=== PATIENT | male | born 1955 | race Caucasian/White ===

== ENCOUNTER 2017-12-18 21:19 | Emergency (ER) | payer SELFPAY ==
--- NOTE | 2017-12-18 21:52 | EDM.PDOC ---
ED HPI GENERAL MEDICAL PROBLEM - General Chief Complaint: Laceration Stated Complaint: LEFT POINTER FINGER Time Seen by Provider: 12/18/17 21:52 Source of Information: Reports: Patient History Limitations: Reports: No Limitations - History of Present Illness INITIAL COMMENTS - FREE TEXT/NARRATIVE: HISTORY AND PHYSICAL: History of present illness: 82-year-old male presenting emergency department with chief complaint of laceration to left index finger. States that he was cleaning his knives after sharpening them when he inadvertently cut his left index finger. States the knives were very clean and he has had his tetanus in the last 5 years. He also requests not to have a tetanus shot today. Patient requested if at all we could close the wound without using sutures with possible glue or Steri-Strips is what he would prefer. Patient currently denies any allergies. There is a 1.5 cm vertical laceration to the left index finger. Wound is clean and straight. Review of systems: As per history of present illness and below otherwise all systems reviewed and negative. Past medical history: As per history of present illness and as reviewed below otherwise noncontributory. Surgical history: As per history of present illness and as reviewed below otherwise noncontributory. Social history: No reported history of drug or alcohol abuse. Family history: As per history of present illness and as reviewed below otherwise noncontributory. Physical exam: HEENT: Atraumatic, normocephalic, pupils reactive, negative for conjunctival pallor or scleral icterus, mucous membranes moist, throat clear, neck supple, nontender, trachea midline. Lungs: Clear to auscultation, breath sounds equal bilaterally, chest nontender. Heart: S1S2, regular, negative for clicks, rubs, or JVD. Abdomen: Soft, nondistended, nontender. Negative for masses or hepatosplenomegaly. Negative for costovertebral tenderness. Pelvis: Stable nontender. Genitourinary: Deferred. Rectal: Deferred. Extremities: Atraumatic, negative for cords or calf pain. Neurovascular unremarkable. Neuro: Awake, alert, oriented. Cranial nerves II through XII unremarkable. Cerebellum unremarkable. Motor and sensory unremarkable throughout. Exam nonfocal. Diagnostics: [] Therapeutics: Dermabond Impression: Laceration left index finger Plan: Area was cleaned thoroughly and secondary patient's recent tetabys patient did not receive Dtao. Also the area looks clean and patient actually requests that we do not give him antibiotics and I agree as patient most likely does not require them. I did instruct him to return emergency department immediately if he had any signs of infection including but not limited to increased swelling, pain, redness, or periodic drainage. We used Dermabond to successfully close wound. There were no complications and area was wrapped for discharge. - Related Data Allergies Allergy/AdvReac Type Severity Reaction Status Date / Time No Known Allergies Allergy Verified 12/18/17 21:55 Home Meds: Home Meds . [No Known Home Meds] 12/18/17 [History] ED ROS GENERAL - Review of Systems Review Of Systems: ROS reveals no pertinent complaints other than HPI. ED EXAM, SKIN/RASH Exam: See Below Course - Vital Signs Last Recorded V/S: Last Vital Signs Temp 97.8 F 12/18/17 21:52 Pulse 86 12/18/17 21:52 Resp 20 12/18/17 21:52 BP 168/86 H 12/18/17 21:52 Pulse Ox 94 L 12/18/17 21:52 - Orders/Labs/Meds Orders: Active Orders 24 hr Category Date Time Status Octyl 2-Cyanoacrylate [Dermabond Advance] Med 12/18/17 22:44 Once 1 applic TOP ONETIME ONE Departure - Departure Time of Disposition: 22:50 Disposition: Home, Self-Care 01 Condition: Good Clinical Impression: Laceration of index finger of left hand without complication Qualifiers: Encounter type: initial encounter Qualified Code(s): S61.211A - Laceration without foreign body of left index finger without damage to nail, initial encounter - Discharge Information Referrals: PCP,None [Primary Care Provider] - Forms: ED Department Discharge Additional Instructions: My general discharge The following information is given to patients seen in the emergency department who are being discharged to home. This information is to outline your options for follow-up care. We provide all patients seen in our emergency department with a follow-up referral. The need for follow-up, as well as the timing and circumstances, are variable depending upon the specifics of your emergency department visit. If you don't have a primary care physician on staff, we will provide you with a referral. We always advise you to contact your personal physician following an emergency department visit to inform them of the circumstance of the visit and for follow-up with them and/or the need for any referrals to a consulting specialist. The emergency department will also refer you to a specialist when appropriate. This referral assures that you have the opportunity for follow-up care with a specialist. All of these measure are taken in an effort to provide you with optimal care, which includes your follow-up. Under all circumstances we always encourage you to contact your private physician who remains a resource for coordinating your care. When calling for follow-up care, please make the office aware that this follow-up is from your recent emergency room visit. If for any reason you are refused follow-up, please contact the [facility] Emergency Department at and asked to speak to the emergency department charge nurse. [facility] Primary Care [address] [place] [id number] 1. Keep area clean and dry. 2. Watch for signs of infection including but not limited to increased swelling , redness, pain, or discharge. 3. May use Tylenol and ice for pain relief. 4. Return emergency department if any new or worsening symptoms. - My Orders Last 24 Hours: My Active Orders 12/18/17 22:44 Octyl 2-Cyanoacrylate [Dermabond Advance] 1 applic TOP ONETIME ONE - Assessment/Plan Last 24 Hours: My Active Orders 12/18/17 22:44 Octyl 2-Cyanoacrylate [Dermabond Advance] 1 applic TOP ONETIME ONE
[2017-12-18] MEDS ORDERED: Octyl 2-Cyanoacrylate 1 Tube TOP ONE (22:44)
== END 2017-12-18 23:15 | disposition home or self-care (01) ==
LOC: MW.ED 21:19
DX: S61.211A Laceration without foreign body of left index finger without damage to nail, initial encounter (principal); W26.0XXA Contact with knife, initial encounter
CPT/HCPCS: 12001; 99282; A9270

== ENCOUNTER 2021-05-27 14:48 | Emergency (ER) | payer MEDICARE, MEDICAID ==
[2021-05-27] MEDS ORDERED: Sodium Chloride 0.9% 10 ML Syringe FLUSH PRN (15:22)
[2021-05-27] MEDS ORDERED: Sodium Chloride 0.9% 2.5 ML Syringe FLUSH PRN (15:22)
--- NOTE | 2021-05-27 15:27 | EDM.PDOC ---
ED HPI GENERAL MEDICAL PROBLEM - General Chief Complaint: Respiratory Problem Stated Complaint: COUGH Time Seen by Provider: 05/27/21 14:54 Source of Information: Reports: Patient History Limitations: Reports: No Limitations - History of Present Illness INITIAL COMMENTS - FREE TEXT/NARRATIVE: HISTORY AND PHYSICAL: History of present illness: The patient is an 66-year-old male who presents to the emergency department with a cough since May 19. The patient states that his friend returned from [facility] with a limited cannabis drop. The patient currently smokes cannabis because of a previous basal cell carcinoma. The patient states that after he took this cannabis drop that he started coughing and having diarrhea. Patient states that he has been unable to smoke cannabis since May 19. The patient has been taking Ivermectin for prevention of Covid. Patient also has been taking a shot of gin along with tonic water for prevention of viruses. The patient also has been taking vitamin C for prevention of Covid. Patient has not been vaccinated for COVID-19. The patient states that he has never had COVID- 19. Patient denies any fever, chills, headache, change in vision, syncope or near syncope. Denies any back pain. Denies any abdominal pain, nausea, vomiting, constipation or dysuria. Has not noted any blood in urine or stool. Patient has been eating and drinking appropriately. Review of systems: As per history of present illness and below otherwise all systems reviewed and negative. Past medical history: As per history of present illness and as reviewed below otherwise noncontributory. Surgical history: As per history of present illness and as reviewed below otherwise noncontributory. Social history: See social history for further information Family history: As per history of present illness and as reviewed below otherwise noncontributory. Physical exam: General: Well developed and well nourished. Alert and orientated x 3. Nontoxic in appearance and in no acute distress. Vital signs are stable and have been reviewed by me. Nursing notes were reviewed. HEENT: Atraumatic, normocephalic, pupils equal and reactive bilaterally, negative for conjunctival pallor or scleral icterus, mucous membranes moist, TMs normal bilaterally, throat clear, neck supple, nontender, trachea midline. No drooling or trismus noted. No meningeal signs. No hot potato voice noted. Lungs: Clear to auscultation bilaterally. No wheezes, rales, or rhonchi. Chest nontender. Normal work of breathing, no accessory muscles used. Heart: S1S2, regular rate and rhythm without overt murmur, gallops, or rubs. No JVD. No peripheral edema Abdomen: Soft, nondistended, nontender. Normoactive bowel sounds. Negative for masses or costovertebral tenderness. Skin: Intact, warm, dry. No lesions or rashes noted. Hematologic: No petechiae or purpra. Mucosa appropriate color and normal nail bed color and refill. Extremities: Atraumatic, moves all extremities per self without difficulty or deficits, negative for cords or calf pain. Neurovascular unremarkable. Neuro: Awake, alert, oriented. Cranial nerves II through XII unremarkable. Cerebellum unremarkable. Motor and sensory unremarkable throughout. Exam nonfocal. Psychiatric: Mood and affect are appropriate. Normal thought process. Answering questions appropriately. Notes: *This patient was seen and evaluated during the 2019 SARS-CoV-2 novel coronavirus pandemic period. Community viral transmission is ongoing at time of this encounter and the emergency department is operating under pandemic response procedures. As stated above the patient is a 66-year-old male who presents to the emergency department with complaints of cough and diarrhea since May 19. The patient is associating this with taking a cannabis women drop from his friend who had visited from [place]. The patient has been taking Ivermectin to prevent Covid along with vitamin C. He has been drinking gin and tonic water to prevent viruses. The patient is tachycardic at around 107 along with his cough and slight tachypneic I will order a PE study. I will also order blood work, Covid/flu swab and an EKG. The patient is agreeable with this plan. The patient's EKG reveals atrial fib with a rate of 100. In reviewing the patient's chart he wore a Zio patch from October [id number] through November 142019 and was found to be in atrial fibrillation. The patient states that he had been put on blood thinners and a rate controlled medication, however, he decided that he did not like take those medications. He states that he flips in and out of atrial fibrillation and did not feel like he needs the medication. The patient's CBC is unremarkable. The patient is CMP is remarkable for a BUN of 26, glucose of 130, AST 67 and a C-reactive protein of 3. The patient's influenza swab is negative. The patient's Covid 19 swab is positive. The patient's chest CT Impression: 1. No pulmonary emboli. 2. Diffuse patchy ground- glass opacities likely reflecting COVID. The patient O2 saturation is averaging 96 to 97% on room air. The patient's heart rate continues to fluctuate between 90 and 106. The patient does not qualify for monoclonal antibodies as this is day 14. The patient understands this and I have educated him on when he needs to return to the emergency department for further treatment. 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 The patient verbalized again that he did not want any treatment for his atrial fibrillation. I have talked with the patient about today's findings, in addition to providing specific details for plan of care. Reassessment at the time of disposition demonstrates that the patient is in no acute distress. The patient is stable for discharge, counseling was provided and we discussed in great detail signs and symptoms that would prompt them to return to the Emergency Department. M edication, follow up and supportive care measures were reviewed and discussed. Voices understanding and is agreeable to plan of care. Denies any further questions or concerns at this time. Diagnostics: CBC, CMP, magnesium, CRP, EKG, Covid/flu swab, PE study Therapeutics: IV fluids Impression: COVID-19, atrial fibrillation 1. Your COVID-19 screening is positive. That means you do have the coronavirus and you are considered contagious. Your vital signs and oxygen saturation are well enough that you were able to monitor your symptoms at home. Continue to monitor for trouble breathing, new confusion or inability to arouse, bluish lips or face or any of the other symptoms we discussed -if this occurs please return to the emergency room. 1b. Blood work was normal. Your flu swab was negative. But your COVID-19 screening was positive. As we discussed obtain a finger oxygenation saturation monitor and if it drops below 90% please return to the emergency department. You do not qualify for monoclonal antibodies as you are over 10 days with your symptoms. Your EKG showed atrial fib. We discussed this and you had previously been on a blood thinner but you did not want to be put back on a blood thinner. At this time you stated that you did not want treatment of your atrial fib that you had it under control. We did discuss that you could have a stroke due to atrial fibrillation. You verbalized her understanding of that. I do advise you to follow-up with your primary care or a petrol tanker driver for treatment of your atrial fibrillation. If you have any chest pain or shortness of breath please come back to the emergency department. 2. Please self quarantine until cleared by [facility]. Inform any persons that you have been in contact with since you started becoming symptomatic that you have tested positive; they should be made aware and take the appropriate steps as needed. 3. You can take NyQuil during the evening to help get a restful night sleep. May alternate Tylenol and ibuprofen as needed for pain and fever management. 4. [facility] will be calling you and following up with you. The [employer] Hotline phone number , They are open Friday - Friday 7am - 7pm. Follow up with your primary care provider for re-evaluation and re-testing after the 10 day quarantine and discuss when you should be seen. Definitive disposition and diagnosis as appropriate pending reevaluation and review of above. - Related Data Allergies Allergy/AdvReac Type Severity Reaction Status Date / Time No Known Allergies Allergy Verified 05/27/21 15:00 Home Meds: Home Meds Albuterol Sulfate [Proair Respiclick] 2 puff .ROUTE DAILY 05/27/21 [History] Ivermectin 45 gm TP WEEKLY 05/27/21 [History] Past Medical History HEENT History: Reports: None Cardiovascular History: Reports: None Respiratory History: Reports: None Gastrointestinal History: Reports: None Genitourinary History: Reports: None Musculoskeletal History: Reports: None Neurological History: Reports: None Psychiatric History: Reports: None Endocrine/Metabolic History: Reports: None Hematologic History: Reports: None Immunologic History: Reports: None Oncologic (Cancer) History: Reports: None Dermatologic History: Reports: Eczema Other Dermatologic History: skin cancer behing left ear - Infectious Disease History Infectious Disease History: Reports: None - Past Surgical History Head Surgeries/Procedures: Reports: None Male Surgical History: Reports: None Social & Family History - Family History Family Medical History: No Pertinent Family History - Tobacco Use Tobacco Use Status *Q: Never Tobacco User - Caffeine Use Caffeine Use: Reports: Coffee - Recreational Drug Use Recreational Drug Use: Yes Recreational Drug Type: Reports: Marijuana/Hashish Recreational Drug Use Frequency: Daily ED ROS GENERAL - Review of Systems Review Of Systems: Comprehensive ROS is negative, except as noted in HPI. ED EXAM, GENERAL - Physical Exam Exam: See Below (See dictation) Course - Vital Signs Last Recorded V/S: Last Vital Signs Temp 97.8 F 05/27/21 15:03 Pulse 93 05/27/21 17:35 Resp 17 05/27/21 17:35 BP 119/79 05/27/21 17:35 Pulse Ox 94 L 05/27/21 17:35 - Orders/Labs/Meds Orders: Active Orders 24 hr Category Date Time Status PE Chest [Ang Chest] [CT] Stat Exams 05/27/21 15:22 Taken Saline Lock Insert [OM.PC] Stat Oth 05/27/21 15:21 Ordered Labs: Laboratory Tests 05/27/21 05/27/21 05/27/21 Range/Units 15:42 15:42 15:42 WBC 5.76 (4.0-11.0) K/uL RBC 4.80 (4.50-5.90) M/uL Hgb 15.7 (13.0-17.0) g/dL Hct 44.8 (38.0-50.0) % MCV 93.3 (80.0-98.0) fL MCH 32.7 H (27.0-32.0) pg MCHC 35.0 (31.0-37.0) g/dL RDW Std Deviation 48.2 (28.0-62.0) fl RDW Coeff of Arnulfo 14 (11.0-15.0) % Plt Count 93 L (150-400) K/uL MPV 10.70 (7.40-12.00) fL Neut % (Auto) 78.8 (48.0-80.0) % Lymph % (Auto) 8.5 L (16.0-40.0) % [place] % (Auto) 12.5 (0.0-15.0) % Eos % (Auto) 0.0 (0.0-7.0) % Baso % (Auto) 0.2 (0.0-1.5) % Neut # (Auto) 4.5 (1.4-5.7) K/uL Lymph # (Auto) 0.5 L (0.6-2.4) K/uL [place] # (Auto) 0.7 (0.0-0.8) K/uL Eos # (Auto) 0.0 (0.0-0.7) K/uL Baso # (Auto) 0.0 (0.0-0.1) K/uL Nucleated RBC % 0.0 /100WBC Nucleated RBCs # 0 K/uL Sodium 139 (136-148) mmol/L Potassium 5.0 (3.5-5.1) mmol/L Chloride 102 (98-107) mmol/L Carbon Dioxide 26.2 (21.0-32.0) mmol/L BUN 26 H (7.0-18.0) mg/dL Creatinine 1.2 (0.8-1.3) mg/dL Est Cr Clr Drug Dosing 60.83 mL/min Estimated GFR (MDRD) > 60.0 ml/min Glucose 130 H (74-106) mg/dL Calcium 8.6 (8.5-10.1) mg/dL Magnesium 2.4 (1.8-2.4) mg/dL Total Bilirubin 0.6 (0.2-1.0) mg/dL AST 67 H (15-37) IU/L ALT 33 (14-63) IU/L Alkaline Phosphatase 53 (46-116) U/L C-Reactive Protein 3.00 H (0.00-0.90) mg/dL Total Protein 8.2 (6.4-8.2) g/dL Albumin 3.7 (3.4-5.0) g/dL Globulin 4.5 H (2.6-4.0) g/dL Albumin/Globulin Ratio 0.8 L (0.9-1.6) Influenza Type A RNA NEGATIVE (NEGATIVE) Influenza Type B RNA NEGATIVE (NEGATIVE) SARS-CoV-2 RNA (BELINDA) POSITIVE H (NEGATIVE) Meds: Medications Discontinued Medications Generic Name Dose Route Start Last Admin Trade Name Freq PRN Reason Stop Dose Admin Sodium Chloride 500 mls @ 500 mls/hr 05/27/21 16:02 05/27/21 16:15 Normal Saline IV 05/27/21 17:01 500 mls/hr .BOLUS STA Administration Iopamidol 100 ml 05/27/21 17:28 11/28/21 17:29 Iopamidol 755 Mg/Ml 500 Ml Multipack Bottle IVPUSH 05/27/21 17:29 100 ml ONETIME ONE Administration Sodium Chloride 10 ml 05/27/21 15:22 05/27/21 15:47 Sodium Chloride 0.9% 10 Ml Syringe FLUSH 10 ml ASDIRECTED PRN Administration Keep Vein Open Sodium Chloride 2.5 ml 05/27/21 15:22 05/27/21 15:47 Sodium Chloride 0.9% 2.5 Ml Syringe FLUSH 2.5 ml ASDIRECTED PRN Administration Keep Vein Open Departure - Departure Time of Disposition: 17:32 Disposition: Home, Self-Care 01 Condition: Good Clinical Impression: COVID-19 Atrial fibrillation Qualifiers: Atrial fibrillation type: unspecified Qualified Code(s): I48.91 - Unspecified atrial fibrillation - Discharge Information *PRESCRIPTION DRUG MONITORING PROGRAM REVIEWED*: Not Applicable *COPY OF PRESCRIPTION DRUG MONITORING REPORT IN PATIENT MUR[place]ZA: Not Applicable Instructions: COVID-19 Frequently Asked Questions, COVID-19: What to Do If You Are Sick- [facility] (09/13/2020) Referrals: PCP,None [Primary Care Provider] - Forms: ED Department Discharge Additional Instructions: The following information is given to patients seen in the emergency department who are being discharged to home. This information is to outline your options for follow-up care. We provide all patients seen in our emergency department with a follow-up referral. The need for follow-up, as well as the timing and circumstances, are variable depending upon the specifics of your emergency department visit. If you don't have a primary care physician on staff, we will provide you with a referral. We always advise you to contact your personal physician following an emergency department visit to inform them of the circumstance of the visit and for follow-up with them and/or the need for any referrals to a consulting specialist. The emergency department will also refer you to a specialist when appropriate. This referral assures that you have the opportunity for follow-up care with a specialist. All of these measure are taken in an effort to provide you with optimal care, which includes your follow-up. Under all circumstances we always encourage you to contact your private physician who remains a resource for coordinating your care. When calling for follow-up care, please make the office aware that this follow-up is from your recent emergency room visit. If for any reason you are refused follow-up, please contact the [facility] Emergency Department at and asked to speak to the emergency department charge nurse. [facility] - Primary Care [address] [place] [address] [facility] [address] [place] [address] 1. Your COVID-19 screening is positive. That means you do have the coronavirus and you are considered contagious. Your vital signs and oxygen saturation are well enough that you were able to monitor your symptoms at home. Continue to monitor for trouble breathing, new confusion or inability to arouse, bluish lips or face or any of the other symptoms we discussed -if this occurs please return to the emergency room. 1b. Blood work was normal. Your flu swab was negative. But your COVID-19 screening was positive. As we discussed obtain a finger oxygenation saturation monitor and if it drops below 90% please return to the emergency department. You do not qualify for monoclonal antibodies as you are over 10 days with your symptoms. Your EKG showed atrial fib. We discussed this and you had previously been on a blood thinner but you did not want to be put back on a blood thinner. At this time you stated that you did not want treatment of your atrial fib that you had it under control. We did discuss that you could have a stroke due to atrial fibrillation. You verbalized her understanding of that. I do advise you to follow-up with your primary care or a petrol tanker driver for treatment of your atrial fibrillation. If you have any chest pain or shortness of breath please come back to the emergency department. 2. Please self quarantine until cleared by [facility] Department. Inform any persons that you have been in contact with since you started becoming symptomatic that you have tested positive; they should be made aware and take the appropriate steps as needed. 3. You can take NyQuil during the evening to help get a restful night sleep. May alternate Tylenol and ibuprofen as needed for pain and fever management. 4. The [facility] department will be calling you and following up with you. The [place] COVID 19 Hotline phone number , They are open Friday - Friday 7am - 7pm. Follow up with your primary care provider for re-evaluation and re-testing after the 10 day quarantine and discuss when you should be seen. Sepsis Event Note (ED) - Evaluation Sepsis Screening Result: Possible Sepsis Risk - Focused Exam Vital Signs: Vital Signs Temp Pulse Resp BP Pulse Ox 05/27/21 17:35 93 17 119/79 94 L 05/27/21 17:03 91 17 126/82 91 L 05/27/21 16:17 89 17 139/85 92 L 05/27/21 15:03 97.8 F 107 H 22 H 109/76 92 L - My Orders Last 24 Hours: My Active Orders 05/27/21 15:21 Saline Lock Insert [OM.PC] Stat 05/27/21 15:22 PE Chest [Ang Chest] [CT] Stat - Assessment/Plan Last 24 Hours: My Active Orders 05/27/21 15:21 Saline Lock Insert [OM.PC] Stat 05/27/21 15:22 PE Chest [Ang Chest] [CT] Stat
[2021-05-27] MEDS ORDERED: Sodium Chloride 0.9% 500 ML IV STA (16:02)
[2021-05-27 16:12] LABS: BLOOD UREA NITROGEN,BUN 26 mg/dL (7.0-18.0); CARBON DIOXIDE,CO2 26.2 mmol/L (21.0-32.0); CHLORIDE,CL 102 mmol/L (98-107); GLUCOSE RANDOM 130 mg/dL (74-106); SODIUM,NA 139 mmol/L (136-148)
[2021-05-27 16:30] LABS: CORONAVIRUS COVID-19 NAA POSITIVE (NEGATIVE); INFLUENZA A NAA NEGATIVE (NEGATIVE); INFLUENZA B NAA NEGATIVE (NEGATIVE)
--- NOTE | 2021-05-27 17:02 | CR ---
INDICATION: Shortness of breath. TECHNIQUE: One view of the chest. COMPARISON: Chest radiograph 09/21/2019. FINDINGS: Mild enlargement of the cardiac silhouette. Normal mediastinal silhouette. Hazy bilateral opacities in the mid lungs. No consolidation, pleural effusion or pneumothorax. Degenerative changes at the right AC joint. IMPRESSION: Hazy bilateral pulmonary opacities are suspicious for infection. Dictated by Casi Nicole MD @ 05/27/2021 5:00:18 PM (Electronically Signed)
[2021-05-27] MEDS ORDERED: Iopamidol 755 MG/ML 500 ML Multipack Bottle IVPUSH ONE (17:28)
--- NOTE | 2021-05-27 18:05 | PCM.EKG ---
#1 Interpretation EKG Date: 05/27/21 Time: 15:32 Rhythm: NSR Rate (Beats/Min): 100 ST-T: Normal
--- NOTE | 2021-05-27 18:09 | CT ---
Indication: Shortness breath tachycardia Technique: Contrast CT angio with 100 mL Isovue 370 Comparison: No comparison Findings: Normal caliber thoracic aorta. No pulmonary emboli. Size is normal there is no pericardial effusion. Diffuse patchy ground-glass opacities most likely reflecting COVID. No effusion. Small hiatal hernia. No suspicious bony lesions. Impression: 1. No pulmonary emboli. 2. Diffuse patchy ground-glass opacities likely reflecting COVID. Please note that all CT scans at this facility use dose modulation, iterative reconstruction, and/or weight-based dosing when appropriate to reduce radiation dose to as low as reasonably achievable. Dictated by Kay Dozier MD @ 05/27/2021 5:56:52 PM (Electronically Signed)
== END 2021-05-27 17:44 | disposition home or self-care (01) ==
LOC: MW.ED 14:48
DX: U07.1 COVID-19 (principal); I48.91 Unspecified atrial fibrillation
CPT/HCPCS: 0240U; 36415; 71045; 71275; 80053; 83735; 85025; 86140; 93005; 99285; J7040; Q9967

== ENCOUNTER 2021-06-02 02:12 | Inpatient (IN) | payer MEDICARE, MEDICAID ==
[2021-06-02 03:12] LABS: BLOOD UREA NITROGEN,BUN 25 mg/dL (7.0-18.0); CARBON DIOXIDE,CO2 22.9 mmol/L (21.0-32.0); CHLORIDE,CL 98 mmol/L (98-107); GLUCOSE RANDOM 149 mg/dL (74-106); POTASSIUM,K 4.4 mmol/L (3.5-5.1); SODIUM,NA 133 mmol/L (136-148)
[2021-06-02] MEDS ORDERED: Iopamidol 755 MG/ML 500 ML Multipack Bottle IVPUSH ONE (03:16)
[2021-06-02 03:30] LABS: CORONAVIRUS COVID-19 NAA POSITIVE (NEGATIVE); INFLUENZA A NAA NEGATIVE (NEGATIVE); INFLUENZA B NAA NEGATIVE (NEGATIVE); RESPIRATORY SYNCYTIAL VIR NAA NEGATIVE (NEGATIVE)
--- NOTE | 2021-06-02 03:33 | PCM.EKG ---
#1 Interpretation EKG Date: 06/02/21 Time: 02:14 Rhythm: A-Fib Rate (Beats/Min): 97 Broughton: LAD-Left Broughton Deviation P-Wave: Absent QRS: Normal ST-T: Normal QT: Normal Comparison: No Change (05/27/21) EKG Interpretation Comments: Atrial Fibrillation
[2021-06-02] MEDS ORDERED: Lactated Ringers 1,000 ML IV SCH (04:45)
--- NOTE | 2021-06-02 05:22 | EDM.PDOC ---
ED HPI GENERAL MEDICAL PROBLEM - General Chief Complaint: Respiratory Problem Stated Complaint: DIFFICULTY BREATHING Time Seen by Provider: 06/02/21 02:16 - History of Present Illness INITIAL COMMENTS - FREE TEXT/NARRATIVE: CHIEF COMPLAINT(S): Shortness of breath HISTORY OF PRESENT ILLNESS: This is a 66-year-old man with a reported past medical history of atrial fibrillation who presents to the emergency department as a medical resuscitation via EMS with chief complaint of shortness of breath. Per EMS: Upon arrival the patient was saturating approximately 77% on room air. They state that they placed him on nonrebreather and his oxygen saturation did improve to 94%. Patient states that he was diagnosed with COVID-19 on 2021-05-27. He states that since that time he has had increased shortness of breath since that time. He states he does have a cough which is nonproductive. And he reported some chest pain earlier to EMS however that has since resolved. The patient denies any history of CAD, CHF, recent travel, recent surgery, prior history of DVT or PE. He states that the chest pain was located throughout his entire chest without any radiation however it is since resolved. Resolving factors are uncertain but he currently reports 0 out of 10 pain. There were no exacerbating factors. He has not yet tried anything for the pain. He states that for Covid he has been taking ivermectin which he got from [employer]. He states that he also was using marijuana for pain given his history of basal cell carcinoma. He denies any other symptoms. REVIEW OF SYSTEMS: Constitutional: Denies fever, chills. Eyes: Denies eye pain Ears, Nose, Mouth, & Throat: Denies earache Cardiovascular: Positive for chest pain. Denies lower extremity swelling Respiratory: Positive for shortness of breath and nonproductive cough Gastrointestinal: Denies Nausea, vomiting, diarrhea, hematochezia. Genitourinary: Denies hematuria Skin:Denies a rash Neurological: Denies blurred vision Psychiatric: Denies depression PAST MEDICAL HISTORY: As per history of present illness and as reviewed below otherwise noncontributory. SURGICAL HISTORY: As per history of present illness and as reviewed below otherwise noncontributory. SOCIAL HISTORY: As per history of present illness and as reviewed below otherwise noncontributory. FAMILY HISTORY: As per history of present illness and as reviewed below otherwise noncontributory. EXAMINATION OF ORGAN SYSTEMS/BODY AREAS: VITALS: Blood pressure is 138/92, heart rate 89, respiratory rate 19 with an oxygen saturation of 96% on 15 L nonrebreather. Temperature 36.7 GENERAL: Obese gentleman who appears to be in a moderate amount of respiratory distress HEAD: Normocephalic, atraumatic. EYES: EOMs intact. PERRL. ENT. External ears WNL. Nares patent. Oropharynx is clear with no erythema or exudate. No uvular or tongue swelling. NECK: Supple, no masses. Trachea is midline. LUNGS: Patient is tachypneic with clear auscultation bilaterally. No wheezing, rales, rhonchi. Patient is speaking in full sentences.. CARDIOVASCULAR: Regular rate and rhythm with S1-S2. No murmur, rubs or gallops. No edema. No JVD. ABDOMEN: Soft, non-distended, non-tender. Bowel sounds present in all 4 quadrants. No rebound tenderness, guarding, or peritoneal signs. MUSCULOSKELETAL: No deformity. Patient is moving all 4 limbs spontaneously. NEUROLOGICAL: Alert and oriented x 3. No focal neurological deficits noted. SKIN: No rashes, or pallor. No signs of injury. MEDICAL DECISION MAKING AND COURSE IN THE ED WITH INTERPRETATION/REVIEW OF DIAGNOSTIC STUDIES: This is a 66-year-old man with a past medical history of atrial fibrillation and recent diagnosis of COVID-19 who presents to the emergency department as a medical resuscitation via EMS with a chief complaint of shortness of breath who is profoundly hypoxic on EMS arrival who is saturating 96% on nonrebreather. Cardiac monitoring at this time did reveal sinus rhythm and pulse oximetry was 96% with good waveform. At this time we did obtain a screening EKG which was unremarkable. At this time we will undergo a cardiac work-up including CT angiogram of the chest to evaluate for pulmonary embolism. Patient is able to speak thus displaying a patent airway, breath sounds are equal bilaterally and the patient had pulses in all 4 extremities. DDX: Pneumonia, COVID-19 pneumonia, pulmonary embolism Laboratory: CBC is unremarkable. CMP reveals hyponatremia 133, mild elevation of BUN at 25, hyperglycemia at 149, mild elevation in AST at 97 and hypoalbuminemia at 2.8. Covid is positive. TSH is normal. Lactic acid is 4.4 likely secondary to the degree of hypoxia prior to arrival. The radiological images were viewed by myself along with reading the report from the radiologist. CT angiogram of the chest reveals scattered small pulmonary emboli bilaterally mostly involving the segmental and subsegmental branches. No evidence of saddle embolus with borderline elevated RV to LV ratio. There is extensive bilateral groundglass airspace disease presumably relating to COVID-19 pneumonia. After imaging I did reevaluate the patient. The patient is currently saturating 88% on 15 L nonrebreather. He is tachypneic at this time but is still speaking in full sentences. I did discuss the results with the patient. At this time we will provide the patient with remdesivir, dexamethasone and start the patient on a heparin drip given the bilateral pulmonary emboli. He was amenable to this plan. We also contacted respiratory therapy and they will come in place the patient on high flow nasal cannula. At this time I did discuss admission with the patient. He was amenable to this plan. I contacted hospitalist Dr. Hayes who accepted the patient for admission DISPOSITION: Admission CONDITION: Serious PROCEDURES: Cardiac monitoring interpretation, pulse oximetry interpretation FINAL IMPRESSION(S)/DIAGNOSES: 1. Acute hypoxic respiratory failure secondary to COVID-19 pneumonia and pu lmonary emboli 2. Acute bilateral pulmonary emboli 3. Acute lactic acidosis likely secondary to #1 and #2 Critical Care Procedure Note Authorized and performed by: Luis Cobb M.D. Critical Care Time: 125 minutes Due to a high probability of clinically significant, life threatening deterioration, the patient required my highest level of preparedness to intervene emergently and I personally spent this critical care time directly and personally managing the patient. This critical care time included obtaining a history, examining the patient, pulse oximetry; ordering and review of studies; arranging urgent treatment with development of a management plan; evaluation of a patients reponse to treatment; frequent assessment; and discussions with other providers. This critical care time was performed to assess and manage the high probability of imminent, life threatening deterioration that could result in multiorgan failure. It was exclusive of separate billable procedures and treati ng other patients. Please see MDM section and rest of the note for further information on patient assessment and treatment. Please see MDM section and rest of the note for further information on patient assessment and treatment. - Related Data Allergies Allergy/AdvReac Type Severity Reaction Status Date / Time No Known Allergies Allergy Verified 06/02/21 02:39 Home Meds: Home Meds Albuterol Sulfate [Proair Respiclick] 2 puff .ROUTE DAILY 05/27/21 [History] Ivermectin 45 gm TP WEEKLY 05/27/21 [History] Past Medical History HEENT History: Reports: None Cardiovascular History: Reports: None Respiratory History: Reports: None Gastrointestinal History: Reports: None Genitourinary History: Reports: None Musculoskeletal History: Reports: None Neurological History: Reports: None Psychiatric History: Reports: None Endocrine/Metabolic History: Reports: None Hematologic History: Reports: None Immunologic History: Reports: None Oncologic (Cancer) History: Reports: None Dermatologic History: Reports: Eczema Other Dermatologic History: skin cancer behing left ear - Infectious Disease History Infectious Disease History: Reports: None - Past Surgical History Head Surgeries/Procedures: Reports: None Male Surgical History: Reports: None Social & Family History - Family History Family Medical History: No Pertinent Family History - Tobacco Use Tobacco Use Status *Q: Former Tobacco User Used Tobacco, but Quit: Yes Month/Year Tobacco Last Used: 1985 - Caffeine Use Caffeine Use: Reports: Coffee - Recreational Drug Use Recreational Drug Type: Reports: Marijuana/Hashish ED ROS GENERAL - Review of Systems Review Of Systems: See Below ED EXAM, GENERAL - Physical Exam Exam: See Below Course - Vital Signs Last Recorded V/S: Last Vital Signs Temp 36.7 C 06/02/21 02:40 Pulse 93 06/02/21 05:00 Resp 16 06/02/21 05:00 BP 117/68 06/02/21 05:00 Pulse Ox 92 L 06/02/21 05:00 - Orders/Labs/Meds Orders: Active Orders 24 hr Category Date Time Status Cardiac Monitoring [RC] . DIRECTED Care 06/02/21 02:18 Active Pulse Oximetry [RC] ASDIRECTED Care 06/02/21 02:18 Active PTT,PARTIAL THROMBOPLSTIN TIME [COAG] Q6H Lab 06/02/21 05:45 Ordered PTT,PARTIAL THROMBOPLSTIN TIME [COAG] Q6H Lab 06/02/21 11:45 Ordered PTT,PARTIAL THROMBOPLSTIN TIME [COAG] Q6H Lab 06/02/21 17:45 Ordered PTT,PARTIAL THROMBOPLSTIN TIME [COAG] Q6H Lab 06/02/21 23:45 Ordered PTT,PARTIAL THROMBOPLSTIN TIME [COAG] Q6H Lab 06/03/21 05:45 Ordered PTT,PARTIAL THROMBOPLSTIN TIME [COAG] Q6H Lab 06/03/21 11:45 Ordered PTT,PARTIAL THROMBOPLSTIN TIME [COAG] Q6H Lab 06/03/21 17:45 Ordered PTT,PARTIAL THROMBOPLSTIN TIME [COAG] Stat Lab 06/02/21 02:32 Received REFLEX LACTIC ACID YES OR NO [CHEM] Routine Lab 06/02/21 03:13 Received Heparin Sodium/0.45% NaCl [Heparin 25,000 Units in 1/2 Med 06/02/21 05:45 Active NS 500 ML] 500 ml IV TITRATE Lactated Ringers [Ringers, Lactated] 1,000 ml Med 06/02/21 04:45 Active IV ASDIRECTED Medication Orders Lactated Ringer's (Ringers, Lactated) 1,000 mls @ 999 mls/hr IV ASDIRECTED TODD Last Admin: 06/02/21 04:43 Dose: 999 mls/hr Documented by: STRUALA Heparin Sodium/Sodium Chloride (Heparin 25,000 Units In 1/2 Ns 500 Ml) 500 mls @ 40.823 mls/hr IV TITRATE TODD; Protocol Labs: Laboratory Tests 06/02/21 06/02/21 06/02/21 Range/Units 02:32 02:32 02:32 WBC 9.05 (4.0-11.0) K/uL RBC 4.64 (4.50-5.90) M/uL Hgb 15.0 (13.0-17.0) g/dL Hct 42.2 (38.0-50.0) % MCV 90.9 (80.0-98.0) fL MCH 32.3 H (27.0-32.0) pg MCHC 35.5 (31.0-37.0) g/dL RDW Std Deviation 45.8 (28.0-62.0) fl RDW Coeff of Arnulfo 14 (11.0-15.0) % Plt Count 172 (150-400) K/uL MPV 9.70 (7.40-12.00) fL Add Manual Diff YES Neutrophils % (Manual) 90 H (48.0-80.0) % Lymphocytes % (Manual) 7 L (16.0-40.0) % Monocytes % (Manual) 3 (0.0-15.0) % Nucleated RBC % 0.0 /100WBC Absolute Seg Neuts 8.1 H (1.4-5.7) Lymphocytes # (Manual) 0.6 (0.6-2.4) Monocytes # (Manual) 0.3 (0.0-0.8) Nucleated RBCs # 0 K/uL INR 1.17 Sodium 133 L (136-148) mmol/L Potassium 4.4 (3.5-5.1) mmol/L Chloride 98 (98-107) mmol/L Carbon Dioxide 22.9 (21.0-32.0) mmol/L BUN 25 H (7.0-18.0) mg/dL Creatinine 1.1 (0.8-1.3) mg/dL Est Cr Clr Drug Dosing 68.45 mL/min Estimated GFR (MDRD) > 60.0 ml/min Glucose 149 H (74-106) mg/dL Lactic Acid (0.4-2.0) mmol/L Calcium 8.4 L (8.5-10.1) mg/dL Total Bilirubin 0.8 (0.2-1.0) mg/dL AST 97 H (15-37) IU/L ALT 56 (14-63) IU/L Alkaline Phosphatase 86 (46-116) U/L Troponin I < 0.050 (0.000-0.056) ng/mL Total Protein 7.3 (6.4-8.2) g/dL Albumin 2.8 L (3.4-5.0) g/dL Globulin 4.5 H (2.6-4.0) g/dL Albumin/Globulin Ratio 0.6 L (0.9-1.6) TSH, Ultra Sensitive 1.00 (0.36-3.74) uIU/mL Influenza Type A RNA (NEGATIVE) RSV RNA (INAAT) (NEGATIVE) Influenza Type B RNA (NEGATIVE) SARS-CoV-2 RNA (BELINDA) (NEGATIVE) 06/02/21 06/02/21 Range/Units 02:32 02:34 WBC (4.0-11.0) K/uL RBC (4.50-5.90) M/uL Hgb (13.0-17.0) g/dL Hct (38.0-50.0) % MCV (80.0-98.0) fL MCH (27.0-32.0) pg MCHC (31.0-37.0) g/dL RDW Std Deviation (28.0-62.0) fl RDW Coeff of Arnulfo (11.0-15.0) % Plt Count (150-400) K/uL MPV (7.40-12.00) fL Add Manual Diff Neutrophils % (Manual) (48.0-80.0) % Lymphocytes % (Manual) (16.0-40.0) % Monocytes % (Manual) (0.0-15.0) % Nucleated RBC % /100WBC Absolute Seg Neuts (1.4-5.7) Lymphocytes # (Manual) (0.6-2.4) Monocytes # (Manual) (0.0-0.8) Nucleated RBCs # K/uL INR Sodium (136-148) mmol/L Potassium (3.5-5.1) mmol/L Chloride (98-107) mmol/L Carbon Dioxide (21.0-32.0) mmol/L BUN (7.0-18.0) mg/dL Creatinine (0.8-1.3) mg/dL Est Cr Clr Drug Dosing mL/min Estimated GFR (MDRD) ml/min Glucose (74-106) mg/dL Lactic Acid 4.4 H* (0.4-2.0) mmol/L Calcium (8.5-10.1) mg/dL Total Bilirubin (0.2-1.0) mg/dL AST (15-37) IU/L ALT (14-63) IU/L Alkaline Phosphatase (46-116) U/L Troponin I (0.000-0.056) ng/mL Total Protein (6.4-8.2) g/dL Albumin (3.4-5.0) g/dL Globulin (2.6-4.0) g/dL Albumin/Globulin Ratio (0.9-1.6) TSH, Ultra Sensitive (0.36-3.74) uIU/mL Influenza Type A RNA NEGATIVE (NEGATIVE) RSV RNA (INAAT) NEGATIVE (NEGATIVE) Influenza Type B RNA NEGATIVE (NEGATIVE) SARS-CoV-2 RNA (BELINDA) POSITIVE H (NEGATIVE) Meds: Medications Generic Name Dose Route Start Last Admin Trade Name Jef PRN Reason Stop Dose Admin Lactated Ringer's 1,000 mls @ 999 mls/hr 06/02/21 04:45 06/02/21 04:43 Ringers, Lactated IV 999 mls/hr ASDIRECTED TODD Administration Heparin Sodium/Sodium Chloride 500 mls @ 40.823 mls/hr 06/02/21 05:45 Heparin 25,000 Units In 1/2 Ns 500 Ml IV TITRATE TODD Protocol 18 UNITS/KG/HR Discontinued Medications Generic Name Dose Route Start Last Admin Trade Name Jef PRN Reason Stop Dose Admin Dexamethasone 6 mg 06/02/21 05:26 06/02/21 05:33 Dexamethasone 4 Mg Tab PO 06/02/21 05:27 6 mg ONETIME ONE Administration Heparin Sodium (Porcine) 5,000 units 06/02/21 05:35 06/02/21 05:46 Heparin Sodium 5,000 Units/Ml Vial IVPUSH 06/02/21 05:36 5,000 units .BOLUS ONE Administration Protocol Remdesivir 200 mg/ Sodium 250 mls @ 250 mls/hr 06/02/21 05:25 Chloride IV 06/02/21 05:26 ONETIME ONE Heparin Sodium/Sodium Chloride Confirm 06/02/21 05:45 06/02/21 05:49 Heparin 25,000 Units In 1/2 Ns 500 Ml Administered 06/02/21 05:46 Not Given Dose 500 mls @ as directed .ROUTE .STK-MED ONE Iopamidol 100 ml 06/02/21 03:16 06/02/21 03:43 Iopamidol 755 Mg/Ml 500 Ml Multipack Bottle IVPUSH 06/02/21 03:17 100 ml ONETIME ONE Administration Departure - Departure Time of Disposition: 05:55 Disposition: Admitted As Inpatient 64 Condition: Serious Clinical Impression: COVID-19, Pulmonary embolism - Discharge Information Sepsis Event Note (ED) - Focused Exam Vital Signs: Vital Signs Temp Pulse Resp BP Pulse Ox 06/02/21 05:00 93 16 117/68 92 L 06/02/21 04:00 91 18 133/101 H 94 L 06/02/21 02:40 36.7 C 89 19 138/92 H 96 - My Orders Last 24 Hours: My Active Orders 06/02/21 02:18 Cardiac Monitoring [RC] . DIRECTED Pulse Oximetry [RC] ASDIRECTED 06/02/21 02:32 PTT,PARTIAL THROMBOPLSTIN TIME [COAG] Stat 06/02/21 03:13 REFLEX LACTIC ACID YES OR NO [CHEM] Routine 06/02/21 04:45 Lactated Ringers [Ringers, Lactated] 1,000 ml IV ASDIRECTED 06/02/21 05:45 PTT,PARTIAL THROMBOPLSTIN TIME [COAG] Q6H Heparin Sodium/0.45% NaCl [Heparin 25,000 Units in 1/2 NS 500 ML] 500 ml IV TITRATE 06/02/21 11:45 PTT,PARTIAL THROMBOPLSTIN TIME [COAG] Q6H 06/02/21 17:45 PTT,PARTIAL THROMBOPLSTIN TIME [COAG] Q6H 06/02/21 23:45 PTT,PARTIAL THROMBOPLSTIN TIME [COAG] Q6H 06/03/21 05:45 PTT,PARTIAL THROMBOPLSTIN TIME [COAG] Q6H 06/03/21 11:45 PTT,PARTIAL THROMBOPLSTIN TIME [COAG] Q6H 06/03/21 17:45 PTT,PARTIAL THROMBOPLSTIN TIME [COAG] Q6H - Assessment/Plan Last 24 Hours: My Active Orders 06/02/21 02:18 Cardiac Monitoring [RC] . DIRECTED Pulse Oximetry [RC] ASDIRECTED 06/02/21 02:32 PTT,PARTIAL THROMBOPLSTIN TIME [COAG] Stat 06/02/21 03:13 REFLEX LACTIC ACID YES OR NO [CHEM] Routine 06/02/21 04:45 Lactated Ringers [Ringers, Lactated] 1,000 ml IV ASDIRECTED 06/02/21 05:45 PTT,PARTIAL THROMBOPLSTIN TIME [COAG] Q6H Heparin Sodium/0.45% NaCl [Heparin 25,000 Units in 1/2 NS 500 ML] 500 ml IV TITRATE 06/02/21 11:45 PTT,PARTIAL THROMBOPLSTIN TIME [COAG] Q6H 06/02/21 17:45 PTT,PARTIAL THROMBOPLSTIN TIME [COAG] Q6H 06/02/21 23:45 PTT,PARTIAL THROMBOPLSTIN TIME [COAG] Q6H 06/03/21 05:45 PTT,PARTIAL THROMBOPLSTIN TIME [COAG] Q6H 06/03/21 11:45 PTT,PARTIAL THROMBOPLSTIN TIME [COAG] Q6H 06/03/21 17:45 PTT,PARTIAL THROMBOPLSTIN TIME [COAG] Q6H
[2021-06-02] MEDS ORDERED: REMDESIVIR 200 MG in Sodium Chloride 0.9% 250 ML IV ONE (05:25)
[2021-06-02] MEDS ORDERED: Dexamethasone 4 MG Tab PO ONE (05:26)
--- NOTE | 2021-06-02 05:34 | CT ---
INDICATION: Chest pain, shortness of breath, caught positive TECHNIQUE: Contrast enhanced axial CT imaging through the chest, optimized for assessment of the pulmonary arterial tree. 100 mL Isovue 370 contrast agent was administered intravenously. Sagittal and coronal reconstructions are provided. COMPARISON: None FINDINGS: There is adequate opacification of the pulmonary arterial tree. There are scattered small distal pulmonary emboli bilaterally, mostly involving segmental and subsegmental branches. The main pulmonary artery is mildly enlarged. RV: LV ratio is borderline elevated at 0.9. The heart is normal in size. There is no pericardial effusion. The thoracic aorta is normal in caliber. There is extensive bilateral ground-glass airspace disease. There is no pleural effusion or pneumothorax. Mediastinal lymphadenopathy is presumably reactive. The thoracic osseous structures are unremarkable. There is a small hiatal hernia. The visualized upper abdomen is otherwise unremarkable. IMPRESSION: 1. Scattered small pulmonary emboli bilaterally, mostly involving segmental and subsegmental branches. No saddle embolus. Borderline elevated RV: LV ratio. 2. Extensive bilateral ground-glass airspace disease, presumably relating to changes of COVID-19 pneumonia. Please note that all CT scans at this facility use dose modulation, iterative reconstruction, and/or weight-based dosing when appropriate to reduce radiation dose to as low as reasonably achievable. Dictated by Deyanira Abad MD @ 06/02/2021 5:32:54 AM (Electronically Signed)
[2021-06-02] MEDS ORDERED: Heparin Sodium 5,000 Units/ML Vial IVPUSH ONE ×2 (05:35→13:09)
[2021-06-02] MEDS ORDERED: Heparin Sodium/0.45% NaCl 500 ML ONE (05:45)
[2021-06-02] MEDS: Heparin Sodium/0.45% NaCl 500 ML IV SCH (05:54)
--- NOTE | 2021-06-02 09:08 | PCM.HP.2 ---
<Andry Yates - Last Filed: 06/02/21 14:06> H&P History of Present Illness - General Date of Service: 06/02/21 Admit Problem/Dx: Admission Diagnosis/Problem Admission Diagnosis/Problem Respiratory failure - History of Present Illness Initial Comments - Free Text/Narative: The patient is a 66-year-old male, on day 1 of service, who has a significant past medical history of atrial fibrillation which is rate controlled and untreated with medication, and skin cancer of the hands, who was admitted to the intensive care unit due to COVID-19 pneumonia and bilateral pulmonary emboli. Upon interview with the patient today he admits that on 05/27 he was diagnosed with COVID-19 pneumonia but did not require oxygen at the time and started ivermectin treatments. On 05/30 the patient started to develop shortness of breath and increased respiratory difficulty which was associated with a nonproductive cough. He also complains of occasional chest discomfort which started centrally but is felt at each side of the sternum. He denies any radiation of this chest pain, neck pain, diaphoresis, jaw pain, hemoptysis, and palpitations. In regards to the patient's social history, he denies smoking and alcohol consumption, but admits to daily cannabis use, 1 g smoked. His family history is noncontributory. He has no known drug allergies. Upon entry to the emergency department he was saturating 77% on room air. Currently he is on CPAP with an O2 flow rate of 10, FiO2 of 60, and saturating at 93%. On CBC, his white blood cell count is 9.05, hemoglobin is 15, hematocrit is 42.2 , and platelet count is 172. On CMP, his sodium is 133, potassium is 4.4, chloride is 98, carbon dioxide is 22.9, BUN is 25, creatinine is 1.1. His INR is 1.17, and his EKG showed atrial fibrillation with a regular rate. On CTA, he has small distal pulmonary emboli bilaterally in the segmental branc hes, his main pulmonary artery is enlarged, there is extensive bilateral ground glass opacities. In the emergency department he was given dexamethasone, heparin 5000 units, remdesivir per IV route 200 mg, and was started on a heparin drip at 25,000 units in half-normal saline. He also had the above tests done including a CBC, CMP, INR, EKG, and CTA. - Related Data Allergies/Adverse Reactions: Allergies Allergy/AdvReac Type Severity Reaction Status Date / Time No Known Allergies Allergy Verified 06/02/21 15:43 Home Medications: Home Meds Albuterol Sulfate [Proair Respiclick] 2 puff .ROUTE DAILY 05/27/21 [History] Ivermectin 45 gm TP WEEKLY 05/27/21 [History] Past Medical History HEENT History: Reports: None Cardiovascular History: Reports: None Respiratory History: Reports: None Gastrointestinal History: Reports: None Genitourinary History: Reports: None Musculoskeletal History: Reports: None Neurological History: Reports: None Psychiatric History: Reports: None Endocrine/Metabolic History: Reports: None Hematologic History: Reports: None Immunologic History: Reports: None Oncologic (Cancer) History: Reports: None Dermatologic History: Reports: Eczema Other Dermatologic History: skin cancer behing left ear - Infectious Disease History Infectious Disease History: Reports: None - Past Surgical History Head Surgeries/Procedures: Reports: None Male Surgical History: Reports: None Social & Family History - Family History Family Medical History: No Pertinent Family History - Tobacco Use Tobacco Use Status *Q: Former Tobacco User Used Tobacco, but Quit: Yes Month/Year Tobacco Last Used: 1985 - Caffeine Use Caffeine Use: Reports: Coffee - Recreational Drug Use Recreational Drug Type: Reports: Marijuana/Hashish H&P Review of Systems - Review of Systems: Review Of Systems: See Below General: Reports: Fatigue. Denies: Fever, Chills HEENT: Denies: Headaches, Sore Throat Pulmonary: Reports: Shortness of Breath, Wheezing, Cough Cardiovascular: Reports: Chest Pain. Denies: Palpitations Gastrointestinal: Denies: Abdominal Pain, Vomiting Genitourinary: Denies: Dysuria Musculoskeletal: Denies: Arm Pain Exam - Exam Exam: See Below - Vital Signs Vital Signs: Last Vital Signs Temp 97.7 F 06/02/21 08:00 Pulse 84 06/02/21 06:06 Resp 14 06/02/21 08:00 BP 117/68 06/02/21 08:00 Pulse Ox 97 06/02/21 08:00 Weight: 249 lb 1.957 oz - Exam General: Alert, Oriented, Cooperative HEENT: Other (Dry mucous membranes) Neck: Trachea Midline Lungs: Wheezing Cardiovascular: Regular Rate, Irregular Rhythm. No: Regular Rhythm GI/Abdominal Exam: Normal Bowel Sounds, Soft, Non-Tender Extremities: No Pedal Edema, Other (The patient has darkened spots on the extensor surfaces of both knees, and on both palmar and dorsal parts of hands) - Patient Data Lab Results Last 24 hrs: Laboratory Results - last 24 hr 06/02/21 06/02/21 06/02/21 Range/Units 02:32 02:32 02:32 WBC 9.05 (4.0-11.0) K/uL RBC 4.64 (4.50-5.90) M/uL Hgb 15.0 (13.0-17.0) g/dL Hct 42.2 (38.0-50.0) % MCV 90.9 (80.0-98.0) fL MCH 32.3 H (27.0-32.0) pg MCHC 35.5 (31.0-37.0) g/dL RDW Std Deviation 45.8 (28.0-62.0) fl RDW Coeff of Arnulfo 14 (11.0-15.0) % Plt Count 172 (150-400) K/uL MPV 9.70 (7.40-12.00) fL Add Manual Diff YES Neutrophils % (Manual) 90 H (48.0-80.0) % Lymphocytes % (Manual) 7 L (16.0-40.0) % Monocytes % (Manual) 3 (0.0-15.0) % Nucleated RBC % 0.0 /100WBC Absolute Seg Neuts 8.1 H (1.4-5.7) Lymphocytes # (Manual) 0.6 (0.6-2.4) Monocytes # (Manual) 0.3 (0.0-0.8) Nucleated RBCs # 0 K/uL INR 1.17 APTT (18.6-31.3) SEC Sodium 133 L (136-148) mmol/L Potassium 4.4 (3.5-5.1) mmol/L Chloride 98 (98-107) mmol/L Carbon Dioxide 22.9 (21.0-32.0) mmol/L BUN 25 H (7.0-18.0) mg/dL Creatinine 1.1 (0.8-1.3) mg/dL Est Cr Clr Drug Dosing 68.45 mL/min Estimated GFR (MDRD) > 60.0 ml/min Glucose 149 H (74-106) mg/dL Lactic Acid (0.4-2.0) mmol/L Calcium 8.4 L (8.5-10.1) mg/dL Total Bilirubin 0.8 (0.2-1.0) mg/dL AST 97 H (15-37) IU/L ALT 56 (14-63) IU/L Alkaline Phosphatase 86 (46-116) U/L Troponin I < 0.050 (0.000-0.056) ng/mL Total Protein 7.3 (6.4-8.2) g/dL Albumin 2.8 L (3.4-5.0) g/dL Globulin 4.5 H (2.6-4.0) g/dL Albumin/Globulin Ratio 0.6 L (0.9-1.6) TSH, Ultra Sensitive 1.00 (0.36-3.74) uIU/mL Urine Color Urine Appearance Urine pH (5.0-8.0) Ur Specific [place] (1.001-1.035) Urine Protein (NEGATIVE) mg/dL Urine Glucose (UA) (NEGATIVE) mg/dL Urine Ketones (NEGATIVE) mg/dL Urine Occult Blood (NEGATIVE) Urine Nitrite (NEGATIVE) Urine Bilirubin (NEGATIVE) Urine Urobilinogen (<2.0) EU/dL Ur Leukocyte Esterase (NEGATIVE) Urine RBC (0-2/HPF) Urine WBC (0-5/HPF) Ur Epithelial Cells (NONE-FEW) Urine Bacteria (NEGATIVE) Influenza Type A RNA (NEGATIVE) RSV RNA (INAAT) (NEGATIVE) Influenza Type B RNA (NEGATIVE) SARS-CoV-2 RNA (BELINDA) (NEGATIVE) 06/02/21 06/02/21 06/02/21 Range/Units 02:32 02:32 02:34 WBC (4.0-11.0) K/uL RBC (4.50-5.90) M/uL Hgb (13.0-17.0) g/dL Hct (38.0-50.0) % MCV (80.0-98.0) fL MCH (27.0-32.0) pg MCHC (31.0-37.0) g/dL RDW Std Deviation (28.0-62.0) fl RDW Coeff of Arnulfo (11.0-15.0) % Plt Count (150-400) K/uL MPV (7.40-12.00) fL Add Manual Diff Neutrophils % (Manual) (48.0-80.0) % Lymphocytes % (Manual) (16.0-40.0) % Monocytes % (Manual) (0.0-15.0) % Nucleated RBC % /100WBC Absolute Seg Neuts (1.4-5.7) Lymphocytes # (Manual) (0.6-2.4) Monocytes # (Manual) (0.0-0.8) Nucleated RBCs # K/uL INR APTT 29.4 (18.6-31.3) SEC Sodium (136-148) mmol/L Potassium (3.5-5.1) mmol/L Chloride (98-107) mmol/L Carbon Dioxide (21.0-32.0) mmol/L BUN (7.0-18.0) mg/dL Creatinine (0.8-1.3) mg/dL Est Cr Clr Drug Dosing mL/min Estimated GFR (MDRD) ml/min Glucose (74-106) mg/dL Lactic Acid 4.4 H* (0.4-2.0) mmol/L Calcium (8.5-10.1) mg/dL Total Bilirubin (0.2-1.0) mg/dL AST (15-37) IU/L ALT (14-63) IU/L Alkaline Phosphatase (46-116) U/L Troponin I (0.000-0.056) ng/mL Total Protein (6.4-8.2) g/dL Albumin (3.4-5.0) g/dL Globulin (2.6-4.0) g/dL Albumin/Globulin Ratio (0.9-1.6) TSH, Ultra Sensitive (0.36-3.74) uIU/mL Urine Color Urine Appearance Urine pH (5.0-8.0) Ur Specific [place] (1.001-1.035) Urine Protein (NEGATIVE) mg/dL Urine Glucose (UA) (NEGATIVE) mg/dL Urine Ketones (NEGATIVE) mg/dL Urine Occult Blood (NEGATIVE) Urine Nitrite (NEGATIVE) Urine Bilirubin (NEGATIVE) Urine Urobilinogen (<2.0) EU/dL Ur Leukocyte Esterase (NEGATIVE) Urine RBC (0-2/HPF) Urine WBC (0-5/HPF) Ur Epithelial Cells (NONE-FEW) Urine Bacteria (NEGATIVE) Influenza Type A RNA NEGATIVE (NEGATIVE) RSV RNA (INAAT) NEGATIVE (NEGATIVE) Influenza Type B RNA NEGATIVE (NEGATIVE) SARS-CoV-2 RNA (BELINDA) POSITIVE H (NEGATIVE) 06/02/21 Range/Units 07:40 WBC (4.0-11.0) K/uL RBC (4.50-5.90) M/uL Hgb (13.0-17.0) g/dL Hct (38.0-50.0) % MCV (80.0-98.0) fL MCH (27.0-32.0) pg MCHC (31.0-37.0) g/dL RDW Std Deviation (28.0-62.0) fl RDW Coeff of Arnulfo (11.0-15.0) % Plt Count (150-400) K/uL MPV (7.40-12.00) fL Add Manual Diff Neutrophils % (Manual) (48.0-80.0) % Lymphocytes % (Manual) (16.0-40.0) % Monocytes % (Manual) (0.0-15.0) % Nucleated RBC % /100WBC Absolute Seg Neuts (1.4-5.7) Lymphocytes # (Manual) (0.6-2.4) Monocytes # (Manual) (0.0-0.8) Nucleated RBCs # K/uL INR APTT (18.6-31.3) SEC Sodium (136-148) mmol/L Potassium (3.5-5.1) mmol/L Chloride (98-107) mmol/L Carbon Dioxide (21.0-32.0) mmol/L BUN (7.0-18.0) mg/dL Creatinine (0.8-1.3) mg/dL Est Cr Clr Drug Dosing mL/min Estimated GFR (MDRD) ml/min Glucose (74-106) mg/dL Lactic Acid (0.4-2.0) mmol/L Calcium (8.5-10.1) mg/dL Total Bilirubin (0.2-1.0) mg/dL AST (15-37) IU/L ALT (14-63) IU/L Alkaline Phosphatase (46-116) U/L Troponin I (0.000-0.056) ng/mL Total Protein (6.4-8.2) g/dL Albumin (3.4-5.0) g/dL Globulin (2.6-4.0) g/dL Albumin/Globulin Ratio (0.9-1.6) TSH, Ultra Sensitive (0.36-3.74) uIU/mL Urine Color YELLOW Urine Appearance CLEAR Urine pH 6.0 (5.0-8.0) Ur Specific [place] 1.020 (1.001-1.035) Urine Protein 100 H (NEGATIVE) mg/dL Urine Glucose (UA) NEGATIVE (NEGATIVE) mg/dL Urine Ketones NEGATIVE (NEGATIVE) mg/dL Urine Occult Blood SMALL H (NEGATIVE) Urine Nitrite NEGATIVE (NEGATIVE) Urine Bilirubin NEGATIVE (NEGATIVE) Urine Urobilinogen 0.2 (<2.0) EU/dL Ur Leukocyte Esterase NEGATIVE (NEGATIVE) Urine RBC 0-2 (0-2/HPF) Urine WBC 0-2 (0-5/HPF) Ur Epithelial Cells RARE (NONE-FEW) Urine Bacteria RARE (NEGATIVE) Influenza Type A RNA (NEGATIVE) RSV RNA (INAAT) (NEGATIVE) Influenza Type B RNA (NEGATIVE) SARS-CoV-2 RNA (BELINDA) (NEGATIVE) Result Diagrams: 06/02/21 02:32 06/02/21 02:32 Sepsis Event Note - Evaluation Sepsis Screening Result: Severe Sepsis Risk - Focused Exam Vital Signs: Vital Signs Temp Pulse Resp BP Pulse Ox 06/02/21 08:00 97.7 F 14 117/68 97 06/02/21 07:00 17 119/70 91 L 06/02/21 06:06 84 21 H 149/97 H 92 L 06/02/21 05:15 88 L 06/02/21 05:00 93 16 117/68 92 L 06/02/21 04:00 91 18 133/101 H 94 L 06/02/21 02:40 98.0 F 89 19 138/92 H 96 - Problem List (1) COVID-19 SNOMED Code(s): 907145715 ICD Code: U07.1 - COVID-19 Status: Acute Current Visit: Yes (2) Pulmonary embolism SNOMED Code(s): 60830266 ICD Code: I26.99 - OTHER PULMONARY EMBOLISM WITHOUT ACUTE COR PULMONALE Status: Acute Current Visit: Yes (3) Atrial fibrillation SNOMED Code(s): 45160389 ICD Code: I48.91 - UNSPECIFIED ATRIAL FIBRILLATION Status: Acute Current Visit: No Qualifiers: Atrial fibrillation type: unspecified Qualified Code(s): I48.91 - Unspecified atrial fibrillation Problem List Initiated/Reviewed/Updated: Yes Orders Last 24hrs: Active Orders 24 hr Category Date Time Status Admission Status [Patient Status] [ADT] Stat ADT 06/02/21 05:39 Active Cardiac Monitoring [RC] . DIRECTED Care 06/02/21 02:18 Active Supplemental O2 [Oxygen Therapy] [RC] ASDIRECTED Care 06/02/21 07:17 Active LACTIC ACID [CHEM] Routine Lab 06/02/21 08:05 Received PTT,PARTIAL THROMBOPLSTIN TIME [COAG] Q6H Lab 06/02/21 11:45 Ordered PTT,PARTIAL THROMBOPLSTIN TIME [COAG] Q6H Lab 06/02/21 17:45 Ordered PTT,PARTIAL THROMBOPLSTIN TIME [COAG] Q6H Lab 06/02/21 23:45 Ordered PTT,PARTIAL THROMBOPLSTIN TIME [COAG] Q6H Lab 06/03/21 05:45 Ordered PTT,PARTIAL THROMBOPLSTIN TIME [COAG] Q6H Lab 06/03/21 11:45 Ordered PTT,PARTIAL THROMBOPLSTIN TIME [COAG] Q6H Lab 06/03/21 17:45 Ordered Heparin Sodium/0.45% NaCl [Heparin 25,000 Units in 1/2 Med 06/02/21 05:45 Active NS 500 ML] 500 ml IV TITRATE Lactated Ringers [Ringers, Lactated] 1,000 ml Med 06/02/21 04:45 Active IV ASDIRECTED Medication Orders Lactated Ringer's (Ringers, Lactated) 1,000 mls @ 999 mls/hr IV ASDIRECTED TODD Last Admin: 06/02/21 04:43 Dose: 999 mls/hr Documented by: SAÚL Heparin Sodium/Sodium Chloride (Heparin 25,000 Units In 1/2 Ns 500 Ml) 500 mls @ 40.823 mls/hr IV TITRATE TODD; Protocol Last Admin: 06/02/21 05:54 Dose: 11.5 units/kg/hr, 26.082 mls/hr Documented by: SAÚL Cosigned by: MANSRUF Assessment/Plan Comment:: Admit the patient to the intensive care unit, vitals per unit routine, activity up ad ramón., heart healthy diet, GI prophylaxis with pantoprazole 40 mg once a day, DVT prophylaxis with sequential compression devices, the patient is full code 1. COVID-19 pneumonia -The patient was started on remdesivir 200 mg per IV route in the ED, we will carry forth with the same medication 100 mg per IV route 24 hours after this, 4 bags to be given collectively over 4 days -Start dexamethasone 6 mg per oral route daily -For shortness of breath give Combivent -For cough initiate Robitussin -Wean oxygen as appropriate, patient is currently on CPAP, O2 flow rate of 10, FiO2 of 60, currently saturating at 93% -We will encourage incentive spirometry in the prone position 2. Bilateral pulmonary emboli -The patient is currently on a heparin drip of 25,000 units in half-normal saline 3. Atrial fibrillation rate controlled -We have a monitoring manager in place and will treat the patient as events occur <Anish Hayes - Last Filed: 06/03/21 13:20> H&P History of Present Illness - General Admit Problem/Dx: Admission Diagnosis/Problem Admission Diagnosis/Problem Respiratory failure Exam - Vital Signs Vital Signs: Last Vital Signs Temp 96.8 F L 06/03/21 12:00 Pulse 84 06/02/21 06:06 Resp 34 H 06/03/21 12:00 BP 112/73 06/03/21 12:00 Pulse Ox 87 L 06/03/21 12:00 - Patient Data Lab Results Last 24 hrs: Laboratory Results - last 24 hr 06/02/21 06/02/21 06/03/21 Range/Units 17:48 23:45 06:38 WBC (4.0-11.0) K/uL RBC (4.50-5.90) M/uL Hgb (13.0-17.0) g/dL Hct (38.0-50.0) % MCV (80.0-98.0) fL MCH (27.0-32.0) pg MCHC (31.0-37.0) g/dL RDW Std Deviation (28.0-62.0) fl RDW Coeff of Arnulfo (11.0-15.0) % Plt Count (150-400) K/uL MPV (7.40-12.00) fL Neut % (Auto) (48.0-80.0) % Lymph % (Auto) (16.0-40.0) % [place] % (Auto) (0.0-15.0) % Eos % (Auto) (0.0-7.0) % Baso % (Auto) (0.0-1.5) % Neut # (Auto) (1.4-5.7) K/uL Lymph # (Auto) (0.6-2.4) K/uL [place] # (Auto) (0.0-0.8) K/uL Eos # (Auto) (0.0-0.7) K/uL Baso # (Auto) (0.0-0.1) K/uL Nucleated RBC % /100WBC Nucleated RBCs # K/uL APTT 64.2 H 63.6 H 66.2 H (18.6-31.3) SEC Sodium (136-148) mmol/L Potassium (3.5-5.1) mmol/L Chloride (98-107) mmol/L Carbon Dioxide (21.0-32.0) mmol/L BUN (7.0-18.0) mg/dL Creatinine (0.8-1.3) mg/dL Est Cr Clr Drug Dosing mL/min Estimated GFR (MDRD) ml/min Glucose (74-106) mg/dL Calcium (8.5-10.1) mg/dL Total Bilirubin (0.2-1.0) mg/dL AST (15-37) IU/L ALT (14-63) IU/L Alkaline Phosphatase (46-116) U/L Total Protein (6.4-8.2) g/dL Albumin (3.4-5.0) g/dL Globulin (2.6-4.0) g/dL Albumin/Globulin Ratio (0.9-1.6) 06/03/21 06/03/21 Range/Units 06:38 06:38 WBC 11.05 H (4.0-11.0) K/uL RBC 4.41 L (4.50-5.90) M/uL Hgb 14.0 (13.0-17.0) g/dL Hct 40.4 (38.0-50.0) % MCV 91.6 (80.0-98.0) fL MCH 31.7 (27.0-32.0) pg MCHC 34.7 (31.0-37.0) g/dL RDW Std Deviation 46.2 (28.0-62.0) fl RDW Coeff of Arnulfo 14 (11.0-15.0) % Plt Count 213 (150-400) K/uL MPV 10.70 (7.40-12.00) fL Neut % (Auto) 91.5 H (48.0-80.0) % Lymph % (Auto) 6.1 L (16.0-40.0) % [place] % (Auto) 2.3 (0.0-15.0) % Eos % (Auto) 0.0 (0.0-7.0) % Baso % (Auto) 0.1 (0.0-1.5) % Neut # (Auto) 10.1 H (1.4-5.7) K/uL Lymph # (Auto) 0.7 (0.6-2.4) K/uL [place] # (Auto) 0.3 (0.0-0.8) K/uL Eos # (Auto) 0.0 (0.0-0.7) K/uL Baso # (Auto) 0.0 (0.0-0.1) K/uL Nucleated RBC % 0.0 /100WBC Nucleated RBCs # 0 K/uL APTT (18.6-31.3) SEC Sodium 137 (136-148) mmol/L Potassium 4.4 (3.5-5.1) mmol/L Chloride 103 (98-107) mmol/L Carbon Dioxide 24.4 (21.0-32.0) mmol/L BUN 28 H (7.0-18.0) mg/dL Creatinine 0.9 (0.8-1.3) mg/dL Est Cr Clr Drug Dosing 83.67 mL/min Estimated GFR (MDRD) > 60.0 ml/min Glucose 91 (74-106) mg/dL Calcium 8.3 L (8.5-10.1) mg/dL Total Bilirubin 0.8 (0.2-1.0) mg/dL AST 85 H (15-37) IU/L ALT 48 (14-63) IU/L Alkaline Phosphatase 110 (46-116) U/L Total Protein 7.2 (6.4-8.2) g/dL Albumin 2.5 L (3.4-5.0) g/dL Globulin 4.7 H (2.6-4.0) g/dL Albumin/Globulin Ratio 0.5 L (0.9-1.6) Result Diagrams: 06/03/21 06:38 06/03/21 06:38 Sepsis Event Note - Focused Exam Vital Signs: Vital Signs Temp Resp BP Pulse Ox 06/03/21 12:00 96.8 F L 34 H 112/73 87 L 06/03/21 11:00 30 H 113/71 90 L 06/03/21 10:00 31 H 145/67 H 90 L 06/03/21 09:00 25 H 140/76 85 L 06/03/21 08:00 97.7 F 27 H 137/89 94 L 06/03/21 07:00 19 111/74 90 L 06/03/21 06:00 19 115/78 92 L 06/03/21 05:00 27 H 124/77 90 L 06/03/21 04:00 97.8 F 19 112/79 88 L 06/03/21 03:00 19 111/81 92 L 06/03/21 02:00 16 115/75 90 L Problem List Initiated/Reviewed/Updated: Yes Orders Last 24hrs: Active Orders 24 hr Category Date Time Status CBC WITH AUTO DIFF [HEME] AM Lab 06/04/21 05:11 Ordered CBC WITH AUTO DIFF [HEME] AM Lab 06/05/21 05:11 Ordered CMP [COMPREHENSIVE METABOLIC PN,CMP] [CHEM] AM Lab 06/04/21 05:11 Ordered CMP [COMPREHENSIVE METABOLIC PN,CMP] [CHEM] AM Lab 06/05/21 05:11 Ordered PTT,PARTIAL THROMBOPLSTIN TIME [COAG] Routine Lab 06/04/21 05:00 Ordered Baricitinib [Olumiant] Med 06/02/21 15:30 Active 4 mg PO DAILY LORazepam [Ativan] Med 06/02/21 23:39 Active 1 mg IVPUSH Q6H PRN Morphine Med 06/02/21 22:10 Active 2 mg IVPUSH Q4H PRN Remdesivir 100 mg Med 06/03/21 06:00 Active Sodium Chloride 0.9% [Normal Saline AdvBag] 100 ml IV Q24H dexAMETHasone Med 06/03/21 06:00 Active 6 mg PO Q24H dexmedeTOMIDine in 0.9 % NaCL [Precedex] 400 mcg Med 06/02/21 22:15 Active Premix Bag 1 bag IV TITRATE Medication Orders Albuterol/Ipratropium (Albuterol/Ipratropium 4 Gm Inhalation [place]) 1 gm INH Q4HRRT PRN PRN Reason: Dyspnea Last Admin: 06/03/21 09:02 Dose: 1 puff Documented by: PEDRO PABLO Admin: 06/02/21 13:00 Dose: 1 puff Documented by: PEDRO PABLO Baricitinib (Baricitinib 2 Mg Tab) 4 mg PO DAILY [facility] Last Admin: 06/03/21 08:39 Dose: 4 mg Documented by: PEDRO PABLO Admin: 06/02/21 15:42 Dose: 4 mg Documented by: PEDRO PABLO Dexamethasone (Dexamethasone 4 Mg Tab) 6 mg PO Q24H TODD Last Admin: 06/03/21 06:17 Dose: 6 mg Documented by: NATA Guaifenesin (Guaifenesin 100 Mg/5 Ml Soln 5 Ml Ud Cup) 100 mg PO Q6H PRN PRN Reason: Cough Last Admin: 06/03/21 08:39 Dose: 100 mg Documented by: PEDRO PABLO Admin: 06/03/21 00:13 Dose: 100 mg Documented by: Admin: 06/02/21 10:24 Dose: 100 mg Documented by: PEDRO PABLO Lactated Ringer's (Ringers, Lactated) 1,000 mls @ 999 mls/hr IV ASDIRECTED [facility] Last Admin: 06/02/21 04:43 Dose: 999 mls/hr Documented by: SAÚL Heparin Sodium/Sodium Chloride (Heparin 25,000 Units In 1/2 Ns 500 Ml) 500 mls @ 26.082 mls/hr IV TITRATE TODD; Protocol Last Admin: 06/03/21 00:10 Dose: 13.5 units/kg/hr, 30.617 mls/hr Documented by: NATA Cosigned by: RASHEEDA Titration: 06/02/21 23:23 Dose: 13.5 units/kg/hr, 30.617 mls/hr Documented by: APOLEVA Cosigned by: RASHEEDA Titration: 06/02/21 13:40 Dose: 13.5 units/kg/hr, 30.617 mls/hr Documented by: PEDRO PABLO Cosigned by: TRAY Admin: 06/02/21 05:54 Dose: 11.5 units/kg/hr, 26.082 mls/hr Documented by: SAÚL Cosigned by: DASH Remdesivir 100 mg/ Sodium (Chloride) 100 mls @ 100 mls/hr IV Q24H TODD Stop: 06/06/21 06:59 Last Admin: 06/03/21 06:21 Dose: 100 mls/hr Documented by: NATA Dexmedetomidine/Sodium (Chloride 400 mcg/ Premix) 100 mls @ 5.572 mls/hr IV TITRATE TODD; Protocol Lorazepam (Lorazepam 2 Mg/Ml Sdv) 1 mg IVPUSH Q6H PRN PRN Reason: Anxiety Last Admin: 06/03/21 00:13 Dose: 1 mg Documented by: NATA Morphine Sulfate (Morphine 2 Mg/Ml Syringe) 2 mg IVPUSH Q4H PRN PRN Reason: Shortness of Breath Pantoprazole Sodium (Pantoprazole 40 Mg Tab.Cr) 40 mg PO DAILY TODD Last Admin: 06/03/21 08:39 Dose: 40 mg Documented by: PEDRO PABLO Admin: 06/02/21 10:24 Dose: 40 mg Documented by: PEDRO PABLO Assessment/Plan Comment:: I agree with the above assessment and plan. Will check a CRP and likely start pt on Baricitinib.
[2021-06-02] MEDS: guaiFENesin 100 MG/5 ML Soln 5 ML UD Cup PO PRN (10:24)
[2021-06-02] MEDS: Pantoprazole 40 MG Tab.CR PO SCH (10:24)
[2021-06-02] MEDS: Albuterol/Ipratropium 4 GM Inhalation Spray INH PRN (13:00)
--- NOTE | 2021-06-02 14:38 | PN ---
THC Physician - Brief Progress [id number]/04/2021 14:35[facility] Dolores Mcqueen, [place] - LUISN (SANJIV) - MWN ICUSOFY ELENA, BENNIE +Date of Service 06/02/2021 14: 35HPI/Events of Note eICU Admission [id number] admitted for respiratory failure attributed to COVID and bilateral pulmonary emboli. History obtained from review of EMR.Camera exam: Laying in bed. Vitals mo nitor reviewed. eICU Recommendations:Isolation precautions per local policyDexamethasone 6mg daily fo r 10 days, remdesivir for 5 daysContinue CPAPGiven elevated CRP, reasonable to consider administratio n of anti-IL6 therapyAwake proning as toleratedContinue heparin drip for PE. Given CT findings, not u nreasonable to obtain cardiac biomarkers (troponin, BNP) and TTE for evaluation of right heart strain if facility has capability for catheter directed thrombolysis (usually done by IR or cardiology) and performs this therapy on COVID patientseICU will continue to follow and assist as desired.DVT and GI prophylaxis as appropriate.Thank you for allowing us to participate in the care of this patient.The above note transcribed with the assistance of dictation software. Please excuse any errors.Interventi ons Major-Respiratory failure - evaluation and management
[2021-06-02] MEDS ORDERED: Morphine 2 MG/ML SYRINGE IVPUSH PRN (22:10)
--- NOTE | 2021-06-02 22:27 | PN ---
[facility] Physician - Brief Progress [id number]/04/2021 22:18[facility] Dolores kearney, [place] - [facility] (SANJIV) - [facility] ICUHALLKETAN SOFY VillatoroPayton, COVID +Date of Service 06/02/2021 22: 18HPI/Events of Note eICU on-callReceived a call to address anxiety and distress secondary to COVID-1 9 pneumonia and acute hypoxemic respiratory failure, patient is currently on CPAP, RR 35 to 40/minPla n:-Morphine 2 mg IV every 4 hours as needed for anxiety and distress-Precedex drip titrate for RASS - 1 to 0 noncompliance with CPAPInterventions Major-Delirium, psychosis, severe agitation - evaluation and management
[2021-06-03] MEDS: Heparin Sodium/0.45% NaCl 500 ML IV SCH ×2 (00:10→16:47)
[2021-06-03] MEDS: LORazepam 2 MG/ML SDV IVPUSH PRN (00:13)
[2021-06-03] MEDS: guaiFENesin 100 MG/5 ML Soln 5 ML UD Cup PO PRN ×2 (00:13→08:39)
[2021-06-03] MEDS: Dexamethasone 4 MG Tab PO SCH (06:17)
[2021-06-03] MEDS: REMDESIVIR 100 MG in Sodium Chloride 0.9% 100 ML IV SCH (06:21)
[2021-06-03 08:36] LABS: BLOOD UREA NITROGEN,BUN 28 mg/dL (7.0-18.0); CARBON DIOXIDE,CO2 24.4 mmol/L (21.0-32.0); CHLORIDE,CL 103 mmol/L (98-107); GLUCOSE RANDOM 91 mg/dL (74-106); POTASSIUM,K 4.4 mmol/L (3.5-5.1); SODIUM,NA 137 mmol/L (136-148)
[2021-06-03] MEDS: Pantoprazole 40 MG Tab.CR PO SCH (08:39)
[2021-06-03] MEDS: Albuterol/Ipratropium 4 GM Inhalation Spray INH PRN (09:02)
--- NOTE | 2021-06-03 13:36 | PCM.PN ---
- General Info Date of Service: 06/03/21 Admission Dx/Problem (Free Text): Pt is on CPAP [id number] 60% FIO2. He is able to speak when interviewed. He is still very dyspneic. - Patient Data Vitals - Most Recent: Last Vital Signs Temp 96.8 F L 06/03/21 12:00 Pulse 84 06/02/21 06:06 Resp 34 H 06/03/21 12:00 BP 112/73 06/03/21 12:00 Pulse Ox 87 L 06/03/21 12:00 Weight - Most Recent: 245 lb 11.2 oz I&O - Last 24 Hours: Intake & Output 06/02/21 06/03/21 06/03/21 22:59 06:59 14:59 Intake Total 650 Output Total 200 150 Balance -200 500 Lab Results Last 24 Hours: Laboratory Results - last 24 hr 06/02/21 06/02/21 06/03/21 Range/Units 17:48 23:45 06:38 WBC (4.0-11.0) K/uL RBC (4.50-5.90) M/uL Hgb (13.0-17.0) g/dL Hct (38.0-50.0) % MCV (80.0-98.0) fL MCH (27.0-32.0) pg MCHC (31.0-37.0) g/dL RDW Std Deviation (28.0-62.0) fl RDW Coeff of [place] (11.0-15.0) % Plt Count (150-400) K/uL MPV (7.40-12.00) fL Neut % (Auto) (48.0-80.0) % Lymph % (Auto) (16.0-40.0) % [place] % (Auto) (0.0-15.0) % Eos % (Auto) (0.0-7.0) % Baso % (Auto) (0.0-1.5) % Neut # (Auto) (1.4-5.7) K/uL Lymph # (Auto) (0.6-2.4) K/uL [place] # (Auto) (0.0-0.8) K/uL Eos # (Auto) (0.0-0.7) K/uL Baso # (Auto) (0.0-0.1) K/uL Nucleated RBC % /100WBC Nucleated RBCs # K/uL APTT 64.2 H 63.6 H 66.2 H (18.6-31.3) SEC Sodium (136-148) mmol/L Potassium (3.5-5.1) mmol/L Chloride (98-107) mmol/L Carbon Dioxide (21.0-32.0) mmol/L BUN (7.0-18.0) mg/dL Creatinine (0.8-1.3) mg/dL Est Cr Clr Drug Dosing mL/min Estimated GFR (MDRD) ml/min Glucose (74-106) mg/dL Calcium (8.5-10.1) mg/dL Total Bilirubin (0.2-1.0) mg/dL AST (15-37) IU/L ALT (14-63) IU/L Alkaline Phosphatase (46-116) U/L Total Protein (6.4-8.2) g/dL Albumin (3.4-5.0) g/dL Globulin (2.6-4.0) g/dL Albumin/Globulin Ratio (0.9-1.6) 06/03/21 06/03/21 Range/Units 06:38 06:38 WBC 11.05 H (4.0-11.0) K/uL RBC 4.41 L (4.50-5.90) M/uL Hgb 14.0 (13.0-17.0) g/dL Hct 40.4 (38.0-50.0) % MCV 91.6 (80.0-98.0) fL MCH 31.7 (27.0-32.0) pg MCHC 34.7 (31.0-37.0) g/dL RDW Std Deviation 46.2 (28.0-62.0) fl RDW Coeff of [place] 14 (11.0-15.0) % Plt Count 213 (150-400) K/uL MPV 10.70 (7.40-12.00) fL Neut % (Auto) 91.5 H (48.0-80.0) % Lymph % (Auto) 6.1 L (16.0-40.0) % [place] % (Auto) 2.3 (0.0-15.0) % Eos % (Auto) 0.0 (0.0-7.0) % Baso % (Auto) 0.1 (0.0-1.5) % Neut # (Auto) 10.1 H (1.4-5.7) K/uL Lymph # (Auto) 0.7 (0.6-2.4) K/uL [place] # (Auto) 0.3 (0.0-0.8) K/uL Eos # (Auto) 0.0 (0.0-0.7) K/uL Baso # (Auto) 0.0 (0.0-0.1) K/uL Nucleated RBC % 0.0 /100WBC Nucleated RBCs # 0 K/uL APTT (18.6-31.3) SEC Sodium 137 (136-148) mmol/L Potassium 4.4 (3.5-5.1) mmol/L Chloride 103 (98-107) mmol/L Carbon Dioxide 24.4 (21.0-32.0) mmol/L BUN 28 H (7.0-18.0) mg/dL Creatinine 0.9 (0.8-1.3) mg/dL Est Cr Clr Drug Dosing 83.67 mL/min Estimated GFR (MDRD) > 60.0 ml/min Glucose 91 (74-106) mg/dL Calcium 8.3 L (8.5-10.1) mg/dL Total Bilirubin 0.8 (0.2-1.0) mg/dL AST 85 H (15-37) IU/L ALT 48 (14-63) IU/L Alkaline Phosphatase 110 (46-116) U/L Total Protein 7.2 (6.4-8.2) g/dL Albumin 2.5 L (3.4-5.0) g/dL Globulin 4.7 H (2.6-4.0) g/dL Albumin/Globulin Ratio 0.5 L (0.9-1.6) Med Orders - Current: Current Medications Albuterol/Ipratropium (Albuterol/Ipratropium 3.0-0.5 Mg/3 Ml Neb Soln) 3 ml NEB Q2H PRN PRN Reason: Dyspnea Baricitinib (Baricitinib 2 Mg Tab) 4 mg PO DAILY TODD Last Admin: 06/03/21 08:39 Dose: 4 mg Documented by: Dexamethasone (Dexamethasone 4 Mg Tab) 6 mg PO Q24H TODD Last Admin: 06/03/21 06:17 Dose: 6 mg Documented by: Guaifenesin (Guaifenesin 100 Mg/5 Ml Soln 5 Ml Ud Cup) 100 mg PO Q6H PRN PRN Reason: Cough Last Admin: 06/03/21 08:39 Dose: 100 mg Documented by: Lactated Ringer's (Ringers, Lactated) 1,000 mls @ 999 mls/hr IV ASDIRECTED TODD Last Admin: 06/02/21 04:43 Dose: 999 mls/hr Documented by: Heparin Sodium/Sodium Chloride (Heparin 25,000 Units In 1/2 Ns 500 Ml) 500 mls @ 26.082 mls/hr IV TITRATE TODD; Protocol Last Admin: 06/03/21 00:10 Dose: 13.5 units/kg/hr, 30.617 mls/hr Documented by: Remdesivir 100 mg/ Sodium (Chloride) 100 mls @ 100 mls/hr IV Q24H TODD Stop: 06/06/21 06:59 Last Admin: 06/03/21 06:21 Dose: 100 mls/hr Documented by: Dexmedetomidine/Sodium (Chloride 400 mcg/ Premix) 100 mls @ 5.572 mls/hr IV TITRATE TODD; Protocol Lorazepam (Lorazepam 2 Mg/Ml Sdv) 1 mg IVPUSH Q6H PRN PRN Reason: Anxiety Last Admin: 06/03/21 00:13 Dose: 1 mg Documented by: Morphine Sulfate (Morphine 2 Mg/Ml Syringe) 2 mg IVPUSH Q4H PRN PRN Reason: Shortness of Breath Pantoprazole Sodium (Pantoprazole 40 Mg Tab.Cr) 40 mg PO DAILY TODD Last Admin: 06/03/21 08:39 Dose: 40 mg Documented by: Discontinued Medications Albuterol/Ipratropium (Albuterol/Ipratropium 4 Gm Inhalation [place]) 1 gm INH Q4HRRT PRN PRN Reason: Dyspnea Last Admin: 06/03/21 09:02 Dose: 1 puff Documented by: Baricitinib (Baricitinib 2 Mg Tab) 4 mg PO DAILY TODD Stop: 06/17/21 13:31 Dexamethasone (Dexamethasone 4 Mg Tab) 6 mg PO ONETIME ONE Stop: 06/02/21 05:27 Last Admin: 06/02/21 05:33 Dose: 6 mg Documented by: Heparin Sodium (Porcine) (Heparin Sodium 5,000 Units/Ml Vial) 5,000 units IVPUSH .BOLUS ONE; Protocol Stop: 06/02/21 05:36 Last Admin: 06/02/21 05:46 Dose: 5,000 units Documented by: Heparin Sodium (Porcine) (Heparin Sodium 5,000 Units/Ml Vial) 1,500 units IVPUSH .BOLUS ONE Stop: 06/02/21 13:10 Last Admin: 06/02/21 13:40 Dose: 1,500 units Documented by: Remdesivir 200 mg/ Sodium (Chloride) 250 mls @ 250 mls/hr IV ONETIME ONE Stop: 06/02/21 05:26 Last Admin: 06/02/21 05:55 Dose: 250 mls/hr Documented by: Heparin Sodium/Sodium Chloride (Heparin 25,000 Units In 1/2 Ns 500 Ml) Confirm Administered Dose 500 mls @ as directed .ROUTE .STK-MED ONE Stop: 06/02/21 05:46 Last Admin: 06/02/21 05:49 Dose: Not Given Documented by: Iopamidol (Iopamidol 755 Mg/Ml 500 Ml Multipack Bottle) 100 ml IVPUSH ONETIME ONE Stop: 06/02/21 03:17 Last Admin: 06/02/21 03:43 Dose: 100 ml Documented by: - Exam Physical Findings Comments:: General: Elderly Obese male. In some degree of respiratory distress. Wearing a CPAP mask Alert, Oriented, Cooperative HEENT: Other (Dry mucous membranes) Neck: Trachea Midline Lungs: Diminished breath sounds bilaterally. Some ronchi in the bases. Cardiovascular: Regular Rate, Irregular Rhythm. No: Regular Rhythm GI/Abdominal Exam: Normal Bowel Sounds, Soft, Non-Tender Extremities: no clubbing, cyanosis or edema. - Patient Data Lab Results Last 24 hrs: Laboratory Results - last 24 hr 06/02/21 06/02/21 06/03/21 Range/Units 17:48 23:45 06:38 WBC (4.0-11.0) K/uL RBC (4.50-5.90) M/uL Hgb (13.0-17.0) g/dL Hct (38.0-50.0) % MCV (80.0-98.0) fL MCH (27.0-32.0) pg MCHC (31.0-37.0) g/dL RDW Std Deviation (28.0-62.0) fl RDW Coeff of Arnulfo (11.0-15.0) % Plt Count (150-400) K/uL MPV (7.40-12.00) fL Neut % (Auto) (48.0-80.0) % Lymph % (Auto) (16.0-40.0) % [place] % (Auto) (0.0-15.0) % Eos % (Auto) (0.0-7.0) % Baso % (Auto) (0.0-1.5) % Neut # (Auto) (1.4-5.7) K/uL Lymph # (Auto) (0.6-2.4) K/uL [place] # (Auto) (0.0-0.8) K/uL Eos # (Auto) (0.0-0.7) K/uL Baso # (Auto) (0.0-0.1) K/uL Nucleated RBC % /100WBC Nucleated RBCs # K/uL APTT 64.2 H 63.6 H 66.2 H (18.6-31.3) SEC Sodium (136-148) mmol/L Potassium (3.5-5.1) mmol/L Chloride (98-107) mmol/L Carbon Dioxide (21.0-32.0) mmol/L BUN (7.0-18.0) mg/dL Creatinine (0.8-1.3) mg/dL Est Cr Clr Drug Dosing mL/min Estimated GFR (MDRD) ml/min Glucose (74-106) mg/dL Calcium (8.5-10.1) mg/dL Total Bilirubin (0.2-1.0) mg/dL AST (15-37) IU/L ALT (14-63) IU/L Alkaline Phosphatase (46-116) U/L Total Protein (6.4-8.2) g/dL Albumin (3.4-5.0) g/dL Globulin (2.6-4.0) g/dL Albumin/Globulin Ratio (0.9-1.6) 06/03/21 06/03/21 Range/Units 06:38 06:38 WBC 11.05 H (4.0-11.0) K/uL RBC 4.41 L (4.50-5.90) M/uL Hgb 14.0 (13.0-17.0) g/dL Hct 40.4 (38.0-50.0) % MCV 91.6 (80.0-98.0) fL MCH 31.7 (27.0-32.0) pg MCHC 34.7 (31.0-37.0) g/dL RDW Std Deviation 46.2 (28.0-62.0) fl RDW Coeff of Arnulfo 14 (11.0-15.0) % Plt Count 213 (150-400) K/uL MPV 10.70 (7.40-12.00) fL Neut % (Auto) 91.5 H (48.0-80.0) % Lymph % (Auto) 6.1 L (16.0-40.0) % [place] % (Auto) 2.3 (0.0-15.0) % Eos % (Auto) 0.0 (0.0-7.0) % Baso % (Auto) 0.1 (0.0-1.5) % Neut # (Auto) 10.1 H (1.4-5.7) K/uL Lymph # (Auto) 0.7 (0.6-2.4) K/uL [place] # (Auto) 0.3 (0.0-0.8) K/uL Eos # (Auto) 0.0 (0.0-0.7) K/uL Baso # (Auto) 0.0 (0.0-0.1) K/uL Nucleated RBC % 0.0 /100WBC Nucleated RBCs # 0 K/uL APTT (18.6-31.3) SEC Sodium 137 (136-148) mmol/L Potassium 4.4 (3.5-5.1) mmol/L Chloride 103 (98-107) mmol/L Carbon Dioxide 24.4 (21.0-32.0) mmol/L BUN 28 H (7.0-18.0) mg/dL Creatinine 0.9 (0.8-1.3) mg/dL Est Cr Clr Drug Dosing 83.67 mL/min Estimated GFR (MDRD) > 60.0 ml/min Glucose 91 (74-106) mg/dL Calcium 8.3 L (8.5-10.1) mg/dL Total Bilirubin 0.8 (0.2-1.0) mg/dL AST 85 H (15-37) IU/L ALT 48 (14-63) IU/L Alkaline Phosphatase 110 (46-116) U/L Total Protein 7.2 (6.4-8.2) g/dL Albumin 2.5 L (3.4-5.0) g/dL Globulin 4.7 H (2.6-4.0) g/dL Albumin/Globulin Ratio 0.5 L (0.9-1.6) Result Diagrams: 06/03/21 06:38 06/03/21 06:38 Sepsis Event Note - Evaluation Sepsis Screening Result: Possible Sepsis Risk - Focused Exam Vital Signs: Vital Signs Temp Resp BP Pulse Ox 06/03/21 12:00 96.8 F L 34 H 112/73 87 L 06/03/21 11:00 30 H 113/71 90 L 06/03/21 10:00 31 H 145/67 H 90 L 06/03/21 09:00 25 H 140/76 85 L 06/03/21 08:00 97.7 F 27 H 137/89 94 L 06/03/21 07:00 19 111/74 90 L 06/03/21 06:00 19 115/78 92 L 06/03/21 05:00 27 H 124/77 90 L 06/03/21 04:00 97.8 F 19 112/79 88 L 06/03/21 03:00 19 111/81 92 L 06/03/21 02:00 16 115/75 90 L - Problem List & Annotations (1) Acute hypoxemic respiratory failure due to COVID-19 SNOMED Code(s): 669437600 Code(s): U07.1 - COVID-19; J96.01 - ACUTE RESPIRATORY FAILURE WITH HYPOXIA Status: Acute Current Visit: Yes (2) T2DM (type 2 diabetes mellitus) SNOMED Code(s): 04983817 Code(s): E11.9 - TYPE 2 DIABETES MELLITUS WITHOUT COMPLICATIONS Status: Acute Current Visit: Yes (3) Obesity (BMI 30.0-34.9) SNOMED Code(s): 591278617378281 Code(s): E66.9 - OBESITY, UNSPECIFIED Status: Acute Current Visit: Yes (4) COVID-19 SNOMED Code(s): 185648548 Code(s): U07.1 - COVID-19 Status: Acute Current Visit: Yes (5) Pulmonary embolism SNOMED Code(s): 89679314 Code(s): I26.99 - OTHER PULMONARY EMBOLISM WITHOUT ACUTE COR PULMONALE Status: Acute Current Visit: Yes - Problem List Review Problem List Initiated/Reviewed/Updated: Yes - My Orders Last 24 Hours: My Active Orders 06/02/21 23:39 LORazepam [Ativan] 1 mg IVPUSH Q6H PRN 06/03/21 13:21 Albuterol/Ipratropium [DuoNeb 3.0-0.5 MG/3 ML] 3 ml NEB Q2H PRN 06/03/21 13:22 CRP [C-REACTIVE PROTEIN] [CHEM] Stat 06/04/21 05:00 PTT,PARTIAL THROMBOPLSTIN TIME [COAG] Routine - Assessment Assessment:: Acute hypoxemic respiratory failure continue with HFNC alternating with CPAP prognosis remains guarded. COVID 19 pneumonia Dexamethasone, Remdesivir and baricitinib anticoagulation Bilateral pulmonary emboli On heparin gtt. will switch to a DOAC today. Atrial fibrillation rate controlled continue home meds T2DM Obesity DNI Pt declines intubation if we needed to do that.
[2021-06-04] MEDS: Dexamethasone 4 MG Tab PO SCH (06:24)
[2021-06-04] MEDS: REMDESIVIR 100 MG in Sodium Chloride 0.9% 100 ML IV SCH (06:25)
[2021-06-04 06:31] LABS: BLOOD UREA NITROGEN,BUN 37 mg/dL (7.0-18.0); CARBON DIOXIDE,CO2 24.9 mmol/L (21.0-32.0); CHLORIDE,CL 104 mmol/L (98-107); GLUCOSE RANDOM 105 mg/dL (74-106); POTASSIUM,K 4.7 mmol/L (3.5-5.1); SODIUM,NA 137 mmol/L (136-148)
[2021-06-04] MEDS: Pantoprazole 40 MG Tab.CR PO SCH (08:09)
[2021-06-04] MEDS: Heparin Sodium/0.45% NaCl 500 ML IV SCH (12:11)
--- NOTE | 2021-06-04 13:53 | PCM.PN ---
- General Info Date of Service: 06/04/21 Subjective Update: The patient is a 66-year-old male, on day 2 of service, who has a significant past medical history of atrial fibrillation which is rate controlled and untreated with medication, and skin cancer of the hands, who was admitted to the intensive care unit due to COVID-19 pneumonia and bilateral pulmonary emboli. Upon interview with the patient today he admits that his shortness of breath has slightly improved but that he still becomes dyspneic upon ex ertion/ambulation around his room. He still has a cough which is productive of white/clear sputum devoid of any blood or discolored mucus. He denies any fever, chills, nausea, vomiting, dizziness. He was sitting up in the chair upon interview and feels this helps his body relax and breathe easier. He is currently on CPAP, O2 flow rate of 10, FiO2 of 65, and saturating over 90%. He is eating his meals to completion and has a healthy appetite. He is using the restroom and has no issues with urination and/or defecation. He has no other health concerns at this time. - Review of Systems General: Reports: Fatigue. Denies: Fever, Weakness, Chills HEENT: Denies: Headaches, Sore Throat Pulmonary: Reports: Shortness of Breath, Cough Cardiovascular: Denies: Chest Pain, Palpitations Gastrointestinal: Denies: Abdominal Pain, Nausea, Vomiting Genitourinary: Denies: Dysuria - Patient Data Vitals - Most Recent: Last Vital Signs Temp 97.2 F 06/04/21 12:00 Pulse 84 06/02/21 06:06 Resp 26 H 06/04/21 13:00 BP 108/70 06/04/21 13:00 Pulse Ox 95 06/04/21 13:00 Weight - Most Recent: 245 lb 11.2 oz I&O - Last 24 Hours: Intake & Output 06/03/21 06/04/21 06/04/21 22:59 06:59 14:59 Intake Total 440 1095 Output Total 430 800 Balance 10 295 Lab Results Last 24 Hours: Laboratory Results - last 24 hr 06/03/21 06/04/21 06/04/21 Range/Units 06:38 05:32 05:32 WBC 11.07 H (4.0-11.0) K/uL RBC 4.40 L (4.50-5.90) M/uL Hgb 14.2 (13.0-17.0) g/dL Hct 40.1 (38.0-50.0) % MCV 91.1 (80.0-98.0) fL MCH 32.3 H (27.0-32.0) pg MCHC 35.4 (31.0-37.0) g/dL RDW Std Deviation 44.7 (28.0-62.0) fl RDW Coeff of [place] 14 (11.0-15.0) % Plt Count 235 (150-400) K/uL MPV 9.70 (7.40-12.00) fL Neut % (Auto) 92.0 H (48.0-80.0) % Lymph % (Auto) 5.0 L (16.0-40.0) % [place] % (Auto) 3.0 (0.0-15.0) % Eos % (Auto) 0.0 (0.0-7.0) % Baso % (Auto) 0.0 (0.0-1.5) % Neut # (Auto) 10.2 H (1.4-5.7) K/uL Lymph # (Auto) 0.6 (0.6-2.4) K/uL [place] # (Auto) 0.3 (0.0-0.8) K/uL Eos # (Auto) 0.0 (0.0-0.7) K/uL Baso # (Auto) 0.0 (0.0-0.1) K/uL Nucleated RBC % 0.5 /100WBC Nucleated RBCs # 0 K/uL APTT (18.6-31.3) SEC Sodium 137 (136-148) mmol/L Potassium 4.7 (3.5-5.1) mmol/L Chloride 104 (98-107) mmol/L Carbon Dioxide 24.9 (21.0-32.0) mmol/L BUN 37 H (7.0-18.0) mg/dL Creatinine 1.0 (0.8-1.3) mg/dL Est Cr Clr Drug Dosing 75.30 mL/min Estimated GFR (MDRD) > 60.0 ml/min Glucose 105 (74-106) mg/dL Calcium 8.2 L (8.5-10.1) mg/dL Total Bilirubin 0.7 (0.2-1.0) mg/dL AST 65 H (15-37) IU/L ALT 46 (14-63) IU/L Alkaline Phosphatase 113 (46-116) U/L C-Reactive Protein 13.70 H (0.00-0.90) mg/dL Total Protein 6.9 (6.4-8.2) g/dL Albumin 2.4 L (3.4-5.0) g/dL Globulin 4.5 H (2.6-4.0) g/dL Albumin/Globulin Ratio 0.5 L (0.9-1.6) 06/04/21 Range/Units 05:32 WBC (4.0-11.0) K/uL RBC (4.50-5.90) M/uL Hgb (13.0-17.0) g/dL Hct (38.0-50.0) % MCV (80.0-98.0) fL MCH (27.0-32.0) pg MCHC (31.0-37.0) g/dL RDW Std Deviation (28.0-62.0) fl RDW Coeff of [place] (11.0-15.0) % Plt Count (150-400) K/uL MPV (7.40-12.00) fL Neut % (Auto) (48.0-80.0) % Lymph % (Auto) (16.0-40.0) % [place] % (Auto) (0.0-15.0) % Eos % (Auto) (0.0-7.0) % Baso % (Auto) (0.0-1.5) % Neut # (Auto) (1.4-5.7) K/uL Lymph # (Auto) (0.6-2.4) K/uL [place] # (Auto) (0.0-0.8) K/uL Eos # (Auto) (0.0-0.7) K/uL Baso # (Auto) (0.0-0.1) K/uL Nucleated RBC % /100WBC Nucleated RBCs # K/uL APTT 92.3 H (18.6-31.3) SEC Sodium (136-148) mmol/L Potassium (3.5-5.1) mmol/L Chloride (98-107) mmol/L Carbon Dioxide (21.0-32.0) mmol/L BUN (7.0-18.0) mg/dL Creatinine (0.8-1.3) mg/dL Est Cr Clr Drug Dosing mL/min Estimated GFR (MDRD) ml/min Glucose (74-106) mg/dL Calcium (8.5-10.1) mg/dL Total Bilirubin (0.2-1.0) mg/dL AST (15-37) IU/L ALT (14-63) IU/L Alkaline Phosphatase (46-116) U/L C-Reactive Protein (0.00-0.90) mg/dL Total Protein (6.4-8.2) g/dL Albumin (3.4-5.0) g/dL Globulin (2.6-4.0) g/dL Albumin/Globulin Ratio (0.9-1.6) Med Orders - Current: Current Medications Albuterol/Ipratropium (Albuterol/Ipratropium 3.0-0.5 Mg/3 Ml Neb Soln) 3 ml NEB Q2H PRN PRN Reason: Dyspnea Baricitinib (Baricitinib 2 Mg Tab) 4 mg PO DAILY TODD Last Admin: 06/04/21 08:10 Dose: 4 mg Documented by: Dexamethasone (Dexamethasone 4 Mg Tab) 6 mg PO Q24H OTDD Last Admin: 06/04/21 06:24 Dose: 6 mg Documented by: Guaifenesin (Guaifenesin 100 Mg/5 Ml Soln 5 Ml Ud Cup) 100 mg PO Q6H PRN PRN Reason: Cough Last Admin: 06/03/21 08:39 Dose: 100 mg Documented by: Lactated Ringer's (Ringers, Lactated) 1,000 mls @ 999 mls/hr IV ASDIRECTED TODD Last Admin: 06/02/21 04:43 Dose: 999 mls/hr Documented by: Heparin Sodium/Sodium Chloride (Heparin 25,000 Units In 1/2 Ns 500 Ml) 500 mls @ 26.082 mls/hr IV TITRATE TODD; Protocol Last Admin: 06/04/21 12:11 Dose: 10.5 units/kg/hr, 23.814 mls/hr Documented by: Remdesivir 100 mg/ Sodium (Chloride) 100 mls @ 100 mls/hr IV Q24H TODD Stop: 06/06/21 06:59 Last Admin: 06/04/21 06:25 Dose: 100 mls/hr Documented by: Dexmedetomidine/Sodium (Chloride 400 mcg/ Premix) 100 mls @ 5.572 mls/hr IV TITRATE TODD; Protocol Lorazepam (Lorazepam 2 Mg/Ml Sdv) 1 mg IVPUSH Q6H PRN PRN Reason: Anxiety Last Admin: 06/03/21 00:13 Dose: 1 mg Documented by: Morphine Sulfate (Morphine 2 Mg/Ml Syringe) 2 mg IVPUSH Q4H PRN PRN Reason: Shortness of Breath Pantoprazole Sodium (Pantoprazole 40 Mg Tab.Cr) 40 mg PO DAILY TODD Last Admin: 06/04/21 08:09 Dose: 40 mg Documented by: Discontinued Medications Albuterol/Ipratropium (Albuterol/Ipratropium 4 Gm Inhalation [place]) 1 gm INH Q4HRRT PRN PRN Reason: Dyspnea Last Admin: 06/03/21 09:02 Dose: 1 puff Documented by: Baricitinib (Baricitinib 2 Mg Tab) 4 mg PO DAILY TODD Stop: 06/17/21 13:31 Dexamethasone (Dexamethasone 4 Mg Tab) 6 mg PO ONETIME ONE Stop: 06/02/21 05:27 Last Admin: 06/02/21 05:33 Dose: 6 mg Documented by: Heparin Sodium (Porcine) (Heparin Sodium 5,000 Units/Ml Vial) 5,000 units IVPUSH .BOLUS ONE; Protocol Stop: 06/02/21 05:36 Last Admin: 06/02/21 05:46 Dose: 5,000 units Documented by: Heparin Sodium (Porcine) (Heparin Sodium 5,000 Units/Ml Vial) 1,500 units IVPUSH .BOLUS ONE Stop: 06/02/21 13:10 Last Admin: 06/02/21 13:40 Dose: 1,500 units Documented by: Remdesivir 200 mg/ Sodium (Chloride) 250 mls @ 250 mls/hr IV ONETIME ONE Stop: 06/02/21 05:26 Last Admin: 06/02/21 05:55 Dose: 250 mls/hr Documented by: Heparin Sodium/Sodium Chloride (Heparin 25,000 Units In 1/2 Ns 500 Ml) Confirm Administered Dose 500 mls @ as directed .ROUTE .STK-MED ONE Stop: 06/02/21 05:46 Last Admin: 06/02/21 05:49 Dose: Not Given Documented by: Iopamidol (Iopamidol 755 Mg/Ml 500 Ml Multipack Bottle) 100 ml IVPUSH ONETIME ONE Stop: 06/02/21 03:17 Last Admin: 06/02/21 03:43 Dose: 100 ml Documented by: - Exam General: Alert, Oriented, Cooperative HEENT: Mucous Membr. Moist/[place] Neck: Trachea Midline Lungs: Rhonchi, Other (Tachypnea) Cardiovascular: Regular Rate, Regular Rhythm GI/Abdominal Exam: Normal Bowel Sounds, Soft, Non-Tender - Patient Data Lab Results Last 24 hrs: Laboratory Results - last 24 hr 06/03/21 06/04/21 06/04/21 Range/Units 06:38 05:32 05:32 WBC 11.07 H (4.0-11.0) K/uL RBC 4.40 L (4.50-5.90) M/uL Hgb 14.2 (13.0-17.0) g/dL Hct 40.1 (38.0-50.0) % MCV 91.1 (80.0-98.0) fL MCH 32.3 H (27.0-32.0) pg MCHC 35.4 (31.0-37.0) g/dL RDW Std Deviation 44.7 (28.0-62.0) fl RDW Coeff of Arnul[place] 14 (11.0-15.0) % Plt Count 235 (150-400) K/uL MPV 9.70 (7.40-12.00) fL Neut % (Auto) 92.0 H (48.0-80.0) % Lymph % (Auto) 5.0 L (16.0-40.0) % [place] % (Auto) 3.0 (0.0-15.0) % Eos % (Auto) 0.0 (0.0-7.0) % Baso % (Auto) 0.0 (0.0-1.5) % Neut # (Auto) 10.2 H (1.4-5.7) K/uL Lymph # (Auto) 0.6 (0.6-2.4) K/uL [place] # (Auto) 0.3 (0.0-0.8) K/uL Eos # (Auto) 0.0 (0.0-0.7) K/uL Baso # (Auto) 0.0 (0.0-0.1) K/uL Nucleated RBC % 0.5 /100WBC Nucleated RBCs # 0 K/uL APTT (18.6-31.3) SEC Sodium 137 (136-148) mmol/L Potassium 4.7 (3.5-5.1) mmol/L Chloride 104 (98-107) mmol/L Carbon Dioxide 24.9 (21.0-32.0) mmol/L BUN 37 H (7.0-18.0) mg/dL Creatinine 1.0 (0.8-1.3) mg/dL Est Cr Clr Drug Dosing 75.30 mL/min Estimated GFR (MDRD) > 60.0 ml/min Glucose 105 (74-106) mg/dL Calcium 8.2 L (8.5-10.1) mg/dL Total Bilirubin 0.7 (0.2-1.0) mg/dL AST 65 H (15-37) IU/L ALT 46 (14-63) IU/L Alkaline Phosphatase 113 (46-116) U/L C-Reactive Protein 13.70 H (0.00-0.90) mg/dL Total Protein 6.9 (6.4-8.2) g/dL Albumin 2.4 L (3.4-5.0) g/dL Globulin 4.5 H (2.6-4.0) g/dL Albumin/Globulin Ratio 0.5 L (0.9-1.6) 06/04/21 Range/Units 05:32 WBC (4.0-11.0) K/uL RBC (4.50-5.90) M/uL Hgb (13.0-17.0) g/dL Hct (38.0-50.0) % MCV (80.0-98.0) fL MCH (27.0-32.0) pg MCHC (31.0-37.0) g/dL RDW Std Deviation (28.0-62.0) fl RDW Coeff of Arnulfo (11.0-15.0) % Plt Count (150-400) K/uL MPV (7.40-12.00) fL Neut % (Auto) (48.0-80.0) % Lymph % (Auto) (16.0-40.0) % [place] % (Auto) (0.0-15.0) % Eos % (Auto) (0.0-7.0) % Baso % (Auto) (0.0-1.5) % Neut # (Auto) (1.4-5.7) K/uL Lymph # (Auto) (0.6-2.4) K/uL [place] # (Auto) (0.0-0.8) K/uL Eos # (Auto) (0.0-0.7) K/uL Baso # (Auto) (0.0-0.1) K/uL Nucleated RBC % /100WBC Nucleated RBCs # K/uL APTT 92.3 H (18.6-31.3) SEC Sodium (136-148) mmol/L Potassium (3.5-5.1) mmol/L Chloride (98-107) mmol/L Carbon Dioxide (21.0-32.0) mmol/L BUN (7.0-18.0) mg/dL Creatinine (0.8-1.3) mg/dL Est Cr Clr Drug Dosing mL/min Estimated GFR (MDRD) ml/min Glucose (74-106) mg/dL Calcium (8.5-10.1) mg/dL Total Bilirubin (0.2-1.0) mg/dL AST (15-37) IU/L ALT (14-63) IU/L Alkaline Phosphatase (46-116) U/L C-Reactive Protein (0.00-0.90) mg/dL Total Protein (6.4-8.2) g/dL Albumin (3.4-5.0) g/dL Globulin (2.6-4.0) g/dL Albumin/Globulin Ratio (0.9-1.6) Result Diagrams: 06/04/21 05:32 06/04/21 05:32 Sepsis Event Note - Evaluation Sepsis Screening Result: Possible Sepsis Risk - Focused Exam Vital Signs: Vital Signs Temp Resp BP Pulse Ox 06/04/21 13:00 26 H 108/70 95 06/04/21 12:00 97.2 F 16 115/68 96 06/04/21 11:00 25 H 115/69 92 L 06/04/21 10:00 37 H 129/84 92 L 06/04/21 09:00 27 H 116/69 95 06/04/21 08:00 97.2 F 26 H 108/65 96 06/04/21 07:00 26 H 116/71 90 L 06/04/21 06:00 19 131/77 94 L 06/04/21 05:00 25 H 137/77 90 L 06/04/21 04:00 97.7 F 22 H 123/77 06/04/21 03:00 27 H 129/75 94 L 06/04/21 02:00 27 H 133/80 91 L - Problem List & Annotations (1) COVID-19 SNOMED Code(s): 534519238 Code(s): U07.1 - COVID-19 Status: Acute Current Visit: Yes (2) Pulmonary embolism SNOMED Code(s): 00221476 Code(s): I26.99 - OTHER PULMONARY EMBOLISM WITHOUT ACUTE COR PULMONALE Status: Acute Current Visit: Yes (3) Atrial fibrillation SNOMED Code(s): 52850056 Code(s): I48.91 - UNSPECIFIED ATRIAL FIBRILLATION Status: Acute Current Visit: No Qualifiers: Atrial fibrillation type: unspecified Qualified Code(s): I48.91 - Unspecified atrial fibrillation - Problem List Review Problem List Initiated/Reviewed/Updated: Yes - My Orders Last 24 Hours: My Active Orders 06/05/21 05:11 CBC WITH AUTO DIFF [HEME] AM CMP [COMPREHENSIVE METABOLIC PN,CMP] [CHEM] AM - Assessment Assessment:: 1. COVID-19 pneumonia -Continue remdesivir 100 mg per IV route -Continue dexamethasone 6 mg per oral route daily -Continue baricitinib 4 mg per oral route -Continue Combivent for shortness of breath -Continue Robitussin for cough -Wean oxygen as appropriate, patient is currently on CPAP, O2 flow rate of 10, FiO2 of 65, currently saturating above 90% -We will encourage incentive spirometry in the prone position 2. Bilateral pulmonary emboli -The patient is currently on a heparin drip of 25,000 units in half-normal saline 3. Atrial fibrillation rate controlled -apparel embroidery digitizer in place, treat as appropriate
[2021-06-05 03:41] LABS: BLOOD UREA NITROGEN,BUN 34 mg/dL (7.0-18.0); CARBON DIOXIDE,CO2 24.4 mmol/L (21.0-32.0); CHLORIDE,CL 105 mmol/L (98-107); GLUCOSE RANDOM 110 mg/dL (74-106); POTASSIUM,K 4.5 mmol/L (3.5-5.1); SODIUM,NA 137 mmol/L (136-148)
[2021-06-05] MEDS: Dexamethasone 4 MG Tab PO SCH (06:30)
[2021-06-05] MEDS: REMDESIVIR 100 MG in Sodium Chloride 0.9% 100 ML IV SCH (06:30)
[2021-06-05] MEDS: Pantoprazole 40 MG Tab.CR PO SCH (09:24)
[2021-06-05] MEDS: Heparin Sodium/0.45% NaCl 500 ML IV SCH (10:32)
--- NOTE | 2021-06-05 12:23 | PCM.PN ---
- General Info Date of Service: 06/05/21 Subjective Update: The patient is a 66-year-old male, on day 3 of service, who has a significant past medical history of atrial fibrillation which is rate controlled and untreated with medication, and skin cancer of the hands, who was admitted to the intensive care unit due to COVID-19 pneumonia and bilateral pulmonary emboli. Upon interview with the patient today, he was sitting up in his chair with his legs up watching TV, and when approached for questioning he admitted that his shortness of breath has significantly improved as compared to when he started his admission. He still has a productive cough which is mostly white in color but sometimes yellow. He denies chest pain, palpitations, nausea, vomiting, fever, or dizziness. He is currently on CPAP, with an O2 flow rate of 10, FiO2 of 55, and saturating at 91%. He is eating all his meals to completion without any issues. He denies any problems with urination and/or defecation. He has slight weakness which he feels is from being in the hospital. He has no other health concerns at this time. - Review of Systems General: Reports: Weakness. Denies: Fatigue HEENT: Denies: Headaches Pulmonary: Reports: Shortness of Breath, Cough, Sputum Cardiovascular: Denies: Chest Pain, Palpitations Gastrointestinal: Denies: Abdominal Pain, Constipation, Nausea, Vomiting Genitourinary: Denies: Dysuria - Patient Data Vitals - Most Recent: Last Vital Signs Temp 97.7 F 06/05/21 04:00 Pulse 84 06/02/21 06:06 Resp 23 H 06/05/21 07:00 BP 120/67 06/05/21 07:00 Pulse Ox 91 L 06/05/21 07:00 Weight - Most Recent: 242 lb I&O - Last 24 Hours: Intake & Output 06/04/21 06/05/21 06/05/21 22:59 06:59 14:59 Intake Total 904 534 Output Total 950 850 Balance -46 -316 Lab Results Last 24 Hours: Laboratory Results - last 24 hr 06/04/21 06/04/21 06/05/21 Range/Units 14:21 21:09 03:00 WBC 10.28 (4.0-11.0) K/uL RBC 4.38 L (4.50-5.90) M/uL Hgb 13.8 (13.0-17.0) g/dL Hct 40.0 (38.0-50.0) % MCV 91.3 (80.0-98.0) fL MCH 31.5 (27.0-32.0) pg MCHC 34.5 (31.0-37.0) g/dL RDW Std Deviation 44.9 (28.0-62.0) fl RDW Coeff of Arnulfo 14 (11.0-15.0) % Plt Count 242 (150-400) K/uL MPV 9.50 (7.40-12.00) fL Neut % (Auto) 91.0 H (48.0-80.0) % Lymph % (Auto) 4.7 L (16.0-40.0) % [place] % (Auto) 4.1 (0.0-15.0) % Eos % (Auto) 0.2 (0.0-7.0) % Baso % (Auto) 0.0 (0.0-1.5) % Neut # (Auto) 9.4 H (1.4-5.7) K/uL Lymph # (Auto) 0.5 L (0.6-2.4) K/uL [place] # (Auto) 0.4 (0.0-0.8) K/uL Eos # (Auto) 0.0 (0.0-0.7) K/uL Baso # (Auto) 0.0 (0.0-0.1) K/uL Nucleated RBC % 0.2 /100WBC Nucleated RBCs # 0 K/uL APTT 55.3 H 77.3 H (18.6-31.3) SEC Sodium (136-148) mmol/L Potassium (3.5-5.1) mmol/L Chloride (98-107) mmol/L Carbon Dioxide (21.0-32.0) mmol/L BUN (7.0-18.0) mg/dL Creatinine (0.8-1.3) mg/dL Est Cr Clr Drug Dosing mL/min Estimated GFR (MDRD) ml/min Glucose (74-106) mg/dL Calcium (8.5-10.1) mg/dL Total Bilirubin (0.2-1.0) mg/dL AST (15-37) IU/L ALT (14-63) IU/L Alkaline Phosphatase (46-116) U/L Total Protein (6.4-8.2) g/dL Albumin (3.4-5.0) g/dL Globulin (2.6-4.0) g/dL Albumin/Globulin Ratio (0.9-1.6) 06/05/21 06/05/21 06/05/21 Range/Units 03:00 03:00 09:50 WBC (4.0-11.0) K/uL RBC (4.50-5.90) M/uL Hgb (13.0-17.0) g/dL Hct (38.0-50.0) % MCV (80.0-98.0) fL MCH (27.0-32.0) pg MCHC (31.0-37.0) g/dL RDW Std Deviation (28.0-62.0) fl RDW Coeff of Arnulfo (11.0-15.0) % Plt Count (150-400) K/uL MPV (7.40-12.00) fL Neut % (Auto) (48.0-80.0) % Lymph % (Auto) (16.0-40.0) % [place] % (Auto) (0.0-15.0) % Eos % (Auto) (0.0-7.0) % Baso % (Auto) (0.0-1.5) % Neut # (Auto) (1.4-5.7) K/uL Lymph # (Auto) (0.6-2.4) K/uL [place] # (Auto) (0.0-0.8) K/uL Eos # (Auto) (0.0-0.7) K/uL Baso # (Auto) (0.0-0.1) K/uL Nucleated RBC % /100WBC Nucleated RBCs # K/uL APTT 118.5 H 65.6 H (18.6-31.3) SEC Sodium 137 (136-148) mmol/L Potassium 4.5 (3.5-5.1) mmol/L Chloride 105 (98-107) mmol/L Carbon Dioxide 24.4 (21.0-32.0) mmol/L BUN 34 H (7.0-18.0) mg/dL Creatinine 0.9 (0.8-1.3) mg/dL Est Cr Clr Drug Dosing 83.67 mL/min Estimated GFR (MDRD) > 60.0 ml/min Glucose 110 H (74-106) mg/dL Calcium 8.2 L (8.5-10.1) mg/dL Total Bilirubin 0.7 (0.2-1.0) mg/dL AST 57 H (15-37) IU/L ALT 47 (14-63) IU/L Alkaline Phosphatase 112 (46-116) U/L Total Protein 6.8 (6.4-8.2) g/dL Albumin 2.4 L (3.4-5.0) g/dL Globulin 4.4 H (2.6-4.0) g/dL Albumin/Globulin Ratio 0.6 L (0.9-1.6) Med Orders - Current: Current Medications Albuterol/Ipratropium (Albuterol/Ipratropium 3.0-0.5 Mg/3 Ml Neb Soln) 3 ml NEB Q2H PRN PRN Reason: Dyspnea Baricitinib (Baricitinib 2 Mg Tab) 4 mg PO DAILY [facility] Last Admin: 06/05/21 09:24 Dose: 4 mg Documented by: Dexamethasone (Dexamethasone 4 Mg Tab) 6 mg PO Q24H TODD Last Admin: 06/05/21 06:30 Dose: 6 mg Documented by: Guaifenesin (Guaifenesin 100 Mg/5 Ml Soln 5 Ml Ud Cup) 100 mg PO Q6H PRN PRN Reason: Cough Last Admin: 06/03/21 08:39 Dose: 100 mg Documented by: Lactated Ringer's (Ringers, Lactated) 1,000 mls @ 999 mls/hr IV ASDIRECTED [facility] Last Admin: 06/02/21 04:43 Dose: 999 mls/hr Documented by: Heparin Sodium/Sodium Chloride (Heparin 25,000 Units In 1/2 Ns 500 Ml) 500 mls @ 26.082 mls/hr IV TITRATE TODD; Protocol Last Admin: 06/05/21 10:32 Dose: 7.5 units/kg/hr, 17.01 mls/hr Documented by: Remdesivir 100 mg/ Sodium (Chloride) 100 mls @ 100 mls/hr IV Q24H TODD Stop: 06/06/21 06:59 Last Admin: 06/05/21 06:30 Dose: 100 mls/hr Documented by: Dexmedetomidine/Sodium (Chloride 400 mcg/ Premix) 100 mls @ 5.572 mls/hr IV TITRATE TODD; Protocol Lorazepam (Lorazepam 2 Mg/Ml Sdv) 1 mg IVPUSH Q6H PRN PRN Reason: Anxiety Last Admin: 06/03/21 00:13 Dose: 1 mg Documented by: Morphine Sulfate (Morphine 2 Mg/Ml Syringe) 2 mg IVPUSH Q4H PRN PRN Reason: Shortness of Breath Pantoprazole Sodium (Pantoprazole 40 Mg Tab.Cr) 40 mg PO DAILY TODD Last Admin: 06/05/21 09:24 Dose: 40 mg Documented by: Discontinued Medications Albuterol/Ipratropium (Albuterol/Ipratropium 4 Gm Inhalation [place]) 1 gm INH Q4HRRT PRN PRN Reason: Dyspnea Last Admin: 06/03/21 09:02 Dose: 1 puff Documented by: Baricitinib (Baricitinib 2 Mg Tab) 4 mg PO DAILY TODD Stop: 06/17/21 13:31 Dexamethasone (Dexamethasone 4 Mg Tab) 6 mg PO ONETIME ONE Stop: 06/02/21 05:27 Last Admin: 06/02/21 05:33 Dose: 6 mg Documented by: Heparin Sodium (Porcine) (Heparin Sodium 5,000 Units/Ml Vial) 5,000 units IVPUSH .BOLUS ONE; Protocol Stop: 06/02/21 05:36 Last Admin: 06/02/21 05:46 Dose: 5,000 units Documented by: Heparin Sodium (Porcine) (Heparin Sodium 5,000 Units/Ml Vial) 1,500 units IVPUSH .BOLUS ONE Stop: 06/02/21 13:10 Last Admin: 06/02/21 13:40 Dose: 1,500 units Documented by: Remdesivir 200 mg/ Sodium (Chloride) 250 mls @ 250 mls/hr IV ONETIME ONE Stop: 06/02/21 05:26 Last Admin: 06/02/21 05:55 Dose: 250 mls/hr Documented by: Heparin Sodium/Sodium Chloride (Heparin 25,000 Units In 1/2 Ns 500 Ml) Confirm Administered Dose 500 mls @ as directed .ROUTE .STK-MED ONE Stop: 06/02/21 05:46 Last Admin: 06/02/21 05:49 Dose: Not Given Documented by: Iopamidol (Iopamidol 755 Mg/Ml 500 Ml Multipack Bottle) 100 ml IVPUSH ONETIME ONE Stop: 06/02/21 03:17 Last Admin: 06/02/21 03:43 Dose: 100 ml Documented by: - Exam General: Alert, Oriented, Cooperative HEENT: Mucous Membr. Moist/[place] Neck: Trachea Midline Lungs: Wheezing Cardiovascular: Regular Rate, Regular Rhythm GI/Abdominal Exam: Normal Bowel Sounds, Soft, Non-Tender - Patient Data Lab Results Last 24 hrs: Laboratory Results - last 24 hr 06/04/21 06/04/21 06/05/21 Range/Units 14:21 21:09 03:00 WBC 10.28 (4.0-11.0) K/uL RBC 4.38 L (4.50-5.90) M/uL Hgb 13.8 (13.0-17.0) g/dL Hct 40.0 (38.0-50.0) % MCV 91.3 (80.0-98.0) fL MCH 31.5 (27.0-32.0) pg MCHC 34.5 (31.0-37.0) g/dL RDW Std Deviation 44.9 (28.0-62.0) fl RDW Coeff of Arnulfo 14 (11.0-15.0) % Plt Count 242 (150-400) K/uL MPV 9.50 (7.40-12.00) fL Neut % (Auto) 91.0 H (48.0-80.0) % Lymph % (Auto) 4.7 L (16.0-40.0) % [place] % (Auto) 4.1 (0.0-15.0) % Eos % (Auto) 0.2 (0.0-7.0) % Baso % (Auto) 0.0 (0.0-1.5) % Neut # (Auto) 9.4 H (1.4-5.7) K/uL Lymph # (Auto) 0.5 L (0.6-2.4) K/uL [place] # (Auto) 0.4 (0.0-0.8) K/uL Eos # (Auto) 0.0 (0.0-0.7) K/uL Baso # (Auto) 0.0 (0.0-0.1) K/uL Nucleated RBC % 0.2 /100WBC Nucleated RBCs # 0 K/uL APTT 55.3 H 77.3 H (18.6-31.3) SEC Sodium (136-148) mmol/L Potassium (3.5-5.1) mmol/L Chloride (98-107) mmol/L Carbon Dioxide (21.0-32.0) mmol/L BUN (7.0-18.0) mg/dL Creatinine (0.8-1.3) mg/dL Est Cr Clr Drug Dosing mL/min Estimated GFR (MDRD) ml/min Glucose (74-106) mg/dL Calcium (8.5-10.1) mg/dL Total Bilirubin (0.2-1.0) mg/dL AST (15-37) IU/L ALT (14-63) IU/L Alkaline Phosphatase (46-116) U/L Total Protein (6.4-8.2) g/dL Albumin (3.4-5.0) g/dL Globulin (2.6-4.0) g/dL Albumin/Globulin Ratio (0.9-1.6) 06/05/21 06/05/21 06/05/21 Range/Units 03:00 03:00 09:50 WBC (4.0-11.0) K/uL RBC (4.50-5.90) M/uL Hgb (13.0-17.0) g/dL Hct (38.0-50.0) % MCV (80.0-98.0) fL MCH (27.0-32.0) pg MCHC (31.0-37.0) g/dL RDW Std Deviation (28.0-62.0) fl RDW Coeff of Arnulfo (11.0-15.0) % Plt Count (150-400) K/uL MPV (7.40-12.00) fL Neut % (Auto) (48.0-80.0) % Lymph % (Auto) (16.0-40.0) % [place] % (Auto) (0.0-15.0) % Eos % (Auto) (0.0-7.0) % Baso % (Auto) (0.0-1.5) % Neut # (Auto) (1.4-5.7) K/uL Lymph # (Auto) (0.6-2.4) K/uL [place] # (Auto) (0.0-0.8) K/uL Eos # (Auto) (0.0-0.7) K/uL Baso # (Auto) (0.0-0.1) K/uL Nucleated RBC % /100WBC Nucleated RBCs # K/uL APTT 118.5 H 65.6 H (18.6-31.3) SEC Sodium 137 (136-148) mmol/L Potassium 4.5 (3.5-5.1) mmol/L Chloride 105 (98-107) mmol/L Carbon Dioxide 24.4 (21.0-32.0) mmol/L BUN 34 H (7.0-18.0) mg/dL Creatinine 0.9 (0.8-1.3) mg/dL Est Cr Clr Drug Dosing 83.67 mL/min Estimated GFR (MDRD) > 60.0 ml/min Glucose 110 H (74-106) mg/dL Calcium 8.2 L (8.5-10.1) mg/dL Total Bilirubin 0.7 (0.2-1.0) mg/dL AST 57 H (15-37) IU/L ALT 47 (14-63) IU/L Alkaline Phosphatase 112 (46-116) U/L Total Protein 6.8 (6.4-8.2) g/dL Albumin 2.4 L (3.4-5.0) g/dL Globulin 4.4 H (2.6-4.0) g/dL Albumin/Globulin Ratio 0.6 L (0.9-1.6) Result Diagrams: 06/05/21 03:00 06/05/21 03:00 Sepsis Event Note - Evaluation Sepsis Screening Result: Possible Sepsis Risk - Focused Exam Vital Signs: Vital Signs Temp Resp BP Pulse Ox 06/05/21 07:00 23 H 120/67 91 L 06/05/21 06:00 27 H 137/62 99 06/05/21 05:00 18 125/66 96 06/05/21 04:00 97.7 F 24 H 156/101 H 89 L 06/05/21 03:00 20 126/84 12/07/21 02:00 29 H 148/95 H 91 L 06/05/21 01:00 26 H 139/79 93 L - Problem List & Annotations (1) COVID-19 SNOMED Code(s): 455940893 Code(s): U07.1 - COVID-19 Status: Acute Current Visit: Yes (2) Pulmonary embolism SNOMED Code(s): 62562552 Code(s): I26.99 - OTHER PULMONARY EMBOLISM WITHOUT ACUTE COR PULMONALE Status: Acute Current Visit: Yes (3) Atrial fibrillation SNOMED Code(s): 07223016 Code(s): I48.91 - UNSPECIFIED ATRIAL FIBRILLATION Status: Acute Current Visit: No Qualifiers: Atrial fibrillation type: unspecified Qualified Code(s): I48.91 - Unspecified atrial fibrillation - Problem List Review Problem List Initiated/Reviewed/Updated: Yes - Assessment Assessment:: 1. COVID-19 pneumonia -Continue remdesivir 100 mg per IV route -Continue dexamethasone 6 mg per oral route daily -Continue baricitinib 4 mg per oral route -Continue Combivent for shortness of breath -Continue Robitussin for cough -Ativan and Precedex are on board for anxiety and agitation -Wean oxygen as appropriate, patient is currently on CPAP, O2 flow rate of 10, FiO2 of 55, currently saturating at 91% -We will encourage incentive spirometry in the prone position 2. Bilateral pulmonary emboli -Continue heparin drip of 25,000 units in half-normal saline 3. Atrial fibrillation rate controlled -monitor and storage bin tender in place, treat as appropriate
--- NOTE | 2021-06-05 19:24 | PN ---
TH[facility] Physician - Brief Progress [id number]/07/2021 19:18[facility] Dolores Mcqueen, [place] - [facility] ([facility]) - MW[facility] ICUHALSOFY ARELLANO, COVID +Date of Service 06/05/2021 19: 18HPI/Events of Note 66 yo M admitted for COVID19 PNA. Currently breathing comfortably on heated HFNC with spo2 94%, watching TV, NAD.Vitals and labs reviewed and unremarkable. On exam, pt is comfortabl y sitting in chair watching TV, breathing comfortably on heated HFNC with spo2 94%. Irreguar heart rh ythm seen on monitor, unclear if new or old.ASSESSMENT: Acute hypoxic respiratory failureMultifocal p neumonia d/t [id number] pulmonary emboliPLAN:O2 via heated HFNC, CPAP PRN, wean both as dom atedMaintain spo2 >90% and PO2 >60 mmHgNebs PRNIsolation per facility protocolDexamethasoneRemdesivir BaricitinibRecommend scheduled proningHeparin gttRecommend 2D echo to check for right heart strain, e specially since pt has irregular rhythm on telemetry monitorInterventions Major-Hypoxemia - evaluatio n and management, Infection - evaluation and management, Respiratory failure - evaluation and managem ent, Other: bilateral pulmonary emboliElectronically Signed by: Nara Conley) on 021 19:23
[2021-06-06 03:39] LABS: BLOOD UREA NITROGEN,BUN 30 mg/dL (7.0-18.0); CARBON DIOXIDE,CO2 25.2 mmol/L (21.0-32.0); CHLORIDE,CL 104 mmol/L (98-107); GLUCOSE RANDOM 85 mg/dL (74-106); POTASSIUM,K 4.4 mmol/L (3.5-5.1); SODIUM,NA 138 mmol/L (136-148)
[2021-06-06] MEDS: REMDESIVIR 100 MG in Sodium Chloride 0.9% 100 ML IV SCH (08:20)
[2021-06-06] MEDS: Dexamethasone 4 MG Tab PO SCH (08:20)
--- NOTE | 2021-06-06 11:14 | PCM.PN ---
- General Info Date of Service: 06/06/21 Admission Dx/Problem (Free Text): The patient is a 66-year-old male, on day 4 of service, who has a significant past medical history of atrial fibrillation which is rate controlled and untreated with medication, and skin cancer of the hands, who was admitted to the intensive care unit due to COVID-19 pneumonia and bilateral pulmonary emboli. Upon interview with the patient today he admits that his shortness of breath fluctuates and last night he was having difficulty breathing but that has subsided this morning after treatment. He does state that his cough is res olving and now is dry without sputum production. He is drinking and eating his meals to completion without any issues and has a healthy appetite. He is urinating and defecating without any problems. He is currently on heated high flow/Vapotherm, with an oxygen flow rate of 60, FiO2 of 90, and is saturating at 95%. We will continue to treat his PE with a heparin drip. He has no other health concerns at this time. - Review of Systems General: Denies: Fever, Weakness, Fatigue HEENT: Denies: Headaches, Sore Throat Pulmonary: Reports: Shortness of Breath, Cough. Denies: Sputum Cardiovascular: Denies: Chest Pain, Palpitations Gastrointestinal: Denies: Abdominal Pain, Constipation, Nausea, Vomiting Genitourinary: Denies: Dysuria - Patient Data Vitals - Most Recent: Last Vital Signs Temp 97.3 F 06/06/21 00:00 Pulse 84 06/02/21 06:06 Resp 22 H 06/06/21 07:00 BP 127/73 06/06/21 07:00 Pulse Ox 88 L 06/06/21 07:00 Weight - Most Recent: 242 lb I&O - Last 24 Hours: Intake & Output 06/05/21 06/06/21 06/06/21 22:59 06:59 14:59 Intake Total 600 450 Output Total 850 430 Balance -250 20 Lab Results Last 24 Hours: Laboratory Results - last 24 hr 06/05/21 06/05/21 06/06/21 Range/Units 15:16 21:18 03:07 WBC (4.0-11.0) K/uL RBC (4.50-5.90) M/uL Hgb (13.0-17.0) g/dL Hct (38.0-50.0) % MCV (80.0-98.0) fL MCH (27.0-32.0) pg MCHC (31.0-37.0) g/dL RDW Std Deviation (28.0-62.0) fl RDW Coeff of Arn[place] (11.0-15.0) % Plt Count (150-400) K/uL MPV (7.40-12.00) fL Neut % (Auto) (48.0-80.0) % Lymph % (Auto) (16.0-40.0) % [place] % (Auto) (0.0-15.0) % Eos % (Auto) (0.0-7.0) % Baso % (Auto) (0.0-1.5) % Neut # (Auto) (1.4-5.7) K/uL Lymph # (Auto) (0.6-2.4) K/uL [place] # (Auto) (0.0-0.8) K/uL Eos # (Auto) (0.0-0.7) K/uL Baso # (Auto) (0.0-0.1) K/uL Nucleated RBC % /100WBC Nucleated RBCs # K/uL APTT 54.1 H 48.0 H 57.0 H (18.6-31.3) SEC Sodium (136-148) mmol/L Potassium (3.5-5.1) mmol/L Chloride (98-107) mmol/L Carbon Dioxide (21.0-32.0) mmol/L BUN (7.0-18.0) mg/dL Creatinine (0.8-1.3) mg/dL Est Cr Clr Drug Dosing mL/min Estimated GFR (MDRD) ml/min Glucose (74-106) mg/dL Calcium (8.5-10.1) mg/dL Total Bilirubin (0.2-1.0) mg/dL AST (15-37) IU/L ALT (14-63) IU/L Alkaline Phosphatase (46-116) U/L Total Protein (6.4-8.2) g/dL Albumin (3.4-5.0) g/dL Globulin (2.6-4.0) g/dL Albumin/Globulin Ratio (0.9-1.6) 06/06/21 06/06/21 Range/Units 03:07 03:07 WBC 14.23 H (4.0-11.0) K/uL RBC 4.78 (4.50-5.90) M/uL Hgb 15.5 (13.0-17.0) g/dL Hct 43.6 (38.0-50.0) % MCV 91.2 (80.0-98.0) fL MCH 32.4 H (27.0-32.0) pg MCHC 35.6 (31.0-37.0) g/dL RDW Std Deviation 44.6 (28.0-62.0) fl RDW Coeff of [place]ulfo 13 (11.0-15.0) % Plt Count 250 (150-400) K/uL MPV 9.80 (7.40-12.00) fL Neut % (Auto) 91.4 H (48.0-80.0) % Lymph % (Auto) 3.8 L (16.0-40.0) % [place] % (Auto) 4.4 (0.0-15.0) % Eos % (Auto) 0.4 (0.0-7.0) % Baso % (Auto) 0.0 (0.0-1.5) % Neut # (Auto) 13.0 H (1.4-5.7) K/uL Lymph # (Auto) 0.5 L (0.6-2.4) K/uL [place] # (Auto) 0.6 (0.0-0.8) K/uL Eos # (Auto) 0.1 (0.0-0.7) K/uL Baso # (Auto) 0.0 (0.0-0.1) K/uL Nucleated RBC % 0.0 /100WBC Nucleated RBCs # 0 K/uL APTT (18.6-31.3) SEC Sodium 138 (136-148) mmol/L Potassium 4.4 (3.5-5.1) mmol/L Chloride 104 (98-107) mmol/L Carbon Dioxide 25.2 (21.0-32.0) mmol/L BUN 30 H (7.0-18.0) mg/dL Creatinine 1.0 (0.8-1.3) mg/dL Est Cr Clr Drug Dosing 75.30 mL/min Estimated GFR (MDRD) > 60.0 ml/min Glucose 85 (74-106) mg/dL Calcium 8.6 (8.5-10.1) mg/dL Total Bilirubin 1.0 (0.2-1.0) mg/dL AST 69 H (15-37) IU/L ALT 54 (14-63) IU/L Alkaline Phosphatase 132 H (46-116) U/L Total Protein 7.5 (6.4-8.2) g/dL Albumin 2.8 L (3.4-5.0) g/dL Globulin 4.7 H (2.6-4.0) g/dL Albumin/Globulin Ratio 0.6 L (0.9-1.6) Med Orders - Current: Current Medications Albuterol/Ipratropium (Albuterol/Ipratropium 3.0-0.5 Mg/3 Ml Neb Soln) 3 ml NEB Q2H PRN PRN Reason: Dyspnea Baricitinib (Baricitinib 2 Mg Tab) 4 mg PO DAILY TODD Last Admin: 06/05/21 09:24 Dose: 4 mg Documented by: Dexamethasone (Dexamethasone 4 Mg Tab) 6 mg PO Q24H TODD Last Admin: 06/06/21 08:20 Dose: 6 mg Documented by: Guaifenesin (Guaifenesin 100 Mg/5 Ml Soln 5 Ml Ud Cup) 100 mg PO Q6H PRN PRN Reason: Cough Last Admin: 06/03/21 08:39 Dose: 100 mg Documented by: Lactated Ringer's (Ringers, Lactated) 1,000 mls @ 999 mls/hr IV ASDIRECTED TODD Last Admin: 06/02/21 04:43 Dose: 999 mls/hr Documented by: Heparin Sodium/Sodium Chloride (Heparin 25,000 Units In 1/2 Ns 500 Ml) 500 mls @ 26.082 mls/hr IV TITRATE TODD; Protocol Last Titration: 06/05/21 23:40 Dose: 9.5 units/kg/hr, 21.546 mls/hr Documented by: Dexmedetomidine/Sodium (Chloride 400 mcg/ Premix) 100 mls @ 5.572 mls/hr IV TITRATE TODD; Protocol Lorazepam (Lorazepam 2 Mg/Ml Sdv) 1 mg IVPUSH Q6H PRN PRN Reason: Anxiety Last Admin: 06/03/21 00:13 Dose: 1 mg Documented by: Morphine Sulfate (Morphine 2 Mg/Ml Syringe) 2 mg IVPUSH Q4H PRN PRN Reason: Shortness of Breath Pantoprazole Sodium (Pantoprazole 40 Mg Tab.Cr) 40 mg PO DAILY TODD Last Admin: 06/05/21 09:24 Dose: 40 mg Documented by: Discontinued Medications Albuterol/Ipratropium (Albuterol/Ipratropium 4 Gm Inhalation [place]) 1 gm INH Q4HRRT PRN PRN Reason: Dyspnea Last Admin: 06/03/21 09:02 Dose: 1 puff Documented by: Baricitinib (Baricitinib 2 Mg Tab) 4 mg PO DAILY [facility] Stop: 06/17/21 13:31 Dexamethasone (Dexamethasone 4 Mg Tab) 6 mg PO ONETIME ONE Stop: 06/02/21 05:27 Last Admin: 06/02/21 05:33 Dose: 6 mg Documented by: Heparin Sodium (Porcine) (Heparin Sodium 5,000 Units/Ml Vial) 5,000 units IVPUSH .BOLUS ONE; Protocol Stop: 06/02/21 05:36 Last Admin: 06/02/21 05:46 Dose: 5,000 units Documented by: Heparin Sodium (Porcine) (Heparin Sodium 5,000 Units/Ml Vial) 1,500 units IVPUSH .BOLUS ONE Stop: 06/02/21 13:10 Last Admin: 06/02/21 13:40 Dose: 1,500 units Documented by: Remdesivir 200 mg/ Sodium (Chloride) 250 mls @ 250 mls/hr IV ONETIME ONE Stop: 06/02/21 05:26 Last Admin: 06/02/21 05:55 Dose: 250 mls/hr Documented by: Heparin Sodium/Sodium Chloride (Heparin 25,000 Units In 1/2 Ns 500 Ml) Confirm Administered Dose 500 mls @ as directed .ROUTE .STK-MED ONE Stop: 06/02/21 05:46 Last Admin: 06/02/21 05:49 Dose: Not Given Documented by: Remdesivir 100 mg/ Sodium (Chloride) 100 mls @ 100 mls/hr IV Q24H TODD Stop: 06/06/21 06:59 Last Admin: 06/06/21 08:20 Dose: 100 mls/hr Documented by: Iopamidol (Iopamidol 755 Mg/Ml 500 Ml Multipack Bottle) 100 ml IVPUSH ONETIME ONE Stop: 06/02/21 03:17 Last Admin: 06/02/21 03:43 Dose: 100 ml Documented by: - Exam General: Alert, Oriented, Cooperative HEENT: Mucous Membr. Moist/[place] Neck: Trachea Midline Lungs: Rhonchi Cardiovascular: Regular Rate, Regular Rhythm, No Murmurs GI/Abdominal Exam: Normal Bowel Sounds, Soft, Non-Tender Extremities: No Pedal Edema - Patient Data Lab Results Last 24 hrs: Laboratory Results - last 24 hr 06/05/21 06/05/21 06/06/21 Range/Units 15:16 21:18 03:07 WBC (4.0-11.0) K/uL RBC (4.50-5.90) M/uL Hgb (13.0-17.0) g/dL Hct (38.0-50.0) % MCV (80.0-98.0) fL MCH (27.0-32.0) pg MCHC (31.0-37.0) g/dL RDW Std Deviation (28.0-62.0) fl RDW Coeff of Arnulfo (11.0-15.0) % Plt Count (150-400) K/uL MPV (7.40-12.00) fL Neut % (Auto) (48.0-80.0) % Lymph % (Auto) (16.0-40.0) % [place] % (Auto) (0.0-15.0) % Eos % (Auto) (0.0-7.0) % Baso % (Auto) (0.0-1.5) % Neut # (Auto) (1.4-5.7) K/uL Lymph # (Auto) (0.6-2.4) K/uL [place] # (Auto) (0.0-0.8) K/uL Eos # (Auto) (0.0-0.7) K/uL Baso # (Auto) (0.0-0.1) K/uL Nucleated RBC % /100WBC Nucleated RBCs # K/uL APTT 54.1 H 48.0 H 57.0 H (18.6-31.3) SEC Sodium (136-148) mmol/L Potassium (3.5-5.1) mmol/L Chloride (98-107) mmol/L Carbon Dioxide (21.0-32.0) mmol/L BUN (7.0-18.0) mg/dL Creatinine (0.8-1.3) mg/dL Est Cr Clr Drug Dosing mL/min Estimated GFR (MDRD) ml/min Glucose (74-106) mg/dL Calcium (8.5-10.1) mg/dL Total Bilirubin (0.2-1.0) mg/dL AST (15-37) IU/L ALT (14-63) IU/L Alkaline Phosphatase (46-116) U/L Total Protein (6.4-8.2) g/dL Albumin (3.4-5.0) g/dL Globulin (2.6-4.0) g/dL Albumin/Globulin Ratio (0.9-1.6) 06/06/21 06/06/21 Range/Units 03:07 03:07 WBC 14.23 H (4.0-11.0) K/uL RBC 4.78 (4.50-5.90) M/uL Hgb 15.5 (13.0-17.0) g/dL Hct 43.6 (38.0-50.0) % MCV 91.2 (80.0-98.0) fL MCH 32.4 H (27.0-32.0) pg MCHC 35.6 (31.0-37.0) g/dL RDW Std Deviation 44.6 (28.0-62.0) fl RDW Coeff of Arnulfo 13 (11.0-15.0) % Plt Count 250 (150-400) K/uL MPV 9.80 (7.40-12.00) fL Neut % (Auto) 91.4 H (48.0-80.0) % Lymph % (Auto) 3.8 L (16.0-40.0) % [place] % (Auto) 4.4 (0.0-15.0) % Eos % (Auto) 0.4 (0.0-7.0) % Baso % (Auto) 0.0 (0.0-1.5) % Neut # (Auto) 13.0 H (1.4-5.7) K/uL Lymph # (Auto) 0.5 L (0.6-2.4) K/uL [place] # (Auto) 0.6 (0.0-0.8) K/uL Eos # (Auto) 0.1 (0.0-0.7) K/uL Baso # (Auto) 0.0 (0.0-0.1) K/uL Nucleated RBC % 0.0 /100WBC Nucleated RBCs # 0 K/uL APTT (18.6-31.3) SEC Sodium 138 (136-148) mmol/L Potassium 4.4 (3.5-5.1) mmol/L Chloride 104 (98-107) mmol/L Carbon Dioxide 25.2 (21.0-32.0) mmol/L BUN 30 H (7.0-18.0) mg/dL Creatinine 1.0 (0.8-1.3) mg/dL Est Cr Clr Drug Dosing 75.30 mL/min Estimated GFR (MDRD) > 60.0 ml/min Glucose 85 (74-106) mg/dL Calcium 8.6 (8.5-10.1) mg/dL Total Bilirubin 1.0 (0.2-1.0) mg/dL AST 69 H (15-37) IU/L ALT 54 (14-63) IU/L Alkaline Phosphatase 132 H (46-116) U/L Total Protein 7.5 (6.4-8.2) g/dL Albumin 2.8 L (3.4-5.0) g/dL Globulin 4.7 H (2.6-4.0) g/dL Albumin/Globulin Ratio 0.6 L (0.9-1.6) Result Diagrams: 06/06/21 03:07 06/06/21 03:07 Sepsis Event Note - Evaluation Sepsis Screening Result: Possible Sepsis Risk - Focused Exam Vital Signs: Vital Signs Temp Resp BP Pulse Ox 06/06/21 07:00 22 H 127/73 88 L 06/06/21 06:00 28 H 131/80 89 L 06/06/21 05:00 13 115/75 06/06/21 04:00 12 124/81 90 L 06/06/21 03:00 12 92 L 06/06/21 02:00 15 118/73 92 L 06/06/21 01:00 14 132/72 90 L 12/08/21 00:00 97.3 F 13 125/73 89 L - Problem List & Annotations (1) COVID-19 SNOMED Code(s): 341101679 Code(s): U07.1 - COVID-19 Status: Acute Current Visit: Yes (2) Pulmonary embolism SNOMED Code(s): 08685854 Code(s): I26.99 - OTHER PULMONARY EMBOLISM WITHOUT ACUTE COR PULMONALE Status: Acute Current Visit: Yes (3) Atrial fibrillation SNOMED Code(s): 43233576 Code(s): I48.91 - UNSPECIFIED ATRIAL FIBRILLATION Status: Acute Current Visit: No Qualifiers: Atrial fibrillation type: unspecified Qualified Code(s): I48.91 - Unspecified atrial fibrillation - Problem List Review Problem List Initiated/Reviewed/Updated: Yes - My Orders Last 24 Hours: My Active Orders 06/05/21 16:53 Code Status [Resuscitation Status] Routine 06/07/21 05:11 CBC WITH AUTO DIFF [HEME] AM CMP [COMPREHENSIVE METABOLIC PN,CMP] [CHEM] AM 06/08/21 05:11 CBC WITH AUTO DIFF [HEME] AM CMP [COMPREHENSIVE METABOLIC PN,CMP] [CHEM] AM - Assessment Assessment:: 1. COVID-19 pneumonia -Continue remdesivir 100 mg per IV route, dexamethasone 6 mg per oral route, and baricitinib 4 mg per oral route -Continue Combivent for shortness of breath and Robitussin for cough -Ativan and Precedex for anxiety and agitation -Wean oxygen as appropriate, patient is currently on heated high flow, O2 flow rate of 60, FiO2 of 90, saturating 95% -We will encourage incentive spirometry in the prone position 2. Bilateral pulmonary emboli -Continue heparin drip of 25,000 units in half-normal saline 3. 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
[2021-06-06] MEDS: Pantoprazole 40 MG Tab.CR PO SCH (12:32)
[2021-06-06] MEDS: Heparin Sodium/0.45% NaCl 500 ML IV SCH (12:34)
[2021-06-07] MEDS: Dexamethasone 4 MG Tab PO SCH (06:12)
[2021-06-07 06:31] LABS: BLOOD UREA NITROGEN,BUN 22 mg/dL (7.0-18.0); CHLORIDE,CL 106 mmol/L (98-107); GLUCOSE RANDOM 87 mg/dL (74-106); POTASSIUM,K 3.9 mmol/L (3.5-5.1); SODIUM,NA 140 mmol/L (136-148)
[2021-06-07] MEDS: Pantoprazole 40 MG Tab.CR PO SCH (08:07)
--- NOTE | 2021-06-07 11:22 | PCM.PN ---
- General Info Date of Service: 06/07/21 Subjective Update: The patient is a 66-year-old male, on day 5 of service, who has a significant past medical history of atrial fibrillation which is rate controlled and untreated with medication, and skin cancer of the hands, who was admitted to the intensive care unit due to COVID-19 pneumonia and bilateral pulmonary emboli. Upon interview with the patient today he admitted to feeling fatigued but was resting comfortably in bed. His shortness of breath has improved and he still has a nonproductive cough. He is currently saturating at 91%, is on CPAP with a oxygen flow rate of 6, FiO2 of 80. This patient has fluctuating oxygen demands and over the last couple days has been on both CPAP and Vapotherm. He is eating and drinking his meals to completion and has a healthy appetite. He denies chest pain, palpitations, nausea, vomiting, or any issues with urination and/or defecation. He has no other health concerns at this time. - Review of Systems General: Reports: Fatigue. Denies: Fever, Weakness HEENT: Denies: Headaches, Sore Throat Pulmonary: Reports: Shortness of Breath, Cough. Denies: Pleuritic Chest Pain, Sputum Cardiovascular: Denies: Chest Pain, Palpitations Gastrointestinal: Denies: Abdominal Pain, Constipation, Nausea Genitourinary: Denies: Dysuria, Frequency Neurological: Denies: Confusion, Dizziness - Patient Data Vitals - Most Recent: Last Vital Signs Temp 96.8 F L 06/07/21 09:00 Pulse 84 06/02/21 06:06 Resp 30 H 06/07/21 10:00 BP 119/72 06/07/21 10:00 Pulse Ox 91 L 06/07/21 10:00 Weight - Most Recent: 240 lb 6.273 oz I&O - Last 24 Hours: Intake & Output 06/06/21 06/07/21 06/07/21 22:59 06:59 14:59 Intake Total 400 600 Output Total 650 750 Balance -250 -150 Lab Results Last 24 Hours: Laboratory Results - last 24 hr 06/06/21 06/06/21 06/07/21 Range/Units 15:18 21:07 05:15 WBC 14.50 H (4.0-11.0) K/uL RBC 4.51 (4.50-5.90) M/uL Hgb 14.1 (13.0-17.0) g/dL Hct 41.0 (38.0-50.0) % MCV 90.9 (80.0-98.0) fL MCH 31.3 (27.0-32.0) pg MCHC 34.4 (31.0-37.0) g/dL RDW Std Deviation 45.0 (28.0-62.0) fl RDW Coeff of Arnulfo 14 (11.0-15.0) % Plt Count 202 (150-400) K/uL MPV 9.90 (7.40-12.00) fL Neut % (Auto) 95.0 H (48.0-80.0) % Lymph % (Auto) 2.1 L (16.0-40.0) % [place] % (Auto) 2.3 (0.0-15.0) % Eos % (Auto) 0.6 (0.0-7.0) % Baso % (Auto) 0.0 (0.0-1.5) % Neut # (Auto) 13.8 H (1.4-5.7) K/uL Lymph # (Auto) 0.3 L (0.6-2.4) K/uL [place] # (Auto) 0.3 (0.0-0.8) K/uL Eos # (Auto) 0.1 (0.0-0.7) K/uL Baso # (Auto) 0.0 (0.0-0.1) K/uL Nucleated RBC % 0.0 /100WBC Nucleated RBCs # 0 K/uL APTT 63.7 H 63.6 H (18.6-31.3) SEC Sodium (136-148) mmol/L Potassium (3.5-5.1) mmol/L Chloride (98-107) mmol/L Carbon Dioxide (21.0-32.0) mmol/L BUN (7.0-18.0) mg/dL Creatinine (0.8-1.3) mg/dL Est Cr Clr Drug Dosing mL/min Estimated GFR (MDRD) ml/min Glucose (74-106) mg/dL Calcium (8.5-10.1) mg/dL Total Bilirubin (0.2-1.0) mg/dL AST (15-37) IU/L ALT (14-63) IU/L Alkaline Phosphatase (46-116) U/L Total Protein (6.4-8.2) g/dL Albumin (3.4-5.0) g/dL Globulin (2.6-4.0) g/dL Albumin/Globulin Ratio (0.9-1.6) 06/07/21 06/07/21 Range/Units 05:15 09:10 WBC (4.0-11.0) K/uL RBC (4.50-5.90) M/uL Hgb (13.0-17.0) g/dL Hct (38.0-50.0) % MCV (80.0-98.0) fL MCH (27.0-32.0) pg MCHC (31.0-37.0) g/dL RDW Std Deviation (28.0-62.0) fl RDW Coeff of [place] (11.0-15.0) % Plt Count (150-400) K/uL MPV (7.40-12.00) fL Neut % (Auto) (48.0-80.0) % Lymph % (Auto) (16.0-40.0) % [place] % (Auto) (0.0-15.0) % Eos % (Auto) (0.0-7.0) % Baso % (Auto) (0.0-1.5) % Neut # (Auto) (1.4-5.7) K/uL Lymph # (Auto) (0.6-2.4) K/uL [place] # (Auto) (0.0-0.8) K/uL Eos # (Auto) (0.0-0.7) K/uL Baso # (Auto) (0.0-0.1) K/uL Nucleated RBC % /100WBC Nucleated RBCs # K/uL APTT 58.0 H (18.6-31.3) SEC Sodium 140 (136-148) mmol/L Potassium 3.9 (3.5-5.1) mmol/L Chloride 106 (98-107) mmol/L Carbon Dioxide 23.0 (21.0-32.0) mmol/L BUN 22 H (7.0-18.0) mg/dL Creatinine 0.9 (0.8-1.3) mg/dL Est Cr Clr Drug Dosing 83.67 mL/min Estimated GFR (MDRD) > 60.0 ml/min Glucose 87 (74-106) mg/dL Calcium 8.3 L (8.5-10.1) mg/dL Total Bilirubin 0.9 (0.2-1.0) mg/dL AST 50 H (15-37) IU/L ALT 42 (14-63) IU/L Alkaline Phosphatase 124 H (46-116) U/L Total Protein 6.9 (6.4-8.2) g/dL Albumin 2.3 L (3.4-5.0) g/dL Globulin 4.6 H (2.6-4.0) g/dL Albumin/Globulin Ratio 0.5 L (0.9-1.6) Med Orders - Current: Current Medications Albuterol/Ipratropium (Albuterol/Ipratropium 3.0-0.5 Mg/3 Ml Neb Soln) 3 ml NEB Q2H PRN PRN Reason: Dyspnea Baricitinib (Baricitinib 2 Mg Tab) 4 mg PO DAILY TODD Last Admin: 06/07/21 08:08 Dose: 4 mg Documented by: Dexamethasone (Dexamethasone 4 Mg Tab) 6 mg PO Q24H TODD Last Admin: 06/07/21 06:12 Dose: 6 mg Documented by: Guaifenesin (Guaifenesin 100 Mg/5 Ml Soln 5 Ml Ud Cup) 100 mg PO Q6H PRN PRN Reason: Cough Last Admin: 06/03/21 08:39 Dose: 100 mg Documented by: Lactated Ringer's (Ringers, Lactated) 1,000 mls @ 999 mls/hr IV ASDIRECTED TODD Last Admin: 06/02/21 04:43 Dose: 999 mls/hr Documented by: Heparin Sodium/Sodium Chloride (Heparin 25,000 Units In 1/2 Ns 500 Ml) 500 mls @ 26.082 mls/hr IV TITRATE TODD; Protocol Last Titration: 06/07/21 10:00 Dose: 9.5 units/kg/hr, 21.546 mls/hr Documented by: Dexmedetomidine/Sodium (Chloride 400 mcg/ Premix) 100 mls @ 5.572 mls/hr IV TITRATE TODD; Protocol Lorazepam (Lorazepam 2 Mg/Ml Sdv) 1 mg IVPUSH Q6H PRN PRN Reason: Anxiety Last Admin: 06/03/21 00:13 Dose: 1 mg Documented by: Morphine Sulfate (Morphine 2 Mg/Ml Syringe) 2 mg IVPUSH Q4H PRN PRN Reason: Shortness of Breath Pantoprazole Sodium (Pantoprazole 40 Mg Tab.Cr) 40 mg PO DAILY TODD Last Admin: 06/07/21 08:07 Dose: 40 mg Documented by: Discontinued Medications Albuterol/Ipratropium (Albuterol/Ipratropium 4 Gm Inhalation [place]) 1 gm INH Q4HRRT PRN PRN Reason: Dyspnea Last Admin: 06/03/21 09:02 Dose: 1 puff Documented by: Baricitinib (Baricitinib 2 Mg Tab) 4 mg PO DAILY [facility] Stop: 06/17/21 13:31 Dexamethasone (Dexamethasone 4 Mg Tab) 6 mg PO ONETIME ONE Stop: 06/02/21 05:27 Last Admin: 06/02/21 05:33 Dose: 6 mg Documented by: Heparin Sodium (Porcine) (Heparin Sodium 5,000 Units/Ml Vial) 5,000 units IVPUSH .BOLUS ONE; Protocol Stop: 06/02/21 05:36 Last Admin: 06/02/21 05:46 Dose: 5,000 units Documented by: Heparin Sodium (Porcine) (Heparin Sodium 5,000 Units/Ml Vial) 1,500 units IVPUS H .BOLUS ONE Stop: 06/02/21 13:10 Last Admin: 06/02/21 13:40 Dose: 1,500 units Documented by: Remdesivir 200 mg/ Sodium (Chloride) 250 mls @ 250 mls/hr IV ONETIME ONE Stop: 06/02/21 05:26 Last Admin: 06/02/21 05:55 Dose: 250 mls/hr Documented by: Heparin Sodium/Sodium Chloride (Heparin 25,000 Units In 1/2 Ns 500 Ml) Confirm Administered Dose 500 mls @ as directed .ROUTE .STK-MED ONE Stop: 06/02/21 05:46 Last Admin: 06/02/21 05:49 Dose: Not Given Documented by: Remdesivir 100 mg/ Sodium (Chloride) 100 mls @ 100 mls/hr IV Q24H TODD Stop: 06/06/21 06:59 Last Admin: 06/06/21 08:20 Dose: 100 mls/hr Documented by: Iopamidol (Iopamidol 755 Mg/Ml 500 Ml Multipack Bottle) 100 ml IVPUSH ONETIME ONE Stop: 06/02/21 03:17 Last Admin: 06/02/21 03:43 Dose: 100 ml Documented by: - Exam General: Alert, Oriented, Cooperative HEENT: Other (Mucous membranes) Neck: Trachea Midline Lungs: Rhonchi, Other (Tachypneic) Cardiovascular: Regular Rate, Regular Rhythm GI/Abdominal Exam: Normal Bowel Sounds, Soft - Patient Data Lab Results Last 24 hrs: Laboratory Results - last 24 hr 06/06/21 06/06/21 06/07/21 Range/Units 15:18 21:07 05:15 WBC 14.50 H (4.0-11.0) K/uL RBC 4.51 (4.50-5.90) M/uL Hgb 14.1 (13.0-17.0) g/dL Hct 41.0 (38.0-50.0) % MCV 90.9 (80.0-98.0) fL MCH 31.3 (27.0-32.0) pg MCHC 34.4 (31.0-37.0) g/dL RDW Std Deviation 45.0 (28.0-62.0) fl RDW Coeff of Arnulfo 14 (11.0-15.0) % Plt Count 202 (150-400) K/uL MPV 9.90 (7.40-12.00) fL Neut % (Auto) 95.0 H (48.0-80.0) % Lymph % (Auto) 2.1 L (16.0-40.0) % [place] % (Auto) 2.3 (0.0-15.0) % Eos % (Auto) 0.6 (0.0-7.0) % Baso % (Auto) 0.0 (0.0-1.5) % Neut # (Auto) 13.8 H (1.4-5.7) K/uL Lymph # (Auto) 0.3 L (0.6-2.4) K/uL [place] # (Auto) 0.3 (0.0-0.8) K/uL Eos # (Auto) 0.1 (0.0-0.7) K/uL Baso # (Auto) 0.0 (0.0-0.1) K/uL Nucleated RBC % 0.0 /100WBC Nucleated RBCs # 0 K/uL APTT 63.7 H 63.6 H (18.6-31.3) SEC Sodium (136-148) mmol/L Potassium (3.5-5.1) mmol/L Chloride (98-107) mmol/L Carbon Dioxide (21.0-32.0) mmol/L BUN (7.0-18.0) mg/dL Creatinine (0.8-1.3) mg/dL Est Cr Clr Drug Dosing mL/min Estimated GFR (MDRD) ml/min Glucose (74-106) mg/dL Calcium (8.5-10.1) mg/dL Total Bilirubin (0.2-1.0) mg/dL AST (15-37) IU/L ALT (14-63) IU/L Alkaline Phosphatase (46-116) U/L Total Protein (6.4-8.2) g/dL Albumin (3.4-5.0) g/dL Globulin (2.6-4.0) g/dL Albumin/Globulin Ratio (0.9-1.6) 06/07/21 06/07/21 Range/Units 05:15 09:10 WBC (4.0-11.0) K/uL RBC (4.50-5.90) M/uL Hgb (13.0-17.0) g/dL Hct (38.0-50.0) % MCV (80.0-98.0) fL MCH (27.0-32.0) pg MCHC (31.0-37.0) g/dL RDW Std Deviation (28.0-62.0) fl RDW Coeff of Arnulfo (11.0-15.0) % Plt Count (150-400) K/uL MPV (7.40-12.00) fL Neut % (Auto) (48.0-80.0) % Lymph % (Auto) (16.0-40.0) % [place] % (Auto) (0.0-15.0) % Eos % (Auto) (0.0-7.0) % Baso % (Auto) (0.0-1.5) % Neut # (Auto) (1.4-5.7) K/uL Lymph # (Auto) (0.6-2.4) K/uL [place] # (Auto) (0.0-0.8) K/uL Eos # (Auto) (0.0-0.7) K/uL Baso # (Auto) (0.0-0.1) K/uL Nucleated RBC % /100WBC Nucleated RBCs # K/uL APTT 58.0 H (18.6-31.3) SEC Sodium 140 (136-148) mmol/L Potassium 3.9 (3.5-5.1) mmol/L Chloride 106 (98-107) mmol/L Carbon Dioxide 23.0 (21.0-32.0) mmol/L BUN 22 H (7.0-18.0) mg/dL Creatinine 0.9 (0.8-1.3) mg/dL Est Cr Clr Drug Dosing 83.67 mL/min Estimated GFR (MDRD) > 60.0 ml/min Glucose 87 (74-106) mg/dL Calcium 8.3 L (8.5-10.1) mg/dL Total Bilirubin 0.9 (0.2-1.0) mg/dL AST 50 H (15-37) IU/L ALT 42 (14-63) IU/L Alkaline Phosphatase 124 H (46-116) U/L Total Protein 6.9 (6.4-8.2) g/dL Albumin 2.3 L (3.4-5.0) g/dL Globulin 4.6 H (2.6-4.0) g/dL Albumin/Globulin Ratio 0.5 L (0.9-1.6) Result Diagrams: 06/07/21 05:15 06/07/21 05:15 Sepsis Event Note - Evaluation Sepsis Screening Result: Possible Sepsis Risk - Focused Exam Vital Signs: Vital Signs Temp Resp BP Pulse Ox 06/07/21 10:00 30 H 119/72 91 L 06/07/21 09:00 96.8 F L 33 H 135/67 90 L 06/07/21 08:00 31 H 128/76 90 L 06/07/21 07:00 28 H 128/76 91 L 06/07/21 06:00 28 H 131/72 92 L 06/07/21 05:00 26 H 124/73 90 L 06/07/21 04:00 97.7 F 27 H 132/79 92 L 06/07/21 03:00 25 H 131/76 90 L 06/07/21 02:00 26 H 128/80 91 L 06/07/21 01:00 26 H 114/78 89 L 06/07/21 00:00 97.2 F 19 106/76 88 L - Problem List & Annotations (1) COVID-19 SNOMED Code(s): 491292790 Code(s): U07.1 - COVID-19 Status: Acute Current Visit: Yes (2) Pulmonary embolism SNOMED Code(s): 17556120 Code(s): I26.99 - OTHER PULMONARY EMBOLISM WITHOUT ACUTE COR PULMONALE Status: Acute Current Visit: Yes (3) Atrial fibrillation SNOMED Code(s): 03665426 Code(s): I48.91 - UNSPECIFIED ATRIAL FIBRILLATION Status: Acute Current Visit: No Qualifiers: Atrial fibrillation type: unspecified Qualified Code(s): I48.91 - Unspecified atrial fibrillation - Problem List Review Problem List Initiated/Reviewed/Updated: Yes - My Orders Last 24 Hours: My Active Orders 06/08/21 05:11 CBC WITH AUTO DIFF [HEME] AM CMP [COMPREHENSIVE METABOLIC PN,CMP] [CHEM] AM - Assessment Assessment:: 1. COVID-19 pneumonia -Continue protocol medications: Remdesivir 100 mg per IV route, dexamethasone 6 mg per oral route, and baricitinib 4 mg per oral route -Continue Combivent for shortness of breath -Robitussin for cough -Ativan/Precedex for anxiety and agitation -Wean oxygen as appropriate, patient is currently on CPAP, 6/80, saturating at 91% -We will encourage incentive spirometry in the prone position 2. Bilateral pulmonary emboli -Continue heparin drip of 25,000 units in half-normal saline 3. 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
[2021-06-07] MEDS: Heparin Sodium/0.45% NaCl 500 ML IV SCH (13:49)
[2021-06-08] MEDS: LORazepam 2 MG/ML SDV IVPUSH PRN (05:18)
[2021-06-08] MEDS: Dexamethasone 4 MG Tab PO SCH (05:18)
[2021-06-08 06:52] LABS: BLOOD UREA NITROGEN,BUN 23 mg/dL (7.0-18.0); CARBON DIOXIDE,CO2 20.9 mmol/L (21.0-32.0); CHLORIDE,CL 105 mmol/L (98-107); GLUCOSE RANDOM 96 mg/dL (74-106); POTASSIUM,K 4.1 mmol/L (3.5-5.1); SODIUM,NA 137 mmol/L (136-148)
[2021-06-08] MEDS: Pantoprazole 40 MG Tab.CR PO SCH (09:29)
--- NOTE | 2021-06-08 12:01 | PCM.PN ---
- General Info Date of Service: 06/08/21 Subjective Update: The patient is a 66-year-old male, on day 6 of service, who has a significant past medical history of atrial fibrillation which is rate controlled and untreated with medication, and skin cancer of the hands, who was admitted to the intensive care unit due to COVID-19 pneumonia and bilateral pulmonary emboli. Upon interview with the patient today he admits that his breathing is more labored than it was yesterday. He has been transitioned from CPAP to Vapotherm over the past 24 hours and fluctuates between both. His current CPAP settings are flow rate of 6, FiO2 of 80%, and saturating 88%. His Vapotherm settings are oxygen flow rate of 55, FiO2 of 60, and saturating over 90%. He continues to have a cough which is nonproductive. He denies chest pain, palpitations, fever, nausea, vomiting, and any issues with urination and/or defecation. He has no other health concerns at this time. - Review of Systems General: Reports: Fatigue. Denies: Fever, Weakness HEENT: Denies: Headaches, Sore Throat Pulmonary: Reports: Shortness of Breath, Cough. Denies: Sputum Cardiovascular: Denies: Chest Pain, Palpitations Gastrointestinal: Denies: Abdominal Pain, Nausea, Vomiting Genitourinary: Denies: Dysuria - Patient Data Vitals - Most Recent: Last Vital Signs Temp 97.7 F 06/08/21 04:00 Pulse 84 06/02/21 06:06 Resp 28 H 06/08/21 07:00 BP 119/74 06/08/21 07:00 Pulse Ox 87 L 06/08/21 07:00 Weight - Most Recent: 236 lb I&O - Last 24 Hours: Intake & Output 06/07/21 06/08/21 06/08/21 22:59 06:59 14:59 Intake Total 965 300 Output Total 1050 650 Balance -85 -350 Lab Results Last 24 Hours: Laboratory Results - last 24 hr 06/07/21 06/08/21 06/08/21 Range/Units 21:05 05:24 05:24 WBC 16.16 H (4.0-11.0) K/uL RBC 4.32 L (4.50-5.90) M/uL Hgb 13.6 (13.0-17.0) g/dL Hct 39.2 (38.0-50.0) % MCV 90.7 (80.0-98.0) fL MCH 31.5 (27.0-32.0) pg MCHC 34.7 (31.0-37.0) g/dL RDW Std Deviation 44.5 (28.0-62.0) fl RDW Coeff of Arnulfo 14 (11.0-15.0) % Plt Count 226 (150-400) K/uL MPV 10.10 (7.40-12.00) fL Neut % (Auto) 95.1 H (48.0-80.0) % Lymph % (Auto) 1.9 L (16.0-40.0) % [place] % (Auto) 2.7 (0.0-15.0) % Eos % (Auto) 0.2 (0.0-7.0) % Baso % (Auto) 0.1 (0.0-1.5) % Neut # (Auto) 15.4 H (1.4-5.7) K/uL Lymph # (Auto) 0.3 L (0.6-2.4) K/uL [place] # (Auto) 0.4 (0.0-0.8) K/uL Eos # (Auto) 0.0 (0.0-0.7) K/uL Baso # (Auto) 0.0 (0.0-0.1) K/uL Nucleated RBC % 0.0 /100WBC Nucleated RBCs # 0 K/uL APTT 50.8 H (18.6-31.3) SEC Sodium 137 (136-148) mmol/L Potassium 4.1 (3.5-5.1) mmol/L Chloride 105 (98-107) mmol/L Carbon Dioxide 20.9 L (21.0-32.0) mmol/L BUN 23 H (7.0-18.0) mg/dL Creatinine 0.8 (0.8-1.3) mg/dL Est Cr Clr Drug Dosing 94.13 mL/min Estimated GFR (MDRD) > 60.0 ml/min Glucose 96 (74-106) mg/dL Calcium 8.1 L (8.5-10.1) mg/dL Total Bilirubin 0.8 (0.2-1.0) mg/dL AST 53 H (15-37) IU/L ALT 40 (14-63) IU/L Alkaline Phosphatase 154 H (46-116) U/L Total Protein 6.7 (6.4-8.2) g/dL Albumin 2.2 L (3.4-5.0) g/dL Globulin 4.5 H (2.6-4.0) g/dL Albumin/Globulin Ratio 0.5 L (0.9-1.6) 06/08/21 Range/Units 10:56 WBC (4.0-11.0) K/uL RBC (4.50-5.90) M/uL Hgb (13.0-17.0) g/dL Hct (38.0-50.0) % MCV (80.0-98.0) fL MCH (27.0-32.0) pg MCHC (31.0-37.0) g/dL RDW Std Deviation (28.0-62.0) fl RDW Coeff of Arnulfo (11.0-15.0) % Plt Count (150-400) K/uL MPV (7.40-12.00) fL Neut % (Auto) (48.0-80.0) % Lymph % (Auto) (16.0-40.0) % [place] % (Auto) (0.0-15.0) % Eos % (Auto) (0.0-7.0) % Baso % (Auto) (0.0-1.5) % Neut # (Auto) (1.4-5.7) K/uL Lymph # (Auto) (0.6-2.4) K/uL [place] # (Auto) (0.0-0.8) K/uL Eos # (Auto) (0.0-0.7) K/uL Baso # (Auto) (0.0-0.1) K/uL Nucleated RBC % /100WBC Nucleated RBCs # K/uL APTT 58.9 H (18.6-31.3) SEC Sodium (136-148) mmol/L Potassium (3.5-5.1) mmol/L Chloride (98-107) mmol/L Carbon Dioxide (21.0-32.0) mmol/L BUN (7.0-18.0) mg/dL Creatinine (0.8-1.3) mg/dL Est Cr Clr Drug Dosing mL/min Estimated GFR (MDRD) ml/min Glucose (74-106) mg/dL Calcium (8.5-10.1) mg/dL Total Bilirubin (0.2-1.0) mg/dL AST (15-37) IU/L ALT (14-63) IU/L Alkaline Phosphatase (46-116) U/L Total Protein (6.4-8.2) g/dL Albumin (3.4-5.0) g/dL Globulin (2.6-4.0) g/dL Albumin/Globulin Ratio (0.9-1.6) Med Orders - Current: Current Medications Albuterol/Ipratropium (Albuterol/Ipratropium 3.0-0.5 Mg/3 Ml Neb Soln) 3 ml NEB Q2H PRN PRN Reason: Dyspnea Baricitinib (Baricitinib 2 Mg Tab) 4 mg PO DAILY [facility] Last Admin: 06/08/21 09:29 Dose: 4 mg Documented by: Dexamethasone (Dexamethasone 4 Mg Tab) 6 mg PO Q24H [facility] Last Admin: 06/08/21 05:18 Dose: 6 mg Documented by: Guaifenesin (Guaifenesin 100 Mg/5 Ml Soln 5 Ml Ud Cup) 100 mg PO Q6H PRN PRN Reason: Cough Last Admin: 06/03/21 08:39 Dose: 100 mg Documented by: Lactated Ringer's (Ringers, Lactated) 1,000 mls @ 999 mls/hr IV ASDIRECTED [facility]D Last Admin: 06/02/21 04:43 Dose: 999 mls/hr Documented by: Heparin Sodium/Sodium Chloride (Heparin 25,000 Units In 1/2 Ns 500 Ml) 500 mls @ 26.082 mls/hr IV TITRATE TODD; Protocol Last Admin: 06/07/21 13:49 Dose: 9.5 units/kg/hr, 21.546 mls/hr Documented by: Dexmedetomidine/Sodium (Chloride 400 mcg/ Premix) 100 mls @ 5.572 mls/hr IV TITRATE TODD; Protocol Lorazepam (Lorazepam 2 Mg/Ml Sdv) 1 mg IVPUSH Q6H PRN PRN Reason: Anxiety Last Admin: 06/08/21 05:18 Dose: 1 mg Documented by: Morphine Sulfate (Morphine 2 Mg/Ml Syringe) 2 mg IVPUSH Q4H PRN PRN Reason: Shortness of Breath Pantoprazole Sodium (Pantoprazole 40 Mg Tab.Cr) 40 mg PO DAILY TODD Last Admin: 06/08/21 09:29 Dose: 40 mg Documented by: Discontinued Medications Albuterol/Ipratropium (Albuterol/Ipratropium 4 Gm Inhalation [place]) 1 gm INH Q4HRRT PRN PRN Reason: Dyspnea Last Admin: 06/03/21 09:02 Dose: 1 puff Documented by: Baricitinib (Baricitinib 2 Mg Tab) 4 mg PO DAILY TODD Stop: 06/17/21 13:31 Dexamethasone (Dexamethasone 4 Mg Tab) 6 mg PO ONETIME ONE Stop: 06/02/21 05:27 Last Admin: 06/02/21 05:33 Dose: 6 mg Documented by: Heparin Sodium (Porcine) (Heparin Sodium 5,000 Units/Ml Vial) 5,000 units IVPUSH .BOLUS ONE; Protocol Stop: 06/02/21 05:36 Last Admin: 06/02/21 05:46 Dose: 5,000 units Documented by: Heparin Sodium (Porcine) (Heparin Sodium 5,000 Units/Ml Vial) 1,500 units I VPUSH .BOLUS ONE Stop: 06/02/21 13:10 Last Admin: 06/02/21 13:40 Dose: 1,500 units Documented by: Remdesivir 200 mg/ Sodium (Chloride) 250 mls @ 250 mls/hr IV ONETIME ONE Stop: 06/02/21 05:26 Last Admin: 06/02/21 05:55 Dose: 250 mls/hr Documented by: Heparin Sodium/Sodium Chloride (Heparin 25,000 Units In 1/2 Ns 500 Ml) Confirm Administered Dose 500 mls @ as directed .ROUTE .STK-MED ONE Stop: 06/02/21 05:46 Last Admin: 06/02/21 05:49 Dose: Not Given Documented by: Remdesivir 100 mg/ Sodium (Chloride) 100 mls @ 100 mls/hr IV Q24H [facility] Stop: 06/06/21 06:59 Last Admin: 06/06/21 08:20 Dose: 100 mls/hr Documented by: Iopamidol (Iopamidol 755 Mg/Ml 500 Ml Multipack Bottle) 100 ml IVPUSH ONETIME ONE Stop: 06/02/21 03:17 Last Admin: 06/02/21 03:43 Dose: 100 ml Documented by: - Exam General: Alert, Oriented, Cooperative HEENT: No: Mucous Membr. Moist/[place] Neck: Trachea Midline Lungs: Rhonchi Cardiovascular: Regular Rate, Regular Rhythm, No Murmurs GI/Abdominal Exam: Normal Bowel Sounds, Soft, Non-Tender Extremities: No Pedal Edema - Patient Data Lab Results Last 24 hrs: Laboratory Results - last 24 hr 06/07/21 06/08/21 06/08/21 Range/Units 21:05 05:24 05:24 WBC 16.16 H (4.0-11.0) K/uL RBC 4.32 L (4.50-5.90) M/uL Hgb 13.6 (13.0-17.0) g/dL Hct 39.2 (38.0-50.0) % MCV 90.7 (80.0-98.0) fL MCH 31.5 (27.0-32.0) pg MCHC 34.7 (31.0-37.0) g/dL RDW Std Deviation 44.5 (28.0-62.0) fl RDW Coeff of Arnulfo 14 (11.0-15.0) % Plt Count 226 (150-400) K/uL MPV 10.10 (7.40-12.00) fL Neut % (Auto) 95.1 H (48.0-80.0) % Lymph % (Auto) 1.9 L (16.0-40.0) % [place] % (Auto) 2.7 (0.0-15.0) % Eos % (Auto) 0.2 (0.0-7.0) % Baso % (Auto) 0.1 (0.0-1.5) % Neut # (Auto) 15.4 H (1.4-5.7) K/uL Lymph # (Auto) 0.3 L (0.6-2.4) K/uL [place] # (Auto) 0.4 (0.0-0.8) K/uL Eos # (Auto) 0.0 (0.0-0.7) K/uL Baso # (Auto) 0.0 (0.0-0.1) K/uL Nucleated RBC % 0.0 /100WBC Nucleated RBCs # 0 K/uL APTT 50.8 H (18.6-31.3) SEC Sodium 137 (136-148) mmol/L Potassium 4.1 (3.5-5.1) mmol/L Chloride 105 (98-107) mmol/L Carbon Dioxide 20.9 L (21.0-32.0) mmol/L BUN 23 H (7.0-18.0) mg/dL Creatinine 0.8 (0.8-1.3) mg/dL Est Cr Clr Drug Dosing 94.13 mL/min Estimated GFR (MDRD) > 60.0 ml/min Glucose 96 (74-106) mg/dL Calcium 8.1 L (8.5-10.1) mg/dL Total Bilirubin 0.8 (0.2-1.0) mg/dL AST 53 H (15-37) IU/L ALT 40 (14-63) IU/L Alkaline Phosphatase 154 H (46-116) U/L Total Protein 6.7 (6.4-8.2) g/dL Albumin 2.2 L (3.4-5.0) g/dL Globulin 4.5 H (2.6-4.0) g/dL Albumin/Globulin Ratio 0.5 L (0.9-1.6) 06/08/21 Range/Units 10:56 WBC (4.0-11.0) K/uL RBC (4.50-5.90) M/uL Hgb (13.0-17.0) g/dL Hct (38.0-50.0) % MCV (80.0-98.0) fL MCH (27.0-32.0) pg MCHC (31.0-37.0) g/dL RDW Std Deviation (28.0-62.0) fl RDW Coeff of Arnulfo (11.0-15.0) % Plt Count (150-400) K/uL MPV (7.40-12.00) fL Neut % (Auto) (48.0-80.0) % Lymph % (Auto) (16.0-40.0) % [place] % (Auto) (0.0-15.0) % Eos % (Auto) (0.0-7.0) % Baso % (Auto) (0.0-1.5) % Neut # (Auto) (1.4-5.7) K/uL Lymph # (Auto) (0.6-2.4) K/uL [place] # (Auto) (0.0-0.8) K/uL Eos # (Auto) (0.0-0.7) K/uL Baso # (Auto) (0.0-0.1) K/uL Nucleated RBC % /100WBC Nucleated RBCs # K/uL APTT 58.9 H (18.6-31.3) SEC Sodium (136-148) mmol/L Potassium (3.5-5.1) mmol/L Chloride (98-107) mmol/L Carbon Dioxide (21.0-32.0) mmol/L BUN (7.0-18.0) mg/dL Creatinine (0.8-1.3) mg/dL Est Cr Clr Drug Dosing mL/min Estimated GFR (MDRD) ml/min Glucose (74-106) mg/dL Calcium (8.5-10.1) mg/dL Total Bilirubin (0.2-1.0) mg/dL AST (15-37) IU/L ALT (14-63) IU/L Alkaline Phosphatase (46-116) U/L Total Protein (6.4-8.2) g/dL Albumin (3.4-5.0) g/dL Globulin (2.6-4.0) g/dL Albumin/Globulin Ratio (0.9-1.6) Result Diagrams: 06/08/21 05:24 06/08/21 05:24 Sepsis Event Note - Evaluation Sepsis Screening Result: Possible Sepsis Risk - Focused Exam Vital Signs: Vital Signs Temp Resp BP Pulse Ox 06/08/21 07:00 28 H 119/74 87 L 06/08/21 06:00 26 H 122/74 88 L 06/08/21 05:00 20 135/94 H 88 L 06/08/21 04:00 97.7 F 21 H 122/78 88 L 06/08/21 03:00 20 133/75 90 L 06/08/21 02:00 18 134/86 89 L 06/08/21 01:00 97.3 F 22 H 129/95 H 89 L 06/08/21 00:00 20 140/81 86 L - Problem List & Annotations (1) COVID-19 SNOMED Code(s): 717801873 Code(s): U07.1 - COVID-19 Status: Acute Current Visit: Yes (2) Pulmonary embolism SNOMED Code(s): 03520383 Code(s): I26.99 - OTHER PULMONARY EMBOLISM WITHOUT ACUTE COR PULMONALE Status: Acute Current Visit: Yes (3) Atrial fibrillation SNOMED Code(s): 38072806 Code(s): I48.91 - UNSPECIFIED ATRIAL FIBRILLATION Status: Acute Current Visit: No Qualifiers: Atrial fibrillation type: unspecified Qualified Code(s): I48.91 - Unspecified atrial fibrillation - Problem List Review Problem List Initiated/Reviewed/Updated: Yes - My Orders Last 24 Hours: My Active Orders 06/09/21 05:11 CBC WITH AUTO DIFF [HEME] AM CMP [COMPREHENSIVE METABOLIC PN,CMP] [CHEM] AM 06/10/21 05:11 CBC WITH AUTO DIFF [HEME] AM CMP [COMPREHENSIVE METABOLIC PN,CMP] [CHEM] AM 06/11/21 05:11 CBC WITH AUTO DIFF [HEME] AM CMP [COMPREHENSIVE METABOLIC PN,CMP] [CHEM] AM - Assessment Assessment:: 1. COVID-19 pneumonia -Continue dexamethasone 6 mg per oral route and baricitinib 4 mg per oral route -Continue Combivent for shortness of breath and Robitussin for cough -Ativan/Precedex for anxiety and agitation -Wean oxygen as appropriate, patient is currently on CPAP and Vapotherm, refer to HPI for numbers -We will encourage incentive spirometry in the prone position 2. Bilateral pulmonary emboli -Continue heparin drip of 25,000 units in half-normal saline 3. Atrial fibrillation rate controlled -court recording monitor in place
[2021-06-08] MEDS: Heparin Sodium/0.45% NaCl 500 ML IV SCH (14:42)
[2021-06-08] MEDS: Apixaban 5 MG Tab PO SCH (18:27)
[2021-06-09] MEDS: Apixaban 5 MG Tab PO SCH ×2 (05:13→19:57)
[2021-06-09] MEDS: Dexamethasone 4 MG Tab PO SCH (05:14)
[2021-06-09 06:14] LABS: BLOOD UREA NITROGEN,BUN 25 mg/dL (7.0-18.0); CHLORIDE,CL 105 mmol/L (98-107); GLUCOSE RANDOM 104 mg/dL (74-106); POTASSIUM,K 4.3 mmol/L (3.5-5.1); SODIUM,NA 139 mmol/L (136-148)
[2021-06-09 06:38] LABS: CARBON DIOXIDE,CO2 23.1 mmol/L (21.0-32.0)
[2021-06-09] MEDS: Pantoprazole 40 MG Tab.CR PO SCH (08:00)
--- NOTE | 2021-06-09 13:55 | PCM.PN ---
- General Info Date of Service: 06/09/21 - Review of Systems Systems Review Comment:: reports shortness of breath has improved, when on CPAP it fits better as he has shaved - Patient Data Vitals - Most Recent: Last Vital Signs Temp 36.5 C 06/09/21 04:00 Pulse 84 06/02/21 06:06 Resp 22 H 06/09/21 06:00 BP 133/93 H 06/09/21 06:00 Pulse Ox 87 L 06/09/21 06:00 Weight - Most Recent: 107.048 kg I&O - Last 24 Hours: Intake & Output 06/08/21 06/09/21 06/09/21 22:59 06:59 14:59 Intake Total 1288 550 Output Total 625 720 Balance 663 -170 Lab Results Last 24 Hours: Laboratory Results - last 24 hr 06/09/21 06/09/21 Range/Units 05:13 05:13 WBC 16.35 H (4.0-11.0) K/uL RBC 4.65 (4.50-5.90) M/uL Hgb 14.7 (13.0-17.0) g/dL Hct 42.4 (38.0-50.0) % MCV 91.2 (80.0-98.0) fL MCH 31.6 (27.0-32.0) pg MCHC 34.7 (31.0-37.0) g/dL RDW Std Deviation 44.8 (28.0-62.0) fl RDW Coeff of Arnulfo 14 (11.0-15.0) % Plt Count 243 (150-400) K/uL MPV 10.20 (7.40-12.00) fL Neut % (Auto) 93.5 H (48.0-80.0) % Lymph % (Auto) 1.9 L (16.0-40.0) % [place] % (Auto) 4.3 (0.0-15.0) % Eos % (Auto) 0.2 (0.0-7.0) % Baso % (Auto) 0.1 (0.0-1.5) % Neut # (Auto) 15.3 H (1.4-5.7) K/uL Lymph # (Auto) 0.3 L (0.6-2.4) K/uL [place] # (Auto) 0.7 (0.0-0.8) K/uL Eos # (Auto) 0.0 (0.0-0.7) K/uL Baso # (Auto) 0.0 (0.0-0.1) K/uL Nucleated RBC % 0.0 /100WBC Nucleated RBCs # 0 K/uL Sodium 139 (136-148) mmol/L Potassium 4.3 (3.5-5.1) mmol/L Chloride 105 (98-107) mmol/L Carbon Dioxide 23.1 (21.0-32.0) mmol/L BUN 25 H (7.0-18.0) mg/dL Creatinine 0.9 (0.8-1.3) mg/dL Est Cr Clr Drug Dosing 83.67 mL/min Estimated GFR (MDRD) > 60.0 ml/min Glucose 104 (74-106) mg/dL Calcium 8.7 (8.5-10.1) mg/dL Total Bilirubin 0.9 (0.2-1.0) mg/dL AST 33 (15-37) IU/L ALT 41 (14-63) IU/L Alkaline Phosphatase 170 H (46-116) U/L Total Protein 7.4 (6.4-8.2) g/dL Albumin 2.6 L (3.4-5.0) g/dL Globulin 4.8 H (2.6-4.0) g/dL Albumin/Globulin Ratio 0.5 L (0.9-1.6) Med Orders - Current: Current Medications Albuterol/Ipratropium (Albuterol/Ipratropium 3.0-0.5 Mg/3 Ml Neb Soln) 3 ml NEB Q2H PRN PRN Reason: Dyspnea Apixaban (Apixaban 5 Mg Tab) 10 mg PO Q12H [facility] Stop: 06/15/21 06:00 Last Admin: 06/09/21 05:13 Dose: 10 mg Documented by: Baricitinib (Baricitinib 2 Mg Tab) 4 mg PO DAILY [facility] Last Admin: 06/09/21 08:00 Dose: 4 mg Documented by: Dexamethasone (Dexamethasone 4 Mg Tab) 6 mg PO Q24H [facility] Last Admin: 06/09/21 05:14 Dose: 6 mg Documented by: Guaifenesin (Guaifenesin 100 Mg/5 Ml Soln 5 Ml Ud Cup) 100 mg PO Q6H PRN PRN Reason: Cough Last Admin: 06/03/21 08:39 Dose: 100 mg Documented by: Lactated Ringer's (Ringers, Lactated) 1,000 mls @ 999 mls/hr IV ASDIRECTED [facility] Last Admin: 06/02/21 04:43 Dose: 999 mls/hr Documented by: Dexmedetomidine/Sodium (Chloride 400 mcg/ Premix) 100 mls @ 5.572 mls/hr IV TIT RATE TODD; Protocol Lorazepam (Lorazepam 2 Mg/Ml Sdv) 1 mg IVPUSH Q6H PRN PRN Reason: Anxiety Last Admin: 06/08/21 05:18 Dose: 1 mg Documented by: Morphine Sulfate (Morphine 2 Mg/Ml Syringe) 2 mg IVPUSH Q4H PRN PRN Reason: Shortness of Breath Pantoprazole Sodium (Pantoprazole 40 Mg Tab.Cr) 40 mg PO DAILY [facility] Last Admin: 06/09/21 08:00 Dose: 40 mg Documented by: Discontinued Medications Albuterol/Ipratropium (Albuterol/Ipratropium 4 Gm Inhalation [place]) 1 gm INH Q4HRRT PRN PRN Reason: Dyspnea Last Admin: 06/03/21 09:02 Dose: 1 puff Documented by: Baricitinib (Baricitinib 2 Mg Tab) 4 mg PO DAILY [facility] Stop: 06/17/21 13:31 Dexamethasone (Dexamethasone 4 Mg Tab) 6 mg PO ONETIME ONE Stop: 06/02/21 05:27 Last Admin: 06/02/21 05:33 Dose: 6 mg Documented by: Heparin Sodium (Porcine) (Heparin Sodium 5,000 Units/Ml Vial) 5,000 units IVPUSH .BOLUS ONE; Protocol Stop: 06/02/21 05:36 Last Admin: 06/02/21 05:46 Dose: 5,000 units Documented by: Heparin Sodium (Porcine) (Heparin Sodium 5,000 Units/Ml Vial) 1,500 units IVPUSH .BOLUS ONE Stop: 06/02/21 13:10 Last Admin: 06/02/21 13:40 Dose: 1,500 units Documented by: Remdesivir 200 mg/ Sodium (Chloride) 250 mls @ 250 mls/hr IV ONETIME ONE Stop: 06/02/21 05:26 Last Admin: 06/02/21 05:55 Dose: 250 mls/hr Documented by: Heparin Sodium/Sodium Chloride (Heparin 25,000 Units In 1/2 Ns 500 Ml) 500 mls @ 26.082 mls/hr IV TITRATE TODD; Protocol Last Titration: 06/08/21 19:28 Dose: 0 units/kg/hr, 0 mls/hr Documented by: Heparin Sodium/Sodium Chloride (Heparin 25,000 Units In 1/2 Ns 500 Ml) Confirm Administered Dose 500 mls @ as directed .ROUTE .STK-MED ONE Stop: 06/02/21 05:46 Last Admin: 06/02/21 05:49 Dose: Not Given Documented by: Remdesivir 100 mg/ Sodium (Chloride) 100 mls @ 100 mls/hr IV Q24H [facility] Stop: 06/06/21 06:59 Last Admin: 06/06/21 08:20 Dose: 100 mls/hr Documented by: Iopamidol (Iopamidol 755 Mg/Ml 500 Ml Multipack Bottle) 100 ml IVPUSH ONETIME ONE Stop: 06/02/21 03:17 Last Admin: 06/02/21 03:43 Dose: 100 ml Documented by: - Exam General: Alert, Oriented Neck: Supple Lungs: Clear to Auscultation, Normal Respiratory Effort Cardiovascular: Regular Rate, Regular Rhythm GI/Abdominal Exam: Soft, Non-Tender, No Distention Extremities: Non-Tender, No Pedal Edema Skin: Warm, Dry, Intact Neurological: No New Focal Deficit - Patient Data Lab Results Last 24 hrs: Laboratory Results - last 24 hr 06/09/21 06/09/21 Range/Units 05:13 05:13 WBC 16.35 H (4.0-11.0) K/uL RBC 4.65 (4.50-5.90) M/uL Hgb 14.7 (13.0-17.0) g/dL Hct 42.4 (38.0-50.0) % MCV 91.2 (80.0-98.0) fL MCH 31.6 (27.0-32.0) pg MCHC 34.7 (31.0-37.0) g/dL RDW Std Deviation 44.8 (28.0-62.0) fl RDW Coeff of Arnulfo 14 (11.0-15.0) % Plt Count 243 (150-400) K/uL MPV 10.20 (7.40-12.00) fL Neut % (Auto) 93.5 H (48.0-80.0) % Lymph % (Auto) 1.9 L (16.0-40.0) % [place] % (Auto) 4.3 (0.0-15.0) % Eos % (Auto) 0.2 (0.0-7.0) % Baso % (Auto) 0.1 (0.0-1.5) % Neut # (Auto) 15.3 H (1.4-5.7) K/uL Lymph # (Auto) 0.3 L (0.6-2.4) K/uL [place] # (Auto) 0.7 (0.0-0.8) K/uL Eos # (Auto) 0.0 (0.0-0.7) K/uL Baso # (Auto) 0.0 (0.0-0.1) K/uL Nucleated RBC % 0.0 /100WBC Nucleated RBCs # 0 K/uL Sodium 139 (136-148) mmol/L Potassium 4.3 (3.5-5.1) mmol/L Chloride 105 (98-107) mmol/L Carbon Dioxide 23.1 (21.0-32.0) mmol/L BUN 25 H (7.0-18.0) mg/dL Creatinine 0.9 (0.8-1.3) mg/dL Est Cr Clr Drug Dosing 83.67 mL/min Estimated GFR (MDRD) > 60.0 ml/min Glucose 104 (74-106) mg/dL Calcium 8.7 (8.5-10.1) mg/dL Total Bilirubin 0.9 (0.2-1.0) mg/dL AST 33 (15-37) IU/L ALT 41 (14-63) IU/L Alkaline Phosphatase 170 H (46-116) U/L Total Protein 7.4 (6.4-8.2) g/dL Albumin 2.6 L (3.4-5.0) g/dL Globulin 4.8 H (2.6-4.0) g/dL Albumin/Globulin Ratio 0.5 L (0.9-1.6) Result Diagrams: 06/09/21 05:13 06/09/21 05:13 Sepsis Event Note - Evaluation Sepsis Screening Result: Possible Sepsis Risk - Focused Exam Vital Signs: Vital Signs Temp Resp BP Pulse Ox 06/09/21 06:00 22 H 133/93 H 87 L 06/09/21 05:00 23 H 147/87 H 88 L 06/09/21 04:00 36.5 C 24 H 140/86 91 L 06/09/21 03:00 22 H 143/99 H 90 L 06/09/21 02:00 24 H 132/78 90 L - Problem List & Annotations (1) Acute hypoxemic respiratory failure due to COVID-19 SNOMED Code(s): 925121551 Code(s): U07.1 - COVID-19; J96.01 - ACUTE RESPIRATORY FAILURE WITH HYPOXIA Status: Acute Current Visit: Yes (2) COVID-19 SNOMED Code(s): 401546099 Code(s): U07.1 - COVID-19 Status: Acute Current Visit: Yes (3) Pulmonary embolism SNOMED Code(s): 22277881 Code(s): I26.99 - OTHER PULMONARY EMBOLISM WITHOUT ACUTE COR PULMONALE Status: Acute Current Visit: Yes (4) Atrial fibrillation SNOMED Code(s): 68316968 Code(s): I48.91 - UNSPECIFIED ATRIAL FIBRILLATION Status: Acute Current Visit: Yes Qualifiers: Atrial fibrillation type: unspecified Qualified Code(s): I48.91 - Unspecified atrial fibrillation - Problem List Review Problem List Initiated/Reviewed/Updated: Yes - My Orders Last 24 Hours: My Active Orders 06/08/21 18:00 Apixaban [Eliquis] 10 mg PO Q12H - Assessment Assessment:: 1. COVID-19 pneumonia -Continue dexamethasone and baricitinib -Wean oxygen as appropriate, patient is currently on CPAP and Vapotherm, -We will encourage incentive spirometry in the prone position 2. Bilateral pulmonary emboli -have switched to Eliquis 3. 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
[2021-06-10] MEDS: Dexamethasone 4 MG Tab PO SCH (05:16)
[2021-06-10] MEDS: Apixaban 5 MG Tab PO SCH ×2 (05:16→18:36)
[2021-06-10 06:59] LABS: BLOOD UREA NITROGEN,BUN 26 mg/dL (7.0-18.0); CARBON DIOXIDE,CO2 25.5 mmol/L (21.0-32.0); CHLORIDE,CL 104 mmol/L (98-107); GLUCOSE RANDOM 102 mg/dL (74-106); POTASSIUM,K 4.2 mmol/L (3.5-5.1); SODIUM,NA 138 mmol/L (136-148)
[2021-06-10] MEDS: Pantoprazole 40 MG Tab.CR PO SCH (08:22)
--- NOTE | 2021-06-10 09:46 | PCM.PN ---
- General Info Date of Service: 06/10/21 Admission Dx/Problem (Free Text): The patient is a 66-year-old male, on day 4 of service, who has a significant past medical history of atrial fibrillation which is rate controlled and untreated with medication, and skin cancer of the hands, who was admitted to the intensive care unit due to COVID-19 pneumonia and bilateral pulmonary emboli. Upon interview with the patient today he admits that his shortness of breath fluctuates and last night he was having difficulty breathing but that has subsided this morning after treatment. He does state that his cough is res olving and now is dry without sputum production. He is drinking and eating his meals to completion without any issues and has a healthy appetite. He is urinating and defecating without any problems. He is currently on heated high flow/Vapotherm, with an oxygen flow rate of 60, FiO2 of 90, and is saturating at 95%. We will continue to treat his PE with a heparin drip. He has no other health concerns at this time. Subjective Update: 66-year-old male on day 9 of admission for Covid pneumonia and bilateral PEs. Patient has a history of atrial fibrillation. Overnight patient remained on Vapotherm and was weaned down to 55 L at 70 FiO2. Patient is currently on CPAP at 65 FiO2. States his breathing has improved since yesterday. Mild intermittent dry cough. No concerns from nursing staff. - Review of Systems General: Denies: Fever, Chills HEENT: Denies: Headaches, Sore Throat Pulmonary: Reports: Shortness of Breath, Cough Cardiovascular: Denies: Chest Pain, Palpitations Gastrointestinal: Denies: Abdominal Pain, Diarrhea, Nausea, Vomiting Genitourinary: Denies: Dysuria Musculoskeletal: Denies: Leg Pain Skin: Denies: Rash Neurological: Denies: Numbness, Paresthesia, Tremors - Patient Data Vitals - Most Recent: Last Vital Signs Temp 97.4 F 06/10/21 04:00 Pulse 84 06/02/21 06:06 Resp 28 H 06/10/21 07:00 BP 116/74 06/10/21 07:00 Pulse Ox 93 L 06/10/21 07:00 Weight - Most Recent: 232 lb 8 oz I&O - Last 24 Hours: Intake & Output 06/09/21 06/10/21 06/10/21 22:59 06:59 14:59 Intake Total 990 450 Output Total 800 950 Balance 190 -500 Lab Results Last 24 Hours: Laboratory Results - last 24 hr 06/10/21 06/10/21 Range/Units 05:20 05:20 WBC 16.36 H (4.0-11.0) K/uL RBC 4.56 (4.50-5.90) M/uL Hgb 14.4 (13.0-17.0) g/dL Hct 41.6 (38.0-50.0) % MCV 91.2 (80.0-98.0) fL MCH 31.6 (27.0-32.0) pg MCHC 34.6 (31.0-37.0) g/dL RDW Std Deviation 45.1 (28.0-62.0) fl RDW Coeff of Arnulfo 14 (11.0-15.0) % Plt Count 149 L (150-400) K/uL MPV 9.80 (7.40-12.00) fL Neut % (Auto) 91.8 H (48.0-80.0) % Lymph % (Auto) 2.4 L (16.0-40.0) % [place] % (Auto) 5.3 (0.0-15.0) % Eos % (Auto) 0.4 (0.0-7.0) % Baso % (Auto) 0.1 (0.0-1.5) % Neut # (Auto) 15.0 H (1.4-5.7) K/uL Lymph # (Auto) 0.4 L (0.6-2.4) K/uL [place] # (Auto) 0.9 H (0.0-0.8) K/uL Eos # (Auto) 0.1 (0.0-0.7) K/uL Baso # (Auto) 0.0 (0.0-0.1) K/uL Nucleated RBC % 0.0 /100WBC Nucleated RBCs # 0 K/uL Sodium 138 (136-148) mmol/L Potassium 4.2 (3.5-5.1) mmol/L Chloride 104 (98-107) mmol/L Carbon Dioxide 25.5 (21.0-32.0) mmol/L BUN 26 H (7.0-18.0) mg/dL Creatinine 0.9 (0.8-1.3) mg/dL Est Cr Clr Drug Dosing 83.67 mL/min Estimated GFR (MDRD) > 60.0 ml/min Glucose 102 (74-106) mg/dL Calcium 8.6 (8.5-10.1) mg/dL Total Bilirubin 0.8 (0.2-1.0) mg/dL AST 36 (15-37) IU/L ALT 36 (14-63) IU/L Alkaline Phosphatase 140 H (46-116) U/L Total Protein 7.1 (6.4-8.2) g/dL Albumin 2.6 L (3.4-5.0) g/dL Globulin 4.5 H (2.6-4.0) g/dL Albumin/Globulin Ratio 0.6 L (0.9-1.6) Med Orders - Current: Current Medications Albuterol/Ipratropium (Albuterol/Ipratropium 3.0-0.5 Mg/3 Ml Neb Soln) 3 ml NEB Q2H PRN PRN Reason: Dyspnea Apixaban (Apixaban 5 Mg Tab) 10 mg PO Q12H [facility] Stop: 06/15/21 06:00 Last Admin: 06/10/21 05:16 Dose: 10 mg Documented by: Baricitinib (Baricitinib 2 Mg Tab) 4 mg PO DAILY [facility] Last Admin: 06/10/21 08:22 Dose: 4 mg Documented by: Dexamethasone (Dexamethasone 4 Mg Tab) 6 mg PO Q24H [facility] Last Admin: 06/10/21 05:16 Dose: 6 mg Documented by: Guaifenesin (Guaifenesin 100 Mg/5 Ml Soln 5 Ml Ud Cup) 100 mg PO Q6H PRN PRN Reason: Cough Last Admin: 06/03/21 08:39 Dose: 100 mg Documented by: Lactated Ringer's (Ringers, Lactated) 1,000 mls @ 999 mls/hr IV ASDIRECTED [facility] Last Admin: 06/02/21 04:43 Dose: 999 mls/hr Documented by: Lorazepam (Lorazepam 2 Mg/Ml Sdv) 1 mg IVPUSH Q6H PRN PRN Reason: Anxiety Last Admin: 06/08/21 05:18 Dose: 1 mg Documented by: Morphine Sulfate (Morphine 2 Mg/Ml Syringe) 2 mg IVPUSH Q4H PRN PRN Reason: Shortness of Breath Pantoprazole Sodium (Pantoprazole 40 Mg Tab.Cr) 40 mg PO DAILY [facility] Last Admin: 06/10/21 08:22 Dose: 40 mg Documented by: Discontinued Medications Albuterol/Ipratropium (Albuterol/Ipratropium 4 Gm Inhalation [place]) 1 gm INH Q4HRRT PRN PRN Reason: Dyspnea Last Admin: 06/03/21 09:02 Dose: 1 puff Documented by: Baricitinib (Baricitinib 2 Mg Tab) 4 mg PO DAILY [facility] Stop: 06/17/21 13:31 Dexamethasone (Dexamethasone 4 Mg Tab) 6 mg PO ONETIME ONE Stop: 06/02/21 05:27 Last Admin: 06/02/21 05:33 Dose: 6 mg Documented by: Heparin Sodium (Porcine) (Heparin Sodium 5,000 Units/Ml Vial) 5,000 units IVPUSH .BOLUS ONE; Protocol Stop: 06/02/21 05:36 Last Admin: 06/02/21 05:46 Dose: 5,000 units Documented by: Heparin Sodium (Porcine) (Heparin Sodium 5,000 Units/Ml Vial) 1,500 units IVPUSH .BOLUS ONE Stop: 06/02/21 13:10 Last Admin: 06/02/21 13:40 Dose: 1,500 units Documented by: Remdesivir 200 mg/ Sodium (Chloride) 250 mls @ 250 mls/hr IV ONETIME ONE Stop: 06/02/21 05:26 Last Admin: 06/02/21 05:55 Dose: 250 mls/hr Documented by: Heparin Sodium/Sodium Chloride (Heparin 25,000 Units In 1/2 Ns 500 Ml) 500 mls @ 26.082 mls/hr IV TITRATE [facility]; Protocol Last Titration: 06/08/21 19:28 Dose: 0 units/kg/hr, 0 mls/hr Documented by: Heparin Sodium/Sodium Chloride (Heparin 25,000 Units In 1/2 Ns 500 Ml) Confirm Administered Dose 500 mls @ as directed .ROUTE .STK-MED ONE Stop: 06/02/21 05:46 Last Admin: 06/02/21 05:49 Dose: Not Given Documented by: Remdesivir 100 mg/ Sodium (Chloride) 100 mls @ 100 mls/hr IV Q24H [facility] Stop: 06/06/21 06:59 Last Admin: 06/06/21 08:20 Dose: 100 mls/hr Documented by: Dexmedetomidine/Sodium (Chloride 400 mcg/ Premix) 100 mls @ 5.572 mls/hr IV TITRATE TODD; Protocol Iopamidol (Iopamidol 755 Mg/Ml 500 Ml Multipack Bottle) 100 ml IVPUSH ONETIME ONE Stop: 06/02/21 03:17 Last Admin: 06/02/21 03:43 Dose: 100 ml Documented by: - Exam Quality Assessment: Supplemental Oxygen General: Alert, Oriented HEENT: Pupils Equal, Pupils Reactive Neck: Supple, Trachea Midline Lungs: Decreased Breath Sounds Cardiovascular: Irregular Rhythm GI/Abdominal Exam: Normal Bowel Sounds, Soft, Non-Tender Extremities: Normal Inspection, No Pedal Edema. No: Leg Pain Peripheral Pulses: 2+: Dorsalis Pedis (L), Dorsalis Pedis (R) Skin: No: Rash Neurological: No New Focal Deficit - Patient Data Lab Results Last 24 hrs: Laboratory Results - last 24 hr 06/10/21 06/10/21 Range/Units 05:20 05:20 WBC 16.36 H (4.0-11.0) K/uL RBC 4.56 (4.50-5.90) M/uL Hgb 14.4 (13.0-17.0) g/dL Hct 41.6 (38.0-50.0) % MCV 91.2 (80.0-98.0) fL MCH 31.6 (27.0-32.0) pg MCHC 34.6 (31.0-37.0) g/dL RDW Std Deviation 45.1 (28.0-62.0) fl RDW Coeff of Arnulfo 14 (11.0-15.0) % Plt Count 149 L (150-400) K/uL MPV 9.80 (7.40-12.00) fL Neut % (Auto) 91.8 H (48.0-80.0) % Lymph % (Auto) 2.4 L (16.0-40.0) % Fannin % (Auto) 5.3 (0.0-15.0) % Eos % (Auto) 0.4 (0.0-7.0) % Baso % (Auto) 0.1 (0.0-1.5) % Neut # (Auto) 15.0 H (1.4-5.7) K/uL Lymph # (Auto) 0.4 L (0.6-2.4) K/uL [place] # (Auto) 0.9 H (0.0-0.8) K/uL Eos # (Auto) 0.1 (0.0-0.7) K/uL Baso # (Auto) 0.0 (0.0-0.1) K/uL Nucleated RBC % 0.0 /100WBC Nucleated RBCs # 0 K/uL Sodium 138 (136-148) mmol/L Potassium 4.2 (3.5-5.1) mmol/L Chloride 104 (98-107) mmol/L Carbon Dioxide 25.5 (21.0-32.0) mmol/L BUN 26 H (7.0-18.0) mg/dL Creatinine 0.9 (0.8-1.3) mg/dL Est Cr Clr Drug Dosing 83.67 mL/min Estimated GFR (MDRD) > 60.0 ml/min Glucose 102 (74-106) mg/dL Calcium 8.6 (8.5-10.1) mg/dL Total Bilirubin 0.8 (0.2-1.0) mg/dL AST 36 (15-37) IU/L ALT 36 (14-63) IU/L Alkaline Phosphatase 140 H (46-116) U/L Total Protein 7.1 (6.4-8.2) g/dL Albumin 2.6 L (3.4-5.0) g/dL Globulin 4.5 H (2.6-4.0) g/dL Albumin/Globulin Ratio 0.6 L (0.9-1.6) Result Diagrams: 06/10/21 05:20 06/10/21 05:20 Sepsis Event Note - Evaluation Sepsis Screening Result: Possible Sepsis Risk - Focused Exam Vital Signs: Vital Signs Temp Resp BP Pulse Ox 06/10/21 07:00 28 H 116/74 93 L 06/10/21 06:00 21 H 128/80 93 L 06/10/21 05:00 22 H 121/78 89 L 06/10/21 04:00 97.4 F 19 130/79 92 L 06/10/21 03:00 14 130/85 88 L 06/10/21 02:00 22 H 131/83 93 L 06/10/21 01:00 17 90 L 06/10/21 00:00 97.3 F 23 H 123/87 90 L 06/09/21 23:00 25 H 128/78 88 L 06/09/21 22:00 23 H 119/75 92 L - Problem List Review Problem List Initiated/Reviewed/Updated: Yes - Assessment Assessment:: 1. COVID-19 pneumonia -Continue dexamethasone and baricitinib -Wean oxygen as appropriate, patient is currently on CPAP at 65 FiO2, saturating at 93%. 2. Bilateral pulmonary emboli -Eliquis 10 mg twice daily. 3. Atrial fibrillation rate controlled -Telemetry monitoring.
[2021-06-10] MEDS: Albuterol/Ipratropium 3.0-0.5 MG/3 ML Neb Soln NEB PRN (21:40)
[2021-06-10] MEDS: guaiFENesin 100 MG/5 ML Soln 5 ML UD Cup PO PRN (21:40)
[2021-06-11] MEDS: Albuterol/Ipratropium 3.0-0.5 MG/3 ML Neb Soln NEB PRN ×4 (02:45→23:38)
[2021-06-11] MEDS: guaiFENesin 100 MG/5 ML Soln 5 ML UD Cup PO PRN ×3 (03:59→19:34)
[2021-06-11] MEDS: Dexamethasone 4 MG Tab PO SCH (06:00)
[2021-06-11] MEDS: Apixaban 5 MG Tab PO SCH ×2 (06:00→17:34)
[2021-06-11 07:20] LABS: BLOOD UREA NITROGEN,BUN 24 mg/dL (7.0-18.0); CHLORIDE,CL 104 mmol/L (98-107); GLUCOSE RANDOM 91 mg/dL (74-106); POTASSIUM,K 4.4 mmol/L (3.5-5.1); SODIUM,NA 139 mmol/L (136-148)
[2021-06-11] MEDS: Pantoprazole 40 MG Tab.CR PO SCH (09:19)
--- NOTE | 2021-06-11 11:20 | PCM.PN ---
- General Info Date of Service: 06/11/21 Admission Dx/Problem (Free Text): The patient is a 66-year-old male, on day 4 of service, who has a significant past medical history of atrial fibrillation which is rate controlled and untreated with medication, and skin cancer of the hands, who was admitted to the intensive care unit due to COVID-19 pneumonia and bilateral pulmonary emboli. Upon interview with the patient today he admits that his shortness of breath fluctuates and last night he was having difficulty breathing but that has subsided this morning after treatment. He does state that his cough is res olving and now is dry without sputum production. He is drinking and eating his meals to completion without any issues and has a healthy appetite. He is urinating and defecating without any problems. He is currently on heated high flow/Vapotherm, with an oxygen flow rate of 60, FiO2 of 90, and is saturating at 95%. We will continue to treat his PE with a heparin drip. He has no other health concerns at this time. Subjective Update: 66-year-old male on day 10 of admission for Covid pneumonia and bilateral PEs. Patient has a history of atrial fibrillation. Overnight patient remained on CPAP and was weaned down to 55 L at 65 FiO2. Patient is currently on heated high flow at 55 FiO2. Patient feels improvement compared to yesterday. He is more talkative today. Patient is tolerating diet. Patient is urinating. Mild intermittent dry cough. No concerns from nursing staff. - Review of Systems General: Denies: Fever HEENT: Denies: Headaches, Sore Throat Pulmonary: Reports: Shortness of Breath, Cough Cardiovascular: Denies: Chest Pain, Palpitations Gastrointestinal: Denies: Abdominal Pain, Constipation, Nausea, Vomiting Genitourinary: Denies: Dysuria Musculoskeletal: Denies: Leg Pain Skin: Denies: Rash Neurological: Denies: Confusion, Dizziness, Headache, Numbness, Paresthesia - Patient Data Vitals - Most Recent: Last Vital Signs Temp 97.9 F 06/11/21 10:55 Pulse 84 06/02/21 06:06 Resp 18 06/11/21 10:55 BP 106/86 06/11/21 10:55 Pulse Ox 96 06/11/21 10:55 Weight - Most Recent: 228 lb 1.6 oz I&O - Last 24 Hours: Intake & Output 06/10/21 06/11/21 06/11/21 22:59 06:59 14:59 Intake Total 750 350 Output Total 875 950 Balance -125 -600 Lab Results Last 24 Hours: Laboratory Results - last 24 hr 06/11/21 06/11/21 Range/Units 06:05 06:05 WBC 16.08 H (4.0-11.0) K/uL RBC 4.70 (4.50-5.90) M/uL Hgb 15.1 (13.0-17.0) g/dL Hct 43.0 (38.0-50.0) % MCV 91.5 (80.0-98.0) fL MCH 32.1 H (27.0-32.0) pg MCHC 35.1 (31.0-37.0) g/dL RDW Std Deviation 44.9 (28.0-62.0) fl RDW Coeff of Arnulfo 14 (11.0-15.0) % Plt Count 133 L (150-400) K/uL MPV 10.50 (7.40-12.00) fL Add Manual Diff YES Neutrophils % (Manual) 92 H (48.0-80.0) % Lymphocytes % (Manual) 2 L (16.0-40.0) % Monocytes % (Manual) 6 (0.0-15.0) % Nucleated RBC % 0.0 /100WBC Absolute Seg Neuts 14.8 H (1.4-5.7) Lymphocytes # (Manual) 0.3 L (0.6-2.4) Monocytes # (Manual) 1.0 H (0.0-0.8) Nucleated RBCs # 0 K/uL Sodium 139 (136-148) mmol/L Potassium 4.4 (3.5-5.1) mmol/L Chloride 104 (98-107) mmol/L Carbon Dioxide 27.0 (21.0-32.0) mmol/L BUN 24 H (7.0-18.0) mg/dL Creatinine 0.9 (0.8-1.3) mg/dL Est Cr Clr Drug Dosing 83.67 mL/min Estimated GFR (MDRD) > 60.0 ml/min Glucose 91 (74-106) mg/dL Calcium 8.1 L (8.5-10.1) mg/dL Total Bilirubin 0.6 (0.2-1.0) mg/dL AST 31 (15-37) IU/L ALT 35 (14-63) IU/L Alkaline Phosphatase 120 H (46-116) U/L Total Protein 6.6 (6.4-8.2) g/dL Albumin 2.6 L (3.4-5.0) g/dL Globulin 4.0 (2.6-4.0) g/dL Albumin/Globulin Ratio 0.7 L (0.9-1.6) Med Orders - Current: Current Medications Albuterol/Ipratropium (Albuterol/Ipratropium 3.0-0.5 Mg/3 Ml Neb Soln) 3 ml NEB Q2H PRN PRN Reason: Dyspnea Last Admin: 06/11/21 11:00 Dose: 3 ml Documented by: Apixaban (Apixaban 5 Mg Tab) 10 mg PO Q12H [facility] Stop: 06/15/21 06:00 Last Admin: 06/11/21 06:00 Dose: 10 mg Documented by: Baricitinib (Baricitinib 2 Mg Tab) 4 mg PO DAILY [facility] Last Admin: 06/11/21 09:19 Dose: 4 mg Documented by: Dexamethasone (Dexamethasone 4 Mg Tab) 6 mg PO Q24H [facility] Last Admin: 06/11/21 06:00 Dose: 6 mg Documented by: Guaifenesin (Guaifenesin 100 Mg/5 Ml Soln 5 Ml Ud Cup) 100 mg PO Q6H PRN PRN Reason: Cough Last Admin: 06/11/21 11:00 Dose: 100 mg Documented by: Lorazepam (Lorazepam 2 Mg/Ml Sdv) 1 mg IVPUSH Q6H PRN PRN Reason: Anxiety Last Admin: 06/08/21 05:18 Dose: 1 mg Documented by: Morphine Sulfate (Morphine 2 Mg/Ml Syringe) 2 mg IVPUSH Q4H PRN PRN Reason: Shortness of Breath Pantoprazole Sodium (Pantoprazole 40 Mg Tab.Cr) 40 mg PO DAILY [facility] Last Admin: 06/11/21 09:19 Dose: 40 mg Documented by: Discontinued Medications Albuterol/Ipratropium (Albuterol/Ipratropium 4 Gm Inhalation [place]) 1 gm INH Q4HRRT PRN PRN Reason: Dyspnea Last Admin: 06/03/21 09:02 Dose: 1 puff Documented by: Baricitinib (Baricitinib 2 Mg Tab) 4 mg PO DAILY [facility] Stop: 06/17/21 13:31 Dexamethasone (Dexamethasone 4 Mg Tab) 6 mg PO ONETIME ONE Stop: 06/02/21 05:27 Last Admin: 06/02/21 05:33 Dose: 6 mg Documented by: Heparin Sodium (Porcine) (Heparin Sodium 5,000 Units/Ml Vial) 5,000 units IVPUSH .BOLUS ONE; Protocol Stop: 06/02/21 05:36 Last Admin: 06/02/21 05:46 Dose: 5,000 units Documented by: Heparin Sodium (Porcine) (Heparin Sodium 5,000 Units/Ml Vial) 1,500 units IVPUSH .BOLUS ONE Stop: 06/02/21 13:10 Last Admin: 06/02/21 13:40 Dose: 1,500 units Documented by: Lactated Ringer's (Ringers, Lactated) 1,000 mls @ 999 mls/hr IV ASDIRECTED [facility] Last Admin: 06/02/21 04:43 Dose: 999 mls/hr Documented by: Remdesivir 200 mg/ Sodium (Chloride) 250 mls @ 250 mls/hr IV ONETIME ONE Stop: 06/02/21 05:26 Last Admin: 06/02/21 05:55 Dose: 250 mls/hr Documented by: Heparin Sodium/Sodium Chloride (Heparin 25,000 Units In 1/2 Ns 500 Ml) 500 mls @ 26.082 mls/hr IV TITRATE [facility]; Protocol Last Titration: 06/08/21 19:28 Dose: 0 units/kg/hr, 0 mls/hr Documented by: Heparin Sodium/Sodium Chloride (Heparin 25,000 Units In 1/2 Ns 500 Ml) Confirm Administered Dose 500 mls @ as directed .ROUTE .STK-MED ONE Stop: 06/02/21 05:46 Last Admin: 06/02/21 05:49 Dose: Not Given Documented by: Remdesivir 100 mg/ Sodium (Chloride) 100 mls @ 100 mls/hr IV Q24H [facility] Stop: 06/06/21 06:59 Last Admin: 06/06/21 08:20 Dose: 100 mls/hr Documented by: Dexmedetomidine/Sodium (Chloride 400 mcg/ Premix) 100 mls @ 5.572 mls/hr IV TITRATE [facility]; Protocol Iopamidol (Iopamidol 755 Mg/Ml 500 Ml Multipack Bottle) 100 ml IVPUSH ONETIME ONE Stop: 06/02/21 03:17 Last Admin: 06/02/21 03:43 Dose: 100 ml Documented by: - Exam Quality Assessment: Supplemental Oxygen General: Alert, Oriented, Cooperative HEENT: Pupils Equal, Pupils Reactive Neck: Supple, Trachea Midline Lungs: Normal Respiratory Effort, Decreased Breath Sounds Cardiovascular: Regular Rate GI/Abdominal Exam: Normal Bowel Sounds, Soft, Non-Tender Extremities: Normal Inspection Skin: Warm, Dry, Intact Neurological: No New Focal Deficit - Patient Data Lab Results Last 24 hrs: Laboratory Results - last 24 hr 06/11/21 06/11/21 Range/Units 06:05 06:05 WBC 16.08 H (4.0-11.0) K/uL RBC 4.70 (4.50-5.90) M/uL Hgb 15.1 (13.0-17.0) g/dL Hct 43.0 (38.0-50.0) % MCV 91.5 (80.0-98.0) fL MCH 32.1 H (27.0-32.0) pg MCHC 35.1 (31.0-37.0) g/dL RDW Std Deviation 44.9 (28.0-62.0) fl RDW Coeff of Arnulfo 14 (11.0-15.0) % Plt Count 133 L (150-400) K/uL MPV 10.50 (7.40-12.00) fL Add Manual Diff YES Neutrophils % (Manual) 92 H (48.0-80.0) % Lymphocytes % (Manual) 2 L (16.0-40.0) % Monocytes % (Manual) 6 (0.0-15.0) % Nucleated RBC % 0.0 /100WBC Absolute Seg Neuts 14.8 H (1.4-5.7) Lymphocytes # (Manual) 0.3 L (0.6-2.4) Monocytes # (Manual) 1.0 H (0.0-0.8) Nucleated RBCs # 0 K/uL Sodium 139 (136-148) mmol/L Potassium 4.4 (3.5-5.1) mmol/L Chloride 104 (98-107) mmol/L Carbon Dioxide 27.0 (21.0-32.0) mmol/L BUN 24 H (7.0-18.0) mg/dL Creatinine 0.9 (0.8-1.3) mg/dL Est Cr Clr Drug Dosing 83.67 mL/min Estimated GFR (MDRD) > 60.0 ml/min Glucose 91 (74-106) mg/dL Calcium 8.1 L (8.5-10.1) mg/dL Total Bilirubin 0.6 (0.2-1.0) mg/dL AST 31 (15-37) IU/L ALT 35 (14-63) IU/L Alkaline Phosphatase 120 H (46-116) U/L Total Protein 6.6 (6.4-8.2) g/dL Albumin 2.6 L (3.4-5.0) g/dL Globulin 4.0 (2.6-4.0) g/dL Albumin/Globulin Ratio 0.7 L (0.9-1.6) Result Diagrams: 06/11/21 06:05 06/11/21 06:05 Sepsis Event Note - Evaluation Sepsis Screening Result: Possible Sepsis Risk - Focused Exam Vital Signs: Vital Signs Temp Resp BP Pulse Ox 06/11/21 10:55 97.9 F 18 106/86 96 06/11/21 10:00 97.9 F 20 111/68 91 L 06/11/21 09:00 97.9 F 21 H 106/72 91 L 06/11/21 08:00 97.9 F 16 120/63 88 L 06/11/21 07:00 18 112/72 89 L 06/11/21 06:00 24 H 106/63 94 L 06/11/21 05:00 21 H 112/72 94 L 06/11/21 04:00 97.4 F 28 H 126/85 89 L 06/11/21 03:00 25 H 108/66 94 L 06/11/21 02:00 21 H 109/68 92 L 06/11/21 01:00 21 H 125/73 93 L 06/11/21 00:00 24 H 114/73 90 L - Problem List Review Problem List Initiated/Reviewed/Updated: Yes - Assessment Assessment:: 1. COVID-19 pneumonia -Continue dexamethasone and baricitinib -Wean oxygen as appropriate, patient is currently on heated high flow at 55 FiO2, saturating at 93%. 2. Bilateral pulmonary emboli -Eliquis 10 mg twice daily. 3. Atrial fibrillation rate controlled -Telemetry monitoring.
--- NOTE | 2021-06-11 17:57 | PN ---
TH[facility] Physician - Brief Progress [id number]/2021 17:14[facility] Dolores Mcqueen, [place] - LUISN (SANJIV) - MAYELA SOFY KENT, JEETID +Date of Service 06/11/2021 17: 14HPI/Events of Note eICU Progress NotePatient is a 66-year-old male admitted 06/05/2021 for acute hyp oxic respiratory failure secondary to multifocal pneumonia from SARS-CoV-2. Patient also found to geronimo ve bilateral pulmonary emboli. Acute hypoxic respiratory failure has been managed with supplemental o xygen via HFNC and NIPPV therapy, dexamethasone, remdesivir, and baricitinib. He is also on a Heparin infusion. SpO2 is 91% and he is resting comfortably in bed. Case was discussed with his nurse Joel tran. Recommendations:-Continue supplemental oxygen via mask, HFNC, and NIPPV therapy weaning as able- Goal SpO2 88% to 92%-Continue dexamethasone 6 mg daily x10 days-Continue remdesivir for 5-day course (this should be completed based on admission date of 06/05)-Baricitinib 4 mg daily x14 days or until h ospital discharge whichever comes first-Continue heparin infusion. (2D echo recommended at time of a dmission)-Recommend proning as tolerated Thank you for allowing us to participate in the care of your patient.Interventions Major-Hypoxemia - evaluation and management, Infection - evaluation and manage ment, Respiratory failure - evaluation and [id number]-[id number] therapies (e.g. VTE, beta fanny, etc.), Communication with other healthcare providers and/or family
[2021-06-12] MEDS: guaiFENesin 100 MG/5 ML Soln 5 ML UD Cup PO PRN ×4 (01:15→22:10)
[2021-06-12] MEDS: Apixaban 5 MG Tab PO SCH ×2 (06:14→17:26)
[2021-06-12] MEDS: Dexamethasone 4 MG Tab PO SCH (06:15)
[2021-06-12] MEDS: Albuterol/Ipratropium 3.0-0.5 MG/3 ML Neb Soln NEB PRN ×6 (06:21→22:10)
[2021-06-12 08:24] LABS: BLOOD UREA NITROGEN,BUN 25 mg/dL (7.0-18.0); CARBON DIOXIDE,CO2 23.8 mmol/L (21.0-32.0); CHLORIDE,CL 102 mmol/L (98-107); GLUCOSE RANDOM 96 mg/dL (74-106); POTASSIUM,K 4.2 mmol/L (3.5-5.1); SODIUM,NA 136 mmol/L (136-148)
[2021-06-12] MEDS: Pantoprazole 40 MG Tab.CR PO SCH (08:33)
--- NOTE | 2021-06-12 11:00 | PCM.PN ---
- General Info Date of Service: 06/12/21 Admission Dx/Problem (Free Text): The patient is a 66-year-old male, on day 4 of service, who has a significant past medical history of atrial fibrillation which is rate controlled and untreated with medication, and skin cancer of the hands, who was admitted to the intensive care unit due to COVID-19 pneumonia and bilateral pulmonary emboli. Upon interview with the patient today he admits that his shortness of breath fluctuates and last night he was having difficulty breathing but that has subsided this morning after treatment. He does state that his cough is res olving and now is dry without sputum production. He is drinking and eating his meals to completion without any issues and has a healthy appetite. He is urinating and defecating without any problems. He is currently on heated high flow/Vapotherm, with an oxygen flow rate of 60, FiO2 of 90, and is saturating at 95%. We will continue to treat his PE with a heparin drip. He has no other health concerns at this time. Subjective Update: 66-year-old male admitted for Covid pneumonia and bilateral PEs. Patient has a history of atrial fibrillation. Overnight patient remained on CPAP. This morning he is on heated high flow at 55 L, FiO2 60. Patient states he is feel ing better. He is sitting up in bed and appears to be breathing without distress. Patient is tolerating diet. Patient is urinating. No concerns from nursing staff. - Review of Systems General: Denies: Fever, Chills HEENT: Denies: Headaches Pulmonary: Reports: Shortness of Breath. Denies: Cough Cardiovascular: Denies: Chest Pain, Palpitations Gastrointestinal: Denies: Abdominal Pain, Constipation, Nausea, Vomiting Genitourinary: Denies: Dysuria Musculoskeletal: Denies: Back Pain, Leg Pain Skin: Denies: Cyanosis, Rash Neurological: Denies: Dizziness, Headache, Numbness, Paresthesia, Pre-Existing Deficit - Patient Data Vitals - Most Recent: Last Vital Signs Temp 96.9 F 06/12/21 08:00 Pulse 98 06/11/21 13:00 Resp 21 H 06/12/21 09:00 BP 106/74 06/12/21 09:00 Pulse Ox 89 L 06/12/21 09:00 Weight - Most Recent: 230 lb 8 oz I&O - Last 24 Hours: Intake & Output 06/11/21 06/12/21 06/12/21 22:59 06:59 14:59 Intake Total 1200 600 Output Total 875 600 Balance 325 0 Lab Results Last 24 Hours: Laboratory Results - last 24 hr 06/12/21 06/12/21 Range/Units 07:03 07:03 WBC 16.02 H (4.0-11.0) K/uL RBC 4.72 (4.50-5.90) M/uL Hgb 15.1 (13.0-17.0) g/dL Hct 43.4 (38.0-50.0) % MCV 91.9 (80.0-98.0) fL MCH 32.0 (27.0-32.0) pg MCHC 34.8 (31.0-37.0) g/dL RDW Std Deviation 45.3 (28.0-62.0) fl RDW Coeff of Arnulfo 14 (11.0-15.0) % Plt Count 140 L (150-400) K/uL MPV 10.50 (7.40-12.00) fL Neut % (Auto) 87.7 H (48.0-80.0) % Lymph % (Auto) 3.8 L (16.0-40.0) % [place] % (Auto) 7.8 (0.0-15.0) % Eos % (Auto) 0.6 (0.0-7.0) % Baso % (Auto) 0.1 (0.0-1.5) % Neut # (Auto) 14.1 H (1.4-5.7) K/uL Lymph # (Auto) 0.6 (0.6-2.4) K/uL [place] # (Auto) 1.3 H (0.0-0.8) K/uL Eos # (Auto) 0.1 (0.0-0.7) K/uL Baso # (Auto) 0.0 (0.0-0.1) K/uL Nucleated RBC % 0.0 /100WBC Nucleated RBCs # 0 K/uL Sodium 136 (136-148) mmol/L Potassium 4.2 (3.5-5.1) mmol/L Chloride 102 (98-107) mmol/L Carbon Dioxide 23.8 (21.0-32.0) mmol/L BUN 25 H (7.0-18.0) mg/dL Creatinine 0.8 (0.8-1.3) mg/dL Est Cr Clr Drug Dosing 94.13 mL/min Estimated GFR (MDRD) > 60.0 ml/min Glucose 96 (74-106) mg/dL Calcium 8.7 (8.5-10.1) mg/dL Total Bilirubin 0.7 (0.2-1.0) mg/dL AST 41 H (15-37) IU/L ALT 35 (14-63) IU/L Alkaline Phosphatase 105 (46-116) U/L Total Protein 7.2 (6.4-8.2) g/dL Albumin 2.5 L (3.4-5.0) g/dL Globulin 4.7 H (2.6-4.0) g/dL Albumin/Globulin Ratio 0.5 L (0.9-1.6) Med Orders - Current: Current Medications Albuterol/Ipratropium (Albuterol/Ipratropium 3.0-0.5 Mg/3 Ml Neb Soln) 3 ml NEB Q2H PRN PRN Reason: Dyspnea Last Admin: 06/12/21 08:34 Dose: 3 ml Documented by: Apixaban (Apixaban 5 Mg Tab) 10 mg PO Q12H [facility] Stop: 06/15/21 06:00 Last Admin: 06/12/21 06:14 Dose: 10 mg Documented by: Baricitinib (Baricitinib 2 Mg Tab) 4 mg PO DAILY [facility] Last Admin: 06/12/21 08:33 Dose: 4 mg Documented by: Dexamethasone (Dexamethasone 4 Mg Tab) 6 mg PO Q24H TODD Last Admin: 06/12/21 06:15 Dose: 6 mg Documented by: Guaifenesin (Guaifenesin 100 Mg/5 Ml Soln 5 Ml Ud Cup) 100 mg PO Q6H PRN PRN Reason: Cough Last Admin: 06/12/21 07:42 Dose: 100 mg Documented by: Lorazepam (Lorazepam 2 Mg/Ml Sdv) 1 mg IVPUSH Q6H PRN PRN Reason: Anxiety Last Admin: 06/08/21 05:18 Dose: 1 mg Documented by: Morphine Sulfate (Morphine 2 Mg/Ml Syringe) 2 mg IVPUSH Q4H PRN PRN Reason: Shortness of Breath Pantoprazole Sodium (Pantoprazole 40 Mg Tab.Cr) 40 mg PO DAILY TODD Last Admin: 06/12/21 08:33 Dose: 40 mg Documented by: Discontinued Medications Albuterol/Ipratropium (Albuterol/Ipratropium 4 Gm Inhalation [place]) 1 gm INH Q4HRRT PRN PRN Reason: Dyspnea Last Admin: 06/03/21 09:02 Dose: 1 puff Documented by: Baricitinib (Baricitinib 2 Mg Tab) 4 mg PO DAILY TODD Stop: 06/17/21 13:31 Dexamethasone (Dexamethasone 4 Mg Tab) 6 mg PO ONETIME ONE Stop: 06/02/21 05:27 Last Admin: 06/02/21 05:33 Dose: 6 mg Documented by: Heparin Sodium (Porcine) (Heparin Sodium 5,000 Units/Ml Vial) 5,000 units IVPUSH .BOLUS ONE; Protocol Stop: 06/02/21 05:36 Last Admin: 06/02/21 05:46 Dose: 5,000 units Documented by: Heparin Sodium (Porcine) (Heparin Sodium 5,000 Units/Ml Vial) 1,500 units IVPUSH .BOLUS ONE Stop: 06/02/21 13:10 Last Admin: 06/02/21 13:40 Dose: 1,500 units Documented by: Lactated Ringer's (Ringers, Lactated) 1,000 mls @ 999 mls/hr IV ASDIRECTED TODD Last Admin: 06/02/21 04:43 Dose: 999 mls/hr Documented by: Remdesivir 200 mg/ Sodium (Chloride) 250 mls @ 250 mls/hr IV ONETIME ONE Stop: 06/02/21 05:26 Last Admin: 06/02/21 05:55 Dose: 250 mls/hr Documented by: Heparin Sodium/Sodium Chloride (Heparin 25,000 Units In 1/2 Ns 500 Ml) 500 mls @ 26.082 mls/hr IV TITRATE TODD; Protocol Last Titration: 06/08/21 19:28 Dose: 0 units/kg/hr, 0 mls/hr Documented by: Heparin Sodium/Sodium Chloride (Heparin 25,000 Units In 1/2 Ns 500 Ml) Confirm Administered Dose 500 mls @ as directed .ROUTE .STK-MED ONE Stop: 06/02/21 05:46 Last Admin: 06/02/21 05:49 Dose: Not Given Documented by: Remdesivir 100 mg/ Sodium (Chloride) 100 mls @ 100 mls/hr IV Q24H TODD Stop: 06/06/21 06:59 Last Admin: 06/06/21 08:20 Dose: 100 mls/hr Documented by: Dexmedetomidine/Sodium (Chloride 400 mcg/ Premix) 100 mls @ 5.572 mls/hr IV TITRATE TODD; Protocol Iopamidol (Iopamidol 755 Mg/Ml 500 Ml Multipack Bottle) 100 ml IVPUSH ONETIME ONE Stop: 06/02/21 03:17 Last Admin: 06/02/21 03:43 Dose: 100 ml Documented by: - Exam Quality Assessment: Supplemental Oxygen General: Alert, Oriented, Cooperative, No Acute Distress HEENT: Pupils Equal, Pupils Reactive Neck: Supple, Trachea Midline Lungs: Decreased Breath Sounds Cardiovascular: Regular Rate, Irregular Rhythm GI/Abdominal Exam: Normal Bowel Sounds, Soft, Non-Tender Back Exam: Normal Inspection Extremities: No Pedal Edema, Other (Psoriatic changes below bilateral knees.). No: Erich's Sign, Leg Pain Peripheral Pulses: 2+: Dorsalis Pedis (L), Dorsalis Pedis (R) Skin: No: Rash Neurological: No New Focal Deficit - Patient Data Lab Results Last 24 hrs: Laboratory Results - last 24 hr 06/12/21 06/12/21 Range/Units 07:03 07:03 WBC 16.02 H (4.0-11.0) K/uL RBC 4.72 (4.50-5.90) M/uL Hgb 15.1 (13.0-17.0) g/dL Hct 43.4 (38.0-50.0) % MCV 91.9 (80.0-98.0) fL MCH 32.0 (27.0-32.0) pg MCHC 34.8 (31.0-37.0) g/dL RDW Std Deviation 45.3 (28.0-62.0) fl RDW Coeff of [place] 14 (11.0-15.0) % Plt Count 140 L (150-400) K/uL MPV 10.50 (7.40-12.00) fL Neut % (Auto) 87.7 H (48.0-80.0) % Lymph % (Auto) 3.8 L (16.0-40.0) % [place] % (Auto) 7.8 (0.0-15.0) % Eos % (Auto) 0.6 (0.0-7.0) % Baso % (Auto) 0.1 (0.0-1.5) % Neut # (Auto) 14.1 H (1.4-5.7) K/uL Lymph # (Auto) 0.6 (0.6-2.4) K/uL [place] # (Auto) 1.3 H (0.0-0.8) K/uL Eos # (Auto) 0.1 (0.0-0.7) K/uL Baso # (Auto) 0.0 (0.0-0.1) K/uL Nucleated RBC % 0.0 /100WBC Nucleated RBCs # 0 K/uL Sodium 136 (136-148) mmol/L Potassium 4.2 (3.5-5.1) mmol/L Chloride 102 (98-107) mmol/L Carbon Dioxide 23.8 (21.0-32.0) mmol/L BUN 25 H (7.0-18.0) mg/dL Creatinine 0.8 (0.8-1.3) mg/dL Est Cr Clr Drug Dosing 94.13 mL/min Estimated GFR (MDRD) > 60.0 ml/min Glucose 96 (74-106) mg/dL Calcium 8.7 (8.5-10.1) mg/dL Total Bilirubin 0.7 (0.2-1.0) mg/dL AST 41 H (15-37) IU/L ALT 35 (14-63) IU/L Alkaline Phosphatase 105 (46-116) U/L Total Protein 7.2 (6.4-8.2) g/dL Albumin 2.5 L (3.4-5.0) g/dL Globulin 4.7 H (2.6-4.0) g/dL Albumin/Globulin Ratio 0.5 L (0.9-1.6) Result Diagrams: 06/12/21 07:03 06/12/21 07:03 Sepsis Event Note - Evaluation Sepsis Screening Result: Possible Sepsis Risk - Focused Exam Vital Signs: Vital Signs Temp Resp BP Pulse Ox 06/12/21 09:00 21 H 106/74 89 L 06/12/21 08:00 96.9 F 20 103/67 87 L 06/12/21 07:00 19 112/70 89 L 06/12/21 06:00 28 H 92/57 L 90 L 06/12/21 05:00 25 H 100/65 91 L 06/12/21 04:00 97.3 F 22 H 111/60 94 L 06/12/21 03:00 25 H 92/53 L 94 L 06/12/21 02:00 20 106/75 95 06/12/21 01:00 20 111/68 95 06/12/21 00:00 97.3 F 21 H 107/74 92 L 06/11/21 23:00 20 101/67 92 L - Problem List Review Problem List Initiated/Reviewed/Updated: Yes - My Orders Last 24 Hours: My Active Orders 06/13/21 05:11 CBC WITH AUTO DIFF [HEME] DAILY COMPREHENSIVE METABOLIC PN,CMP [CHEM] DAILY 06/14/21 05:11 CBC WITH AUTO DIFF [HEME] DAILY COMPREHENSIVE METABOLIC PN,CMP [CHEM] DAILY 06/15/21 05:11 CBC WITH AUTO DIFF [HEME] DAILY COMPREHENSIVE METABOLIC PN,CMP [CHEM] DAILY 06/16/21 05:11 CBC WITH AUTO DIFF [HEME] DAILY COMPREHENSIVE METABOLIC PN,CMP [CHEM] DAILY 06/17/21 05:11 CBC WITH AUTO DIFF [HEME] DAILY COMPREHENSIVE METABOLIC PN,CMP [CHEM] DAILY 06/18/21 05:11 CBC WITH AUTO DIFF [HEME] DAILY COMPREHENSIVE METABOLIC PN,CMP [CHEM] DAILY - Assessment Assessment:: 1. COVID-19 pneumonia -Continue dexamethasone and baricitinib -Wean oxygen as appropriate, patient is currently on heated high flow at 55 L, FiO2 60, saturating at 90%. 2. Bilateral pulmonary emboli -Eliquis 10 mg twice daily. 3. Atrial fibrillation rate controlled -Telemetry monitoring.
[2021-06-13] MEDS: Albuterol/Ipratropium 3.0-0.5 MG/3 ML Neb Soln NEB PRN ×2 (06:12→18:20)
[2021-06-13] MEDS: guaiFENesin 100 MG/5 ML Soln 5 ML UD Cup PO PRN ×2 (06:12→18:21)
[2021-06-13] MEDS: Dexamethasone 4 MG Tab PO SCH (06:25)
[2021-06-13] MEDS: Apixaban 5 MG Tab PO SCH ×2 (06:25→18:20)
[2021-06-13 07:32] LABS: BLOOD UREA NITROGEN,BUN 24 mg/dL (7.0-18.0); CHLORIDE,CL 104 mmol/L (98-107); GLUCOSE RANDOM 89 mg/dL (74-106); POTASSIUM,K 4.3 mmol/L (3.5-5.1); SODIUM,NA 139 mmol/L (136-148)
[2021-06-13] MEDS: Pantoprazole 40 MG Tab.CR PO SCH (08:14)
--- NOTE | 2021-06-13 12:29 | PCM.PN ---
- General Info Date of Service: 06/13/21 Admission Dx/Problem (Free Text): The patient is a 66-year-old male, on day 4 of service, who has a significant past medical history of atrial fibrillation which is rate controlled and untreated with medication, and skin cancer of the hands, who was admitted to the intensive care unit due to COVID-19 pneumonia and bilateral pulmonary emboli. Upon interview with the patient today he admits that his shortness of breath fluctuates and last night he was having difficulty breathing but that has subsided this morning after treatment. He does state that his cough is res olving and now is dry without sputum production. He is drinking and eating his meals to completion without any issues and has a healthy appetite. He is urinating and defecating without any problems. He is currently on heated high flow/Vapotherm, with an oxygen flow rate of 60, FiO2 of 90, and is saturating at 95%. We will continue to treat his PE with a heparin drip. He has no other health concerns at this time. Subjective Update: 66-year-old male admitted for Covid pneumonia and bilateral PEs. Patient has a history of atrial fibrillation. Overnight patient remained on CPAP. Patient's oxygenation is improving and he is down to heated high flow 45 L, FiO2 50%. We will attempt nasal cannula today. Physical therapy worked with the patient this morning and stated he did well except for some mild anxiety. He was able to stand and shift to the chair. Patient states he is feeling better. Patient is tolerating diet. Patient is urinating. No concerns from nursing staff. - Review of Systems General: Denies: Fever, Chills HEENT: Denies: Headaches Pulmonary: Reports: Shortness of Breath, Cough. Denies: Sputum Cardiovascular: Denies: Chest Pain, Palpitations Gastrointestinal: Denies: Abdominal Pain, Constipation, Nausea, Vomiting Genitourinary: Denies: Dysuria Musculoskeletal: Denies: Leg Pain Skin: Denies: Cyanosis Neurological: Denies: Confusion, Dizziness, Headache, Numbness, Paresthesia - Patient Data Vitals - Most Recent: Last Vital Signs Temp 97.0 F 06/13/21 08:00 Pulse 98 06/11/21 13:00 Resp 19 06/13/21 12:00 BP 90/61 06/13/21 12:00 Pulse Ox 93 L 06/13/21 12:00 Weight - Most Recent: 222 lb 9.6 oz I&O - Last 24 Hours: Intake & Output 06/12/21 06/13/21 06/13/21 22:59 06:59 14:59 Intake Total 580 735 Output Total 640 975 Balance -60 -240 Lab Results Last 24 Hours: Laboratory Results - last 24 hr 06/13/21 06/13/21 Range/Units 05:30 05:30 WBC 14.39 H (4.0-11.0) K/uL RBC 4.60 (4.50-5.90) M/uL Hgb 14.8 (13.0-17.0) g/dL Hct 42.5 (38.0-50.0) % MCV 92.4 (80.0-98.0) fL MCH 32.2 H (27.0-32.0) pg MCHC 34.8 (31.0-37.0) g/dL RDW Std Deviation 45.8 (28.0-62.0) fl RDW Coeff of [place] 14 (11.0-15.0) % Plt Count 152 (150-400) K/uL MPV 10.90 (7.40-12.00) fL Neut % (Auto) 87.6 H (48.0-80.0) % Lymph % (Auto) 4.0 L (16.0-40.0) % [place] % (Auto) 7.6 (0.0-15.0) % Eos % (Auto) 0.8 (0.0-7.0) % Baso % (Auto) 0.0 (0.0-1.5) % Neut # (Auto) 12.6 H (1.4-5.7) K/uL Lymph # (Auto) 0.6 (0.6-2.4) K/uL [place] # (Auto) 1.1 H (0.0-0.8) K/uL Eos # (Auto) 0.1 (0.0-0.7) K/uL Baso # (Auto) 0.0 (0.0-0.1) K/uL Nucleated RBC % 0.0 /100WBC Nucleated RBCs # 0 K/uL Sodium 139 (136-148) mmol/L Potassium 4.3 (3.5-5.1) mmol/L Chloride 104 (98-107) mmol/L Carbon Dioxide 26.0 (21.0-32.0) mmol/L BUN 24 H (7.0-18.0) mg/dL Creatinine 0.8 (0.8-1.3) mg/dL Est Cr Clr Drug Dosing 94.13 mL/min Estimated GFR (MDRD) > 60.0 ml/min Glucose 89 (74-106) mg/dL Calcium 8.3 L (8.5-10.1) mg/dL Total Bilirubin 0.7 (0.2-1.0) mg/dL AST 37 (15-37) IU/L ALT 51 (14-63) IU/L Alkaline Phosphatase 95 (46-116) U/L Total Protein 6.7 (6.4-8.2) g/dL Albumin 2.6 L (3.4-5.0) g/dL Globulin 4.1 H (2.6-4.0) g/dL Albumin/Globulin Ratio 0.6 L (0.9-1.6) Med Orders - Current: Current Medications Albuterol/Ipratropium (Albuterol/Ipratropium 3.0-0.5 Mg/3 Ml Neb Soln) 3 ml NEB Q2H PRN PRN Reason: Dyspnea Last Admin: 06/13/21 06:12 Dose: 3 ml Documented by: Apixaban (Apixaban 5 Mg Tab) 10 mg PO Q12H [facility] Stop: 06/15/21 06:00 Last Admin: 06/13/21 06:25 Dose: Not Given Documented by: Baricitinib (Baricitinib 2 Mg Tab) 4 mg PO DAILY TODD Last Admin: 06/13/21 08:14 Dose: 4 mg Documented by: Guaifenesin (Guaifenesin 100 Mg/5 Ml Soln 5 Ml Ud Cup) 100 mg PO Q6H PRN PRN Reason: Cough Last Admin: 06/13/21 06:12 Dose: 100 mg Documented by: Lorazepam (Lorazepam 2 Mg/Ml Sdv) 1 mg IVPUSH Q6H PRN PRN Reason: Anxiety Last Admin: 06/08/21 05:18 Dose: 1 mg Documented by: Morphine Sulfate (Morphine 2 Mg/Ml Syringe) 2 mg IVPUSH Q4H PRN PRN Reason: Shortness of Breath Pantoprazole Sodium (Pantoprazole 40 Mg Tab.Cr) 40 mg PO DAILY TODD Last Admin: 06/13/21 08:14 Dose: 40 mg Documented by: Discontinued Medications Albuterol/Ipratropium (Albuterol/Ipratropium 4 Gm Inhalation [place]) 1 gm INH Q4HRRT PRN PRN Reason: Dyspnea Last Admin: 06/03/21 09:02 Dose: 1 puff Documented by: Baricitinib (Baricitinib 2 Mg Tab) 4 mg PO DAILY TODD Stop: 06/17/21 13:31 Dexamethasone (Dexamethasone 4 Mg Tab) 6 mg PO ONETIME ONE Stop: 06/02/21 05:27 Last Admin: 06/02/21 05:33 Dose: 6 mg Documented by: Dexamethasone (Dexamethasone 4 Mg Tab) 6 mg PO Q24H TODD Last Admin: 06/13/21 06:25 Dose: Not Given Documented by: Heparin Sodium (Porcine) (Heparin Sodium 5,000 Units/Ml Vial) 5,000 units IVPUSH .BOLUS ONE; Protocol Stop: 06/02/21 05:36 Last Admin: 06/02/21 05:46 Dose: 5,000 units Documented by: Heparin Sodium (Porcine) (Heparin Sodium 5,000 Units/Ml Vial) 1,500 units IVPUSH .BOLUS ONE Stop: 06/02/21 13:10 Last Admin: 06/02/21 13:40 Dose: 1,500 units Documented by: Lactated Ringer's (Ringers, Lactated) 1,000 mls @ 999 mls/hr IV ASDIRECTED [facility] Last Admin: 06/02/21 04:43 Dose: 999 mls/hr Documented by: Remdesivir 200 mg/ Sodium (Chloride) 250 mls @ 250 mls/hr IV ONETIME ONE Stop: 06/02/21 05:26 Last Admin: 06/02/21 05:55 Dose: 250 mls/hr Documented by: Heparin Sodium/Sodium Chloride (Heparin 25,000 Units In 1/2 Ns 500 Ml) 500 mls @ 26.082 mls/hr IV TITRATE TODD; Protocol Last Titration: 06/08/21 19:28 Dose: 0 units/kg/hr, 0 mls/hr Documented by: Heparin Sodium/Sodium Chloride (Heparin 25,000 Units In 1/2 Ns 500 Ml) Confirm Administered Dose 500 mls @ as directed .ROUTE .STK-MED ONE Stop: 06/02/21 05:46 Last Admin: 06/02/21 05:49 Dose: Not Given Documented by: Remdesivir 100 mg/ Sodium (Chloride) 100 mls @ 100 mls/hr IV Q24H TODD Stop: 06/06/21 06:59 Last Admin: 06/06/21 08:20 Dose: 100 mls/hr Documented by: Dexmedetomidine/Sodium (Chloride 400 mcg/ Premix) 100 mls @ 5.572 mls/hr IV TITRATE TODD; Protocol Iopamidol (Iopamidol 755 Mg/Ml 500 Ml Multipack Bottle) 100 ml IVPUSH ONETIME ONE Stop: 06/02/21 03:17 Last Admin: 06/02/21 03:43 Dose: 100 ml Documented by: - Exam Quality Assessment: Supplemental Oxygen General: Alert, Oriented, Cooperative, No Acute Distress HEENT: Pupils Equal, Pupils Reactive Neck: Supple, Trachea Midline Lungs: Clear to Auscultation, Decreased Breath Sounds Cardiovascular: Regular Rate, Irregular Rhythm GI/Abdominal Exam: Normal Bowel Sounds, Soft, Non-Tender Back Exam: Normal Inspection Extremities: Normal Inspection, Normal Range of Motion, Non-Tender, No Pedal Edema Peripheral Pulses: 2+: Dorsalis Pedis (L), Dorsalis Pedis (R) Skin: Warm, Dry, Intact Neurological: No New Focal Deficit - Patient Data Lab Results Last 24 hrs: Laboratory Results - last 24 hr 06/13/21 06/13/21 Range/Units 05:30 05:30 WBC 14.39 H (4.0-11.0) K/uL RBC 4.60 (4.50-5.90) M/uL Hgb 14.8 (13.0-17.0) g/dL Hct 42.5 (38.0-50.0) % MCV 92.4 (80.0-98.0) fL MCH 32.2 H (27.0-32.0) pg MCHC 34.8 (31.0-37.0) g/dL RDW Std Deviation 45.8 (28.0-62.0) fl RDW Coeff of [place]ul[place] 14 (11.0-15.0) % Plt Count 152 (150-400) K/uL MPV 10.90 (7.40-12.00) fL Neut % (Auto) 87.6 H (48.0-80.0) % Lymph % (Auto) 4.0 L (16.0-40.0) % [place] % (Auto) 7.6 (0.0-15.0) % Eos % (Auto) 0.8 (0.0-7.0) % Baso % (Auto) 0.0 (0.0-1.5) % Neut # (Auto) 12.6 H (1.4-5.7) K/uL Lymph # (Auto) 0.6 (0.6-2.4) K/uL [place] # (Auto) 1.1 H (0.0-0.8) K/uL Eos # (Auto) 0.1 (0.0-0.7) K/uL Baso # (Auto) 0.0 (0.0-0.1) K/uL Nucleated RBC % 0.0 /100WBC Nucleated RBCs # 0 K/uL Sodium 139 (136-148) mmol/L Potassium 4.3 (3.5-5.1) mmol/L Chloride 104 (98-107) mmol/L Carbon Dioxide 26.0 (21.0-32.0) mmol/L BUN 24 H (7.0-18.0) mg/dL Creatinine 0.8 (0.8-1.3) mg/dL Est Cr Clr Drug Dosing 94.13 mL/min Estimated GFR (MDRD) > 60.0 ml/min Glucose 89 (74-106) mg/dL Calcium 8.3 L (8.5-10.1) mg/dL Total Bilirubin 0.7 (0.2-1.0) mg/dL AST 37 (15-37) IU/L ALT 51 (14-63) IU/L Alkaline Phosphatase 95 (46-116) U/L Total Protein 6.7 (6.4-8.2) g/dL Albumin 2.6 L (3.4-5.0) g/dL Globulin 4.1 H (2.6-4.0) g/dL Albumin/Globulin Ratio 0.6 L (0.9-1.6) Result Diagrams: 06/13/21 05:30 06/13/21 05:30 Sepsis Event Note - Evaluation Sepsis Screening Result: Possible Sepsis Risk - Focused Exam Vital Signs: Vital Signs Temp Resp BP Pulse Ox 06/13/21 12:00 19 90/61 93 L 06/13/21 11:00 11 L 100/65 88 L 06/13/21 10:00 26 H 116/63 92 L 06/13/21 09:00 30 H 93/63 90 L 06/13/21 08:00 97.0 F 25 H 96/70 84 L 06/13/21 07:00 17 92/61 91 L 06/13/21 01:00 97.2 F 20 95 - Problem List Review Problem List Initiated/Reviewed/Updated: Yes - My Orders Last 24 Hours: My Active Orders 06/13/21 09:49 Consult to Physical Therapy [PT Evaluation and Treatment] [CONS] Routine 06/14/21 05:11 CBC WITH AUTO DIFF [HEME] DAILY COMPREHENSIVE METABOLIC PN,CMP [CHEM] DAILY 06/15/21 05:11 CBC WITH AUTO DIFF [HEME] DAILY COMPREHENSIVE METABOLIC PN,CMP [CHEM] DAILY 06/16/21 05:11 CBC WITH AUTO DIFF [HEME] DAILY COMPREHENSIVE METABOLIC PN,CMP [CHEM] DAILY 06/17/21 05:11 CBC WITH AUTO DIFF [HEME] DAILY COMPREHENSIVE METABOLIC PN,CMP [CHEM] DAILY 06/18/21 05:11 CBC WITH AUTO DIFF [HEME] DAILY COMPREHENSIVE METABOLIC PN,CMP [CHEM] DAILY - Assessment Assessment:: 1. COVID-19 pneumonia -Discontinue dexamethasone today. Continue baricitinib x14 days total. -Wean oxygen as appropriate, patient is currently on heated high flow at 45 L, FiO2 50, saturating at 90%. We will attempt nasal cannula today. -Physical therapy is following. 2. Bilateral pulmonary emboli -Eliquis 10 mg twice daily. 3. Atrial fibrillation rate controlled -Telemetry monitoring.
[2021-06-14] MEDS: guaiFENesin 100 MG/5 ML Soln 5 ML UD Cup PO PRN ×3 (00:36→19:25)
[2021-06-14] MEDS: Albuterol/Ipratropium 3.0-0.5 MG/3 ML Neb Soln NEB PRN ×3 (00:37→19:25)
[2021-06-14] MEDS: Apixaban 5 MG Tab PO SCH ×2 (06:01→17:30)
[2021-06-14 07:05] LABS: BLOOD UREA NITROGEN,BUN 28 mg/dL (7.0-18.0); CARBON DIOXIDE,CO2 22.2 mmol/L (21.0-32.0); CHLORIDE,CL 104 mmol/L (98-107); GLUCOSE RANDOM 85 mg/dL (74-106); POTASSIUM,K 4.4 mmol/L (3.5-5.1); SODIUM,NA 137 mmol/L (136-148)
[2021-06-14] MEDS: Pantoprazole 40 MG Tab.CR PO SCH (08:19)
--- NOTE | 2021-06-14 10:43 | PCM.PN ---
- General Info Date of Service: 06/14/21 Admission Dx/Problem (Free Text): The patient is a 66-year-old male, on day 4 of service, who has a significant past medical history of atrial fibrillation which is rate controlled and untreated with medication, and skin cancer of the hands, who was admitted to the intensive care unit due to COVID-19 pneumonia and bilateral pulmonary emboli. Upon interview with the patient today he admits that his shortness of breath fluctuates and last night he was having difficulty breathing but that has subsided this morning after treatment. He does state that his cough is res olving and now is dry without sputum production. He is drinking and eating his meals to completion without any issues and has a healthy appetite. He is urinating and defecating without any problems. He is currently on heated high flow/Vapotherm, with an oxygen flow rate of 60, FiO2 of 90, and is saturating at 95%. We will continue to treat his PE with a heparin drip. He has no other health concerns at this time. Subjective Update: 66-year-old male admitted for Covid pneumonia and bilateral PEs. Patient has a history of atrial fibrillation. Patient did not require CPAP overnight. He did well on heated high flow. This morning patient has been transitioned to high flow nasal cannula 10 L. Patient does desaturate when he transitions to the chair. Patient has increased coughing with exertion. Patient states he feels overall improvement in breathing. Patient working with physical therapy this morning. Patient is tolerating diet. Patient is urinating. No concerns from nursing staff. - Review of Systems General: Denies: Fever, Chills Pulmonary: Reports: Shortness of Breath, Cough. Denies: Sputum Cardiovascular: Denies: Chest Pain, Palpitations Gastrointestinal: Denies: Abdominal Pain, Constipation, Decreased Appetite, Nausea, Vomiting Genitourinary: Denies: Dysuria Musculoskeletal: Denies: Leg Pain Skin: Denies: Rash Neurological: Denies: Confusion, Dizziness, Headache, Numbness, Paresthesia - Patient Data Vitals - Most Recent: Last Vital Signs Temp 96.8 F L 06/14/21 08:00 Pulse 98 06/11/21 13:00 Resp 17 06/14/21 10:00 BP 119/66 06/14/21 10:00 Pulse Ox 90 L 06/14/21 10:00 Weight - Most Recent: 217 lb 9.6 oz I&O - Last 24 Hours: Intake & Output 06/13/21 06/14/21 06/14/21 22:59 06:59 14:59 Intake Total 600 570 Output Total 700 700 Balance -100 -130 Lab Results Last 24 Hours: Laboratory Results - last 24 hr 06/14/21 06/14/21 Range/Units 06:04 06:04 WBC 14.01 H (4.0-11.0) K/uL RBC 4.72 (4.50-5.90) M/uL Hgb 15.1 (13.0-17.0) g/dL Hct 43.2 (38.0-50.0) % MCV 91.5 (80.0-98.0) fL MCH 32.0 (27.0-32.0) pg MCHC 35.0 (31.0-37.0) g/dL RDW Std Deviation 45.8 (28.0-62.0) fl RDW Coeff of Arnulfo 14 (11.0-15.0) % Plt Count 180 (150-400) K/uL MPV 10.40 (7.40-12.00) fL Neut % (Auto) 86.1 H (48.0-80.0) % Lymph % (Auto) 5.5 L (16.0-40.0) % King % (Auto) 7.1 (0.0-15.0) % Eos % (Auto) 1.2 (0.0-7.0) % Baso % (Auto) 0.1 (0.0-1.5) % Neut # (Auto) 12.1 H (1.4-5.7) K/uL Lymph # (Auto) 0.8 (0.6-2.4) K/uL King # (Auto) 1.0 H (0.0-0.8) K/uL Eos # (Auto) 0.2 (0.0-0.7) K/uL Baso # (Auto) 0.0 (0.0-0.1) K/uL Nucleated RBC % 0.0 /100WBC Nucleated RBCs # 0 K/uL Sodium 137 (136-148) mmol/L Potassium 4.4 (3.5-5.1) mmol/L Chloride 104 (98-107) mmol/L Carbon Dioxide 22.2 (21.0-32.0) mmol/L BUN 28 H (7.0-18.0) mg/dL Creatinine 0.7 L (0.8-1.3) mg/dL Est Cr Clr Drug Dosing 107.57 mL/min Estimated GFR (MDRD) > 60.0 ml/min Glucose 85 (74-106) mg/dL Calcium 8.5 (8.5-10.1) mg/dL Total Bilirubin 0.7 (0.2-1.0) mg/dL AST 43 H (15-37) IU/L ALT 61 (14-63) IU/L Alkaline Phosphatase 89 (46-116) U/L Total Protein 7.0 (6.4-8.2) g/dL Albumin 2.7 L (3.4-5.0) g/dL Globulin 4.3 H (2.6-4.0) g/dL Albumin/Globulin Ratio 0.6 L (0.9-1.6) Med Orders - Current: Current Medications Albuterol/Ipratropium (Albuterol/Ipratropium 3.0-0.5 Mg/3 Ml Neb Soln) 3 ml NEB Q2H PRN PRN Reason: Dyspnea Last Admin: 06/14/21 06:02 Dose: 3 ml Documented by: Apixaban (Apixaban 5 Mg Tab) 10 mg PO Q12H [facility] Stop: 06/15/21 06:00 Last Admin: 06/14/21 06:01 Dose: 10 mg Documented by: Baricitinib (Baricitinib 2 Mg Tab) 4 mg PO DAILY [facility] Last Admin: 06/14/21 08:18 Dose: 4 mg Documented by: Guaifenesin (Guaifenesin 100 Mg/5 Ml Soln 5 Ml Ud Cup) 100 mg PO Q6H PRN PRN Reason: Cough Last Admin: 06/14/21 06:01 Dose: 100 mg Documented by: Lorazepam (Lorazepam 2 Mg/Ml Sdv) 1 mg IVPUSH Q6H PRN PRN Reason: Anxiety Last Admin: 06/08/21 05:18 Dose: 1 mg Documented by: Morphine Sulfate (Morphine 2 Mg/Ml Syringe) 2 mg IVPUSH Q4H PRN PRN Reason: Shortness of Breath Pantoprazole Sodium (Pantoprazole 40 Mg Tab.Cr) 40 mg PO DAILY [facility] Last Admin: 06/14/21 08:19 Dose: 40 mg Documented by: Discontinued Medications Albuterol/Ipratropium (Albuterol/Ipratropium 4 Gm Inhalation [place]) 1 gm INH Q4HRRT PRN PRN Reason: Dyspnea Last Admin: 06/03/21 09:02 Dose: 1 puff Documented by: Baricitinib (Baricitinib 2 Mg Tab) 4 mg PO DAILY [facility] Stop: 06/17/21 13:31 Dexamethasone (Dexamethasone 4 Mg Tab) 6 mg PO ONETIME ONE Stop: 06/02/21 05:27 Last Admin: 06/02/21 05:33 Dose: 6 mg Documented by: Dexamethasone (Dexamethasone 4 Mg Tab) 6 mg PO Q24H [facility] Last Admin: 06/13/21 06:25 Dose: Not Given Documented by: Heparin Sodium (Porcine) (Heparin Sodium 5,000 Units/Ml Vial) 5,000 units IVPUSH .BOLUS ONE; Protocol Stop: 06/02/21 05:36 Last Admin: 06/02/21 05:46 Dose: 5,000 units Documented by: Heparin Sodium (Porcine) (Heparin Sodium 5,000 Units/Ml Vial) 1,500 units IVPUSH .BOLUS ONE Stop: 06/02/21 13:10 Last Admin: 06/02/21 13:40 Dose: 1,500 units Documented by: Lactated Ringer's (Ringers, Lactated) 1,000 mls @ 999 mls/hr IV ASDIRECTED TODD Last Admin: 06/02/21 04:43 Dose: 999 mls/hr Documented by: Remdesivir 200 mg/ Sodium (Chloride) 250 mls @ 250 mls/hr IV ONETIME ONE Stop: 06/02/21 05:26 Last Admin: 06/02/21 05:55 Dose: 250 mls/hr Documented by: Heparin Sodium/Sodium Chloride (Heparin 25,000 Units In 1/2 Ns 500 Ml) 500 mls @ 26.082 mls/hr IV TITRATE TODD; Protocol Last Titration: 06/08/21 19:28 Dose: 0 units/kg/hr, 0 mls/hr Documented by: Heparin Sodium/Sodium Chloride (Heparin 25,000 Units In 1/2 Ns 500 Ml) Confirm Administered Dose 500 mls @ as directed .ROUTE .STK-MED ONE Stop: 06/02/21 05:46 Last Admin: 06/02/21 05:49 Dose: Not Given Documented by: Remdesivir 100 mg/ Sodium (Chloride) 100 mls @ 100 mls/hr IV Q24H [facility] Stop: 06/06/21 06:59 Last Admin: 06/06/21 08:20 Dose: 100 mls/hr Documented by: Dexmedetomidine/Sodium (Chloride 400 mcg/ Premix) 100 mls @ 5.572 mls/hr IV TITRATE TODD; Protocol Iopamidol (Iopamidol 755 Mg/Ml 500 Ml Multipack Bottle) 100 ml IVPUSH ONETIME ONE Stop: 06/02/21 03:17 Last Admin: 06/02/21 03:43 Dose: 100 ml Documented by: - Exam Quality Assessment: Supplemental Oxygen General: Alert, Oriented, Cooperative, No Acute Distress HEENT: Pupils Equal, Pupils Reactive Neck: Supple, Trachea Midline Lungs: Clear to Auscultation, Other (Diminished at the bilateral bases.) Cardiovascular: Regular Rate, Irregular Rhythm GI/Abdominal Exam: Normal Bowel Sounds, Soft, Non-Tender Back Exam: Normal Inspection Extremities: Normal Inspection, Normal Range of Motion, Non-Tender, No Pedal Edema Peripheral Pulses: 2+: Dorsalis Pedis (L), Dorsalis Pedis (R) Skin: Other (Psoriatec patches bilaterally below the knees.) Neurological: No New Focal Deficit - Patient Data Lab Results Last 24 hrs: Laboratory Results - last 24 hr 06/14/21 06/14/21 Range/Units 06:04 06:04 WBC 14.01 H (4.0-11.0) K/uL RBC 4.72 (4.50-5.90) M/uL Hgb 15.1 (13.0-17.0) g/dL Hct 43.2 (38.0-50.0) % MCV 91.5 (80.0-98.0) fL MCH 32.0 (27.0-32.0) pg MCHC 35.0 (31.0-37.0) g/dL RDW Std Deviation 45.8 (28.0-62.0) fl RDW Coeff of Arnulfo 14 (11.0-15.0) % Plt Count 180 (150-400) K/uL MPV 10.40 (7.40-12.00) fL Neut % (Auto) 86.1 H (48.0-80.0) % Lymph % (Auto) 5.5 L (16.0-40.0) % King % (Auto) 7.1 (0.0-15.0) % Eos % (Auto) 1.2 (0.0-7.0) % Baso % (Auto) 0.1 (0.0-1.5) % Neut # (Auto) 12.1 H (1.4-5.7) K/uL Lymph # (Auto) 0.8 (0.6-2.4) K/uL King # (Auto) 1.0 H (0.0-0.8) K/uL Eos # (Auto) 0.2 (0.0-0.7) K/uL Baso # (Auto) 0.0 (0.0-0.1) K/uL Nucleated RBC % 0.0 /100WBC Nucleated RBCs # 0 K/uL Sodium 137 (136-148) mmol/L Potassium 4.4 (3.5-5.1) mmol/L Chloride 104 (98-107) mmol/L Carbon Dioxide 22.2 (21.0-32.0) mmol/L BUN 28 H (7.0-18.0) mg/dL Creatinine 0.7 L (0.8-1.3) mg/dL Est Cr Clr Drug Dosing 107.57 mL/min Estimated GFR (MDRD) > 60.0 ml/min Glucose 85 (74-106) mg/dL Calcium 8.5 (8.5-10.1) mg/dL Total Bilirubin 0.7 (0.2-1.0) mg/dL AST 43 H (15-37) IU/L ALT 61 (14-63) IU/L Alkaline Phosphatase 89 (46-116) U/L Total Protein 7.0 (6.4-8.2) g/dL Albumin 2.7 L (3.4-5.0) g/dL Globulin 4.3 H (2.6-4.0) g/dL Albumin/Globulin Ratio 0.6 L (0.9-1.6) Result Diagrams: 06/14/21 06:04 06/14/21 06:04 Sepsis Event Note - Evaluation Sepsis Screening Result: No Definite Risk - Focused Exam Vital Signs: Vital Signs Temp Resp BP Pulse Ox 06/14/21 10:00 17 119/66 90 L 06/14/21 09:00 12 110/63 87 L 06/14/21 08:00 96.8 F L 14 89 L 06/14/21 07:00 20 113/64 87 L 06/14/21 06:00 20 104/67 89 L 06/14/21 05:00 97 F 22 H 104/65 91 L 06/14/21 04:00 17 95/58 L 89 L 06/14/21 03:00 19 113/75 94 L 06/14/21 02:00 21 H 104/69 89 L 06/14/21 01:00 97.3 F 14 113/67 89 L 06/14/21 00:00 21 H 114/64 96 06/13/21 23:00 20 104/69 95 - Problem List Review Problem List Initiated/Reviewed/Updated: Yes - My Orders Last 24 Hours: My Active Orders 06/13/21 09:49 Consult to Physical Therapy [PT Evaluation and Treatment] [CONS] Routine 06/15/21 05:11 CBC WITH AUTO DIFF [HEME] DAILY COMPREHENSIVE METABOLIC PN,CMP [CHEM] DAILY 06/16/21 05:11 CBC WITH AUTO DIFF [HEME] DAILY COMPREHENSIVE METABOLIC PN,CMP [CHEM] DAILY 06/17/21 05:11 CBC WITH AUTO DIFF [HEME] DAILY COMPREHENSIVE METABOLIC PN,CMP [CHEM] DAILY 06/18/21 05:11 CBC WITH AUTO DIFF [HEME] DAILY COMPREHENSIVE METABOLIC PN,CMP [CHEM] DAILY - Plan Plan:: 1. COVID-19 pneumonia -Baricitinib x14 days total. -Wean oxygen as appropriate, patient is currently on high flow nasal cannula 10 L, saturating at 90%. Desaturates with exertion. -Physical therapy is following. States patient is doing well. 2. Bilateral pulmonary emboli -Eliquis 10 mg twice daily. 3. Atrial fibrillation rate controlled -Telemetry monitoring.
[2021-06-15] MEDS: Albuterol/Ipratropium 3.0-0.5 MG/3 ML Neb Soln NEB PRN ×3 (02:45→20:36)
[2021-06-15] MEDS: guaiFENesin 100 MG/5 ML Soln 5 ML UD Cup PO PRN ×3 (02:45→20:37)
[2021-06-15] MEDS: Apixaban 5 MG Tab PO SCH (05:44)
[2021-06-15 07:00] LABS: BLOOD UREA NITROGEN,BUN 31 mg/dL (7.0-18.0); CHLORIDE,CL 104 mmol/L (98-107); GLUCOSE RANDOM 118 mg/dL (74-106); POTASSIUM,K 4.3 mmol/L (3.5-5.1); SODIUM,NA 139 mmol/L (136-148)
[2021-06-15] MEDS: Pantoprazole 40 MG Tab.CR PO SCH (08:48)
--- NOTE | 2021-06-15 12:17 | PCM.PN ---
- General Info Date of Service: 06/15/21 - Review of Systems Systems Review Comment:: feeling better, short of breath on exertion - Patient Data Vitals - Most Recent: Last Vital Signs Temp 36.1 C 06/15/21 08:00 Pulse 98 06/11/21 13:00 Resp 24 H 06/15/21 10:00 BP 103/67 06/15/21 10:00 Pulse Ox 92 L 06/15/21 10:00 Weight - Most Recent: 98.974 kg I&O - Last 24 Hours: Intake & Output 06/14/21 06/15/21 06/15/21 22:59 06:59 14:59 Intake Total 500 400 Output Total 550 375 Balance -50 25 Lab Results Last 24 Hours: Laboratory Results - last 24 hr 06/15/21 06/15/21 Range/Units 05:21 05:21 WBC 13.92 H (4.0-11.0) K/uL RBC 4.54 (4.50-5.90) M/uL Hgb 14.7 (13.0-17.0) g/dL Hct 42.3 (38.0-50.0) % MCV 93.2 (80.0-98.0) fL MCH 32.4 H (27.0-32.0) pg MCHC 34.8 (31.0-37.0) g/dL RDW Std Deviation 47.6 (28.0-62.0) fl RDW Coeff of Arnulfo 14 (11.0-15.0) % Plt Count 183 (150-400) K/uL MPV 10.50 (7.40-12.00) fL Neut % (Auto) 87.1 H (48.0-80.0) % Lymph % (Auto) 3.9 L (16.0-40.0) % Ada % (Auto) 7.9 (0.0-15.0) % Eos % (Auto) 1.0 (0.0-7.0) % Baso % (Auto) 0.1 (0.0-1.5) % Neut # (Auto) 12.1 H (1.4-5.7) K/uL Lymph # (Auto) 0.5 L (0.6-2.4) K/uL Ada # (Auto) 1.1 H (0.0-0.8) K/uL Eos # (Auto) 0.1 (0.0-0.7) K/uL Baso # (Auto) 0.0 (0.0-0.1) K/uL Nucleated RBC % 0.0 /100WBC Nucleated RBCs # 0 K/uL Sodium 139 (136-148) mmol/L Potassium 4.3 (3.5-5.1) mmol/L Chloride 104 (98-107) mmol/L Carbon Dioxide 26.0 (21.0-32.0) mmol/L BUN 31 H (7.0-18.0) mg/dL Creatinine 0.9 (0.8-1.3) mg/dL Est Cr Clr Drug Dosing 83.67 mL/min Estimated GFR (MDRD) > 60.0 ml/min Glucose 118 H (74-106) mg/dL Calcium 8.6 (8.5-10.1) mg/dL Total Bilirubin 0.6 (0.2-1.0) mg/dL AST 36 (15-37) IU/L ALT 61 (14-63) IU/L Alkaline Phosphatase 89 (46-116) U/L Total Protein 6.6 (6.4-8.2) g/dL Albumin 2.6 L (3.4-5.0) g/dL Globulin 4.0 (2.6-4.0) g/dL Albumin/Globulin Ratio 0.7 L (0.9-1.6) Med Orders - Current: Current Medications Albuterol/Ipratropium (Albuterol/Ipratropium 3.0-0.5 Mg/3 Ml Neb Soln) 3 ml NEB Q2H PRN PRN Reason: Dyspnea Last Admin: 06/15/21 10:06 Dose: 3 ml Documented by: Apixaban (Apixaban 5 Mg Tab) 10 mg PO 06/15/21@1800 [facility] Stop: 06/15/21 18:01 Apixaban (Apixaban 5 Mg Tab) 5 mg PO Q12H [facility] Baricitinib (Baricitinib 2 Mg Tab) 4 mg PO DAILY [facility] Stop: 06/16/21 15:31 Last Admin: 06/15/21 08:48 Dose: 4 mg Documented by: Guaifenesin (Guaifenesin 100 Mg/5 Ml Soln 5 Ml Ud Cup) 100 mg PO Q6H PRN PRN Reason: Cough Last Admin: 06/15/21 10:06 Dose: 100 mg Documented by: Lorazepam (Lorazepam 2 Mg/Ml Sdv) 1 mg IVPUSH Q6H PRN PRN Reason: Anxiety Last Admin: 06/08/21 05:18 Dose: 1 mg Documented by: Morphine Sulfate (Morphine 2 Mg/Ml Syringe) 2 mg IVPUSH Q4H PRN PRN Reason: Shortness of Breath Pantoprazole Sodium (Pantoprazole 40 Mg Tab.Cr) 40 mg PO DAILY [facility] Last Admin: 06/15/21 08:48 Dose: 40 mg Documented by: Discontinued Medications Albuterol/Ipratropium (Albuterol/Ipratropium 4 Gm Inhalation [place]) 1 gm INH Q4HRRT PRN PRN Reason: Dyspnea Last Admin: 06/03/21 09:02 Dose: 1 puff Documented by: Apixaban (Apixaban 5 Mg Tab) 10 mg PO Q12H [facility] Stop: 06/15/21 09:01 Last Admin: 06/15/21 05:44 Dose: 10 mg Documented by: Baricitinib (Baricitinib 2 Mg Tab) 4 mg PO DAILY [facility] Stop: 06/17/21 13:31 Dexamethasone (Dexamethasone 4 Mg Tab) 6 mg PO ONETIME ONE Stop: 06/02/21 05:27 Last Admin: 06/02/21 05:33 Dose: 6 mg Documented by: Dexamethasone (Dexamethasone 4 Mg Tab) 6 mg PO Q24H [facility] Last Admin: 06/13/21 06:25 Dose: Not Given Documented by: Heparin Sodium (Porcine) (Heparin Sodium 5,000 Units/Ml Vial) 5,000 units IVPUSH .BOLUS ONE; Protocol Stop: 06/02/21 05:36 Last Admin: 06/02/21 05:46 Dose: 5,000 units Documented by: Heparin Sodium (Porcine) (Heparin Sodium 5,000 Units/Ml Vial) 1,500 units IVPUSH .BOLUS ONE Stop: 06/02/21 13:10 Last Admin: 06/02/21 13:40 Dose: 1,500 units Documented by: Lactated Ringer's (Ringers, Lactated) 1,000 mls @ 999 mls/hr IV ASDIRECTED [facility] Last Admin: 06/02/21 04:43 Dose: 999 mls/hr Documented by: Remdesivir 200 mg/ Sodium (Chloride) 250 mls @ 250 mls/hr IV ONETIME ONE Stop: 06/02/21 05:26 Last Admin: 06/02/21 05:55 Dose: 250 mls/hr Documented by: Heparin Sodium/Sodium Chloride (Heparin 25,000 Units In 1/2 Ns 500 Ml) 500 mls @ 26.082 mls/hr IV TITRATE [facility]D; Protocol Last Titration: 06/08/21 19:28 Dose: 0 units/kg/hr, 0 mls/hr Documented by: Heparin Sodium/Sodium Chloride (Heparin 25,000 Units In 1/2 Ns 500 Ml) Confirm Administered Dose 500 mls @ as directed .ROUTE .STK-MED ONE Stop: 06/02/21 05:46 Last Admin: 06/02/21 05:49 Dose: Not Given Documented by: Remdesivir 100 mg/ Sodium (Chloride) 100 mls @ 100 mls/hr IV Q24H [facility] Stop: 06/06/21 06:59 Last Admin: 06/06/21 08:20 Dose: 100 mls/hr Documented by: Dexmedetomidine/Sodium (Chloride 400 mcg/ Premix) 100 mls @ 5.572 mls/hr IV TITRATE [facility]; Protocol Iopamidol (Iopamidol 755 Mg/Ml 500 Ml Multipack Bottle) 100 ml IVPUSH ONETIME ONE Stop: 06/02/21 03:17 Last Admin: 06/02/21 03:43 Dose: 100 ml Documented by: - Exam General: Alert, Oriented Neck: Supple Lungs: Clear to Auscultation, Normal Respiratory Effort Cardiovascular: Regular Rate, Regular Rhythm GI/Abdominal Exam: Normal Bowel Sounds, Soft, Non-Tender Extremities: Non-Tender, No Pedal Edema - Patient Data Lab Results Last 24 hrs: Laboratory Results - last 24 hr 06/15/21 06/15/21 Range/Units 05:21 05:21 WBC 13.92 H (4.0-11.0) K/uL RBC 4.54 (4.50-5.90) M/uL Hgb 14.7 (13.0-17.0) g/dL Hct 42.3 (38.0-50.0) % MCV 93.2 (80.0-98.0) fL MCH 32.4 H (27.0-32.0) pg MCHC 34.8 (31.0-37.0) g/dL RDW Std Deviation 47.6 (28.0-62.0) fl RDW Coeff of Arnulfo 14 (11.0-15.0) % Plt Count 183 (150-400) K/uL MPV 10.50 (7.40-12.00) fL Neut % (Auto) 87.1 H (48.0-80.0) % Lymph % (Auto) 3.9 L (16.0-40.0) % Ada % (Auto) 7.9 (0.0-15.0) % Eos % (Auto) 1.0 (0.0-7.0) % Baso % (Auto) 0.1 (0.0-1.5) % Neut # (Auto) 12.1 H (1.4-5.7) K/uL Lymph # (Auto) 0.5 L (0.6-2.4) K/uL [place] # (Auto) 1.1 H (0.0-0.8) K/uL Eos # (Auto) 0.1 (0.0-0.7) K/uL Baso # (Auto) 0.0 (0.0-0.1) K/uL Nucleated RBC % 0.0 /100WBC Nucleated RBCs # 0 K/uL Sodium 139 (136-148) mmol/L Potassium 4.3 (3.5-5.1) mmol/L Chloride 104 (98-107) mmol/L Carbon Dioxide 26.0 (21.0-32.0) mmol/L BUN 31 H (7.0-18.0) mg/dL Creatinine 0.9 (0.8-1.3) mg/dL Est Cr Clr Drug Dosing 83.67 mL/min Estimated GFR (MDRD) > 60.0 ml/min Glucose 118 H (74-106) mg/dL Calcium 8.6 (8.5-10.1) mg/dL Total Bilirubin 0.6 (0.2-1.0) mg/dL AST 36 (15-37) IU/L ALT 61 (14-63) IU/L Alkaline Phosphatase 89 (46-116) U/L Total Protein 6.6 (6.4-8.2) g/dL Albumin 2.6 L (3.4-5.0) g/dL Globulin 4.0 (2.6-4.0) g/dL Albumin/Globulin Ratio 0.7 L (0.9-1.6) Result Diagrams: 06/15/21 05:21 06/15/21 05:21 Sepsis Event Note - Evaluation Sepsis Screening Result: No Definite Risk - Focused Exam Vital Signs: Vital Signs Temp Resp BP Pulse Ox 06/15/21 10:00 24 H 103/67 92 L 06/15/21 09:00 25 H 98/59 L 93 L 06/15/21 08:00 36.1 C 21 H 85/57 L 95 06/15/21 06:54 22 H 105/65 92 L 06/15/21 06:00 17 106/58 L 92 L 06/15/21 05:00 20 96/59 L 94 L 06/15/21 04:00 36.2 C 17 90/59 L 93 L 06/15/21 03:00 23 H 91/64 92 L 06/15/21 02:00 25 H 97/60 91 L 06/15/21 01:00 16 89/66 L 89 L - Problem List & Annotations (1) Acute hypoxemic respiratory failure due to COVID-19 SNOMED Code(s): 287706266 Code(s): U07.1 - COVID-19; J96.01 - ACUTE RESPIRATORY FAILURE WITH HYPOXIA Status: Acute Current Visit: Yes (2) COVID-19 SNOMED Code(s): 704289954 Code(s): U07.1 - COVID-19 Status: Acute Current Visit: Yes (3) Pulmonary embolism SNOMED Code(s): 77248404 Code(s): I26.99 - OTHER PULMONARY EMBOLISM WITHOUT ACUTE COR PULMONALE Status: Acute Current Visit: Yes (4) Atrial fibrillation SNOMED Code(s): 73527109 Code(s): I48.91 - UNSPECIFIED ATRIAL FIBRILLATION Status: Acute Current Visit: Yes Qualifiers: Atrial fibrillation type: unspecified Qualified Code(s): I48.91 - Unspecified atrial fibrillation - Problem List Review Problem List Initiated/Reviewed/Updated: Yes - My Orders Last 24 Hours: My Active Orders 06/15/21 18:00 Apixaban [Eliquis] 10 mg PO 06/15/21@1800 12/18/21 06:00 Apixaban [Eliquis] 5 mg PO Q12H - Plan Plan:: 1. COVID-19 pneumonia -Baricitinib x14 days total, last dose tomorrow -Wean oxygen as appropriate, patient is currently on high flow nasal cannula 5 L, -Physical therapy is following. 2. Bilateral pulmonary emboli -Eliquis 10 mg BID, will give 5mg BID starting tomorrow 3. Atrial fibrillation rate controlled -Telemetry monitoring.
[2021-06-15] MEDS ORDERED: Apixaban 5 MG Tab PO SCH (18:00)
[2021-06-16] MEDS: Apixaban 5 MG Tab PO SCH ×2 (05:17→18:01)
[2021-06-16 06:01] LABS: BLOOD UREA NITROGEN,BUN 25 mg/dL (7.0-18.0); CARBON DIOXIDE,CO2 28.2 mmol/L (21.0-32.0); CHLORIDE,CL 104 mmol/L (98-107); GLUCOSE RANDOM 106 mg/dL (74-106); POTASSIUM,K 4.9 mmol/L (3.5-5.1); SODIUM,NA 141 mmol/L (136-148)
[2021-06-16] MEDS: guaiFENesin 100 MG/5 ML Soln 5 ML UD Cup PO PRN (09:03)
[2021-06-16] MEDS: Pantoprazole 40 MG Tab.CR PO SCH (09:03)
[2021-06-16] MEDS: Albuterol/Ipratropium 3.0-0.5 MG/3 ML Neb Soln NEB PRN (09:47)
--- NOTE | 2021-06-16 16:10 | PCM.PN ---
- General Info Date of Service: 06/16/21 - Review of Systems Systems Review Comment:: feeling better, sat up on the bed today but took along time to recover. - Patient Data Vitals - Most Recent: Last Vital Signs Temp 36.3 C 06/16/21 08:00 Pulse 98 06/11/21 13:00 Resp 28 H 06/16/21 11:00 BP 94/63 06/16/21 11:00 Pulse Ox 88 L 06/16/21 11:00 Weight - Most Recent: 99.79 kg I&O - Last 24 Hours: Intake & Output 06/16/21 06/16/21 06/16/21 06:59 14:59 22:59 Intake Total 240 Output Total 350 Balance -110 Lab Results Last 24 Hours: Laboratory Results - last 24 hr 06/16/21 06/16/21 Range/Units 05:25 05:25 WBC 12.13 H (4.0-11.0) K/uL RBC 4.56 (4.50-5.90) M/uL Hgb 14.7 (13.0-17.0) g/dL Hct 42.6 (38.0-50.0) % MCV 93.4 (80.0-98.0) fL MCH 32.2 H (27.0-32.0) pg MCHC 34.5 (31.0-37.0) g/dL RDW Std Deviation 47.1 (28.0-62.0) fl RDW Coeff of Arnulfo 14 (11.0-15.0) % Plt Count 170 (150-400) K/uL MPV 10.00 (7.40-12.00) fL Neut % (Auto) 83.9 H (48.0-80.0) % Lymph % (Auto) 6.8 L (16.0-40.0) % [place] % (Auto) 7.6 (0.0-15.0) % Eos % (Auto) 1.5 (0.0-7.0) % Baso % (Auto) 0.2 (0.0-1.5) % Neut # (Auto) 10.2 H (1.4-5.7) K/uL Lymph # (Auto) 0.8 (0.6-2.4) K/uL [place] # (Auto) 0.9 H (0.0-0.8) K/uL Eos # (Auto) 0.2 (0.0-0.7) K/uL Baso # (Auto) 0.0 (0.0-0.1) K/uL Nucleated RBC % 0.0 /100WBC Nucleated RBCs # 0 K/uL Sodium 141 (136-148) mmol/L Potassium 4.9 (3.5-5.1) mmol/L Chloride 104 (98-107) mmol/L Carbon Dioxide 28.2 (21.0-32.0) mmol/L BUN 25 H (7.0-18.0) mg/dL Creatinine 0.9 (0.8-1.3) mg/dL Est Cr Clr Drug Dosing 83.67 mL/min Estimated GFR (MDRD) > 60.0 ml/min Glucose 106 (74-106) mg/dL Calcium 8.7 (8.5-10.1) mg/dL Total Bilirubin 0.6 (0.2-1.0) mg/dL AST 33 (15-37) IU/L ALT 52 (14-63) IU/L Alkaline Phosphatase 90 (46-116) U/L Total Protein 6.7 (6.4-8.2) g/dL Albumin 2.6 L (3.4-5.0) g/dL Globulin 4.1 H (2.6-4.0) g/dL Albumin/Globulin Ratio 0.6 L (0.9-1.6) Med Orders - Current: Current Medications Albuterol/Ipratropium (Albuterol/Ipratropium 3.0-0.5 Mg/3 Ml Neb Soln) 3 ml NEB Q2H PRN PRN Reason: Dyspnea Last Admin: 06/16/21 09:47 Dose: 3 ml Documented by: Apixaban (Apixaban 5 Mg Tab) 5 mg PO Q12H [facility] Last Admin: 06/16/21 05:17 Dose: 5 mg Documented by: Guaifenesin (Guaifenesin 100 Mg/5 Ml Soln 5 Ml Ud Cup) 100 mg PO Q6H PRN PRN Reason: Cough Last Admin: 06/16/21 09:03 Dose: 100 mg Documented by: Pantoprazole Sodium (Pantoprazole 40 Mg Tab.Cr) 40 mg PO DAILY [facility] Last Admin: 06/16/21 09:03 Dose: 40 mg Documented by: Discontinued Medications Albuterol/Ipratropium (Albuterol/Ipratropium 4 Gm Inhalation [place]) 1 gm INH Q4HRRT PRN PRN Reason: Dyspnea Last Admin: 06/03/21 09:02 Dose: 1 puff Documented by: Apixaban (Apixaban 5 Mg Tab) 10 mg PO Q12H [facility] Stop: 06/15/21 09:01 Last Admin: 06/15/21 05:44 Dose: 10 mg Documented by: Apixaban (Apixaban 5 Mg Tab) 10 mg PO 06/15/21@1800 [facility] Stop: 06/15/21 18:01 Last Admin: 06/15/21 17:23 Dose: 10 mg Documented by: Baricitinib (Baricitinib 2 Mg Tab) 4 mg PO DAILY [facility] Stop: 06/16/21 15:31 Last Admin: 06/16/21 09:03 Dose: 4 mg Documented by: Baricitinib (Baricitinib 2 Mg Tab) 4 mg PO DAILY [facility] Stop: 06/17/21 13:31 Dexamethasone (Dexamethasone 4 Mg Tab) 6 mg PO ONETIME ONE Stop: 06/02/21 05:27 Last Admin: 06/02/21 05:33 Dose: 6 mg Documented by: Dexamethasone (Dexamethasone 4 Mg Tab) 6 mg PO Q24H [facility] Last Admin: 06/13/21 06:25 Dose: Not Given Documented by: Heparin Sodium (Porcine) (Heparin Sodium 5,000 Units/Ml Vial) 5,000 units IVPUSH .BOLUS ONE; Protocol Stop: 06/02/21 05:36 Last Admin: 06/02/21 05:46 Dose: 5,000 units Documented by: Heparin Sodium (Porcine) (Heparin Sodium 5,000 Units/Ml Vial) 1,500 units IVPUSH .BOLUS ONE Stop: 06/02/21 13:10 Last Admin: 06/02/21 13:40 Dose: 1,500 units Documented by: Lactated Ringer's (Ringers, Lactated) 1,000 mls @ 999 mls/hr IV ASDIRECTED [facility] Last Admin: 06/02/21 04:43 Dose: 999 mls/hr Documented by: Remdesivir 200 mg/ Sodium (Chloride) 250 mls @ 250 mls/hr IV ONETIME ONE Stop: 06/02/21 05:26 Last Admin: 06/02/21 05:55 Dose: 250 mls/hr Documented by: Heparin Sodium/Sodium Chloride (Heparin 25,000 Units In 1/2 Ns 500 Ml) 500 mls @ 26.082 mls/hr IV TITRATE [facility]; Protocol Last Titration: 06/08/21 19:28 Dose: 0 units/kg/hr, 0 mls/hr Documented by: Heparin Sodium/Sodium Chloride (Heparin 25,000 Units In 1/2 Ns 500 Ml) Confirm Administered Dose 500 mls @ as directed .ROUTE .STK-MED ONE Stop: 06/02/21 05:46 Last Admin: 06/02/21 05:49 Dose: Not Given Documented by: Remdesivir 100 mg/ Sodium (Chloride) 100 mls @ 100 mls/hr IV Q24H [facility] Stop: 06/06/21 06:59 Last Admin: 06/06/21 08:20 Dose: 100 mls/hr Documented by: Dexmedetomidine/Sodium (Chloride 400 mcg/ Premix) 100 mls @ 5.572 mls/hr IV TITRATE TODD; Protocol Iopamidol (Iopamidol 755 Mg/Ml 500 Ml Multipack Bottle) 100 ml IVPUSH ONETIME ONE Stop: 06/02/21 03:17 Last Admin: 06/02/21 03:43 Dose: 100 ml Documented by: Lorazepam (Lorazepam 2 Mg/Ml Sdv) 1 mg IVPUSH Q6H PRN PRN Reason: Anxiety Last Admin: 06/08/21 05:18 Dose: 1 mg Documented by: Morphine Sulfate (Morphine 2 Mg/Ml Syringe) 2 mg IVPUSH Q4H PRN PRN Reason: Shortness of Breath - Exam General: Alert, Oriented Lungs: Clear to Auscultation, Normal Respiratory Effort Cardiovascular: Regular Rate, Regular Rhythm GI/Abdominal Exam: Normal Bowel Sounds, Soft, Non-Tender Extremities: Non-Tender, No Pedal Edema Skin: Warm, Dry, Intact Neurological: No New Focal Deficit - Patient Data Lab Results Last 24 hrs: Laboratory Results - last 24 hr 06/16/21 06/16/21 Range/Units 05:25 05:25 WBC 12.13 H (4.0-11.0) K/uL RBC 4.56 (4.50-5.90) M/uL Hgb 14.7 (13.0-17.0) g/dL Hct 42.6 (38.0-50.0) % MCV 93.4 (80.0-98.0) fL MCH 32.2 H (27.0-32.0) pg MCHC 34.5 (31.0-37.0) g/dL RDW Std Deviation 47.1 (28.0-62.0) fl RDW Coeff of Arnulfo 14 (11.0-15.0) % Plt Count 170 (150-400) K/uL MPV 10.00 (7.40-12.00) fL Neut % (Auto) 83.9 H (48.0-80.0) % Lymph % (Auto) 6.8 L (16.0-40.0) % [place] % (Auto) 7.6 (0.0-15.0) % Eos % (Auto) 1.5 (0.0-7.0) % Baso % (Auto) 0.2 (0.0-1.5) % Neut # (Auto) 10.2 H (1.4-5.7) K/uL Lymph # (Auto) 0.8 (0.6-2.4) K/uL [place] # (Auto) 0.9 H (0.0-0.8) K/uL Eos # (Auto) 0.2 (0.0-0.7) K/uL Baso # (Auto) 0.0 (0.0-0.1) K/uL Nucleated RBC % 0.0 /100WBC Nucleated RBCs # 0 K/uL Sodium 141 (136-148) mmol/L Potassium 4.9 (3.5-5.1) mmol/L Chloride 104 (98-107) mmol/L Carbon Dioxide 28.2 (21.0-32.0) mmol/L BUN 25 H (7.0-18.0) mg/dL Creatinine 0.9 (0.8-1.3) mg/dL Est Cr Clr Drug Dosing 83.67 mL/min Estimated GFR (MDRD) > 60.0 ml/min Glucose 106 (74-106) mg/dL Calcium 8.7 (8.5-10.1) mg/dL Total Bilirubin 0.6 (0.2-1.0) mg/dL AST 33 (15-37) IU/L ALT 52 (14-63) IU/L Alkaline Phosphatase 90 (46-116) U/L Total Protein 6.7 (6.4-8.2) g/dL Albumin 2.6 L (3.4-5.0) g/dL Globulin 4.1 H (2.6-4.0) g/dL Albumin/Globulin Ratio 0.6 L (0.9-1.6) Result Diagrams: 06/16/21 05:25 06/16/21 05:25 Sepsis Event Note - Evaluation Sepsis Screening Result: Sepsis Risk - Focused Exam Vital Signs: Vital Signs Temp Resp BP Pulse Ox 06/16/21 11:00 28 H 94/63 88 L 06/16/21 10:00 21 H 116/52 L 93 L 06/16/21 09:00 24 H 109/76 91 L 06/16/21 08:00 36.3 C 20 111/79 93 L 06/16/21 07:00 21 H 97/67 95 06/16/21 06:00 24 H 107/66 94 L 06/16/21 05:00 36.1 C 21 H 100/69 92 L - Problem List & Annotations (1) Acute hypoxemic respiratory failure due to COVID-19 SNOMED Code(s): 413777565 Code(s): U07.1 - COVID-19; J96.01 - ACUTE RESPIRATORY FAILURE WITH HYPOXIA Status: Acute Current Visit: Yes (2) COVID-19 SNOMED Code(s): 956171872 Code(s): U07.1 - COVID-19 Status: Acute Current Visit: Yes (3) Pulmonary embolism SNOMED Code(s): 08039238 Code(s): I26.99 - OTHER PULMONARY EMBOLISM WITHOUT ACUTE COR PULMONALE Status: Acute Current Visit: Yes (4) Atrial fibrillation SNOMED Code(s): 11329709 Code(s): I48.91 - UNSPECIFIED ATRIAL FIBRILLATION Status: Acute Current Visit: Yes Qualifiers: Atrial fibrillation type: unspecified Qualified Code(s): I48.91 - Unspecified atrial fibrillation - Problem List Review Problem List Initiated/Reviewed/Updated: Yes - My Orders Last 24 Hours: My Active Orders 06/16/21 06:00 Apixaban [Eliquis] 5 mg PO Q12H 06/16/21 16:01 Transfer Patient (Change bed) [ADT] Routine - Plan Plan:: 1. COVID-19 pneumonia -completed remdesivir, dexamethason, and barcitinib -Wean oxygen as appropriate, patient is currently on nasal cannula 3 L, -Physical therapy is following. 2. Bilateral pulmonary emboli -Eliquis 10 mg BID, will give 5mg BID starting tomorrow 3. Atrial fibrillation rate controlled -Telemetry monitoring.
[2021-06-17] MEDS: Apixaban 5 MG Tab PO SCH ×2 (05:02→18:05)
--- NOTE | 2021-06-17 07:47 | PCM.PN ---
- General Info Date of Service: 06/17/21 Subjective Update: 66-year-old male admitted for Covid pneumonia and bilateral PEs. Patient has a history of atrial fibrillation. Patient was downgraded from ICU and is doing well on nasal cannula. Patient is currently on 3 L NC. Saturating greater than 90. Continues to have dyspnea on exertion. Patient is working with physical therapy and participating. Patient is nervous and anxious about being discharged. He states he still becomes short of breath when getting up. Patient has increased coughing with exertion. Patient states he feels overall improvement in breathing. Patient is tolerating diet. Patient is urinating. - Review of Systems General: Denies: Fever, Chills HEENT: Denies: Headaches Pulmonary: Reports: Shortness of Breath, Cough Cardiovascular: Reports: Dyspnea on Exertion. Denies: Chest Pain, Palpitations Gastrointestinal: Denies: Abdominal Pain, Constipation, Nausea, Vomiting Genitourinary: Denies: Dysuria Musculoskeletal: Denies: Neck Pain, Leg Pain Skin: Denies: Rash Neurological: Denies: Confusion, Dizziness, Headache, Seizure, Syncope - Patient Data Vitals - Most Recent: Last Vital Signs Temp 97.9 F 06/17/21 04:00 Pulse 83 06/17/21 04:00 Resp 18 06/17/21 04:00 BP 98/71 06/17/21 04:00 Pulse Ox 94 L 06/17/21 04:00 Weight - Most Recent: 220 lb I&O - Last 24 Hours: Intake & Output 06/16/21 06/17/21 06/17/21 22:59 06:59 14:59 Intake Total 460 200 Output Total 440 375 Balance 20 -175 Lab Results Last 24 Hours: Laboratory Results - last 24 hr 06/17/21 Range/Units 06:59 WBC 11.45 H (4.0-11.0) K/uL RBC 4.54 (4.50-5.90) M/uL Hgb 14.6 (13.0-17.0) g/dL Hct 42.8 (38.0-50.0) % MCV 94.3 (80.0-98.0) fL MCH 32.2 H (27.0-32.0) pg MCHC 34.1 (31.0-37.0) g/dL RDW Std Deviation 48.0 (28.0-62.0) fl RDW Coeff of Arnulfo 14 (11.0-15.0) % Plt Count 189 (150-400) K/uL MPV 10.40 (7.40-12.00) fL Neut % (Auto) 84.1 H (48.0-80.0) % Lymph % (Auto) 7.1 L (16.0-40.0) % [place] % (Auto) 7.0 (0.0-15.0) % Eos % (Auto) 1.7 (0.0-7.0) % Baso % (Auto) 0.1 (0.0-1.5) % Neut # (Auto) 9.6 H (1.4-5.7) K/uL Lymph # (Auto) 0.8 (0.6-2.4) K/uL [place] # (Auto) 0.8 (0.0-0.8) K/uL Eos # (Auto) 0.2 (0.0-0.7) K/uL Baso # (Auto) 0.0 (0.0-0.1) K/uL Nucleated RBC % 0.0 /100WBC Nucleated RBCs # 0 K/uL Med Orders - Current: Current Medications Albuterol/Ipratropium (Albuterol/Ipratropium 3.0-0.5 Mg/3 Ml Neb Soln) 3 ml NEB Q2H PRN PRN Reason: Dyspnea Last Admin: 06/16/21 09:47 Dose: 3 ml Documented by: Apixaban (Apixaban 5 Mg Tab) 5 mg PO Q12H [facility] Last Admin: 06/17/21 05:02 Dose: 5 mg Documented by: Guaifenesin (Guaifenesin 100 Mg/5 Ml Soln 5 Ml Ud Cup) 100 mg PO Q6H PRN PRN Reason: Cough Last Admin: 06/16/21 09:03 Dose: 100 mg Documented by: Pantoprazole Sodium (Pantoprazole 40 Mg Tab.Cr) 40 mg PO DAILY [facility] Last Admin: 06/16/21 09:03 Dose: 40 mg Documented by: Discontinued Medications Albuterol/Ipratropium (Albuterol/Ipratropium 4 Gm Inhalation [place]) 1 gm INH Q4HRRT PRN PRN Reason: Dyspnea Last Admin: 06/03/21 09:02 Dose: 1 puff Documented by: Apixaban (Apixaban 5 Mg Tab) 10 mg PO Q12H [facility] Stop: 06/15/21 09:01 Last Admin: 06/15/21 05:44 Dose: 10 mg Documented by: Apixaban (Apixaban 5 Mg Tab) 10 mg PO 06/15/21@1800 [facility] Stop: 06/15/21 18:01 Last Admin: 06/15/21 17:23 Dose: 10 mg Documented by: Baricitinib (Baricitinib 2 Mg Tab) 4 mg PO DAILY [facility] Stop: 06/16/21 15:31 Last Admin: 06/16/21 09:03 Dose: 4 mg Documented by: Baricitinib (Baricitinib 2 Mg Tab) 4 mg PO DAILY [facility] Stop: 06/17/21 13:31 Dexamethasone (Dexamethasone 4 Mg Tab) 6 mg PO ONETIME ONE Stop: 06/02/21 05:27 Last Admin: 06/02/21 05:33 Dose: 6 mg Documented by: Dexamethasone (Dexamethasone 4 Mg Tab) 6 mg PO Q24H [facility] Last Admin: 06/13/21 06:25 Dose: Not Given Documented by: Heparin Sodium (Porcine) (Heparin Sodium 5,000 Units/Ml Vial) 5,000 units IVPUSH .BOLUS ONE; Protocol Stop: 06/02/21 05:36 Last Admin: 06/02/21 05:46 Dose: 5,000 units Documented by: Heparin Sodium (Porcine) (Heparin Sodium 5,000 Units/Ml Vial) 1,500 units IVPUSH .BOLUS ONE Stop: 06/02/21 13:10 Last Admin: 06/02/21 13:40 Dose: 1,500 units Documented by: Lactated Ringer's (Ringers, Lactated) 1,000 mls @ 999 mls/hr IV ASDIRECTED [facility] Last Admin: 06/02/21 04:43 Dose: 999 mls/hr Documented by: Remdesivir 200 mg/ Sodium (Chloride) 250 mls @ 250 mls/hr IV ONETIME ONE Stop: 06/02/21 05:26 Last Admin: 06/02/21 05:55 Dose: 250 mls/hr Documented by: Heparin Sodium/Sodium Chloride (Heparin 25,000 Units In 1/2 Ns 500 Ml) 500 mls @ 26.082 mls/hr IV TITRATE [facility]; Protocol Last Titration: 06/08/21 19:28 Dose: 0 units/kg/hr, 0 mls/hr Documented by: Heparin Sodium/Sodium Chloride (Heparin 25,000 Units In 1/2 Ns 500 Ml) Confirm Administered Dose 500 mls @ as directed .ROUTE .STK-MED ONE Stop: 06/02/21 05:46 Last Admin: 06/02/21 05:49 Dose: Not Given Documented by: Remdesivir 100 mg/ Sodium (Chloride) 100 mls @ 100 mls/hr IV Q24H [facility] Stop: 06/06/21 06:59 Last Admin: 06/06/21 08:20 Dose: 100 mls/hr Documented by: Dexmedetomidine/Sodium (Chloride 400 mcg/ Premix) 100 mls @ 5.572 mls/hr IV TITRATE TODD; Protocol Iopamidol (Iopamidol 755 Mg/Ml 500 Ml Multipack Bottle) 100 ml IVPUSH ONETIME ONE Stop: 06/02/21 03:17 Last Admin: 06/02/21 03:43 Dose: 100 ml Documented by: Lorazepam (Lorazepam 2 Mg/Ml Sdv) 1 mg IVPUSH Q6H PRN PRN Reason: Anxiety Last Admin: 06/08/21 05:18 Dose: 1 mg Documented by: Morphine Sulfate (Morphine 2 Mg/Ml Syringe) 2 mg IVPUSH Q4H PRN PRN Reason: Shortness of Breath - Exam Quality Assessment: Supplemental Oxygen General: Alert, Oriented, Cooperative, No Acute Distress HEENT: Pupils Equal, Pupils Reactive, Mucous Membr. Moist/[place] Neck: Supple, Trachea Midline Lungs: Decreased Breath Sounds. No: Crackles, Wheezing Cardiovascular: Regular Rate GI/Abdominal Exam: Normal Bowel Sounds, Soft, Non-Tender Back Exam: Normal Inspection Extremities: Normal Inspection, Normal Range of Motion, Non-Tender, No Pedal Edema Peripheral Pulses: 2+: Dorsalis Pedis (L), Dorsalis Pedis (R) Skin: Warm, Dry, Intact Neurological: No New Focal Deficit - Patient Data Lab Results Last 24 hrs: Laboratory Results - last 24 hr 06/17/21 Range/Units 06:59 WBC 11.45 H (4.0-11.0) K/uL RBC 4.54 (4.50-5.90) M/uL Hgb 14.6 (13.0-17.0) g/dL Hct 42.8 (38.0-50.0) % MCV 94.3 (80.0-98.0) fL MCH 32.2 H (27.0-32.0) pg MCHC 34.1 (31.0-37.0) g/dL RDW Std Deviation 48.0 (28.0-62.0) fl RDW Coeff of Arnulfo 14 (11.0-15.0) % Plt Count 189 (150-400) K/uL MPV 10.40 (7.40-12.00) fL Neut % (Auto) 84.1 H (48.0-80.0) % Lymph % (Auto) 7.1 L (16.0-40.0) % [place] % (Auto) 7.0 (0.0-15.0) % Eos % (Auto) 1.7 (0.0-7.0) % Baso % (Auto) 0.1 (0.0-1.5) % Neut # (Auto) 9.6 H (1.4-5.7) K/uL Lymph # (Auto) 0.8 (0.6-2.4) K/uL [place] # (Auto) 0.8 (0.0-0.8) K/uL Eos # (Auto) 0.2 (0.0-0.7) K/uL Baso # (Auto) 0.0 (0.0-0.1) K/uL Nucleated RBC % 0.0 /100WBC Nucleated RBCs # 0 K/uL Result Diagrams: 06/17/21 06:59 06/17/21 06:59 Sepsis Event Note - Evaluation Sepsis Screening Result: No Definite Risk - Focused Exam Vital Signs: Vital Signs Temp Pulse Resp BP Pulse Ox 06/17/21 04:00 97.9 F 83 18 98/71 94 L 06/17/21 00:19 97.7 F 77 20 97/52 L 94 L 06/16/21 20:00 97.6 F 82 21 H 91/52 L 93 L - Problem List Review Problem List Initiated/Reviewed/Updated: Yes - My Orders Last 24 Hours: My Active Orders 06/17/21 06:59 COMPREHENSIVE METABOLIC PN,CMP [CHEM] DAILY 06/18/21 05:11 CBC WITH AUTO DIFF [HEME] DAILY COMPREHENSIVE METABOLIC PN,CMP [CHEM] DAILY - Plan Plan:: 1. COVID-19 pneumonia -Patient completed dexamethasone, remdesivir and baricitinib. -Wean oxygen as appropriate, patient is currently on 3 L nasal cannula. -Physical therapy is following. Patient continues to participate. 2. Bilateral pulmonary emboli -Eliquis 5 mg twice daily. 3. Atrial fibrillation rate controlled -Telemetry monitoring.
[2021-06-17 08:02] LABS: BLOOD UREA NITROGEN,BUN 24 mg/dL (7.0-18.0); CARBON DIOXIDE,CO2 26.7 mmol/L (21.0-32.0); CHLORIDE,CL 105 mmol/L (98-107); GLUCOSE RANDOM 92 mg/dL (74-106); POTASSIUM,K 4.5 mmol/L (3.5-5.1); SODIUM,NA 141 mmol/L (136-148)
[2021-06-17] MEDS: Pantoprazole 40 MG Tab.CR PO SCH (09:04)
[2021-06-18] MEDS: Apixaban 5 MG Tab PO SCH ×2 (06:52→17:22)
[2021-06-18 07:20] LABS: BLOOD UREA NITROGEN,BUN 28 mg/dL (7.0-18.0); CARBON DIOXIDE,CO2 23.3 mmol/L (21.0-32.0); CHLORIDE,CL 106 mmol/L (98-107); GLUCOSE RANDOM 114 mg/dL (74-106); POTASSIUM,K 4.3 mmol/L (3.5-5.1); SODIUM,NA 140 mmol/L (136-148)
[2021-06-18] MEDS: Pantoprazole 40 MG Tab.CR PO SCH (08:52)
--- NOTE | 2021-06-18 09:23 | PCM.PN ---
- General Info Date of Service: 06/18/21 Admission Dx/Problem (Free Text): The patient is a 66-year-old male, on day 4 of service, who has a significant past medical history of atrial fibrillation which is rate controlled and untreated with medication, and skin cancer of the hands, who was admitted to the intensive care unit due to COVID-19 pneumonia and bilateral pulmonary emboli. Upon interview with the patient today he admits that his shortness of breath fluctuates and last night he was having difficulty breathing but that has subsided this morning after treatment. He does state that his cough is res olving and now is dry without sputum production. He is drinking and eating his meals to completion without any issues and has a healthy appetite. He is urinating and defecating without any problems. He is currently on heated high flow/Vapotherm, with an oxygen flow rate of 60, FiO2 of 90, and is saturating at 95%. We will continue to treat his PE with a heparin drip. He has no other health concerns at this time. Subjective Update: 66-year-old male admitted for Covid pneumonia and bilateral PEs. Patient has a history of atrial fibrillation. Patient was downgraded from ICU and is doing well on nasal cannula. Patient is currently on 3 L NC. Saturating greater than 90. Continues to have dyspnea on exertion. Patient is working with physical therapy and participating. Patient is nervous and anxious about being discharged. He states he still becomes short of breath when getting up. Patient is tolerating diet. Patient is urinating. - Review of Systems General: Denies: Fever, Chills Pulmonary: Reports: Cough Cardiovascular: Reports: Dyspnea on Exertion. Denies: Chest Pain, Palpitations Gastrointestinal: Denies: Abdominal Pain, Constipation, Nausea, Vomiting Genitourinary: Denies: Dysuria Musculoskeletal: Denies: Leg Pain Skin: Denies: Bruising, Rash Neurological: Denies: Confusion, Headache, Numbness, Paresthesia - Patient Data Vitals - Most Recent: Last Vital Signs Temp 97.7 F 06/18/21 03:37 Pulse 83 06/18/21 03:37 Resp 20 06/18/21 03:37 BP 100/64 06/18/21 03:37 Pulse Ox 92 L 06/18/21 03:37 Weight - Most Recent: 220 lb I&O - Last 24 Hours: Intake & Output 06/17/21 06/18/21 06/18/21 22:59 06:59 14:59 Intake Total 500 Output Total 525 Balance -25 Lab Results Last 24 Hours: Laboratory Results - last 24 hr 06/18/21 06/18/21 Range/Units 06:44 06:44 WBC 11.94 H (4.0-11.0) K/uL RBC 4.32 L (4.50-5.90) M/uL Hgb 13.5 (13.0-17.0) g/dL Hct 40.4 (38.0-50.0) % MCV 93.5 (80.0-98.0) fL MCH 31.3 (27.0-32.0) pg MCHC 33.4 (31.0-37.0) g/dL RDW Std Deviation 47.8 (28.0-62.0) fl RDW Coeff of Arnulfo 14 (11.0-15.0) % Plt Count 202 (150-400) K/uL MPV 9.90 (7.40-12.00) fL Neut % (Auto) 83.9 H (48.0-80.0) % Lymph % (Auto) 6.9 L (16.0-40.0) % [place] % (Auto) 7.5 (0.0-15.0) % Eos % (Auto) 1.6 (0.0-7.0) % Baso % (Auto) 0.1 (0.0-1.5) % Neut # (Auto) 10.0 H (1.4-5.7) K/uL Lymph # (Auto) 0.8 (0.6-2.4) K/uL [place] # (Auto) 0.9 H (0.0-0.8) K/uL Eos # (Auto) 0.2 (0.0-0.7) K/uL Baso # (Auto) 0.0 (0.0-0.1) K/uL Nucleated RBC % 0.0 /100WBC Nucleated RBCs # 0 K/uL Sodium 140 (136-148) mmol/L Potassium 4.3 (3.5-5.1) mmol/L Chloride 106 (98-107) mmol/L Carbon Dioxide 23.3 (21.0-32.0) mmol/L BUN 28 H (7.0-18.0) mg/dL Creatinine 0.8 (0.8-1.3) mg/dL Est Cr Clr Drug Dosing 94.13 mL/min Estimated GFR (MDRD) > 60.0 ml/min Glucose 114 H (74-106) mg/dL Calcium 8.4 L (8.5-10.1) mg/dL Total Bilirubin 0.7 (0.2-1.0) mg/dL AST 29 (15-37) IU/L ALT 49 (14-63) IU/L Alkaline Phosphatase 84 (46-116) U/L Total Protein 6.6 (6.4-8.2) g/dL Albumin 2.5 L (3.4-5.0) g/dL Globulin 4.1 H (2.6-4.0) g/dL Albumin/Globulin Ratio 0.6 L (0.9-1.6) Med Orders - Current: Current Medications Albuterol/Ipratropium (Albuterol/Ipratropium 3.0-0.5 Mg/3 Ml Neb Soln) 3 ml NEB Q2H PRN PRN Reason: Dyspnea Last Admin: 06/16/21 09:47 Dose: 3 ml Documented by: Apixaban (Apixaban 5 Mg Tab) 5 mg PO Q12H [facility] Last Admin: 06/18/21 06:52 Dose: 5 mg Documented by: Guaifenesin (Guaifenesin 100 Mg/5 Ml Soln 5 Ml Ud Cup) 100 mg PO Q6H PRN PRN Reason: Cough Last Admin: 06/16/21 09:03 Dose: 100 mg Documented by: Pantoprazole Sodium (Pantoprazole 40 Mg Tab.Cr) 40 mg PO DAILY [facility] Last Admin: 06/18/21 08:52 Dose: 40 mg Documented by: Polyethylene Glycol (Polyethylene Glycol 3350 Powder 17 Gm Packet) 17 gm PO BID PRN PRN Reason: Constipation Discontinued Medications Albuterol/Ipratropium (Albuterol/Ipratropium 4 Gm Inhalation [place]) 1 gm INH Q4HRRT PRN PRN Reason: Dyspnea Last Admin: 06/03/21 09:02 Dose: 1 puff Documented by: Apixaban (Apixaban 5 Mg Tab) 10 mg PO Q12H [facility] Stop: 06/15/21 09:01 Last Admin: 06/15/21 05:44 Dose: 10 mg Documented by: Apixaban (Apixaban 5 Mg Tab) 10 mg PO 06/15/21@1800 [facility] Stop: 06/15/21 18:01 Last Admin: 06/15/21 17:23 Dose: 10 mg Documented by: Baricitinib (Baricitinib 2 Mg Tab) 4 mg PO DAILY [facility] Stop: 06/16/21 15:31 Last Admin: 06/16/21 09:03 Dose: 4 mg Documented by: Baricitinib (Baricitinib 2 Mg Tab) 4 mg PO DAILY [facility] Stop: 06/17/21 13:31 Dexamethasone (Dexamethasone 4 Mg Tab) 6 mg PO ONETIME ONE Stop: 06/02/21 05:27 Last Admin: 06/02/21 05:33 Dose: 6 mg Documented by: Dexamethasone (Dexamethasone 4 Mg Tab) 6 mg PO Q24H [facility] Last Admin: 06/13/21 06:25 Dose: Not Given Documented by: Heparin Sodium (Porcine) (Heparin Sodium 5,000 Units/Ml Vial) 5,000 units IVPUSH .BOLUS ONE; Protocol Stop: 06/02/21 05:36 Last Admin: 06/02/21 05:46 Dose: 5,000 units Documented by: Heparin Sodium (Porcine) (Heparin Sodium 5,000 Units/Ml Vial) 1,500 units IVPUSH .BOLUS ONE Stop: 06/02/21 13:10 Last Admin: 06/02/21 13:40 Dose: 1,500 units Documented by: Lactated Ringer's (Ringers, Lactated) 1,000 mls @ 999 mls/hr IV ASDIRECTED [facility] Last Admin: 06/02/21 04:43 Dose: 999 mls/hr Documented by: Remdesivir 200 mg/ Sodium (Chloride) 250 mls @ 250 mls/hr IV ONETIME ONE Stop: 06/02/21 05:26 Last Admin: 06/02/21 05:55 Dose: 250 mls/hr Documented by: Heparin Sodium/Sodium Chloride (Heparin 25,000 Units In 1/2 Ns 500 Ml) 500 mls @ 26.082 mls/hr IV TITRATE [facility]; Protocol Last Titration: 06/08/21 19:28 Dose: 0 units/kg/hr, 0 mls/hr Documented by: Heparin Sodium/Sodium Chloride (Heparin 25,000 Units In 1/2 Ns 500 Ml) Confirm Administered Dose 500 mls @ as directed .ROUTE .STK-MED ONE Stop: 06/02/21 05:46 Last Admin: 06/02/21 05:49 Dose: Not Given Documented by: Remdesivir 100 mg/ Sodium (Chloride) 100 mls @ 100 mls/hr IV Q24H [facility] Stop: 06/06/21 06:59 Last Admin: 06/06/21 08:20 Dose: 100 mls/hr Documented by: Dexmedetomidine/Sodium (Chloride 400 mcg/ Premix) 100 mls @ 5.572 mls/hr IV TITRATE [facility]; Protocol Iopamidol (Iopamidol 755 Mg/Ml 500 Ml Multipack Bottle) 100 ml IVPUSH ONETIME ONE Stop: 06/02/21 03:17 Last Admin: 06/02/21 03:43 Dose: 100 ml Documented by: Lorazepam (Lorazepam 2 Mg/Ml Sdv) 1 mg IVPUSH Q6H PRN PRN Reason: Anxiety Last Admin: 06/08/21 05:18 Dose: 1 mg Documented by: Morphine Sulfate (Morphine 2 Mg/Ml Syringe) 2 mg IVPUSH Q4H PRN PRN Reason: Shortness of Breath - Exam Quality Assessment: Supplemental Oxygen General: Alert, Oriented, No Acute Distress HEENT: Pupils Equal, Pupils Reactive Neck: Supple, Trachea Midline Lungs: Clear to Auscultation, Normal Respiratory Effort Cardiovascular: Regular Rate GI/Abdominal Exam: Normal Bowel Sounds, Soft, Non-Tender Back Exam: Normal Inspection Extremities: Normal Inspection, Normal Range of Motion, Non-Tender, No Pedal Edema Peripheral Pulses: 2+: Dorsalis Pedis (L), Dorsalis Pedis (R) Skin: No: Rash Neurological: No New Focal Deficit - Patient Data Lab Results Last 24 hrs: Laboratory Results - last 24 hr 06/18/21 06/18/21 Range/Units 06:44 06:44 WBC 11.94 H (4.0-11.0) K/uL RBC 4.32 L (4.50-5.90) M/uL Hgb 13.5 (13.0-17.0) g/dL Hct 40.4 (38.0-50.0) % MCV 93.5 (80.0-98.0) fL MCH 31.3 (27.0-32.0) pg MCHC 33.4 (31.0-37.0) g/dL RDW Std Deviation 47.8 (28.0-62.0) fl RDW Coeff of Arnulfo 14 (11.0-15.0) % Plt Count 202 (150-400) K/uL MPV 9.90 (7.40-12.00) fL Neut % (Auto) 83.9 H (48.0-80.0) % Lymph % (Auto) 6.9 L (16.0-40.0) % [place] % (Auto) 7.5 (0.0-15.0) % Eos % (Auto) 1.6 (0.0-7.0) % Baso % (Auto) 0.1 (0.0-1.5) % Neut # (Auto) 10.0 H (1.4-5.7) K/uL Lymph # (Auto) 0.8 (0.6-2.4) K/uL [place] # (Auto) 0.9 H (0.0-0.8) K/uL Eos # (Auto) 0.2 (0.0-0.7) K/uL Baso # (Auto) 0.0 (0.0-0.1) K/uL Nucleated RBC % 0.0 /100WBC Nucleated RBCs # 0 K/uL Sodium 140 (136-148) mmol/L Potassium 4.3 (3.5-5.1) mmol/L Chloride 106 (98-107) mmol/L Carbon Dioxide 23.3 (21.0-32.0) mmol/L BUN 28 H (7.0-18.0) mg/dL Creatinine 0.8 (0.8-1.3) mg/dL Est Cr Clr Drug Dosing 94.13 mL/min Estimated GFR (MDRD) > 60.0 ml/min Glucose 114 H (74-106) mg/dL Calcium 8.4 L (8.5-10.1) mg/dL Total Bilirubin 0.7 (0.2-1.0) mg/dL AST 29 (15-37) IU/L ALT 49 (14-63) IU/L Alkaline Phosphatase 84 (46-116) U/L Total Protein 6.6 (6.4-8.2) g/dL Albumin 2.5 L (3.4-5.0) g/dL Globulin 4.1 H (2.6-4.0) g/dL Albumin/Globulin Ratio 0.6 L (0.9-1.6) Result Diagrams: 06/18/21 06:44 06/18/21 06:44 Sepsis Event Note - Evaluation Sepsis Screening Result: No Definite Risk - Focused Exam Vital Signs: Vital Signs Temp Pulse Resp BP Pulse Ox 06/18/21 03:37 97.7 F 83 20 100/64 92 L 06/17/21 23:55 97.7 F 77 20 100/58 L 91 L - Problem List Review Problem List Initiated/Reviewed/Updated: Yes - My Orders Last 24 Hours: My Active Orders 06/17/21 09:10 polyethylene glycoL 3350 [MiraLAX] 17 gm PO BID PRN - Plan Plan:: 1. COVID-19 pneumonia -Patient completed dexamethasone, remdesivir and baricitinib. -Wean oxygen as appropriate, patient is currently on 3 L nasal cannula. -Physical therapy is following. Patient continues to participate. Discussed home health with physical therapy for the patient. 2. Bilateral pulmonary emboli -Eliquis 5 mg twice daily. 3. Atrial fibrillation rate controlled -Telemetry monitoring.
[2021-06-19] MEDS: Apixaban 5 MG Tab PO SCH ×2 (05:36→17:55)
[2021-06-19] MEDS: Pantoprazole 40 MG Tab.CR PO SCH (09:12)
[2021-06-19] MEDS: Polyethylene Glycol 3350 Powder 17 GM Packet PO PRN (14:55)
[2021-06-19] MEDS ORDERED: Lactulose Soln 10 GM/15 ML 15 ML UD Cup PO PRN (16:10)
--- NOTE | 2021-06-19 16:21 | PCM.PN ---
- General Info Date of Service: 06/19/21 Subjective Update: Pt is getting up and ambulating to the bathroom. He has also been able to get up and sit on the chair. He does not feel ready to go home yet and he absolutely de clines the idea of having to go to a rehab facility for further strengthening. - Patient Data Vitals - Most Recent: Last Vital Signs Temp 98.5 F 06/19/21 12:00 Pulse 103 H 06/19/21 12:00 Resp 18 06/19/21 12:00 BP 96/59 L 06/19/21 12:00 Pulse Ox 88 L 06/19/21 12:00 Weight - Most Recent: 220 lb I&O - Last 24 Hours: Intake & Output 06/19/21 06/19/21 06/19/21 06:59 14:59 22:59 Intake Total 450 Output Total 500 Balance -50 Med Orders - Current: Current Medications Albuterol/Ipratropium (Albuterol/Ipratropium 3.0-0.5 Mg/3 Ml Neb Soln) 3 ml NEB Q2H PRN PRN Reason: Dyspnea Last Admin: 06/16/21 09:47 Dose: 3 ml Documented by: Apixaban (Apixaban 5 Mg Tab) 5 mg PO Q12H [facility] Last Admin: 06/19/21 05:36 Dose: 5 mg Documented by: Bisacodyl (Bisacodyl 10 Mg Supp) 10 mg RECTAL DAILY PRN PRN Reason: Constipation Guaifenesin (Guaifenesin 100 Mg/5 Ml Soln 5 Ml Ud Cup) 100 mg PO Q6H PRN PRN Reason: Cough Last Admin: 06/16/21 09:03 Dose: 100 mg Documented by: Lactulose (Lactulose Soln 10 Gm/15 Ml 15 Ml Ud Cup) 10 gm PO DAILY PRN PRN Reason: Constipation Pantoprazole Sodium (Pantoprazole 40 Mg Tab.Cr) 40 mg PO DAILY [facility] Last Admin: 06/19/21 09:12 Dose: 40 mg Documented by: Polyethylene Glycol (Polyethylene Glycol 3350 Powder 17 Gm Packet) 17 gm PO BID PRN PRN Reason: Constipation Last Admin: 06/19/21 14:55 Dose: 17 gm Documented by: Discontinued Medications Albuterol/Ipratropium (Albuterol/Ipratropium 4 Gm Inhalation [place]) 1 gm INH Q4HRRT PRN PRN Reason: Dyspnea Last Admin: 06/03/21 09:02 Dose: 1 puff Documented by: Apixaban (Apixaban 5 Mg Tab) 10 mg PO Q12H [facility] Stop: 06/15/21 09:01 Last Admin: 06/15/21 05:44 Dose: 10 mg Documented by: Apixaban (Apixaban 5 Mg Tab) 10 mg PO 06/15/21@1800 [facility] Stop: 06/15/21 18:01 Last Admin: 06/15/21 17:23 Dose: 10 mg Documented by: Baricitinib (Baricitinib 2 Mg Tab) 4 mg PO DAILY [facility] Stop: 06/16/21 15:31 Last Admin: 06/16/21 09:03 Dose: 4 mg Documented by: Baricitinib (Baricitinib 2 Mg Tab) 4 mg PO DAILY [facility] Stop: 06/17/21 13:31 Dexamethasone (Dexamethasone 4 Mg Tab) 6 mg PO ONETIME ONE Stop: 06/02/21 05:27 Last Admin: 06/02/21 05:33 Dose: 6 mg Documented by: Dexamethasone (Dexamethasone 4 Mg Tab) 6 mg PO Q24H [facility] Last Admin: 06/13/21 06:25 Dose: Not Given Documented by: Heparin Sodium (Porcine) (Heparin Sodium 5,000 Units/Ml Vial) 5,000 units IVPUSH .BOLUS ONE; Protocol Stop: 06/02/21 05:36 Last Admin: 06/02/21 05:46 Dose: 5,000 units Documented by: Heparin Sodium (Porcine) (Heparin Sodium 5,000 Units/Ml Vial) 1,500 units IVPUSH .BOLUS ONE Stop: 06/02/21 13:10 Last Admin: 06/02/21 13:40 Dose: 1,500 units Documented by: Lactated Ringer's (Ringers, Lactated) 1,000 mls @ 999 mls/hr IV ASDIRECTED [facility] Last Admin: 06/02/21 04:43 Dose: 999 mls/hr Documented by: Remdesivir 200 mg/ Sodium (Chloride) 250 mls @ 250 mls/hr IV ONETIME ONE Stop: 06/02/21 05:26 Last Admin: 06/02/21 05:55 Dose: 250 mls/hr Documented by: Heparin Sodium/Sodium Chloride (Heparin 25,000 Units In 1/2 Ns 500 Ml) 500 mls @ 26.082 mls/hr IV TITRATE [facility]; Protocol Last Titration: 06/08/21 19:28 Dose: 0 units/kg/hr, 0 mls/hr Documented by: Heparin Sodium/Sodium Chloride (Heparin 25,000 Units In 1/2 Ns 500 Ml) Confirm Administered Dose 500 mls @ as directed .ROUTE .STK-MED ONE Stop: 06/02/21 05:46 Last Admin: 06/02/21 05:49 Dose: Not Given Documented by: Remdesivir 100 mg/ Sodium (Chloride) 100 mls @ 100 mls/hr IV Q24H [facility] Stop: 06/06/21 06:59 Last Admin: 06/06/21 08:20 Dose: 100 mls/hr Documented by: Dexmedetomidine/Sodium (Chloride 400 mcg/ Premix) 100 mls @ 5.572 mls/hr IV TITRATE [facility]; Protocol Iopamidol (Iopamidol 755 Mg/Ml 500 Ml Multipack Bottle) 100 ml IVPUSH ONETIME ONE Stop: 06/02/21 03:17 Last Admin: 06/02/21 03:43 Dose: 100 ml Documented by: Lorazepam (Lorazepam 2 Mg/Ml Sdv) 1 mg IVPUSH Q6H PRN PRN Reason: Anxiety Last Admin: 06/08/21 05:18 Dose: 1 mg Documented by: Morphine Sulfate (Morphine 2 Mg/Ml Syringe) 2 mg IVPUSH Q4H PRN PRN Reason: Shortness of Breath - Exam Physical Findings Comments:: General: Elderly male. In no distress. CVS: S1S2 appreciated. RRR lungs: clear bilaterally, no rales or wheezes. pa: Obese, soft, non tender. Bowel sounds present ext: no clubbing, cyanosis or edema neuro: no focal deficits psych: stable mood and affect. skin: pt has a skin dressing on his right buttock chic. - Patient Data Result Diagrams: 06/18/21 06:44 06/18/21 06:44 Sepsis Event Note - Evaluation Sepsis Screening Result: No Definite Risk - Focused Exam Vital Signs: Vital Signs Temp Pulse Resp BP Pulse Ox 06/19/21 12:00 98.5 F 103 H 18 96/59 L 88 L 06/19/21 08:00 97.5 F 89 16 96/67 91 L - Problem List & Annotations (1) Acute hypoxemic respiratory failure due to COVID-19 SNOMED Code(s): 842928545 Code(s): U07.1 - COVID-19; J96.01 - ACUTE RESPIRATORY FAILURE WITH HYPOXIA Status: Acute Current Visit: Yes (2) T2DM (type 2 diabetes mellitus) SNOMED Code(s): 01118842 Code(s): E11.9 - TYPE 2 DIABETES MELLITUS WITHOUT COMPLICATIONS Status: Acute Current Visit: Yes (3) Obesity (BMI 30.0-34.9) SNOMED Code(s): 346566856259079 Code(s): E66.9 - OBESITY, UNSPECIFIED Status: Acute Current Visit: Yes (4) COVID-19 SNOMED Code(s): 562835314 Code(s): U07.1 - COVID-19 Status: Acute Current Visit: Yes (5) Pulmonary embolism SNOMED Code(s): 88298250 Code(s): I26.99 - OTHER PULMONARY EMBOLISM WITHOUT ACUTE COR PULMONALE Status: Acute Current Visit: Yes - Problem List Review Problem List Initiated/Reviewed/Updated: Yes - My Orders Last 24 Hours: 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 Afib rate controlled and on Eliquis. Obesity Lifestyle modification counseling VTE on anticoagulation Recent COVID 19 infection Pt is now out of isolation - Plan Plan:: 1. COVID-19 pneumonia -Patient completed dexamethasone, remdesivir and baricitinib. -Wean oxygen as appropriate, patient is currently on 3 L nasal cannula. -Physical therapy is following. Patient continues to participate. Discussed home health with physical therapy for the patient. 2. Bilateral pulmonary emboli -Eliquis 5 mg twice daily. 3. Atrial fibrillation rate controlled -Telemetry monitoring.
--- NOTE | 2021-06-19 17:53 | PCM.PN ---
- General Info Date of Service: 06/19/21 Subjective Update: Pt still feels weak and not ready to go home yet. - Patient Data Vitals - Most Recent: Last Vital Signs Temp 98.5 F 06/19/21 12:00 Pulse 103 H 06/19/21 12:00 Resp 18 06/19/21 12:00 BP 96/59 L 06/19/21 12:00 Pulse Ox 88 L 06/19/21 12:00 Weight - Most Recent: 220 lb I&O - Last 24 Hours: Intake & Output 06/19/21 06/19/21 06/19/21 06:59 14:59 22:59 Intake Total 450 560 Output Total 500 425 Balance -50 135 Med Orders - Current: Current Medications Albuterol/Ipratropium (Albuterol/Ipratropium 3.0-0.5 Mg/3 Ml Neb Soln) 3 ml NEB Q2H PRN PRN Reason: Dyspnea Last Admin: 06/16/21 09:47 Dose: 3 ml Documented by: Apixaban (Apixaban 5 Mg Tab) 5 mg PO Q12H [facility] Last Admin: 06/19/21 05:36 Dose: 5 mg Documented by: Bisacodyl (Bisacodyl 10 Mg Supp) 10 mg RECTAL DAILY PRN PRN Reason: Constipation Guaifenesin (Guaifenesin 100 Mg/5 Ml Soln 5 Ml Ud Cup) 100 mg PO Q6H PRN PRN Reason: Cough Last Admin: 06/16/21 09:03 Dose: 100 mg Documented by: Lactulose (Lactulose Soln 10 Gm/15 Ml 15 Ml Ud Cup) 10 gm PO DAILY PRN PRN Reason: Constipation Pantoprazole Sodium (Pantoprazole 40 Mg Tab.Cr) 40 mg PO DAILY [facility] Last Admin: 06/19/21 09:12 Dose: 40 mg Documented by: Polyethylene Glycol (Polyethylene Glycol 3350 Powder 17 Gm Packet) 17 gm PO BID PRN PRN Reason: Constipation Last Admin: 06/19/21 14:55 Dose: 17 gm Documented by: Discontinued Medications Albuterol/Ipratropium (Albuterol/Ipratropium 4 Gm Inhalation [place]) 1 gm INH Q4HRRT PRN PRN Reason: Dyspnea Last Admin: 06/03/21 09:02 Dose: 1 puff Documented by: Apixaban (Apixaban 5 Mg Tab) 10 mg PO Q12H [facility] Stop: 06/15/21 09:01 Last Admin: 06/15/21 05:44 Dose: 10 mg Documented by: Apixaban (Apixaban 5 Mg Tab) 10 mg PO 06/15/21@1800 [facility] Stop: 06/15/21 18:01 Last Admin: 06/15/21 17:23 Dose: 10 mg Documented by: Baricitinib (Baricitinib 2 Mg Tab) 4 mg PO DAILY [facility] Stop: 06/16/21 15:31 Last Admin: 06/16/21 09:03 Dose: 4 mg Documented by: Baricitinib (Baricitinib 2 Mg Tab) 4 mg PO DAILY [facility] Stop: 06/17/21 13:31 Dexamethasone (Dexamethasone 4 Mg Tab) 6 mg PO ONETIME ONE Stop: 06/02/21 05:27 Last Admin: 06/02/21 05:33 Dose: 6 mg Documented by: Dexamethasone (Dexamethasone 4 Mg Tab) 6 mg PO Q24H [facility] Last Admin: 06/13/21 06:25 Dose: Not Given Documented by: Heparin Sodium (Porcine) (Heparin Sodium 5,000 Units/Ml Vial) 5,000 units IVPUSH .BOLUS ONE; Protocol Stop: 06/02/21 05:36 Last Admin: 06/02/21 05:46 Dose: 5,000 units Documented by: Heparin Sodium (Porcine) (Heparin Sodium 5,000 Units/Ml Vial) 1,500 units IVPUSH .BOLUS ONE Stop: 06/02/21 13:10 Last Admin: 06/02/21 13:40 Dose: 1,500 units Documented by: Lactated Ringer's (Ringers, Lactated) 1,000 mls @ 999 mls/hr IV ASDIRECTED [facility] Last Admin: 06/02/21 04:43 Dose: 999 mls/hr Documented by: Remdesivir 200 mg/ Sodium (Chloride) 250 mls @ 250 mls/hr IV ONETIME ONE Stop: 06/02/21 05:26 Last Admin: 06/02/21 05:55 Dose: 250 mls/hr Documented by: Heparin Sodium/Sodium Chloride (Heparin 25,000 Units In 1/2 Ns 500 Ml) 500 mls @ 26.082 mls/hr IV TITRATE [facility]; Protocol Last Titration: 06/08/21 19:28 Dose: 0 units/kg/hr, 0 mls/hr Documented by: Heparin Sodium/Sodium Chloride (Heparin 25,000 Units In 1/2 Ns 500 Ml) Confirm Administered Dose 500 mls @ as directed .ROUTE .STK-MED ONE Stop: 06/02/21 05:46 Last Admin: 06/02/21 05:49 Dose: Not Given Documented by: Remdesivir 100 mg/ Sodium (Chloride) 100 mls @ 100 mls/hr IV Q24H [facility] Stop: 06/06/21 06:59 Last Admin: 06/06/21 08:20 Dose: 100 mls/hr Documented by: Dexmedetomidine/Sodium (Chloride 400 mcg/ Premix) 100 mls @ 5.572 mls/hr IV TITRATE [facility]; Protocol Iopamidol (Iopamidol 755 Mg/Ml 500 Ml Multipack Bottle) 100 ml IVPUSH ONETIME ONE Stop: 06/02/21 03:17 Last Admin: 06/02/21 03:43 Dose: 100 ml Documented by: Lorazepam (Lorazepam 2 Mg/Ml Sdv) 1 mg IVPUSH Q6H PRN PRN Reason: Anxiety Last Admin: 06/08/21 05:18 Dose: 1 mg Documented by: Morphine Sulfate (Morphine 2 Mg/Ml Syringe) 2 mg IVPUSH Q4H PRN PRN Reason: Shortness of Breath - Exam Physical Findings Comments:: General: Obese elderly male in no distress CVS: S1S2 appreciated. RRR lungs: clear bilaterally pa: obese, soft, non tender. Bowel sounds present ext: no clubbing, cyanosis or edema neuro: non focal . - Patient Data Result Diagrams: 06/18/21 06:44 06/18/21 06:44 Sepsis Event Note - Evaluation Sepsis Screening Result: No Definite Risk - Focused Exam Vital Signs: Vital Signs Temp Pulse Resp BP Pulse Ox 06/19/21 12:00 98.5 F 103 H 18 96/59 L 88 L 06/19/21 08:00 97.5 F 89 16 96/67 91 L - Problem List & Annotations (1) Acute hypoxemic respiratory failure due to COVID-19 SNOMED Code(s): 475949477 Code(s): U07.1 - COVID-19; J96.01 - ACUTE RESPIRATORY FAILURE WITH HYPOXIA Status: Acute Current Visit: Yes (2) T2DM (type 2 diabetes mellitus) SNOMED Code(s): 74237316 Code(s): E11.9 - TYPE 2 DIABETES MELLITUS WITHOUT COMPLICATIONS Status: Acute Current Visit: Yes (3) Obesity (BMI 30.0-34.9) SNOMED Code(s): 653107173871947 Code(s): E66.9 - OBESITY, UNSPECIFIED Status: Acute Current Visit: Yes (4) COVID-19 SNOMED Code(s): 411211041 Code(s): U07.1 - COVID-19 Status: Acute Current Visit: Yes (5) Pulmonary embolism SNOMED Code(s): 99522085 Code(s): I26.99 - OTHER PULMONARY EMBOLISM WITHOUT ACUTE COR PULMONALE Status: Acute Current Visit: Yes - My Orders Last 24 Hours: My Active Orders 06/19/21 11:42 Consult to Case Management/[place] [CONS] Routine 06/19/21 14:36 Consult to Wound Care Services [CONS] Routine 06/19/21 16:10 Lactulose [Chronulac] 10 gm PO DAILY PRN 06/19/21 19:00 bisacodyL [Dulcolax] 10 mg RECTAL DAILY PRN - Assessment Assessment:: 1. COVID-19 pneumonia -Discontinue dexamethasone today. Continue baricitinib x14 days total. -Wean oxygen as appropriate, patient is currently on heated high flow at 45 L, FiO2 50, saturating at 90%. We will attempt nasal cannula today. -Physical therapy is following. 2. Bilateral pulmonary emboli -Eliquis 10 mg twice daily. 3. Atrial fibrillation rate controlled -Telemetry monitoring. - Plan Plan:: 1. COVID-19 pneumonia -Patient completed dexamethasone, remdesivir and baricitinib. -Wean oxygen as appropriate, patient is currently on 3 L nasal cannula. -Physical therapy is following. Patient continues to participate. Discussed home health with physical therapy for the patient. 2. Bilateral pulmonary emboli -Eliquis 5 mg twice daily. 3. Atrial fibrillation rate controlled -Telemetry monitoring.
[2021-06-19] MEDS ORDERED: Bisacodyl 10 MG Supp RECTAL PRN (19:00)
[2021-06-20] MEDS: Apixaban 5 MG Tab PO SCH ×2 (05:47→17:34)
[2021-06-20] MEDS: Pantoprazole 40 MG Tab.CR PO SCH (08:03)
[2021-06-21] MEDS: Apixaban 5 MG Tab PO SCH ×2 (06:25→17:36)
[2021-06-21] MEDS: Pantoprazole 40 MG Tab.CR PO SCH (08:14)
--- NOTE | 2021-06-21 08:50 | PCM.PN ---
<Ellen Escamilla - Last Filed: 06/21/21 08:50> - General Info Date of Service: 06/21/21 Admission Dx/Problem (Free Text): The patient is a 66-year-old male, on day 4 of service, who has a s ignificant past medical history of atrial fibrillation which is rate controlled and untreated with medication, and skin cancer of the hands, who was admitted to the intensive care unit due to COVID-19 pneumonia and bilateral pulmonary emboli. Upon interview with the patient today he admits that his shortness of breath fluctuates and last night he was having difficulty breathing but that has subsided this morning after treatment. He does state that his cough is resolving and now is dry without sputum production. He is drinking and eating his meals to completion without any issues and has a healthy appetite. He is urinating and defecating without any problems. He is currently on heated high flow/Vapotherm, with an oxygen flow rate of 60, FiO2 of 90, and is saturating at 95%. We will continue to treat his PE with a heparin drip. He has no other health concerns at this time. Subjective Update: Patient stable at 2 L nasal cannula. Patient states he is now ready to go home. Home oxygen evaluation done, patient failed. After discussion with patient he agreed to stay. Denies fever, chills, chest pain, shortness of breath. Patient has desaturation with exertion. - Review of Systems General: Denies: Fever, Chills Pulmonary: Reports: Shortness of Breath. Denies: Cough Cardiovascular: Reports: Dyspnea on Exertion Gastrointestinal: Denies: Abdominal Pain, Constipation, Nausea, Vomiting Musculoskeletal: Denies: Leg Pain - Patient Data Vitals - Most Recent: Last Vital Signs Temp 97.1 F 06/21/21 08:16 Pulse 94 06/21/21 08:16 Resp 20 06/21/21 08:16 BP 101/57 L 06/21/21 08:16 Pulse Ox 92 L 06/21/21 08:16 Weight - Most Recent: 220 lb I&O - Last 24 Hours: Intake & Output 06/20/21 06/21/21 06/21/21 22:59 06:59 14:59 Intake Total 850 750 Output Total 300 Balance 850 450 Med Orders - Current: Current Medications Albuterol/Ipratropium (Albuterol/Ipratropium 3.0-0.5 Mg/3 Ml Neb Soln) 3 ml NEB Q2H PRN PRN Reason: Dyspnea Last Admin: 06/16/21 09:47 Dose: 3 ml Documented by: Apixaban (Apixaban 5 Mg Tab) 5 mg PO Q12H TODD Last Admin: 06/21/21 06:25 Dose: 5 mg Documented by: Bisacodyl (Bisacodyl 10 Mg Supp) 10 mg RECTAL DAILY PRN PRN Reason: Constipation Guaifenesin (Guaifenesin 100 Mg/5 Ml Soln 5 Ml Ud Cup) 100 mg PO Q6H PRN PRN Reason: Cough Last Admin: 06/16/21 09:03 Dose: 100 mg Documented by: Lactulose (Lactulose Soln 10 Gm/15 Ml 15 Ml Ud Cup) 10 gm PO DAILY PRN PRN Reason: Constipation Pantoprazole Sodium (Pantoprazole 40 Mg Tab.Cr) 40 mg PO DAILY [facility] Last Admin: 06/21/21 08:14 Dose: 40 mg Documented by: Polyethylene Glycol (Polyethylene Glycol 3350 Powder 17 Gm Packet) 17 gm PO BID PRN PRN Reason: Constipation Last Admin: 06/19/21 14:55 Dose: 17 gm Documented by: Discontinued Medications Albuterol/Ipratropium (Albuterol/Ipratropium 4 Gm Inhalation [place]) 1 gm INH Q4HRRT PRN PRN Reason: Dyspnea Last Admin: 06/03/21 09:02 Dose: 1 puff Documented by: Apixaban (Apixaban 5 Mg Tab) 10 mg PO Q12H [facility] Stop: 06/15/21 09:01 Last Admin: 06/15/21 05:44 Dose: 10 mg Documented by: Apixaban (Apixaban 5 Mg Tab) 10 mg PO 06/15/21@1800 [facility] Stop: 06/15/21 18:01 Last Admin: 06/15/21 17:23 Dose: 10 mg Documented by: Baricitinib (Baricitinib 2 Mg Tab) 4 mg PO DAILY [facility] Stop: 06/16/21 15:31 Last Admin: 06/16/21 09:03 Dose: 4 mg Documented by: Baricitinib (Baricitinib 2 Mg Tab) 4 mg PO DAILY [facility] Stop: 06/17/21 13:31 Dexamethasone (Dexamethasone 4 Mg Tab) 6 mg PO ONETIME ONE Stop: 06/02/21 05:27 Last Admin: 06/02/21 05:33 Dose: 6 mg Documented by: Dexamethasone (Dexamethasone 4 Mg Tab) 6 mg PO Q24H TODD Last Admin: 06/13/21 06:25 Dose: Not Given Documented by: Heparin Sodium (Porcine) (Heparin Sodium 5,000 Units/Ml Vial) 5,000 units IVPUSH .BOLUS ONE; Protocol Stop: 06/02/21 05:36 Last Admin: 06/02/21 05:46 Dose: 5,000 units Documented by: Heparin Sodium (Porcine) (Heparin Sodium 5,000 Units/Ml Vial) 1,500 units IVPUSH .BOLUS ONE Stop: 06/02/21 13:10 Last Admin: 06/02/21 13:40 Dose: 1,500 units Documented by: Lactated Ringer's (Ringers, Lactated) 1,000 mls @ 999 mls/hr IV ASDIRECTED TODD Last Admin: 06/02/21 04:43 Dose: 999 mls/hr Documented by: Remdesivir 200 mg/ Sodium (Chloride) 250 mls @ 250 mls/hr IV ONETIME ONE Stop: 06/02/21 05:26 Last Admin: 06/02/21 05:55 Dose: 250 mls/hr Documented by: Heparin Sodium/Sodium Chloride (Heparin 25,000 Units In 1/2 Ns 500 Ml) 500 mls @ 26.082 mls/hr IV TITRATE TODD; Protocol Last Titration: 06/08/21 19:28 Dose: 0 units/kg/hr, 0 mls/hr Documented by: Heparin Sodium/Sodium Chloride (Heparin 25,000 Units In 1/2 Ns 500 Ml) Confirm Administered Dose 500 mls @ as directed .ROUTE .STK-MED ONE Stop: 06/02/21 05:46 Last Admin: 06/02/21 05:49 Dose: Not Given Documented by: Remdesivir 100 mg/ Sodium (Chloride) 100 mls @ 100 mls/hr IV Q24H [facility] Stop: 06/06/21 06:59 Last Admin: 06/06/21 08:20 Dose: 100 mls/hr Documented by: Dexmedetomidine/Sodium (Chloride 400 mcg/ Premix) 100 mls @ 5.572 mls/hr IV TITRATE TODD; Protocol Iopamidol (Iopamidol 755 Mg/Ml 500 Ml Multipack Bottle) 100 ml IVPUSH ONETIME ONE Stop: 06/02/21 03:17 Last Admin: 06/02/21 03:43 Dose: 100 ml Documented by: Lorazepam (Lorazepam 2 Mg/Ml Sdv) 1 mg IVPUSH Q6H PRN PRN Reason: Anxiety Last Admin: 06/08/21 05:18 Dose: 1 mg Documented by: Morphine Sulfate (Morphine 2 Mg/Ml Syringe) 2 mg IVPUSH Q4H PRN PRN Reason: Shortness of Breath - Exam Quality Assessment: Supplemental Oxygen General: Alert, Oriented HEENT: Pupils Equal, Pupils Reactive Neck: Supple, Trachea Midline Lungs: Clear to Auscultation, Decreased Breath Sounds Cardiovascular: Regular Rate GI/Abdominal Exam: Normal Bowel Sounds, Soft, Non-Tender Back Exam: Other (Sacral pressure ulcer 1.5 cm. Dressing clean dry and intact.) Extremities: No: Normal Inspection, Leg Pain Peripheral Pulses: 2+: Dorsalis Pedis (L), Dorsalis Pedis (R) Skin: Other Wound/Incisions: Healing Well, Dressing Dry and Intact, No Drainage Neurological: No New Focal Deficit - Patient Data Result Diagrams: 06/18/21 06:44 06/18/21 06:44 Sepsis Event Note - Evaluation Sepsis Screening Result: No Definite Risk - Focused Exam Vital Signs: Vital Signs Temp Pulse Resp BP Pulse Ox 06/21/21 08:16 97.1 F 94 20 101/57 L 92 L 06/21/21 06:14 93 L 06/21/21 04:00 97.4 F 91 16 106/74 93 L 06/21/21 00:00 97.3 F 89 16 103/64 91 L - Problem List Review Problem List Initiated/Reviewed/Updated: Yes - Plan Plan:: 1. COVID-19 pneumonia: Patient failed home oxygen trial. Will reassess tomorrow. -Patient completed dexamethasone, remdesivir and baricitinib. -Wean oxygen as appropriate, patient is currently on 3 L nasal cannula. -Physical therapy is following. Patient continues to participate. Discussed home health with physical therapy for the patient. 2. Bilateral pulmonary emboli -Eliquis 5 mg twice daily. 3. Atrial fibrillation rate controlled -Telemetry monitoring. <Anish Hayes - Last Filed: 06/21/21 11:20> - Patient Data Vitals - Most Recent: Last Vital Signs Temp 97.1 F 06/21/21 08:16 Pulse 94 06/21/21 08:16 Resp 20 06/21/21 08:16 BP 101/57 L 06/21/21 08:16 Pulse Ox 92 L 06/21/21 08:16 I&O - Last 24 Hours: Intake & Output 06/20/21 06/21/21 06/21/21 22:59 06:59 14:59 Intake Total 850 750 Output Total 300 Balance 850 450 Med Orders - Current: Current Medications Albuterol/Ipratropium (Albuterol/Ipratropium 3.0-0.5 Mg/3 Ml Neb Soln) 3 ml NEB Q2H PRN PRN Reason: Dyspnea Last Admin: 06/16/21 09:47 Dose: 3 ml Documented by: Apixaban (Apixaban 5 Mg Tab) 5 mg PO Q12H TODD Last Admin: 06/21/21 06:25 Dose: 5 mg Documented by: Bisacodyl (Bisacodyl 10 Mg Supp) 10 mg RECTAL DAILY PRN PRN Reason: Constipation Guaifenesin (Guaifenesin 100 Mg/5 Ml Soln 5 Ml Ud Cup) 100 mg PO Q6H PRN PRN Reason: Cough Last Admin: 06/16/21 09:03 Dose: 100 mg Documented by: Lactulose (Lactulose Soln 10 Gm/15 Ml 15 Ml Ud Cup) 10 gm PO DAILY PRN PRN Reason: Constipation Pantoprazole Sodium (Pantoprazole 40 Mg Tab.Cr) 40 mg PO DAILY [facility] Last Admin: 06/21/21 08:14 Dose: 40 mg Documented by: Polyethylene Glycol (Polyethylene Glycol 3350 Powder 17 Gm Packet) 17 gm PO BID PRN PRN Reason: Constipation Last Admin: 06/19/21 14:55 Dose: 17 gm Documented by: Discontinued Medications Albuterol/Ipratropium (Albuterol/Ipratropium 4 Gm Inhalation [place]) 1 gm INH Q4HRRT PRN PRN Reason: Dyspnea Last Admin: 06/03/21 09:02 Dose: 1 puff Documented by: Apixaban (Apixaban 5 Mg Tab) 10 mg PO Q12H TODD Stop: 06/15/21 09:01 Last Admin: 06/15/21 05:44 Dose: 10 mg Documented by: Apixaban (Apixaban 5 Mg Tab) 10 mg PO 06/15/21@1800 [facility] Stop: 06/15/21 18:01 Last Admin: 06/15/21 17:23 Dose: 10 mg Documented by: Baricitinib (Baricitinib 2 Mg Tab) 4 mg PO DAILY [facility] Stop: 06/16/21 15:31 Last Admin: 06/16/21 09:03 Dose: 4 mg Documented by: Baricitinib (Baricitinib 2 Mg Tab) 4 mg PO DAILY [facility] Stop: 06/17/21 13:31 Dexamethasone (Dexamethasone 4 Mg Tab) 6 mg PO ONETIME ONE Stop: 06/02/21 05:27 Last Admin: 06/02/21 05:33 Dose: 6 mg Documented by: Dexamethasone (Dexamethasone 4 Mg Tab) 6 mg PO Q24H [facility] Last Admin: 06/13/21 06:25 Dose: Not Given Documented by: Heparin Sodium (Porcine) (Heparin Sodium 5,000 Units/Ml Vial) 5,000 units IVPUSH .BOLUS ONE; Protocol Stop: 06/02/21 05:36 Last Admin: 06/02/21 05:46 Dose: 5,000 units Documented by: Heparin Sodium (Porcine) (Heparin Sodium 5,000 Units/Ml Vial) 1,500 units IVPUSH .BOLUS ONE Stop: 06/02/21 13:10 Last Admin: 06/02/21 13:40 Dose: 1,500 units Documented by: Lactated Ringer's (Ringers, Lactated) 1,000 mls @ 999 mls/hr IV ASDIRECTED [facility] Last Admin: 06/02/21 04:43 Dose: 999 mls/hr Documented by: Remdesivir 200 mg/ Sodium (Chloride) 250 mls @ 250 mls/hr IV ONETIME ONE Stop: 06/02/21 05:26 Last Admin: 06/02/21 05:55 Dose: 250 mls/hr Documented by: Heparin Sodium/Sodium Chloride (Heparin 25,000 Units In 1/2 Ns 500 Ml) 500 mls @ 26.082 mls/hr IV TITRATE [facility]; Protocol Last Titration: 06/08/21 19:28 Dose: 0 units/kg/hr, 0 mls/hr Documented by: Heparin Sodium/Sodium Chloride (Heparin 25,000 Units In 1/2 Ns 500 Ml) Confirm Administered Dose 500 mls @ as directed .ROUTE .STK-MED ONE Stop: 06/02/21 05:46 Last Admin: 06/02/21 05:49 Dose: Not Given Documented by: Remdesivir 100 mg/ Sodium (Chloride) 100 mls @ 100 mls/hr IV Q24H [facility] Stop: 06/06/21 06:59 Last Admin: 06/06/21 08:20 Dose: 100 mls/hr Documented by: Dexmedetomidine/Sodium (Chloride 400 mcg/ Premix) 100 mls @ 5.572 mls/hr IV TITRATE TODD; Protocol Iopamidol (Iopamidol 755 Mg/Ml 500 Ml Multipack Bottle) 100 ml IVPUSH ONETIME ONE Stop: 06/02/21 03:17 Last Admin: 06/02/21 03:43 Dose: 100 ml Documented by: Lorazepam (Lorazepam 2 Mg/Ml Sdv) 1 mg IVPUSH Q6H PRN PRN Reason: Anxiety Last Admin: 06/08/21 05:18 Dose: 1 mg Documented by: Morphine Sulfate (Morphine 2 Mg/Ml Syringe) 2 mg IVPUSH Q4H PRN PRN Reason: Shortness of Breath - Patient Data Result Diagrams: 06/18/21 06:44 06/18/21 06:44 Sepsis Event Note - Focused Exam Vital Signs: Vital Signs Temp Pulse Resp BP Pulse Ox 06/21/21 08:16 97.1 F 94 20 101/57 L 92 L 06/21/21 06:14 93 L 06/21/21 04:00 97.4 F 91 16 106/74 93 L 06/21/21 00:00 97.3 F 89 16 103/64 91 L - Problem List & Annotations (1) Acute hypoxemic respiratory failure due to COVID-19 SNOMED Code(s): 019672709 Code(s): U07.1 - COVID-19; J96.01 - ACUTE RESPIRATORY FAILURE WITH HYPOXIA Status: Acute Current Visit: Yes (2) T2DM (type 2 diabetes mellitus) SNOMED Code(s): 28343411 Code(s): E11.9 - TYPE 2 DIABETES MELLITUS WITHOUT COMPLICATIONS Status: Acute Current Visit: Yes (3) Obesity (BMI 30.0-34.9) SNOMED Code(s): 774126465368289 Code(s): E66.9 - OBESITY, UNSPECIFIED Status: Acute Current Visit: Yes (4) COVID-19 SNOMED Code(s): 396314902 Code(s): U07.1 - COVID-19 Status: Acute Current Visit: Yes (5) Pulmonary embolism SNOMED Code(s): 92157242 Code(s): I26.99 - OTHER PULMONARY EMBOLISM WITHOUT ACUTE COR PULMONALE Status: Acute Current Visit: Yes - Plan Plan:: I agree with the above assessment and plan by Dr. Escamilla. Continue with PT/OT until pt feels comfortable enough to go home.
--- NOTE | 2021-06-21 12:09 | PCM.PN ---
<Ellen Escamilla - Last Filed: 06/21/21 12:09> - General Info Date of Service: 06/20/21 Admission Dx/Problem (Free Text): The patient is a 66-year-old male, on day 4 of service, who has a s ignificant past medical history of atrial fibrillation which is rate controlled and untreated with medication, and skin cancer of the hands, who was admitted to the intensive care unit due to COVID-19 pneumonia and bilateral pulmonary emboli. Upon interview with the patient today he admits that his shortness of breath fluctuates and last night he was having difficulty breathing but that has subsided this morning after treatment. He does state that his cough is resolving and now is dry without sputum production. He is drinking and eating his meals to completion without any issues and has a healthy appetite. He is urinating and defecating without any problems. He is currently on heated high flow/Vapotherm, with an oxygen flow rate of 60, FiO2 of 90, and is saturating at 95%. We will continue to treat his PE with a heparin drip. He has no other health concerns at this time. Subjective Update: Patient stable at 3 L nasal cannula. Continues to desaturate into the low 80s upon exertion. Denies fever, chills, chest pain, shortness of breath. - Review of Systems General: Denies: Fever, Chills Pulmonary: Reports: Shortness of Breath. Denies: Cough Cardiovascular: Reports: Dyspnea on Exertion. Denies: Chest Pain, Palpitations Gastrointestinal: Denies: Abdominal Pain, Constipation, Nausea, Vomiting Genitourinary: Denies: Dysuria Musculoskeletal: Denies: Leg Pain - Patient Data Vitals - Most Recent: Last Vital Signs Temp 97.1 F 06/21/21 11:36 Pulse 86 06/21/21 11:36 Resp 20 06/21/21 11:36 BP 95/56 L 06/21/21 11:36 Pulse Ox 91 L 06/21/21 11:36 Weight - Most Recent: 220 lb I&O - Last 24 Hours: Intake & Output 06/20/21 06/21/21 06/21/21 22:59 06:59 14:59 Intake Total 850 750 Output Total 300 Balance 850 450 Med Orders - Current: Current Medications Albuterol/Ipratropium (Albuterol/Ipratropium 3.0-0.5 Mg/3 Ml Neb Soln) 3 ml NEB Q2H PRN PRN Reason: Dyspnea Last Admin: 06/16/21 09:47 Dose: 3 ml Documented by: Apixaban (Apixaban 5 Mg Tab) 5 mg PO Q12H TODD Last Admin: 06/21/21 06:25 Dose: 5 mg Documented by: Bisacodyl (Bisacodyl 10 Mg Supp) 10 mg RECTAL DAILY PRN PRN Reason: Constipation Guaifenesin (Guaifenesin 100 Mg/5 Ml Soln 5 Ml Ud Cup) 100 mg PO Q6H PRN PRN Reason: Cough Last Admin: 06/16/21 09:03 Dose: 100 mg Documented by: Lactulose (Lactulose Soln 10 Gm/15 Ml 15 Ml Ud Cup) 10 gm PO DAILY PRN PRN Reason: Constipation Pantoprazole Sodium (Pantoprazole 40 Mg Tab.Cr) 40 mg PO DAILY [facility] Last Admin: 06/21/21 08:14 Dose: 40 mg Documented by: Polyethylene Glycol (Polyethylene Glycol 3350 Powder 17 Gm Packet) 17 gm PO BID PRN PRN Reason: Constipation Last Admin: 06/19/21 14:55 Dose: 17 gm Documented by: Discontinued Medications Albuterol/Ipratropium (Albuterol/Ipratropium 4 Gm Inhalation [place]) 1 gm INH Q4HRRT PRN PRN Reason: Dyspnea Last Admin: 06/03/21 09:02 Dose: 1 puff Documented by: Apixaban (Apixaban 5 Mg Tab) 10 mg PO Q12H [facility] Stop: 06/15/21 09:01 Last Admin: 06/15/21 05:44 Dose: 10 mg Documented by: Apixaban (Apixaban 5 Mg Tab) 10 mg PO 06/15/21@1800 [facility] Stop: 06/15/21 18:01 Last Admin: 06/15/21 17:23 Dose: 10 mg Documented by: Baricitinib (Baricitinib 2 Mg Tab) 4 mg PO DAILY [facility] Stop: 06/16/21 15:31 Last Admin: 06/16/21 09:03 Dose: 4 mg Documented by: Baricitinib (Baricitinib 2 Mg Tab) 4 mg PO DAILY [facility] Stop: 06/17/21 13:31 Dexamethasone (Dexamethasone 4 Mg Tab) 6 mg PO ONETIME ONE Stop: 06/02/21 05:27 Last Admin: 06/02/21 05:33 Dose: 6 mg Documented by: Dexamethasone (Dexamethasone 4 Mg Tab) 6 mg PO Q24H TODD Last Admin: 06/13/21 06:25 Dose: Not Given Documented by: Heparin Sodium (Porcine) (Heparin Sodium 5,000 Units/Ml Vial) 5,000 units IVPUSH .BOLUS ONE; Protocol Stop: 06/02/21 05:36 Last Admin: 06/02/21 05:46 Dose: 5,000 units Documented by: Heparin Sodium (Porcine) (Heparin Sodium 5,000 Units/Ml Vial) 1,500 units IVPUSH .BOLUS ONE Stop: 06/02/21 13:10 Last Admin: 06/02/21 13:40 Dose: 1,500 units Documented by: Lactated Ringer's (Ringers, Lactated) 1,000 mls @ 999 mls/hr IV ASDIRECTED TODD Last Admin: 06/02/21 04:43 Dose: 999 mls/hr Documented by: Remdesivir 200 mg/ Sodium (Chloride) 250 mls @ 250 mls/hr IV ONETIME ONE Stop: 06/02/21 05:26 Last Admin: 06/02/21 05:55 Dose: 250 mls/hr Documented by: Heparin Sodium/Sodium Chloride (Heparin 25,000 Units In 1/2 Ns 500 Ml) 500 mls @ 26.082 mls/hr IV TITRATE TODD; Protocol Last Titration: 06/08/21 19:28 Dose: 0 units/kg/hr, 0 mls/hr Documented by: Heparin Sodium/Sodium Chloride (Heparin 25,000 Units In 1/2 Ns 500 Ml) Confirm Administered Dose 500 mls @ as directed .ROUTE .STK-MED ONE Stop: 06/02/21 05:46 Last Admin: 06/02/21 05:49 Dose: Not Given Documented by: Remdesivir 100 mg/ Sodium (Chloride) 100 mls @ 100 mls/hr IV Q24H TODD Stop: 06/06/21 06:59 Last Admin: 06/06/21 08:20 Dose: 100 mls/hr Documented by: Dexmedetomidine/Sodium (Chloride 400 mcg/ Premix) 100 mls @ 5.572 mls/hr IV TITRATE TODD; Protocol Iopamidol (Iopamidol 755 Mg/Ml 500 Ml Multipack Bottle) 100 ml IVPUSH ONETIME ONE Stop: 06/02/21 03:17 Last Admin: 06/02/21 03:43 Dose: 100 ml Documented by: Lorazepam (Lorazepam 2 Mg/Ml Sdv) 1 mg IVPUSH Q6H PRN PRN Reason: Anxiety Last Admin: 06/08/21 05:18 Dose: 1 mg Documented by: Morphine Sulfate (Morphine 2 Mg/Ml Syringe) 2 mg IVPUSH Q4H PRN PRN Reason: Shortness of Breath - Exam Quality Assessment: Supplemental Oxygen General: Alert, Oriented, Cooperative, No Acute Distress HEENT: Pupils Equal, Pupils Reactive Neck: Supple, Trachea Midline Lungs: Clear to Auscultation, Decreased Breath Sounds Cardiovascular: Regular Rate GI/Abdominal Exam: Normal Bowel Sounds, Soft, Non-Tender Back Exam: Normal Inspection, Other (Sacral ulcer. Dressing intact. Clean dry.) Extremities: Normal Inspection, Normal Range of Motion, Non-Tender, No Pedal Edema Neurological: No New Focal Deficit - Patient Data Result Diagrams: 06/18/21 06:44 06/18/21 06:44 Sepsis Event Note - Evaluation Sepsis Screening Result: No Definite Risk - Focused Exam Vital Signs: Vital Signs Temp Pulse Resp BP Pulse Ox 06/21/21 11:36 97.1 F 86 20 95/56 L 91 L 06/21/21 08:16 97.1 F 94 20 101/57 L 92 L 06/21/21 06:14 93 L 06/21/21 04:00 97.4 F 91 16 106/74 93 L - Problem List Review Problem List Initiated/Reviewed/Updated: Yes - Plan Plan:: 1. COVID-19 pneumonia: -Patient completed dexamethasone, remdesivir and baricitinib. -Wean oxygen as appropriate, patient is currently on 3 L nasal cannula. -Physical therapy is following. Patient continues to participate. Discussed home health with physical therapy for the patient. 2. Bilateral pulmonary emboli -Eliquis 5 mg twice daily. 3. Atrial fibrillation rate controlled -Telemetry monitoring. <Anish Hayes - Last Filed: 06/21/21 14:50> - Patient Data Vitals - Most Recent: Last Vital Signs Temp 97.1 F 06/21/21 11:36 Pulse 86 06/21/21 11:36 Resp 20 06/21/21 11:36 BP 95/56 L 06/21/21 11:36 Pulse Ox 91 L 06/21/21 11:36 I&O - Last 24 Hours: Intake & Output 06/20/21 06/21/21 06/21/21 22:59 06:59 14:59 Intake Total 850 750 Output Total 300 Balance 850 450 Med Orders - Current: Current Medications Albuterol/Ipratropium (Albuterol/Ipratropium 3.0-0.5 Mg/3 Ml Neb Soln) 3 ml NEB Q2H PRN PRN Reason: Dyspnea Last Admin: 06/16/21 09:47 Dose: 3 ml Documented by: Apixaban (Apixaban 5 Mg Tab) 5 mg PO Q12H [facility] Last Admin: 06/21/21 06:25 Dose: 5 mg Documented by: Bisacodyl (Bisacodyl 10 Mg Supp) 10 mg RECTAL DAILY PRN PRN Reason: Constipation Guaifenesin (Guaifenesin 100 Mg/5 Ml Soln 5 Ml Ud Cup) 100 mg PO Q6H PRN PRN Reason: Cough Last Admin: 06/16/21 09:03 Dose: 100 mg Documented by: Lactulose (Lactulose Soln 10 Gm/15 Ml 15 Ml Ud Cup) 10 gm PO DAILY PRN PRN Reason: Constipation Pantoprazole Sodium (Pantoprazole 40 Mg Tab.Cr) 40 mg PO DAILY [facility] Last Admin: 06/21/21 08:14 Dose: 40 mg Documented by: Polyethylene Glycol (Polyethylene Glycol 3350 Powder 17 Gm Packet) 17 gm PO BID PRN PRN Reason: Constipation Last Admin: 06/21/21 14:20 Dose: 17 gm Documented by: Discontinued Medications Albuterol/Ipratropium (Albuterol/Ipratropium 4 Gm Inhalation [place]) 1 gm INH Q4HRRT PRN PRN Reason: Dyspnea Last Admin: 06/03/21 09:02 Dose: 1 puff Documented by: Apixaban (Apixaban 5 Mg Tab) 10 mg PO Q12H [facility] Stop: 06/15/21 09:01 Last Admin: 06/15/21 05:44 Dose: 10 mg Documented by: Apixaban (Apixaban 5 Mg Tab) 10 mg PO 06/15/21@1800 [facility] Stop: 06/15/21 18:01 Last Admin: 06/15/21 17:23 Dose: 10 mg Documented by: Baricitinib (Baricitinib 2 Mg Tab) 4 mg PO DAILY TODD Stop: 06/16/21 15:31 Last Admin: 06/16/21 09:03 Dose: 4 mg Documented by: Baricitinib (Baricitinib 2 Mg Tab) 4 mg PO DAILY [facility] Stop: 06/17/21 13:31 Dexamethasone (Dexamethasone 4 Mg Tab) 6 mg PO ONETIME ONE Stop: 06/02/21 05:27 Last Admin: 06/02/21 05:33 Dose: 6 mg Documented by: Dexamethasone (Dexamethasone 4 Mg Tab) 6 mg PO Q24H TODD Last Admin: 06/13/21 06:25 Dose: Not Given Documented by: Heparin Sodium (Porcine) (Heparin Sodium 5,000 Units/Ml Vial) 5,000 units IVPUSH .BOLUS ONE; Protocol Stop: 06/02/21 05:36 Last Admin: 06/02/21 05:46 Dose: 5,000 units Documented by: Heparin Sodium (Porcine) (Heparin Sodium 5,000 Units/Ml Vial) 1,500 units IVPUSH .BOLUS ONE Stop: 06/02/21 13:10 Last Admin: 06/02/21 13:40 Dose: 1,500 units Documented by: Lactated Ringer's (Ringers, Lactated) 1,000 mls @ 999 mls/hr IV ASDIRECTED TODD Last Admin: 06/02/21 04:43 Dose: 999 mls/hr Documented by: Remdesivir 200 mg/ Sodium (Chloride) 250 mls @ 250 mls/hr IV ONETIME ONE Stop: 06/02/21 05:26 Last Admin: 06/02/21 05:55 Dose: 250 mls/hr Documented by: Heparin Sodium/Sodium Chloride (Heparin 25,000 Units In 1/2 Ns 500 Ml) 500 mls @ 26.082 mls/hr IV TITRATE TODD; Protocol Last Titration: 06/08/21 19:28 Dose: 0 units/kg/hr, 0 mls/hr Documented by: Heparin Sodium/Sodium Chloride (Heparin 25,000 Units In 1/2 Ns 500 Ml) Confirm Administered Dose 500 mls @ as directed .ROUTE .STK-MED ONE Stop: 06/02/21 05:46 Last Admin: 06/02/21 05:49 Dose: Not Given Documented by: Remdesivir 100 mg/ Sodium (Chloride) 100 mls @ 100 mls/hr IV Q24H TODD Stop: 06/06/21 06:59 Last Admin: 06/06/21 08:20 Dose: 100 mls/hr Documented by: Dexmedetomidine/Sodium (Chloride 400 mcg/ Premix) 100 mls @ 5.572 mls/hr IV TITRATE TODD; Protocol Iopamidol (Iopamidol 755 Mg/Ml 500 Ml Multipack Bottle) 100 ml IVPUSH ONETIME ONE Stop: 06/02/21 03:17 Last Admin: 06/02/21 03:43 Dose: 100 ml Documented by: Lorazepam (Lorazepam 2 Mg/Ml Sdv) 1 mg IVPUSH Q6H PRN PRN Reason: Anxiety Last Admin: 06/08/21 05:18 Dose: 1 mg Documented by: Morphine Sulfate (Morphine 2 Mg/Ml Syringe) 2 mg IVPUSH Q4H PRN PRN Reason: Shortness of Breath - Patient Data Result Diagrams: 06/18/21 06:44 06/18/21 06:44 Sepsis Event Note - Focused Exam Vital Signs: Vital Signs Temp Pulse Resp BP Pulse Ox 06/21/21 11:36 97.1 F 86 20 95/56 L 91 L 06/21/21 08:16 97.1 F 94 20 101/57 L 92 L 06/21/21 06:14 93 L 06/21/21 04:00 97.4 F 91 16 106/74 93 L - Problem List & Annotations (1) Acute hypoxemic respiratory failure due to COVID-19 SNOMED Code(s): 705368089 Code(s): U07.1 - COVID-19; J96.01 - ACUTE RESPIRATORY FAILURE WITH HYPOXIA Status: Acute Current Visit: Yes (2) T2DM (type 2 diabetes mellitus) SNOMED Code(s): 79909607 Code(s): E11.9 - TYPE 2 DIABETES MELLITUS WITHOUT COMPLICATIONS Status: Acute Current Visit: Yes (3) Obesity (BMI 30.0-34.9) SNOMED Code(s): 386651972145925 Code(s): E66.9 - OBESITY, UNSPECIFIED Status: Acute Current Visit: Yes (4) COVID-19 SNOMED Code(s): 439982176 Code(s): U07.1 - COVID-19 Status: Acute Current Visit: Yes (5) Pulmonary embolism SNOMED Code(s): 18039953 Code(s): I26.99 - OTHER PULMONARY EMBOLISM WITHOUT ACUTE COR PULMONALE Status: Acute Current Visit: Yes (6) COVID-19 virus infection SNOMED Code(s): 863644965 Code(s): U07.1 - COVID-19 Status: Acute Current Visit: Yes (7) Bilateral pulmonary embolism SNOMED Code(s): 14762047 Code(s): I26.99 - OTHER PULMONARY EMBOLISM WITHOUT ACUTE COR PULMONALE Status: Acute Current Visit: Yes (8) Atrial fibrillation SNOMED Code(s): 31277535 Code(s): I48.91 - UNSPECIFIED ATRIAL FIBRILLATION Status: Acute Current Visit: Yes Qualifiers: Atrial fibrillation type: unspecified Qualified Code(s): I48.91 - Unspecified atrial fibrillation - Problem List Review Problem List Initiated/Reviewed/Updated: Yes - Plan Plan:: I agree with the above assessment and plan. 4. Full code status.
[2021-06-21] MEDS: Polyethylene Glycol 3350 Powder 17 GM Packet PO PRN (14:20)
[2021-06-22] MEDS: Apixaban 5 MG Tab PO SCH ×2 (06:14→17:45)
[2021-06-22] MEDS: Pantoprazole 40 MG Tab.CR PO SCH (08:03)
--- NOTE | 2021-06-22 17:14 | PCM.PN ---
- General Info Date of Service: 06/22/21 Admission Dx/Problem (Free Text): The patient is a 66-year-old male, on day 4 of service, who has a significant past medical history of atrial fibrillation which is rate controlled and untreated with medication, and skin cancer of the hands, who was admitted to the intensive care unit due to COVID-19 pneumonia and bilateral pulmonary emboli. Upon interview with the patient today he admits that his shortness of breath fluctuates and last night he was having difficulty breathing but that has subsided this morning after treatment. He does state that his cough is res olving and now is dry without sputum production. He is drinking and eating his meals to completion without any issues and has a healthy appetite. He is urinating and defecating without any problems. He is currently on heated high flow/Vapotherm, with an oxygen flow rate of 60, FiO2 of 90, and is saturating at 95%. We will continue to treat his PE with a heparin drip. He has no other health concerns at this time. Subjective Update: Patient stable at 3 L nasal cannula. Continues to desaturate into the low 80s upon exertion. Denies fever, chills, chest pain, shortness of breath. Functional Status: Reports: Pain Controlled, Ambulating - Review of Systems General: Reports: Weakness, Fatigue, Night Sweats Pulmonary: Reports: Shortness of Breath Cardiovascular: Reports: No Symptoms Gastrointestinal: Reports: No Symptoms Musculoskeletal: Reports: Back Pain, Leg Pain Skin: Reports: No Symptoms Neurological: Reports: No Symptoms Psychiatric: Reports: No Symptoms - Patient Data Vitals - Most Recent: Last Vital Signs Temp 97.3 F 06/22/21 15:23 Pulse 105 H 06/22/21 15:23 Resp 22 H 06/22/21 15:23 BP 128/75 06/22/21 15:23 Pulse Ox 91 L 06/22/21 15:23 Weight - Most Recent: 220 lb I&O - Last 24 Hours: Intake & Output 06/22/21 06/22/21 06/22/21 06:59 14:59 22:59 Intake Total 400 850 Balance 400 850 Med Orders - Current: Current Medications Albuterol/Ipratropium (Albuterol/Ipratropium 3.0-0.5 Mg/3 Ml Neb Soln) 3 ml NEB Q2H PRN PRN Reason: Dyspnea Last Admin: 06/16/21 09:47 Dose: 3 ml Documented by: Apixaban (Apixaban 5 Mg Tab) 5 mg PO Q12H [facility] Last Admin: 06/22/21 06:14 Dose: 5 mg Documented by: Bisacodyl (Bisacodyl 10 Mg Supp) 10 mg RECTAL DAILY PRN PRN Reason: Constipation Guaifenesin (Guaifenesin 100 Mg/5 Ml Soln 5 Ml Ud Cup) 100 mg PO Q6H PRN PRN Reason: Cough Last Admin: 06/16/21 09:03 Dose: 100 mg Documented by: Lactulose (Lactulose Soln 10 Gm/15 Ml 15 Ml Ud Cup) 10 gm PO DAILY PRN PRN Reason: Constipation Pantoprazole Sodium (Pantoprazole 40 Mg Tab.Cr) 40 mg PO DAILY [facility] Last Admin: 06/22/21 08:03 Dose: 40 mg Documented by: Polyethylene Glycol (Polyethylene Glycol 3350 Powder 17 Gm Packet) 17 gm PO BID PRN PRN Reason: Constipation Last Admin: 06/21/21 14:20 Dose: 17 gm Documented by: Discontinued Medications Albuterol/Ipratropium (Albuterol/Ipratropium 4 Gm Inhalation [place]) 1 gm INH Q4HRRT PRN PRN Reason: Dyspnea Last Admin: 06/03/21 09:02 Dose: 1 puff Documented by: Apixaban (Apixaban 5 Mg Tab) 10 mg PO Q12H [facility] Stop: 06/15/21 09:01 Last Admin: 06/15/21 05:44 Dose: 10 mg Documented by: Apixaban (Apixaban 5 Mg Tab) 10 mg PO 06/15/21@1800 [facility] Stop: 06/15/21 18:01 Last Admin: 06/15/21 17:23 Dose: 10 mg Documented by: Baricitinib (Baricitinib 2 Mg Tab) 4 mg PO DAILY [facility] Stop: 06/16/21 15:31 Last Admin: 06/16/21 09:03 Dose: 4 mg Documented by: Baricitinib (Baricitinib 2 Mg Tab) 4 mg PO DAILY [facility] Stop: 06/17/21 13:31 Dexamethasone (Dexamethasone 4 Mg Tab) 6 mg PO ONETIME ONE Stop: 06/02/21 05:27 Last Admin: 06/02/21 05:33 Dose: 6 mg Documented by: Dexamethasone (Dexamethasone 4 Mg Tab) 6 mg PO Q24H TODD Last Admin: 06/13/21 06:25 Dose: Not Given Documented by: Heparin Sodium (Porcine) (Heparin Sodium 5,000 Units/Ml Vial) 5,000 units IVPUSH .BOLUS ONE; Protocol Stop: 06/02/21 05:36 Last Admin: 06/02/21 05:46 Dose: 5,000 units Documented by: Heparin Sodium (Porcine) (Heparin Sodium 5,000 Units/Ml Vial) 1,500 units IVPUSH .BOLUS ONE Stop: 06/02/21 13:10 Last Admin: 06/02/21 13:40 Dose: 1,500 units Documented by: Lactated Ringer's (Ringers, Lactated) 1,000 mls @ 999 mls/hr IV ASDIRECTED TODD Last Admin: 06/02/21 04:43 Dose: 999 mls/hr Documented by: Remdesivir 200 mg/ Sodium (Chloride) 250 mls @ 250 mls/hr IV ONETIME ONE Stop: 06/02/21 05:26 Last Admin: 06/02/21 05:55 Dose: 250 mls/hr Documented by: Heparin Sodium/Sodium Chloride (Heparin 25,000 Units In 1/2 Ns 500 Ml) 500 mls @ 26.082 mls/hr IV TITRATE TODD; Protocol Last Titration: 06/08/21 19:28 Dose: 0 units/kg/hr, 0 mls/hr Documented by: Heparin Sodium/Sodium Chloride (Heparin 25,000 Units In 1/2 Ns 500 Ml) Confirm Administered Dose 500 mls @ as directed .ROUTE .STK-MED ONE Stop: 06/02/21 05:46 Last Admin: 06/02/21 05:49 Dose: Not Given Documented by: Remdesivir 100 mg/ Sodium (Chloride) 100 mls @ 100 mls/hr IV Q24H [facility] Stop: 06/06/21 06:59 Last Admin: 06/06/21 08:20 Dose: 100 mls/hr Documented by: Dexmedetomidine/Sodium (Chloride 400 mcg/ Premix) 100 mls @ 5.572 mls/hr IV TITRATE TODD; Protocol Iopamidol (Iopamidol 755 Mg/Ml 500 Ml Multipack Bottle) 100 ml IVPUSH ONETIME ONE Stop: 06/02/21 03:17 Last Admin: 06/02/21 03:43 Dose: 100 ml Documented by: Lorazepam (Lorazepam 2 Mg/Ml Sdv) 1 mg IVPUSH Q6H PRN PRN Reason: Anxiety Last Admin: 06/08/21 05:18 Dose: 1 mg Documented by: Morphine Sulfate (Morphine 2 Mg/Ml Syringe) 2 mg IVPUSH Q4H PRN PRN Reason: Shortness of Breath - Exam Quality Assessment: Supplemental Oxygen General: Alert, Oriented HEENT: Pupils Equal. No: Scleral Icterus Neck: Supple, Trachea Midline Lungs: Clear to Auscultation Cardiovascular: Regular Rate GI/Abdominal Exam: Normal Bowel Sounds. No: Tender Extremities: Normal Inspection Skin: Warm, Dry, Intact Neurological: No New Focal Deficit Psy/Mental Status: Alert, Normal Affect, Normal Mood - Patient Data Result Diagrams: 06/23/21 10:43 06/23/21 10:43 Sepsis Event Note - Evaluation Sepsis Screening Result: No Definite Risk - Focused Exam Vital Signs: Vital Signs Temp Pulse Resp BP Pulse Ox 06/22/21 15:23 97.3 F 105 H 22 H 128/75 91 L 06/22/21 12:00 97.3 F 71 20 110/55 L 96 06/22/21 08:00 96.8 F L 101 H 20 103/68 95 - Problem List & Annotations (1) Acute hypoxemic respiratory failure due to COVID-19 SNOMED Code(s): 572544699 Code(s): U07.1 - COVID-19; J96.01 - ACUTE RESPIRATORY FAILURE WITH HYPOXIA Status: Acute Current Visit: Yes Annotation/Comment:: Patient still has problems with desaturation when he walks any appreciable distance.. He does use his incentive spirometer. Schedule walking oximetry for Friday. (2) Atrial fibrillation SNOMED Code(s): 49392088 Code(s): I48.91 - UNSPECIFIED ATRIAL FIBRILLATION Status: Acute Priority: High Current Visit: Yes Qualifiers: Atrial fibrillation type: unspecified Qualified Code(s): I48.91 - Unspecified atrial fibrillation Annotation/Comment:: Rate is not quite controlled, but at 105. Do not want to lower blood pressure further with a negative chronotropic medication that may also be a negative inotrope. So will simply observe at this point. - Problem List Review Problem List Initiated/Reviewed/Updated: Yes - Plan Plan:: 4. Full code status.
[2021-06-23] MEDS: Apixaban 5 MG Tab PO SCH ×2 (05:36→17:44)
[2021-06-23] MEDS: Pantoprazole 40 MG Tab.CR PO SCH (08:39)
[2021-06-23] MEDS: Fluticasone/Salmeterol 250-50 MCG Inhalation Powder 14/Diskus INH SCH ×2 (10:54→20:44)
[2021-06-23 11:18] LABS: BLOOD UREA NITROGEN,BUN 18 mg/dL (7.0-18.0); CARBON DIOXIDE,CO2 26.2 mmol/L (21.0-32.0); CHLORIDE,CL 103 mmol/L (98-107); GLUCOSE RANDOM 121 mg/dL (74-106); POTASSIUM,K 4.4 mmol/L (3.5-5.1); SODIUM,NA 139 mmol/L (136-148)
--- NOTE | 2021-06-23 17:24 | PCM.PN ---
- General Info Date of Service: 06/23/21 Subjective Update: Pt states he is able to walk without assistance, Per nursing, Pts oxygen saturation dropping to low 80's with exertion. Pt denied shortness of breath, chest pain, dizziness, heart palpitations. Tolerating oral diet well. - Review of Systems General: Denies: Fever, Chills Pulmonary: Denies: Shortness of Breath, Cough Cardiovascular: Denies: Chest Pain, Edema Gastrointestinal: Denies: Abdominal Pain, Nausea Neurological: Denies: Confusion, Dizziness Psychiatric: Denies: Confusion - Patient Data Vitals - Most Recent: Last Vital Signs Temp 97.2 F 06/23/21 11:00 Pulse 98 06/23/21 11:00 Resp 18 06/23/21 11:00 BP 106/50 L 06/23/21 11:00 Pulse Ox 92 L 06/23/21 11:00 Weight - Most Recent: 220 lb I&O - Last 24 Hours: Intake & Output 06/23/21 06/23/21 06/23/21 06:59 14:59 22:59 Intake Total 650 580 Output Total 350 Balance 300 580 Lab Results Last 24 Hours: Laboratory Results - last 24 hr 06/23/21 06/23/21 Range/Units 10:43 10:43 WBC 8.67 (4.0-11.0) K/uL RBC 4.12 L (4.50-5.90) M/uL Hgb 13.1 (13.0-17.0) g/dL Hct 38.1 (38.0-50.0) % MCV 92.5 (80.0-98.0) fL MCH 31.8 (27.0-32.0) pg MCHC 34.4 (31.0-37.0) g/dL RDW Std Deviation 47.3 (28.0-62.0) fl RDW Coeff of Arnulfo 14 (11.0-15.0) % Plt Count 311 (150-400) K/uL MPV 9.60 (7.40-12.00) fL Neut % (Auto) 78.5 (48.0-80.0) % Lymph % (Auto) 9.5 L (16.0-40.0) % [place] % (Auto) 9.7 (0.0-15.0) % Eos % (Auto) 2.2 (0.0-7.0) % Baso % (Auto) 0.1 (0.0-1.5) % Neut # (Auto) 6.8 H (1.4-5.7) K/uL Lymph # (Auto) 0.8 (0.6-2.4) K/uL [place] # (Auto) 0.8 (0.0-0.8) K/uL Eos # (Auto) 0.2 (0.0-0.7) K/uL Baso # (Auto) 0.0 (0.0-0.1) K/uL Nucleated RBC % 0.0 /100WBC Nucleated RBCs # 0 K/uL Sodium 139 (136-148) mmol/L Potassium 4.4 (3.5-5.1) mmol/L Chloride 103 (98-107) mmol/L Carbon Dioxide 26.2 (21.0-32.0) mmol/L BUN 18 (7.0-18.0) mg/dL Creatinine 0.9 (0.8-1.3) mg/dL Est Cr Clr Drug Dosing 83.67 mL/min Estimated GFR (MDRD) > 60.0 ml/min Glucose 121 H (74-106) mg/dL Calcium 8.9 (8.5-10.1) mg/dL Magnesium 2.3 (1.8-2.4) mg/dL Total Bilirubin 0.5 (0.2-1.0) mg/dL AST 32 (15-37) IU/L ALT 45 (14-63) IU/L Alkaline Phosphatase 83 (46-116) U/L Total Protein 7.5 (6.4-8.2) g/dL Albumin 2.5 L (3.4-5.0) g/dL Globulin 5.0 H (2.6-4.0) g/dL Albumin/Globulin Ratio 0.5 L (0.9-1.6) Med Orders - Current: Current Medications Albuterol/Ipratropium (Albuterol/Ipratropium 3.0-0.5 Mg/3 Ml Neb Soln) 3 ml NEB Q2H PRN PRN Reason: Dyspnea Last Admin: 06/16/21 09:47 Dose: 3 ml Documented by: Apixaban (Apixaban 5 Mg Tab) 5 mg PO Q12H [facility] Last Admin: 06/23/21 05:36 Dose: 5 mg Documented by: Bisacodyl (Bisacodyl 10 Mg Supp) 10 mg RECTAL DAILY PRN PRN Reason: Constipation Guaifenesin (Guaifenesin 100 Mg/5 Ml Soln 5 Ml Ud Cup) 100 mg PO Q6H PRN PRN Reason: Cough Last Admin: 06/16/21 09:03 Dose: 100 mg Documented by: Lactulose (Lactulose Soln 10 Gm/15 Ml 15 Ml Ud Cup) 10 gm PO DAILY PRN PRN Reason: Constipation Pantoprazole Sodium (Pantoprazole 40 Mg Tab.Cr) 40 mg PO DAILY [facility] Last Admin: 06/23/21 08:39 Dose: 40 mg Documented by: Polyethylene Glycol (Polyethylene Glycol 3350 Powder 17 Gm Packet) 17 gm PO BID PRN PRN Reason: Constipation Last Admin: 06/21/21 14:20 Dose: 17 gm Documented by: Fluticasone/Salmeterol (Fluticasone/Salmeterol 250-50 Mcg Inhalation Powder 14/Diskus) 1 puff INH BID [facility] Last Admin: 06/23/21 10:54 Dose: 1 puff Documented by: Discontinued Medications Albuterol/Ipratropium (Albuterol/Ipratropium 4 Gm Inhalation [place]) 1 gm INH Q4HRRT PRN PRN Reason: Dyspnea Last Admin: 06/03/21 09:02 Dose: 1 puff Documented by: Apixaban (Apixaban 5 Mg Tab) 10 mg PO Q12H [facility] Stop: 06/15/21 09:01 Last Admin: 06/15/21 05:44 Dose: 10 mg Documented by: Apixaban (Apixaban 5 Mg Tab) 10 mg PO 06/15/21@1800 [facility] Stop: 06/15/21 18:01 Last Admin: 06/15/21 17:23 Dose: 10 mg Documented by: Baricitinib (Baricitinib 2 Mg Tab) 4 mg PO DAILY [facility] Stop: 06/16/21 15:31 Last Admin: 06/16/21 09:03 Dose: 4 mg Documented by: Baricitinib (Baricitinib 2 Mg Tab) 4 mg PO DAILY [facility] Stop: 06/17/21 13:31 Dexamethasone (Dexamethasone 4 Mg Tab) 6 mg PO ONETIME ONE Stop: 06/02/21 05:27 Last Admin: 06/02/21 05:33 Dose: 6 mg Documented by: Dexamethasone (Dexamethasone 4 Mg Tab) 6 mg PO Q24H [facility] Last Admin: 06/13/21 06:25 Dose: Not Given Documented by: Heparin Sodium (Porcine) (Heparin Sodium 5,000 Units/Ml Vial) 5,000 units IVPUSH .BOLUS ONE; Protocol Stop: 06/02/21 05:36 Last Admin: 06/02/21 05:46 Dose: 5,000 units Documented by: Heparin Sodium (Porcine) (Heparin Sodium 5,000 Units/Ml Vial) 1,500 units IVPUSH .BOLUS ONE Stop: 06/02/21 13:10 Last Admin: 06/02/21 13:40 Dose: 1,500 units Documented by: Lactated Ringer's (Ringers, Lactated) 1,000 mls @ 999 mls/hr IV ASDIRECTED [facility] Last Admin: 06/02/21 04:43 Dose: 999 mls/hr Documented by: Remdesivir 200 mg/ Sodium (Chloride) 250 mls @ 250 mls/hr IV ONETIME ONE Stop: 06/02/21 05:26 Last Admin: 06/02/21 05:55 Dose: 250 mls/hr Documented by: Heparin Sodium/Sodium Chloride (Heparin 25,000 Units In 1/2 Ns 500 Ml) 500 mls @ 26.082 mls/hr IV TITRATE [facility]; Protocol Last Titration: 06/08/21 19:28 Dose: 0 units/kg/hr, 0 mls/hr Documented by: Heparin Sodium/Sodium Chloride (Heparin 25,000 Units In 1/2 Ns 500 Ml) Confirm Administered Dose 500 mls @ as directed .ROUTE .STK-MED ONE Stop: 06/02/21 05:46 Last Admin: 06/02/21 05:49 Dose: Not Given Documented by: Remdesivir 100 mg/ Sodium (Chloride) 100 mls @ 100 mls/hr IV Q24H [facility] Stop: 06/06/21 06:59 Last Admin: 06/06/21 08:20 Dose: 100 mls/hr Documented by: Dexmedetomidine/Sodium (Chloride 400 mcg/ Premix) 100 mls @ 5.572 mls/hr IV TITRATE [facility]; Protocol Iopamidol (Iopamidol 755 Mg/Ml 500 Ml Multipack Bottle) 100 ml IVPUSH ONETIME ONE Stop: 06/02/21 03:17 Last Admin: 06/02/21 03:43 Dose: 100 ml Documented by: Lorazepam (Lorazepam 2 Mg/Ml Sdv) 1 mg IVPUSH Q6H PRN PRN Reason: Anxiety Last Admin: 06/08/21 05:18 Dose: 1 mg Documented by: Morphine Sulfate (Morphine 2 Mg/Ml Syringe) 2 mg IVPUSH Q4H PRN PRN Reason: Shortness of Breath - Exam Quality Assessment: Supplemental Oxygen General: Alert, Oriented Lungs: Clear to Auscultation, Normal Respiratory Effort Cardiovascular: Regular Rate GI/Abdominal Exam: Soft, Non-Tender Extremities: Non-Tender, No Pedal Edema Psy/Mental Status: Alert, Normal Affect - Patient Data Lab Results Last 24 hrs: Laboratory Results - last 24 hr 06/23/21 06/23/21 Range/Units 10:43 10:43 WBC 8.67 (4.0-11.0) K/uL RBC 4.12 L (4.50-5.90) M/uL Hgb 13.1 (13.0-17.0) g/dL Hct 38.1 (38.0-50.0) % MCV 92.5 (80.0-98.0) fL MCH 31.8 (27.0-32.0) pg MCHC 34.4 (31.0-37.0) g/dL RDW Std Deviation 47.3 (28.0-62.0) fl RDW Coeff of Arnulfo 14 (11.0-15.0) % Plt Count 311 (150-400) K/uL MPV 9.60 (7.40-12.00) fL Neut % (Auto) 78.5 (48.0-80.0) % Lymph % (Auto) 9.5 L (16.0-40.0) % [place] % (Auto) 9.7 (0.0-15.0) % Eos % (Auto) 2.2 (0.0-7.0) % Baso % (Auto) 0.1 (0.0-1.5) % Neut # (Auto) 6.8 H (1.4-5.7) K/uL Lymph # (Auto) 0.8 (0.6-2.4) K/uL [place] # (Auto) 0.8 (0.0-0.8) K/uL Eos # (Auto) 0.2 (0.0-0.7) K/uL Baso # (Auto) 0.0 (0.0-0.1) K/uL Nucleated RBC % 0.0 /100WBC Nucleated RBCs # 0 K/uL Sodium 139 (136-148) mmol/L Potassium 4.4 (3.5-5.1) mmol/L Chloride 103 (98-107) mmol/L Carbon Dioxide 26.2 (21.0-32.0) mmol/L BUN 18 (7.0-18.0) mg/dL Creatinine 0.9 (0.8-1.3) mg/dL Est Cr Clr Drug Dosing 83.67 mL/min Estimated GFR (MDRD) > 60.0 ml/min Glucose 121 H (74-106) mg/dL Calcium 8.9 (8.5-10.1) mg/dL Magnesium 2.3 (1.8-2.4) mg/dL Total Bilirubin 0.5 (0.2-1.0) mg/dL AST 32 (15-37) IU/L ALT 45 (14-63) IU/L Alkaline Phosphatase 83 (46-116) U/L Total Protein 7.5 (6.4-8.2) g/dL Albumin 2.5 L (3.4-5.0) g/dL Globulin 5.0 H (2.6-4.0) g/dL Albumin/Globulin Ratio 0.5 L (0.9-1.6) Result Diagrams: 06/23/21 10:43 06/23/21 10:43 Sepsis Event Note - Evaluation Sepsis Screening Result: No Definite Risk - Focused Exam Vital Signs: Vital Signs Temp Pulse Resp BP Pulse Ox 06/23/21 11:00 97.2 F 98 18 106/50 L 92 L 06/23/21 07:00 97.1 F 83 18 97/73 92 L - Problem List & Annotations (1) Acute hypoxemic respiratory failure due to COVID-19 SNOMED Code(s): 527602933 Code(s): U07.1 - COVID-19; J96.01 - ACUTE RESPIRATORY FAILURE WITH HYPOXIA Status: Acute Current Visit: Yes Annotation/Comment:: Patient still has problems with desaturation when he walks any appreciable distance.. He does use his incentive spirometer. Schedule walking oximetry for Friday. (2) Atrial fibrillation SNOMED Code(s): 20286890 Code(s): I48.91 - UNSPECIFIED ATRIAL FIBRILLATION Status: Acute Priority: High Current Visit: Yes Qualifiers: Atrial fibrillation type: unspecified Qualified Code(s): I48.91 - Unspecified atrial fibrillation Annotation/Comment:: Rate is not quite controlled, but at 105. Do not want to lower blood pressure further with a negative chronotropic medication that may also be a negative inotrope. So will simply observe at this point. (3) COVID-19 SNOMED Code(s): 887152022 Code(s): U07.1 - COVID-19 Status: Acute Current Visit: Yes (4) Obesity (BMI 30.0-34.9) SNOMED Code(s): 316844278143551 Code(s): E66.9 - OBESITY, UNSPECIFIED Status: Acute Current Visit: Yes - Problem List Review Problem List Initiated/Reviewed/Updated: Yes - Plan Plan:: COVID-19 pneumonia: Completed dexamethasone, remdesivir and baricitinib. Wean oxygen as appropriate, patient is currently on 1 L nasal cannula at rest, requiring increased oxygen with exertion Continue PT Bilateral pulmonary emboli Eliquis 5 mg BID Atrial fibrillation rate controlled Telemetry monitoring Monitor electrolytes daily Assessment and Plan discussed with Dr Umana
[2021-06-23] MEDS ORDERED: Sodium Chloride 0.9% 500 ML IV SCH (17:45)
[2021-06-24] MEDS: Apixaban 5 MG Tab PO SCH ×2 (05:49→17:49)
[2021-06-24] MEDS: Pantoprazole 40 MG Tab.CR PO SCH (08:56)
[2021-06-24] MEDS: Fluticasone/Salmeterol 250-50 MCG Inhalation Powder 14/Diskus INH SCH ×2 (08:56→21:16)
--- NOTE | 2021-06-24 12:08 | PCM.PN ---
- General Info Date of Service: 06/24/21 Admission Dx/Problem (Free Text): The patient is a 66-year-old male, on day 4 of service, who has a significant past medical history of atrial fibrillation which is rate controlled and untreated with medication, and skin cancer of the hands, who was admitted to the intensive care unit due to COVID-19 pneumonia and bilateral pulmonary emboli. Upon interview with the patient today he admits that his shortness of breath fluctuates and last night he was having difficulty breathing but that has subsided this morning after treatment. He does state that his cough is res olving and now is dry without sputum production. He is drinking and eating his meals to completion without any issues and has a healthy appetite. He is urinating and defecating without any problems. He is currently on heated high flow/Vapotherm, with an oxygen flow rate of 60, FiO2 of 90, and is saturating at 95%. We will continue to treat his PE with a heparin drip. He has no other health concerns at this time. Subjective Update: 06/24/21 doing better overall desats to 80s with activity and is able to walk 25 feet. no dizziness currently 1 liter at rest/// 6 liters with activity . p.t and o.t still working with him for balance and weakness . appetite fair. p.e. lungs decreased and occasional wheezy sounds. no crackles . cor reg/irr. 70-80s abd benign. neuro mild weakness sitting up . ox4 . no focal findings. mild tremor. no fascial features. assess:plan s/p covid pneumonia 06/03 with mult. p.e after . now on anticoagulation . hypoxia slowly improving. weakness and impairment slowly improving. . mild tremor . mild elevation of blood sugar to be followed up as o.p. ready for dc if cleared by p.t./o.t and nursing in am . cont o2 and follow up with his primary care. boh Functional Status: Reports: Pain Controlled - Review of Systems General: Reports: No Symptoms HEENT: Reports: No Symptoms Pulmonary: Reports: No Symptoms, Shortness of Breath Cardiovascular: Reports: No Symptoms, Dyspnea on Exertion Gastrointestinal: Reports: No Symptoms Genitourinary: Reports: No Symptoms Musculoskeletal: Reports: No Symptoms Skin: Reports: No Symptoms Neurological: Reports: No Symptoms Psychiatric: Reports: No Symptoms - Patient Data Vitals - Most Recent: Last Vital Signs Temp 36.4 C 06/24/21 08:00 Pulse 86 06/24/21 08:00 Resp 19 06/24/21 08:00 BP 111/68 06/24/21 08:00 Pulse Ox 96 06/24/21 08:00 Weight - Most Recent: 99.79 kg I&O - Last 24 Hours: Intake & Output 06/23/21 06/24/21 06/24/21 23:59 07:59 15:59 Intake Total 580 350 Output Total 300 Balance 580 50 Med Orders - Current: Current Medications Albuterol/Ipratropium (Albuterol/Ipratropium 3.0-0.5 Mg/3 Ml Neb Soln) 3 ml NEB Q2H PRN PRN Reason: Dyspnea Last Admin: 06/16/21 09:47 Dose: 3 ml Documented by: Apixaban (Apixaban 5 Mg Tab) 5 mg PO Q12H [facility] Last Admin: 06/24/21 05:49 Dose: 5 mg Documented by: Bisacodyl (Bisacodyl 10 Mg Supp) 10 mg RECTAL DAILY PRN PRN Reason: Constipation Guaifenesin (Guaifenesin 100 Mg/5 Ml Soln 5 Ml Ud Cup) 100 mg PO Q6H PRN PRN Reason: Cough Last Admin: 06/16/21 09:03 Dose: 100 mg Documented by: Lactulose (Lactulose Soln 10 Gm/15 Ml 15 Ml Ud Cup) 10 gm PO DAILY PRN PRN Reason: Constipation Pantoprazole Sodium (Pantoprazole 40 Mg Tab.Cr) 40 mg PO DAILY [facility] Last Admin: 06/24/21 08:56 Dose: 40 mg Documented by: Polyethylene Glycol (Polyethylene Glycol 3350 Powder 17 Gm Packet) 17 gm PO BID PRN PRN Reason: Constipation Last Admin: 06/21/21 14:20 Dose: 17 gm Documented by: Fluticasone/Salmeterol (Fluticasone/Salmeterol 250-50 Mcg Inhalation Powder 14/Diskus) 1 puff INH BID [facility] Last Admin: 06/24/21 08:56 Dose: 1 puff Documented by: Discontinued Medications Albuterol/Ipratropium (Albuterol/Ipratropium 4 Gm Inhalation [place]) 1 gm INH Q4HRRT PRN PRN Reason: Dyspnea Last Admin: 06/03/21 09:02 Dose: 1 puff Documented by: Apixaban (Apixaban 5 Mg Tab) 10 mg PO Q12H [facility] Stop: 06/15/21 09:01 Last Admin: 06/15/21 05:44 Dose: 10 mg Documented by: Apixaban (Apixaban 5 Mg Tab) 10 mg PO 06/15/21@1800 [facility] Stop: 06/15/21 18:01 Last Admin: 06/15/21 17:23 Dose: 10 mg Documented by: Baricitinib (Baricitinib 2 Mg Tab) 4 mg PO DAILY [facility] Stop: 06/16/21 15:31 Last Admin: 06/16/21 09:03 Dose: 4 mg Documented by: Baricitinib (Baricitinib 2 Mg Tab) 4 mg PO DAILY [facility] Stop: 06/17/21 13:31 Dexamethasone (Dexamethasone 4 Mg Tab) 6 mg PO ONETIME ONE Stop: 06/02/21 05:27 Last Admin: 06/02/21 05:33 Dose: 6 mg Documented by: Dexamethasone (Dexamethasone 4 Mg Tab) 6 mg PO Q24H [facility] Last Admin: 06/13/21 06:25 Dose: Not Given Documented by: Heparin Sodium (Porcine) (Heparin Sodium 5,000 Units/Ml Vial) 5,000 units IVPUSH .BOLUS ONE; Protocol Stop: 06/02/21 05:36 Last Admin: 06/02/21 05:46 Dose: 5,000 units Documented by: Heparin Sodium (Porcine) (Heparin Sodium 5,000 Units/Ml Vial) 1,500 units IVPUSH .BOLUS ONE Stop: 06/02/21 13:10 Last Admin: 06/02/21 13:40 Dose: 1,500 units Documented by: Lactated Ringer's (Ringers, Lactated) 1,000 mls @ 999 mls/hr IV ASDIRECTED [facility] Last Admin: 06/02/21 04:43 Dose: 999 mls/hr Documented by: Remdesivir 200 mg/ Sodium (Chloride) 250 mls @ 250 mls/hr IV ONETIME ONE Stop: 06/02/21 05:26 Last Admin: 06/02/21 05:55 Dose: 250 mls/hr Documented by: Heparin Sodium/Sodium Chloride (Heparin 25,000 Units In 1/2 Ns 500 Ml) 500 mls @ 26.082 mls/hr IV TITRATE [facility]; Protocol Last Titration: 06/08/21 19:28 Dose: 0 units/kg/hr, 0 mls/hr Documented by: Heparin Sodium/Sodium Chloride (Heparin 25,000 Units In 1/2 Ns 500 Ml) Confirm Administered Dose 500 mls @ as directed .ROUTE .STK-MED ONE Stop: 06/02/21 05:46 Last Admin: 06/02/21 05:49 Dose: Not Given Documented by: Remdesivir 100 mg/ Sodium (Chloride) 100 mls @ 100 mls/hr IV Q24H [facility] Stop: 06/06/21 06:59 Last Admin: 06/06/21 08:20 Dose: 100 mls/hr Documented by: Dexmedetomidine/Sodium (Chloride 400 mcg/ Premix) 100 mls @ 5.572 mls/hr IV TITRATE [facility]; Protocol Sodium Chloride (Normal Saline) 500 mls @ 999 mls/hr IV .BOLUS [facility] Last Admin: 06/23/21 17:44 Dose: 999 mls/hr Documented by: Iopamidol (Iopamidol 755 Mg/Ml 500 Ml Multipack Bottle) 100 ml IVPUSH ONETIME ONE Stop: 06/02/21 03:17 Last Admin: 06/02/21 03:43 Dose: 100 ml Documented by: Lorazepam (Lorazepam 2 Mg/Ml Sdv) 1 mg IVPUSH Q6H PRN PRN Reason: Anxiety Last Admin: 06/08/21 05:18 Dose: 1 mg Documented by: Morphine Sulfate (Morphine 2 Mg/Ml Syringe) 2 mg IVPUSH Q4H PRN PRN Reason: Shortness of Breath Comments:: doing better/ wants to go home in am . - Exam Quality Assessment: Supplemental Oxygen General: Alert, Oriented Lungs: Decreased Breath Sounds, Other (short occasional wheeze) Cardiovascular: Regular Rhythm - Patient Data Result Diagrams: 06/23/21 10:43 06/23/21 10:43 Sepsis Event Note - Evaluation Sepsis Screening Result: No Definite Risk - Focused Exam Vital Signs: Vital Signs Temp Pulse Resp BP Pulse Ox 06/24/21 08:00 36.4 C 86 19 111/68 96 06/24/21 03:55 36.1 C 84 18 93/61 94 L - Problem List & Annotations (1) Acute hypoxemic respiratory failure due to COVID-19 SNOMED Code(s): 454086975 Code(s): U07.1 - COVID-19; J96.01 - ACUTE RESPIRATORY FAILURE WITH HYPOXIA Status: Acute Priority: Low Current Visit: Yes Annotation/Comment:: Patient still has problems with desaturation when he walks any appreciable distance.. He does use his incentive spirometer. Schedule walking oximetry for Friday. (2) Atrial fibrillation SNOMED Code(s): 49083094 Code(s): I48.91 - UNSPECIFIED ATRIAL FIBRILLATION Status: Acute Priority: Medium Current Visit: Yes Onset Date: ~06/24/21 Qualifiers: Atrial fibrillation type: unspecified Qualified Code(s): I48.91 - Unspecified atrial fibrillation Annotation/Comment:: regular irreg. this am (3) Bilateral pulmonary embolism SNOMED Code(s): 34564932 Code(s): I26.99 - OTHER PULMONARY EMBOLISM WITHOUT ACUTE COR PULMONALE Status: Acute Priority: Medium Current Visit: Yes Annotation/Comment:: on anticoagulation. (4) COVID-19 SNOMED Code(s): 648093769 Code(s): U07.1 - COVID-19 Status: Acute Priority: Low Current Visit: Yes Onset Date: ~06/24/21 (5) Obesity (BMI 30.0-34.9) SNOMED Code(s): 761035444135413 Code(s): E66.9 - OBESITY, UNSPECIFIED Status: Acute Priority: Low Current Visit: Yes (6) T2DM (type 2 diabetes mellitus) SNOMED Code(s): 75464259 Code(s): E11.9 - TYPE 2 DIABETES MELLITUS WITHOUT COMPLICATIONS Status: Acute Priority: Low Current Visit: Yes Onset Date: ~06/24/21 Qualifiers: Diabetes mellitus skilled nursing insulin use: unspecified emt intermediate insulin use status - Problem List Review Problem List Initiated/Reviewed/Updated: Yes - Plan Plan:: 06/24/21 doing better overall desats to 80s with activity and is able to walk 25 feet. no dizzi ness currently 1 liter at rest/// 6 liters with activity . p.t and o.t still working with him for balance and weakness . appetite fair. p.e. lungs decreased and occasional wheezy sounds. no crackles . cor reg/irr. 70-80s abd benign. neuro mild weakness sitting up . ox4 . no focal findings. mild tremor. no fascial features. assess:plan s/p covid pneumonia 06/03 with mult. p.e after . now on anticoagulation . hypoxia slowly improving. weakness and impairment slowly improving. . mild tremor . mild elevation of blood sugar to be followed up as o.p. ready for dc if cleared by p.t./o.t and nursing in am . cont o2 and follow up with his primary care. boh
[2021-06-25] MEDS: Apixaban 5 MG Tab PO SCH (06:27)
[2021-06-25] MEDS: Fluticasone/Salmeterol 250-50 MCG Inhalation Powder 14/Diskus INH SCH (08:04)
[2021-06-25] MEDS: Pantoprazole 40 MG Tab.CR PO SCH (08:05)
--- NOTE | 2021-06-25 10:47 | PCM.DCSUM1 ---
Discharge Summary - Hospital Course Free Text/Narrative:: The patient is a 66-year-old male, on day 23 of service, who has a significant past medical history of atrial fibrillation which is rate controlled and untreated with medication, and skin cancer of the hands, who was admitted to both the intensive care unit/medical floor due to COVID-19 pneumonia and bilateral pulmonary emboli. Throughout the patient's hospitalization, for his COVID-19 pneumonia, he was on different supplies of oxygen including CPAP, Vapotherm, and is currently on room air and does not require any oxygen supplementation going home. He will be supplied with an albuterol inhaler to be taken whenever he does experience short ness of breath which he feels very seldom but it does still occur with exertion. Also during hospitalization, he finished COVID-19 protocol medications including IV remdesivir, oral dexamethasone, and oral baricitinib. He will not require any of these medications going home. He will require home health which will be set up for him by the hospital. In regards to his bilateral pulmonary emboli, the patient was treated with Eliquis 5 mg per oral route twice a day while in hospital, and will be sent home with a 2-week supply of this medication. He is to follow-up with his PCP in order to receive additional medication. While in hospital he also had constipation and was treated with lactulose and MiraLAX which alleviated his symptoms and promoted evacuation. He felt weakness earlier on in his hospitalization but currently feels strong enough to ambulate with limited assistance. The patient has been advised to return to the hospital if he has increasing respiratory difficulty, shortness of breath, chest pain, and/or palpitations. He has been educated on being compliant with his medication and taking them at scheduled times. The patient is now stable and can be discharged. - Discharge Data Discharge Date: 06/25/21 Discharge Disposition: Home, W Home Health Agency 06 Condition: Stable - Referral to Home Health Date of Face to Face Encounter: 06/21/21 Reason for Homebound Status: Extended length of stay at the hospital. Extreme deconditioning. Home oxygen. OT/PT assessment. Primary Care Physician: PCP None Skilled Need: Physical therapy. Occupational Therapy. Nursing for assessing condition and pressure ulcers. - Discharge Diagnosis/Problem(s) (1) COVID-19 SNOMED Code(s): 799086932 ICD Code: U07.1 - COVID-19 Status: Acute Priority: Low Current Visit: Yes Onset Date: ~06/24/21 (2) Pulmonary embolism SNOMED Code(s): 28744114 ICD Code: I26.99 - OTHER PULMONARY EMBOLISM WITHOUT ACUTE COR PULMONALE Status: Acute Current Visit: Yes (3) Atrial fibrillation SNOMED Code(s): 18703426 ICD Code: I48.91 - UNSPECIFIED ATRIAL FIBRILLATION Status: Acute Priority: Medium Current Visit: Yes Onset Date: ~06/24/21 Problem Details: regular irreg. this am Qualifiers: Atrial fibrillation type: unspecified Qualified Code(s): I48.91 - Unspecified atrial fibrillation - Patient Summary/Data Consults: Consultations 06/13/21 09:49 Consult to Physical Therapy [PT Evaluation and Treatment] [CONS] Routine 06/18/21 11:02 Consult to Home Health [CONS] Routine 06/19/21 11:42 Consult to Case Management/[employer] [CONS] Routine 06/19/21 14:36 Consult to Wound Care Services [CONS] Routine - Patient Instructions Diet: Regular Diet as Tolerated Activity: As Tolerated Showering/Bathing: May Shower Other/Special Instructions: If you experience worsening shortness of breath, worsening cough, chest pain, palpitations, please seek emergency medical attention. Your blood thinner prescription was renewed for 14 days. Please see your PCP regarding refill. You have been given a prescription for albuterol inhaler. Please follow instructions and use it for shortness of breath. - Discharge Plan *PRESCRIPTION DRUG MONITORING PROGRAM REVIEWED*: Not Applicable *COPY OF PRESCRIPTION DRUG MONITORING REPORT IN PATIENT [place]UR[place]: Not Applicable Prescriptions/Med Rec: Albuterol Sulfate [Albuterol Sulfate Hfa] 8.5 gm IH Q4HR PRN 30 Days #1 [email or web address] PRN Reason: Shortness Of Breath Apixaban [Eliquis] 5 mg PO Q12H 14 Days #28 tablet Dextromethorphan/guaiFENesin [Robitussin DM] 5 ml PO Q4HR PRN 30 Days #1 bottle PRN Reason: Cough Home Medications: Home Meds Albuterol Sulfate [Proair Respiclick] 2 puff .ROUTE DAILY 05/27/21 [History] Albuterol Sulfate [Albuterol Sulfate Hfa] 8.5 gm IH Q4HR PRN 30 Days #1 [email or web address] 06/21/21 [Rx] Apixaban [Eliquis] 5 mg PO Q12H 14 Days #28 tablet 06/21/21 [Rx] Dextromethorphan/guaiFENesin [Robitussin DM] 5 ml PO Q4HR PRN 30 Days #1 bottle 06/21/21 [Rx] Oxygen Therapy Mode: Room Air Oxygen Flow Rate (L/min): 2 Maintain SpO2% greater than: 91 Patient Handouts: COVID-19 Frequently Asked Questions, COVID-19 Vaccine Information, How to Protect Yourself and Others - [facility] (02/09/2021), Pulmonary Embolism Referrals: Ellen Escamilla MD [Resident] - Radha Urbina MD [Resident] - 06/25/21 2:00 pm - Discharge Summary/Plan Comment DC Time >30 min.: Yes Total # of Minutes for Discharge Time: 35 minutes - Review of Systems General: Reports: Weakness. Denies: Fatigue HEENT: Denies: Headaches, Sore Throat Pulmonary: Denies: Shortness of Breath, Cough Cardiovascular: Denies: Chest Pain, Palpitations Gastrointestinal: Denies: Abdominal Pain, Constipation Genitourinary: Denies: Dysuria - Patient Data Vitals - Most Recent: Last Vital Signs Temp 99.0 F 06/25/21 08:28 Pulse 105 H 06/25/21 08:28 Resp 22 H 06/25/21 08:28 BP 138/76 06/25/21 08:28 Pulse Ox 91 L 06/25/21 08:28 Weight - Most Recent: 220 lb I&O - Last 24 hours: Intake & Output 06/24/21 06/25/21 06/25/21 22:59 06:59 14:59 Intake Total 1720 1340 Output Total 480 1400 Balance 1240 -60 Med Orders - Current: Current Medications Albuterol/Ipratropium (Albuterol/Ipratropium 3.0-0.5 Mg/3 Ml Neb Soln) 3 ml NEB Q2H PRN PRN Reason: Dyspnea Last Admin: 06/16/21 09:47 Dose: 3 ml Documented by: Apixaban (Apixaban 5 Mg Tab) 5 mg PO Q12H TODD Last Admin: 06/25/21 06:27 Dose: 5 mg Documented by: Bisacodyl (Bisacodyl 10 Mg Supp) 10 mg RECTAL DAILY PRN PRN Reason: Constipation Guaifenesin (Guaifenesin 100 Mg/5 Ml Soln 5 Ml Ud Cup) 100 mg PO Q6H PRN PRN Reason: Cough Last Admin: 06/16/21 09:03 Dose: 100 mg Documented by: Lactulose (Lactulose Soln 10 Gm/15 Ml 15 Ml Ud Cup) 10 gm PO DAILY PRN PRN Reason: Constipation Pantoprazole Sodium (Pantoprazole 40 Mg Tab.Cr) 40 mg PO DAILY [facility] Last Admin: 06/25/21 08:05 Dose: 40 mg Documented by: Polyethylene Glycol (Polyethylene Glycol 3350 Powder 17 Gm Packet) 17 gm PO BID PRN PRN Reason: Constipation Last Admin: 06/21/21 14:20 Dose: 17 gm Documented by: Fluticasone/Salmeterol (Fluticasone/Salmeterol 250-50 Mcg Inhalation Powder 14/Diskus) 1 puff INH BID [facility] Last Admin: 06/25/21 08:04 Dose: 1 puff Documented by: Discontinued Medications Albuterol/Ipratropium (Albuterol/Ipratropium 4 Gm Inhalation [place]) 1 gm INH Q4HRRT PRN PRN Reason: Dyspnea Last Admin: 06/03/21 09:02 Dose: 1 puff Documented by: Apixaban (Apixaban 5 Mg Tab) 10 mg PO Q12H [facility] Stop: 06/15/21 09:01 Last Admin: 06/15/21 05:44 Dose: 10 mg Documented by: Apixaban (Apixaban 5 Mg Tab) 10 mg PO 06/15/21@1800 [facility] Stop: 06/15/21 18:01 Last Admin: 06/15/21 17:23 Dose: 10 mg Documented by: Baricitinib (Baricitinib 2 Mg Tab) 4 mg PO DAILY [facility] Stop: 06/16/21 15:31 Last Admin: 06/16/21 09:03 Dose: 4 mg Documented by: Baricitinib (Baricitinib 2 Mg Tab) 4 mg PO DAILY [facility] Stop: 06/17/21 13:31 Dexamethasone (Dexamethasone 4 Mg Tab) 6 mg PO ONETIME ONE Stop: 06/02/21 05:27 Last Admin: 06/02/21 05:33 Dose: 6 mg Documented by: Dexamethasone (Dexamethasone 4 Mg Tab) 6 mg PO Q24H TODD Last Admin: 06/13/21 06:25 Dose: Not Given Documented by: Heparin Sodium (Porcine) (Heparin Sodium 5,000 Units/Ml Vial) 5,000 units IVPUSH .BOLUS ONE; Protocol Stop: 06/02/21 05:36 Last Admin: 06/02/21 05:46 Dose: 5,000 units Documented by: Heparin Sodium (Porcine) (Heparin Sodium 5,000 Units/Ml Vial) 1,500 units IVPUSH .BOLUS ONE Stop: 06/02/21 13:10 Last Admin: 06/02/21 13:40 Dose: 1,500 units Documented by: Lactated Ringer's (Ringers, Lactated) 1,000 mls @ 999 mls/hr IV ASDIRECTED TODD Last Admin: 06/02/21 04:43 Dose: 999 mls/hr Documented by: Remdesivir 200 mg/ Sodium (Chloride) 250 mls @ 250 mls/hr IV ONETIME ONE Stop: 06/02/21 05:26 Last Admin: 06/02/21 05:55 Dose: 250 mls/hr Documented by: Heparin Sodium/Sodium Chloride (Heparin 25,000 Units In 1/2 Ns 500 Ml) 500 mls @ 26.082 mls/hr IV TITRATE TODD; Protocol Last Titration: 06/08/21 19:28 Dose: 0 units/kg/hr, 0 mls/hr Documented by: Heparin Sodium/Sodium Chloride (Heparin 25,000 Units In 1/2 Ns 500 Ml) Confirm Administered Dose 500 mls @ as directed .ROUTE .STK-MED ONE Stop: 06/02/21 05:46 Last Admin: 06/02/21 05:49 Dose: Not Given Documented by: Remdesivir 100 mg/ Sodium (Chloride) 100 mls @ 100 mls/hr IV Q24H TODD Stop: 06/06/21 06:59 Last Admin: 06/06/21 08:20 Dose: 100 mls/hr Documented by: Dexmedetomidine/Sodium (Chloride 400 mcg/ Premix) 100 mls @ 5.572 mls/hr IV TITRATE TODD; Protocol Sodium Chloride (Normal Saline) 500 mls @ 999 mls/hr IV .BOLUS TODD Last Admin: 06/23/21 17:44 Dose: 999 mls/hr Documented by: Iopamidol (Iopamidol 755 Mg/Ml 500 Ml Multipack Bottle) 100 ml IVPUSH ONETIME ONE Stop: 06/02/21 03:17 Last Admin: 06/02/21 03:43 Dose: 100 ml Documented by: Lorazepam (Lorazepam 2 Mg/Ml Sdv) 1 mg IVPUSH Q6H PRN PRN Reason: Anxiety Last Admin: 06/08/21 05:18 Dose: 1 mg Documented by: Morphine Sulfate (Morphine 2 Mg/Ml Syringe) 2 mg IVPUSH Q4H PRN PRN Reason: Shortness of Breath - Exam General: Reports: Alert, Oriented, Cooperative HEENT: Reports: Mucous Membr. Moist/Finger Neck: Reports: Trachea Midline Lungs: Reports: Clear to Auscultation, Normal Respiratory Effort Cardiovascular: Reports: Regular Rate, Regular Rhythm GI/Abdominal Exam: Normal Bowel Sounds, Soft, Non-Tender
== END 2021-06-25 16:35 | disposition home health service (06) | DRG 177 ==
LOC: MW.ED 02:12 → MW.ICU 05:39 → UNDOADMIN 05:39 → MW.ICU 17:28 → MW.MS 06-16 17:35
PROVIDERS: ADMIT Hospitalist; ATTEND Hospitalist
PROC: XW033E5 Introduction of Remdesivir Anti-infective into Peripheral Vein, Percutaneous Approach, New Technology Group 5 (ICD-10-PCS; principal; 2021-06-02)
PROC: 3E0DX3Z Introduction of Anti-inflammatory into Mouth and Pharynx, External Approach (ICD-10-PCS; 2021-06-02)
PROC: XW0DXM6 Introduction of Baricitinib into Mouth and Pharynx, External Approach, New Technology Group 6 (ICD-10-PCS; 2021-06-02)
PROC: 5A09557 Assistance with Respiratory Ventilation, Greater than 96 Consecutive Hours, Continuous Positive Airway Pressure (ICD-10-PCS; 2021-06-02)
PROC: 5A0955A Assistance with Respiratory Ventilation, Greater than 96 Consecutive Hours, High Flow/Velocity Cannula (ICD-10-PCS; 2021-06-02)
DX: U07.1 COVID-19 (principal); I26.99 Other pulmonary embolism without acute cor pulmonale; J96.01 Acute respiratory failure with hypoxia; J12.82 Pneumonia due to coronavirus disease 2019; E87.2 Acidosis; I48.91 Unspecified atrial fibrillation; K59.00 Constipation, unspecified; E66.9 Obesity, unspecified; Z79.899 Other long term (current) drug therapy; Z87.891 Personal history of nicotine dependence; Z85.828 Personal history of other malignant neoplasm of skin; Z68.30 Body mass index [BMI] 30.0-30.9, adult
CPT/HCPCS: 0241U; 36415; 71275; 80053; 81001; 83605; 83735; 84443; 84484; 85025; 85610; 85730; 86140; 93005; 94660; 97110; 97163; 97530; 99291; 99292; A9270-GY; J1644; J2060; J7040; J7050; J7120; J7620-GY; J8540; Q9967